=== PATIENT | female | born 1960 | race Caucasian/White ===

== ENCOUNTER → 2022-05-15 10:11 | Outpatient (BNVA) | payer MEDICAID, SELFPAY | PROVIDERS: PCP Student in an Organized Health Care Education/Training Program; Visit Provider Surgery | DX: K64.8 Other hemorrhoids (principal) | CPT/HCPCS: 46600; 99202 ==

== ENCOUNTER 2022-08-29 10:18 | Outpatient (REF) | payer MEDICAID, SELFPAY ==
--- NOTE | ~2022-08-29 | MM_ITS ---
EXAMINATION: MM DIAGNOSTIC DIGITAL BREAST TOMOSYNTHESIS, BILATERAL US DIAGNOSTIC ULTRASOUND BREAST, RIGHT CLINICAL INFORMATION: 61-year-old with pain lower inner right breast for 3-4 months with thickening noted by patient. Prior mammography 2018. TC score 8%. COMPARISON: Mammography: 06/06/2018, 03/01/2017 TECHNIQUE: Digital breast tomosynthesis is performed in both the craniocaudal and mediolateral oblique views along with computer-aided detection (CAD). Synthesized 2D images are generated from the tomosynthesis. Additional left MLO view is provided. Ultrasound right breast is targeted to the area of palpable concern lower inner quadrant. Grayscale imaging and color Doppler are performed without and with harmonics. FINDINGS: The breasts are almost entirely fatty (ACR BI-RADS breast composition Category a). Background stromal and fibroglandular densities are stable. Small circumscribed nodularity bilateral outer breasts likely insure mammary nodes are similar to prior studies. There is no interval mass or architectural abnormality or developing density. There is no skin thickening or coarsening of the Vic's ligaments. The axilla are unremarkable. There are bilateral scattered increased calcifications, many are vascular and some likely ductal secretory as well as a few isolated punctate and coarse calcifications. No focal suspicious calcifications or pleomorphic types. Ultrasound demonstrates no cystic or solid mass or architectural abnormality or focal duct ectasia. No hyperemia. No skin thickening or edema tracking in the soft tissue planes. Results are discussed with the patient at time of visit. MM/MM tomosynthesis diagnostic BI IMPRESSION: -No mammographic evidence of malignancy or inflammatory changes. -Unremarkable targeted right breast ultrasound. ASSESSMENT: BI-RADS 2: Benign RECOMMENDATION: 1. Patient's pain should be managed based on the clinical impression. If there is still clinically palpable concern, surgical consult may be considered for further evaluation. 2. Otherwise, routine annual screening mammography. This patient's information was entered into a reminder system with a target due date for their next mammogram.
== END 2022-08-29 10:19 | disposition home or self-care (01) ==
LOC: HO.MAMMO 10:18
PROVIDERS: PCP Student in an Organized Health Care Education/Training Program; Visit Provider Student in an Organized Health Care Education/Training Program
DX: N64.4 Mastodynia (principal)
CPT/HCPCS: 76642; 77062; 77066

== ENCOUNTER 2023-05-29 13:00 | Outpatient (REF) | payer MEDICAID, SELFPAY ==
--- NOTE | ~2023-05-29 | XR_ITS ---
EXAMINATION: XR CERVICAL SPINE, RIGHT SHOULDER CLINICAL INFORMATION: Neck pain with right spasms, limited rotation. Chronic right shoulder pain with limited motion. No injury. Patient states pain for 5 days. COMPARISON: None TECHNIQUE: 3 views of the cervical spine. 5 views of the right shoulder.. FINDINGS: CERVICAL SPINE: Minimal anterolisthesis of C5 on C6 with hypertrophic change. Straightening of the normal cervical lordosis. Cervical disc space heights are preserved. Spondylosis with hypertrophic change in the mid to lower cervical spine. RIGHT SHOULDER: Glenohumeral alignment preserved. Moderate degenerative changes with hypertrophic change in the acromioclavicular joint. Faint soft tissue calcifications adjacent to the superolateral aspect of the humeral head. XR/XR shoulder RT min 2V IMPRESSION: 1. Minimal anterolisthesis of C5 on C6 with hypertrophic change. 2. Moderate degenerative changes in the right acromioclavicular joint. Faint soft tissue calcifications adjacent to the superolateral aspect of the right humeral head.
--- NOTE | ~2023-05-29 | XR_ITS ---
EXAMINATION: XR CERVICAL SPINE, RIGHT SHOULDER CLINICAL INFORMATION: Neck pain with right spasms, limited rotation. Chronic right shoulder pain with limited motion. No injury. Patient states pain for 5 days. COMPARISON: None TECHNIQUE: 3 views of the cervical spine. 5 views of the right shoulder.. FINDINGS: CERVICAL SPINE: Minimal anterolisthesis of C5 on C6 with hypertrophic change. Straightening of the normal cervical lordosis. Cervical disc space heights are preserved. Spondylosis with hypertrophic change in the mid to lower cervical spine. RIGHT SHOULDER: Glenohumeral alignment preserved. Moderate degenerative changes with hypertrophic change in the acromioclavicular joint. Faint soft tissue calcifications adjacent to the superolateral aspect of the humeral head. XR/XR cervical spine 3V IMPRESSION: 1. Minimal anterolisthesis of C5 on C6 with hypertrophic change. 2. Moderate degenerative changes in the right acromioclavicular joint. Faint soft tissue calcifications adjacent to the superolateral aspect of the right humeral head.
== END 2023-05-29 13:01 | disposition home or self-care (01) ==
LOC: HO.HHCX 13:00
PROVIDERS: Visit Provider Family Medicine
DX: M54.2 Cervicalgia (principal); M25.511 Pain in right shoulder
CPT/HCPCS: 72040; 73030

== ENCOUNTER 2023-06-16 10:36 | Outpatient (REF) | payer MEDICAID, SELFPAY ==
[2023-06-16 14:55] LABS: Alanine Aminotransferase 34 U/L (0-31); Albumin Level 4.2 g/dL (3.5-5.0); Alkaline Phosphatase 77 U/L (39-117); Anion Gap 14 (12-20); Aspartate Amino Transferase 27 U/L (5-31); Bilirubin Direct 0.2 mg/dL (0.0-0.5); Bilirubin Total 0.5 mg/dL (0.0-1.0); Blood Urea Nitrogen 21 mg/dL (9-16); Calcium 9.5 mg/dL (8.4-10.2); Carbon Dioxide 28 mmol/L (22-29); Chloride 102 mmol/L (96-108); Cholesterol 120 mg/dL (<200); Estimated Glomerular Filt Rate > 60; Glucose Fasting 187 mg/dL (60-99); HDL Cholesterol 38 mg/dL (>40); LDL Cholesterol Calculated 58 mg/dL (<100); Potassium 4.1 mmol/L (3.3-5.1); Sodium 140 mmol/L (135-145); Total Protein 7.9 g/dL (6.5-8.0); Triglycerides 122 mg/dL (<150)
[2023-06-16 15:15] LABS: Microalbumin Urine < 5.0 mg/L
== END 2023-06-16 10:37 | disposition home or self-care (01) ==
LOC: HO.CHCLDS 10:36
PROVIDERS: Visit Provider Student in an Organized Health Care Education/Training Program
DX: E11.9 Type 2 diabetes mellitus without complications (principal); I10 Essential (primary) hypertension
CPT/HCPCS: 36415; 80048; 80061; 80076; 82043; 82570

== ENCOUNTER 2023-07-01 19:17 | Outpatient (REF) | payer MEDICAID, SELFPAY ==
[2023-07-03 23:43] LABS: HPV mRNA E6/E7 rflx Not Detected (Not Detected)
== END 2023-07-01 19:18 | disposition home or self-care (01) ==
LOC: HO.CHCLNP 19:17
PROVIDERS: Visit Provider Advanced Practice Midwife
DX: Z01.419 Encounter for gynecological examination (general) (routine) without abnormal findings (principal)
CPT/HCPCS: 87624; 88142

== ENCOUNTER 2023-09-03 09:36 | Outpatient (AMB) | payer MEDICAID, SELFPAY ==
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
[2023-09-03 09:42] VITALS: BMI 38.2
== END 2023-09-03 10:12 | disposition home or self-care (01) ==
PROVIDERS: PCP Student in an Organized Health Care Education/Training Program; Visit Provider Physician Assistant
DX: S46.001A Unspecified injury of muscle(s) and tendon(s) of the rotator cuff of right shoulder, initial encounter (principal)
CPT/HCPCS: 99203

== ENCOUNTER → 2023-09-03 09:36 | Outpatient (BNVA) | payer MEDICAID, SELFPAY | PROVIDERS: PCP Student in an Organized Health Care Education/Training Program; Visit Provider Physician Assistant | DX: S46.001A Unspecified injury of muscle(s) and tendon(s) of the rotator cuff of right shoulder, initial encounter (principal) | CPT/HCPCS: 99212 ==

== ENCOUNTER 2023-09-03 10:13 | Emergency (ER) | payer MEDICAID, SELFPAY ==
--- NOTE | ~2023-09-03 | XR_ITS ---
EXAMINATION: XR CHEST CLINICAL INFORMATION: Cough COMPARISON: None available. TECHNIQUE: 2 views of the chest were obtained. FINDINGS: The cardiac silhouette does not appear enlarged. There is question of central bronchial wall thickening. There may be subsegmental atelectasis in the right upper lung no evidence of pneumonia. No pleural effusion or pneumothorax. Degenerative changes of the spine XR/XR chest 2V IMPRESSION: Question central bronchial wall thickening and subsegmental atelectasis in the right upper lung. No evidence of pneumonia.
[2023-09-03 11:13] VITALS: BP 136/66; PULSE 72; RESP 17; TEMP 36.6; O2SAT 98; BMI 38.2
--- NOTE | 2023-09-03 12:16 | ED.GENADULT ---
HPI - General Adult General Chief complaint: Upper Respiratory Symptoms Stated complaint: Cough Time Seen by Provider: 09/03/23 12:16 Source: patient Mode of arrival: ambulatory Limitations: no limitations History of Present Illness HPI narrative: Patient is a 62 year old assigned female at with a history of HTN and DM presenting to the emergency department today with cough and congestion. Patient states that over the last 3 days she has had a cough and congestion. Patient denies any dizziness, lightheadedness, abdominal pain, nausea, vomiting, fever, chills, blurry vision, double vision, loss of vision, chest pain, difficulty breathing, shortness of breath, back pain, night sweats, pain with urination, increased urinary frequency, increased urinary urgency, blood in her urine or stool, syncope or a near syncopal episode, recent trauma or falls, bowel incontinence, bladder incontinence, bowel retention, bladder retention, or any other complaints at this time. Onset (ago): day(s) (3) Severity: mild Severity scale (1-10): 3 Relieving factors: none Exacerbating factors: none Associated symptoms: cough Treatments prior to arrival: none Related Data Home Medications Medication Instructions Recorded Confirmed albuterol sulfate 90 mcg/actuation 2 puff inhalation QID 05/15/22 09/03/23 aerosol inhaler (ProAir HFA) atorvastatin 40 mg tablet 40 mg PO DAILY 05/15/22 09/03/23 blood sugar diagnostic (FreeStyle #10 ea 05/15/22 09/03/23 Lite Strips) chlorhexidine gluconate 0.12 % ml PO DAILY 05/15/22 09/03/23 mouthwash cyclobenzaprine 10 mg tablet 10 mg PO DAILY 05/15/22 09/03/23 docusate sodium 100 mg capsule 100 mg PO BID 05/15/22 09/03/23 empagliflozin 25 mg tablet 25 mg PO QAM 05/15/22 09/03/23 (Jardiance) glimepiride 4 mg tablet 4 mg PO BID 05/15/22 09/03/23 glipizide 10 mg tablet 20 mg PO BID 05/15/22 09/03/23 hydrochlorothiazide 25 mg tablet 25 mg PO DAILY 05/15/22 09/03/23 ibuprofen 800 mg tablet 800 mg PO TID PRN pain 05/15/22 09/03/23 linaclotide 290 mcg capsule 290 mcg PO DAILY 05/15/22 09/03/23 (Linzess) metformin 1,000 mg tablet 1,000 mg PO 05/15/22 09/03/23 montelukast 10 mg tablet 10 mg PO DAILY 05/15/22 09/03/23 omeprazole 40 mg capsule,delayed 40 mg PO BID 05/15/22 09/03/23 release ondansetron HCl 4 mg tablet 4 mg PO Q8H PRN 05/15/22 09/03/23 peg 3350-electrolytes 236 ml PO 05/15/22 05/15/22 gram-22.74 gram-6.74 gram-5.86 gram solution (GaviLyte-G) polyethylene glycol 3350 17 gram 17 g PO TID 05/15/22 05/15/22 oral powder packet simethicone 180 mg capsule (Gas 180 - 360 mg PO DAILY PRN 05/15/22 09/03/23 Relief (simethicone)) sitagliptin phosphate 100 mg 100 mg PO DAILY 05/15/22 09/03/23 tablet (Januvia) sumatriptan succinate 50 mg tablet 0 mg PO 05/15/22 09/03/23 Previous Rx's Medication Instructions Recorded psyllium seed (sugar) oral powder 1 tbsp PO BID #1,254 grams 05/15/22 (Metamucil (sugar) oral powder) celecoxib 200 mg capsule (Celebrex) 200 mg PO BID 30 days #60 caps 09/03/23 Allergies Allergy/AdvReac Type Severity Reaction Status Date / Time penicillin Allergy Mild Anaphylaxis Uncoded 09/03/23 11:12 Review of Systems Constitutional: Constitutional: Reports no additional constitutional complaints, Denies chills, Denies fever(s) and Denies night sweats Eyes: Eyes: Reports no additional eye complaints, Denies blurry vision, Denies change in vision, Denies diplopia, Denies eye discharge, Denies loss of vision and Denies eye pain ENT: Denies dizziness and Reports nasal congestion Cardiovascular: Cardiovascular: Reports no additional cardiovascular complaints, Denies chest pain, Denies lightheadedness, Denies Loss of Consciousness and Denies dyspnea Respiratory: Respiratory: Reports no additional respiratory complaints, Reports cough and Denies dyspnea Gastrointestinal: Gastrointestinal: Reports no additional gastrointestinal complaints, Denies abdominal pain, Denies melena, Denies hematochezia, Denies change in bowel habits and Denies change in stool character Genitourinary: Genitourinary: Denies hematuria, Denies urinary frequency, Denies dysuria, Denies urinary incontinence, Denies urinary hesitancy and Denies urinary urgency Musculoskeletal: Musculoskeletal: Reports no additional musculoskeletal complaints, Denies numbness and Denies tingling Neurologic: Denies dizziness, Denies loss of vision, Denies numbness and Denies tingling Psychiatric: Psychiatric: Reports no additional psychiatric complaints Endocrine: Endocrine: Reports no additional endocrine complaints Hematologic/Lymphatic: Hematologic/Lymphatic: Reports no additional hematologic/lymphatic complaints Allergic/Immunologic: Allergic/Immunologic: Reports no additional allergic/immunologic complaints [facility] Past Medical History Attestation statement: The following information was validated with the patient. Source: old records reviewed and nursing notes reviewed Medical History Hemorrhoids with complication Hypertension Diabetes mellitus Surgical History History of appendectomy History of hysterectomy Family History Family History Mother No problems noted. Father No problems noted. Sister No problems noted. Social History Social History Alcohol intake: never Patient Tobacco Use Status: Former Tobacco user Quit Date: AGE 15 Advance Directives: No Advance Directives Information Provided: No Current occupation: right hand dominant Physical Exam ED Vital Signs: Vital Signs - 24 hr 09/03/23 11:13 Temperature 98 F Pulse Rate 72 Respiratory Rate 17 Blood Pressure 136/66 Pulse Oximetry 98 Oxygen Delivery Method Room Air BMI result Body Mass Index 38.2 Const General: cooperative, no acute distress, alert and awake Nutritional Appearance: well nourished Orientation/consciousness: patient oriented x3 Limitations: no limitations HENMT Head: Yes normal to inspection and Yes atraumatic Ears: hearing grossly normal bilaterally and external ears normal General nose exam: Normal external nose present, no nasal discharge noted and no epistaxis Face and sinus: Yes normal facial exam, No abrasion and No laceration Mouth: Normal oral and palatal mucosa present, no drooling and no muffled voice Eyes General: appearance normal, both eyes and all related structures Periorbital: periorbital findings normal Eyelids: Yes eyelids normal Conjunctivae: conjunctivae normal Pupils: Equal, round and reactive pupils present EOM: EOMs intact bilaterally Neck Neck: Yes normal visual inspection, Yes full ROM and Yes no lymphadenopathy Chest Chest palpation & inspection: normal inspection of the chest Resp Effort & Inspection: normal respiratory effort and able to speak in complete sentences GI Inspection: Yes normal to inspection Neuro General: patient oriented x3 and moves all extremities Cranial nerves: Yes Equal, round and reactive pupils present Cognition (Neuro): normal cognition Motor exam (neuro): 5/5 motor strength present throughout Sensory Exam: Normal double simultaneous stimulation for sensation Coordination: [id number] test normal Extrem General: Yes normal to inspection, Yes full ROM and Yes capillary refill normal Psych Appearance: grossly normal Mental Status: mental status grossly normal Affect: normal affect Attitude: cooperative Thought process: Normal thought process present Thought content: Normal thought content present Insight: Good insight present (Psych) Medical Decision Making Medical Decision Making [facility] Narrative: Patient is a 62 year old assigned female at with a history of DM and HTN presenting to the emergency department today with a cough and congestion. Patient's physical exam was unremarkable. Patient's chest x-ray showed no acute process. Patient's influenza test was positive. Patient's COVID-19 and RSV tests were negative. I explained my physical exam findings as well as all test results to the patient. I answered all questions asked by the patient. I stressed the importance of the patient taking her medication as prescribed. I stressed the importance of the patient following up with her primary care provider. I stressed the importance of the patient returning to the emergency department immediately if her symptoms were to worsen or if she were to develop any dizziness, shortness of breath, difficulty breathing, chest pain, blurry vision, loss of vision, nausea, vomiting, abdominal pain, fever, chills, back pain, or any other complaints. Patient verbalized agreement and understanding with this treatment plan and discharge. Differential Diagnosis Differential Diagnoses: The differential diagnosis associated with the presentation includes Influenza COVID-19 RSV Admission/Observation Consideration of admission/observation: Escalation of care including admission/observation considered Patient would have been admitted to the hospital had her work up had any findings where hospital admission was appropriate and her clinical presentation warranted hospital admission. Lab Data [facility] Lab Attestation statement: I reviewed the patient's lab results. My interpretation of these results are in the MDM Rationale portion of this note. Labs: Lab Results 09/03/23 Range/Units 12:41 Influenza Type A (PCR) POSITIVE A (Negative) Influenza Type B (PCR) NEGATIVE (Negative) RSV RNA Qual (PCR) NEGATIVE (Negative) SARS-CoV-2 RNA (RT-PCR) NEGATIVE (Negative) Independent Interpretation I performed an independent interpretation of an: Plain X-Ray Interpretation: My interpretation is in agreement with the radiologist's impression of this imaging study. EXAMINATION: XR CHEST CLINICAL INFORMATION: Cough COMPARISON: None available. TECHNIQUE: 2 views of the chest were obtained. FINDINGS: The cardiac silhouette does not appear enlarged. There is question of central bronchial wall thickening. There may be subsegmental atelectasis in the right upper lung no evidence of pneumonia. No pleural effusion or pneumothorax. Degenerative changes of the spine XR/XR chest 2V IMPRESSION: Question central bronchial wall thickening and subsegmental atelectasis in the right upper lung. No evidence of pneumonia. Dictated By: Chelsea Marin MD Signed By: Electronically signed by Chelsea Marin MD 09/03/23 8354 Radiology Impression Discussion of test interpretation with radiology: I have reviewed the radiologist's reading. Chronic Conditions Patient?s care impacted by: Diabetes and Hypertension Discharge Plan Discharge Clinical Impression: Influenza Patient Disposition: Home, Self-Care Instructions: Influenza (DC) Additional Instructions: Follow up with your primary care provider. Return to the emergency department immediately if your symptoms worsen or if you develop any dizziness, shortness of breath, difficulty breathing, chest pain, blurry vision, loss of vision, nausea, vomiting, abdominal pain, fever, chills, back pain, or any other complaints. Prescriptions: No Action albuterol sulfate [ProAir HFA] 90 mcg/actuation HFA aerosol inhaler 2 puff inhalation QID metformin 1,000 mg tablet 1,000 mg PO omeprazole 40 mg capsule,delayed release(DR/EC) 40 mg PO BID atorvastatin 40 mg tablet 40 mg PO DAILY glipizide 10 mg tablet 20 mg PO BID ibuprofen 800 mg tablet 800 mg PO TID PRN (Reason: pain) Januvia 100 mg tablet 100 mg PO DAILY hydrochlorothiazide 25 mg tablet 25 mg PO DAILY ondansetron HCl 4 mg tablet 4 mg PO Q8H PRN Jardiance 25 mg tablet 25 mg PO QAM montelukast 10 mg tablet 10 mg PO DAILY (DME) FreeStyle Lite Strips Strip See Rx Instructions .ROUTE TID Qty: 10 Rx Instructions: As directed sumatriptan succinate 50 mg tablet 0 mg PO Linzess 290 mcg capsule 290 mcg PO DAILY cyclobenzaprine 10 mg tablet 10 mg PO DAILY chlorhexidine gluconate 0.12 % mouthwash PO DAILY polyethylene glycol 3350 17 gram powder in packet 17 g PO TID docusate sodium 100 mg capsule 100 mg PO BID glimepiride 4 mg tablet 4 mg PO BID simethicone [Gas Relief (simethicone)] 180 mg capsule 180 - 360 mg PO DAILY PRN peg 3350-electrolytes [GaviLyte-G] 236-22.74-6.74 -5.86 gram recon soln PO Metamucil (sugar) Powder 1 tbsp PO BID Qty: 1254 0RF celecoxib [Celebrex] 200 mg capsule 200 mg PO BID 30 Days Qty: 60 3RF Referrals: Nakia Sparrow MD [Primary Care Provider] - Interventions: ED Discharge Assessment Last Done: 09/03/23 13:51 Discharge Date/Time: 09/03/23 13:51 Print Language: Burkinan
[2023-09-03 13:25] LABS: Influenza A PCR POSITIVE (Negative); Influenza B PCR NEGATIVE (Negative); Resp Syncy Virus RNA Qual PCR NEGATIVE (Negative); SARS COV2 PCR INHOUSE NEGATIVE (Negative)
== END 2023-09-03 13:51 | disposition home or self-care (01) ==
PROVIDERS: Emergency Provider Emergency Medicine Emergency Medical Services; PCP Student in an Organized Health Care Education/Training Program
DX: J10.1 Influenza due to other identified influenza virus with other respiratory manifestations (principal); R05.9 Cough, unspecified; Z20.822 Contact with and (suspected) exposure to COVID-19; Z20.828 Contact with and (suspected) exposure to other viral communicable diseases
CPT/HCPCS: 0241U; 71046; 99282; 99283

== ENCOUNTER 2023-09-24 12:36 | Outpatient (REF) | payer MEDICAID, SELFPAY ==
--- NOTE | ~2023-09-24 | MM_ITS ---
EXAMINATION: MM SCREENING DIGITAL BREAST TOMOSYNTHESIS, BILATERAL CLINICAL INFORMATION: Screening. Asymptomatic. COMPARISON: Mammography: This study is compared with prior exams dating back to 2017. TECHNIQUE: Digital breast tomosynthesis is performed in both the craniocaudal and mediolateral oblique views along with computer-aided detection (CAD). Synthesized 2D images are generated from the tomosynthesis. FINDINGS: There are scattered areas of fibroglandular density (ACR BI-RADS breast composition Category b). There are grouped, linearly oriented calcifications in the upper outer quadrant of the right breast. Additional mammographic imaging with magnification is advised. In the deep third of the left breast, just medial to the posterior nipple line, there are grouped calcifications which warrant additional mammographic imaging with magnification. There are no masses or areas of architectural distortion in either breast. MM/MM tomosynthesis screening BI IMPRESSION: Grouped calcifications in the each breast warrant additional mammographic imaging with magnification. ASSESSMENT: BI-RADS BI-RADS 0 - Incomplete: Needs additional Imaging. RECOMMENDATION: Additional views of both breasts. Radiology department staff will contact the patient for additional imaging. Additional Imaging required This examination should not preclude the clinical evaluation of a suspicious palpable abnormality. This patient's information was entered into a reminder system with a target due date for their next mammogram.
== END 2023-09-24 12:37 | disposition home or self-care (01) ==
LOC: HO.MAMMO 12:36
PROVIDERS: PCP Student in an Organized Health Care Education/Training Program; Visit Provider Student in an Organized Health Care Education/Training Program
DX: Z12.31 Encounter for screening mammogram for malignant neoplasm of breast (principal)
CPT/HCPCS: 77063; 77067

== ENCOUNTER → 2023-09-24 13:30 | Outpatient (BNV) | payer MEDICAID, SELFPAY | PROVIDERS: PCP Student in an Organized Health Care Education/Training Program; Visit Provider Radiology Diagnostic Radiology | DX: Z12.31 Encounter for screening mammogram for malignant neoplasm of breast (principal) | CPT/HCPCS: 77063; 77067 ==

== ENCOUNTER 2023-10-15 08:30 | Outpatient (REF) | payer MEDICAID, SELFPAY ==
--- NOTE | ~2023-10-15 | MM_ITS ---
EXAMINATION: MM DIAGNOSTIC DIGITAL BREAST TOMOSYNTHESIS, BILATERAL CLINICAL INFORMATION: Follow-up calcifications bilateral breasts seen on screening exam 09/24/2023; right breast upper outer quadrant, posterior one third, left breast lower inner quadrant, far posterior one third. COMPARISON: Mammography: 09/24/2023 screening, 08/29/2022, 06/06/2018, 03/01/2017. TECHNIQUE: Digital breast tomosynthesis is performed utilizing the following views: RIGHT spot magnification 2-D CC x2 and ML x1; LEFT spot magnification CC x2, and ML x3. FINDINGS: There are scattered areas of fibroglandular density (ACR BI-RADS breast composition Category b). RIGHT BREAST: -Within the upper outer quadrant of the right breast, far posterior one third, there is a linear group of loosely grouped calcifications, the majority of which have a coarse appearance with mild pleomorphism, but no branching or casting forms. When compared with 2021, these were present and appear to have evolved mildly since in a benign fashion without aggressive changes. These are most likely benign and six-month interval follow-up recommended. LEFT BREAST: -Within the lower inner quadrant of the left breast, far posterior one third, there is a loose group of somewhat coarse calcifications with mild pleomorphism, but no branching or casting forms, similar appearance to the contralateral side. When compared with 2021, these were present and appear to involve mildly since in a benign fashion without aggressive changes. These are most likely benign and six-month interval follow-up recommended. MM/MM added views BI IMPRESSION: Bilateral groups of probably benign calcifications as detailed, for which six-month follow-up bilateral diagnostic mammogram recommended to include standard magnification views. ASSESSMENT: BI-RADS BI-RADS 3 - Probably benign finding(s) - 6 month follow-up suggested RECOMMENDATION: 6 Month F/U Results were provided to the patient at time of visit by the technologist. This patient's information was entered into a reminder system with a target due date for their next mammogram.
== END 2023-10-15 08:31 | disposition home or self-care (01) ==
LOC: HO.MAMMO 08:30
PROVIDERS: PCP Student in an Organized Health Care Education/Training Program; Visit Provider Student in an Organized Health Care Education/Training Program
DX: R92.1 Mammographic calcification found on diagnostic imaging of breast (principal)
CPT/HCPCS: 77062; 77066

== ENCOUNTER → 2023-10-15 09:00 | Outpatient (BNV) | payer MEDICAID, SELFPAY | PROVIDERS: PCP Student in an Organized Health Care Education/Training Program; Visit Provider Radiology Diagnostic Radiology | DX: Z12.31 Encounter for screening mammogram for malignant neoplasm of breast (principal) | CPT/HCPCS: 77062; 77066 ==

== ENCOUNTER 2023-11-20 09:08 | Outpatient (AMB) | payer MEDICAID, SELFPAY ==
--- NOTE | 2023-11-20 09:11 | A.OFFVIS_ITS ---
Intake Vital Signs 11/20/23 09:14 Height 5 ft 2 in Weight 209 lb BMI 38.2 Intake Visit Reasons: ov- MRI review Intake Note: Jackeline a 62 year old right hand dominant female presents today for an MRI review of right shoulder. Patient reports no change in her symptoms however with cold weather her pain increases. Allergies penicillin Allergy (Mild, Uncoded 11/20/23 09:14) Anaphylaxis HPI ov- MRI review HPI Details 63-year-old right hand dominant female mandy quesada returns to the office today for an MRI review of right shoulder. She reports she has no changes in her symptoms however her pain is worsened with cold weather and reaching overhead and cross body. She has done PT on two separate ocassions x 1 month with worsening symptoms. [facility] Medical History Hemorrhoids with complication Hypertension Diabetes mellitus Surgical History History of appendectomy History of hysterectomy Family History Mother No problems noted. Father No problems noted. Sister No problems noted. Social History Alcohol intake: never Patient Tobacco Use Status: Former Tobacco user Quit Date: AGE 15 Current occupation: right hand dominant Review of Systems Const All systems reviewed & are unremarkable except as noted in HPI and below Physical Exam Vital Signs: BMI result Body Mass Index 38.2 Extrem Other: Right shoulder normal to inspection. Tenderness over the AC joint of the shoulder. Forward flexion to 175, external rotation to 90, internal rotation to S1. 5/5 RTC strength. Positive cross body reach. NVI. Results Reviewed Results Reviewed: MR SHOULDER WITHOUT CONTRAST RIGHT 09/11/23 INDICATION: Pain. No prior surgery. Limited range of motion. Evaluate for rotator cuff tear. COMPARISON: None. TECHNIQUE: Right shoulder MRI was performed without contrast and 6 diagnostic sequences were obtained. FINDINGS: The acromioclavicular joint exhibits mild irregularity the joint margins, in keeping with low-grade degeneration (coronal T2 images 8 and 9). Undersurface of the acromion is slightly curved. Coracoclavicular and coracoacromial ligaments are intact. No fluid is present in the subacromial/subdeltoid bursa. Rotator cuff muscle bulk is preserved. No rotator cuff tear. The supraspinatus tendon footprint exhibits intermediate interstitial T2 fat-sat signal, in keeping with minimal tendinosis (coronal T2 fat sat image 8). Infraspinatus, teres minor and subscapularis tendons are intact. Long head biceps tendon is intact. The glenohumeral joint is congruent. No joint effusion. Glenohumeral cartilage is preserved. No labral detachment. Bone signal is normal. No soft tissue collection. IMPRESSION: 1. Minimal supraspinatus footprint tendinosis. 2. Acromioclavicular joint low-grade degeneration. Electronically signed on 09/12/2023 9:46:00 AM by Jeronimo Keita M.D. Assessment & Plan Assessment & Plan (1) Osteoarthritis of right acromioclavicular joint: Code(s): M19.011 - Primary osteoarthritis, right shoulder (2) Right shoulder tendonitis: Code(s): M77.8 - Other enthesopathies, not elsewhere classified Plan We reviewed the results in her MRI along with the options available which include continued physical therapy which she would like to hold off because she has already had 2 visits of therapy without significant relief. I did encouraged working on home exercises for scapular stabilization. I also discussed modifications of activities and no reaching above the shoulder height. We will also move forward with AC joint injection under fluoroscopy at the hospital. She is content with this plan and will follow-up moving forward. Orders: Orders FL arthrogram shoulder RT Today M19.011 - Primary osteoarthritis, right shoulder Patient Instructions: Scribed for Alva Barbour PA-C, by Godwin Lees medical records receptionist, on 11/20/2023 at 9:30 AM TOMY. Siria, Alva Barbour PA-C, have personally reviewed and agree with the information entered by the scribe. Coding Level of Care Code Est Pt Level 3 (35043) Diagnoses Osteoarthritis of right acromioclavicular joint M19.011 Right shoulder tendonitis M77.8
[2023-11-20 09:14] VITALS: BMI 38.2
== END 2023-11-20 09:54 | disposition home or self-care (01) ==
PROVIDERS: PCP Student in an Organized Health Care Education/Training Program; Visit Provider Physician Assistant
DX: M19.011 Primary osteoarthritis, right shoulder (principal); M77.8 Other enthesopathies, not elsewhere classified
CPT/HCPCS: 99213

== ENCOUNTER → 2023-11-20 09:08 | Outpatient (BNVA) | payer MEDICAID, SELFPAY | PROVIDERS: PCP Student in an Organized Health Care Education/Training Program; Visit Provider Physician Assistant | DX: M19.011 Primary osteoarthritis, right shoulder (principal); M77.8 Other enthesopathies, not elsewhere classified | CPT/HCPCS: 99212 ==

== ENCOUNTER 2023-12-17 10:23 | Outpatient (AMB) | payer MEDICAID, SELFPAY ==
--- NOTE | 2023-12-17 10:31 | A.OFFVIS_ITS ---
Intake Vital Signs 12/17/23 10:43 Height 5 ft 2 in Weight 214 lb BMI 39.1 BP 134/76 Blood Pressure Location Lt brachial Position Sitting Pulse 78 Intake Visit Reasons: Colonoscopy Screening Intake Note: Patient new consult for 2nd pre colonoscopy screening. Patient cc: abdominal bloating with LLQ pain, acid reflex with burning sensation and nauseas, constipation with some blood and hemorrhoids on and off. Need medication for nauseas and constipation med is not working. She is doing BM one a week or sometimes every 2 weeks and it is really difficult to do BM even she is eating more than 30 prunes and still dont do regular BM. 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 Accompanied by: Self / Same As Patient Allergies penicillin Allergy (Mild, Uncoded 11/20/23 09:14) Anaphylaxis Medication List - Last Reconciled 12/17/23 by Angella Monroe PA-C albuterol sulfate 90 mcg/actuation (ProAir HFA) 2 puffs inhalation QID atorvastatin 40 mg PO DAILY blood sugar diagnostic (FreeStyle Lite Strips) As directed celecoxib (Celebrex) 200 mg PO BID 30 days chlorhexidine gluconate 0.12% mL PO DAILY cyclobenzaprine 10 mg PO DAILY docusate sodium 100 mg PO BID empagliflozin (Jardiance) 25 mg PO QAM glimepiride 4 mg PO BID glipizide 20 mg PO BID hydrochlorothiazide 25 mg PO DAILY metformin 1,000 mg PO montelukast 10 mg PO DAILY omeprazole 40 mg PO BID ondansetron HCl 4 mg PO Q8H PRN polyethylene glycol 3350 17 grams PO TID simethicone (Gas Relief (simethicone)) 180 - 360 mg PO DAILY PRN sitagliptin phosphate (Januvia) 100 mg PO DAILY sumatriptan succinate 0 mg PO HPI HPI Comments History of Present Illness Details A 63-year-old DM-female referred for screening colonoscopy presents with severe constipation. Last colonoscopy in [place] about 11 years She is tried several OTC without much-benefit- miralax-QD- linzess not approved by insurance- cost was $500- she has had this ongoing for at least 26 years BM 1 time a week - She does not check blood sugars- She complains of daily nausea-unable to associate with anything specific, early satiety No N/D/ abdominal pain- fever or chills PFSH Medical History Hemorrhoids with complication Hypertension Diabetes mellitus Surgical History History of appendectomy History of hysterectomy Family History Mother No problems noted. Father No problems noted. Sister No problems noted. Social History Alcohol intake: never Patient Tobacco Use Status: Former Tobacco user Quit Date: AGE 15 Current occupation: right hand dominant Review of Systems Const All systems reviewed & are unremarkable except as noted in HPI and below ENT Denies dysphagia Card Denies chest pain and Denies dyspnea Resp Denies dyspnea GI Denies abdominal pain, Reports constipation, Denies dysphagia, Reports early satiety, Reports heartburn and Reports nausea Physical Exam Vital Signs: Last Vital Signs Pulse 78 12/17/23 10:43 BP 134/76 12/17/23 10:43 BMI result Body Mass Index 39.1 Alert and oriented no acute distress obese 63-year-old female Anicteric Cardiovascular regular rate rhythm no murmurs Lungs clear to auscultation bilaterally no wheezes rales or rhonchi Abdomen obese, positive bowel sounds soft nontender Extremities without edema clubbing or Assessment & Plan Assessment & Plan (1) Chronic constipation: Comment: Lifelong constipation-question consistency of bowel Code(s): K59.09 - Other constipation Plan: consistent bowel regimen hydrate HFD (2) Poor historian: Comment: Unable to give detail, Code(s): Z78.9 - Other specified health status (3) Nausea: Comment: Daily nausea may likely be-gastroparesis Code(s): R11.0 - Nausea Plan: , EGD (4) Early satiety: Comment: Diabetes-she does not monitor, medications may play a role Code(s): R68.81 - Early satiety Plan: GES rule out gastroparesis Plan EGD/colonoscopy PEG miralax BID x 1 week prior to colonoscopy stop JARDIANCE x 3 days before- JANUVIA X 7 DAYS Other oral hypoglycemics omit on prep day and procedure day Orders: Orders Colonoscopy - GI Use Only Today E11.9 - Type 2 diabetes mellitus without complications, K59.09 - Other constipation NM gastric emptying study Today E11.9 - Type 2 diabetes mellitus without complications, R11.0 - Nausea, R68.81 - Early satiety Medications: New docusate sodium (Colace) 200 mg (2 x 100 mg) PO BEDTIME 30 days 60 caps 5RF sennosides (senna) 8.6 mg PO DAILY PRN 30 caps 1RF constipation bisacodyl (Dulcolax (bisacodyl)) [address] DAILY PRN 20 ea 0RF constipation peg-electrolyte soln 420 gram Start at 6:00pm the evening before procedure, drink one 8oz glass every 15 minutes until complete 240 mL PO ONCE 1 day PRN 4,000 mL 0RF laxative effect Patient Instructions: Consistent bowel regimen Reviewed, reinforced importance of follow through Will see her back for progress Will get her scheduled for EGD colonoscopy Reviewed procedure, rare risks need for escort Prep-extended with MiraLax once twice daily for 1 week prior to procedure We discussed at length medications that will be discontinued as above She will likely need reinforcement Will see her back prior to procedures and after GES Encouraged to call with questions or concerns Coding Level of Care Code New Pt Level 4 (41003) Diagnoses Chronic constipation K59.09 Poor historian Z78.9 Nausea R11.0 Early satiety R68.81 Time Spent (min) 35
[2023-12-17 10:43] VITALS: BP 134/76; PULSE 78; BMI 39.1
== END 2023-12-17 12:25 | disposition home or self-care (01) ==
PROVIDERS: PCP Student in an Organized Health Care Education/Training Program; Visit Provider Physician Assistant
DX: K59.09 Other constipation (principal); Z78.9 Other specified health status; R11.0 Nausea; R68.81 Early satiety
CPT/HCPCS: 99204

== ENCOUNTER → 2023-12-17 10:23 | Outpatient (BNVA) | payer MEDICAID, SELFPAY | PROVIDERS: PCP Student in an Organized Health Care Education/Training Program; Visit Provider Physician Assistant | DX: K59.09 Other constipation (principal); R11.0 Nausea; R68.81 Early satiety; Z78.9 Other specified health status | CPT/HCPCS: 99212 ==

== ENCOUNTER 2023-12-29 14:24 | Emergency (ER) | payer MEDICAID, SELFPAY ==
--- NOTE | ~2023-12-29 | CT_ITS ---
EXAMINATION: CT ABDOMEN AND PELVIS WITHOUT CONTRAST CLINICAL INFORMATION: Left flank pain. COMPARISON: MRI abdomen dated 01/19/2018. TECHNIQUE: Multidetector volumetric imaging was performed from the superior aspect of the liver through the pubic symphysis. Sagittal and coronal reformatted images were obtained on the technologist's workstation. This CT examination was performed using dose optimization techniques as appropriate, variously including the following: *Automated exposure control *Adjustment of mA and/or kV according to patient size (this includes techniques or standardized protocols for targeted exams where dose is matched to indication/reason for exam; i.e. extremities or head) *Use of iterative reconstruction technique DLP: 738 mGy-cm FINDINGS: LUNG BASES: The visualized lung bases are unremarkable. LIVER, GALLBLADDER, AND BILIARY TREE: The liver is normal in size, shape, and attenuation. No focal hepatic lesion or biliary ductal dilatation is present. The gallbladder is unremarkable with no evidence of radiopaque gallstones, gallbladder wall thickening, or obvious pericholecystic inflammatory changes. PANCREAS: Unremarkable. SPLEEN: Unremarkable. ADRENAL GLANDS: Unremarkable. KIDNEYS AND URETERS: Right kidney: The right kidney is normal in size, shape, and attenuation. There are 2 small calculi within the lower pole of the right kidney measuring 5.8 mm and 1.4 mm, respectively. No hydronephrosis or hydroureter. No perinephric stranding. Left kidney: The left kidney is normal in size, shape, and attenuation. No hydronephrosis or hydroureter. No renal calculi. No perinephric stranding. BLADDER: Unremarkable. GASTROINTESTINAL TRACT: The small bowel and colon are normal in caliber. There is no pericolonic inflammatory stranding. The appendix is not definitively identified. However, there are no inflammatory changes within the right lower quadrant to indicate an acute inflammatory process. ABDOMINAL WALL: There is a small fat-containing umbilical hernia. LYMPH NODES: No lymphadenopathy. VASCULAR: No abdominal aortic aneurysm. PELVIC VISCERA: Unremarkable. No adnexal mass. OSSEOUS STRUCTURES: Unremarkable. CT/CT abdomen pelvis wo IV con IMPRESSION: No acute intra-abdominal/intrapelvic abnormality. There are 2 small, nonobstructive calculi within the lower pole of the right kidney measuring 5.8 mm and 1.4 mm, respectively. No left renal calculi. No urinary bladder calculi. Fleischner guidelines were followed.
[2023-12-29 15:27] VITALS: BP 155/54; PULSE 93; RESP 16; TEMP 36.6; O2SAT 97; BMI 39.6
--- NOTE | 2023-12-29 15:27 | ED.GENADULT ---
HPI - General Adult General Chief complaint: Abdominal Pain Stated complaint: L flank pain Time Seen by Provider: 12/29/23 19:05 History of Present Illness HPI narrative: The patient is a 63-year-old female who says that yesterday evening 17:00 she developed pain on her left side that has been persistent throughout the night and all day today. She rates her pain as a 9/10. She has never had pain like this before. She has had nausea but no vomiting. No fevers. Related Data Home Medications ?Medication ?Instructions ?Recorded ?Confirmed albuterol sulfate 90 mcg/actuation 2 puff inhalation QID 05/15/22 09/03/23 aerosol inhaler (ProAir HFA) atorvastatin 40 mg tablet 40 mg PO DAILY 05/15/22 09/03/23 blood sugar diagnostic (FreeStyle #10 ea 05/15/22 09/03/23 Lite Strips) chlorhexidine gluconate 0.12 % ml PO DAILY 05/15/22 09/03/23 mouthwash cyclobenzaprine 10 mg tablet 10 mg PO DAILY 05/15/22 09/03/23 docusate sodium 100 mg capsule 100 mg PO BID 05/15/22 09/03/23 empagliflozin 25 mg tablet 25 mg PO QAM 05/15/22 09/03/23 (Jardiance) glimepiride 4 mg tablet 4 mg PO BID 05/15/22 09/03/23 glipizide 10 mg tablet 20 mg PO BID 05/15/22 09/03/23 hydrochlorothiazide 25 mg tablet 25 mg PO DAILY 05/15/22 09/03/23 metformin 1,000 mg tablet 1,000 mg PO 05/15/22 09/03/23 montelukast 10 mg tablet 10 mg PO DAILY 05/15/22 09/03/23 omeprazole 40 mg capsule,delayed 40 mg PO BID 05/15/22 09/03/23 release ondansetron HCl 4 mg tablet 4 mg PO Q8H PRN 05/15/22 09/03/23 polyethylene glycol 3350 17 gram 17 g PO TID 05/15/22 05/15/22 oral powder packet simethicone 180 mg capsule (Gas 180 - 360 mg PO DAILY PRN 05/15/22 09/03/23 Relief (simethicone)) sitagliptin phosphate 100 mg 100 mg PO DAILY 05/15/22 09/03/23 tablet (Januvia) sumatriptan succinate 50 mg tablet 0 mg PO 05/15/22 09/03/23 Previous Rx's ?Medication ?Instructions ?Recorded celecoxib 200 mg capsule (Celebrex) 200 mg PO BID 30 days #60 caps 09/03/23 bisacodyl 10 mg rectal suppository [address] DAILY PRN constipation 12/17/23 (Dulcolax (bisacodyl)) #20 ea docusate sodium 100 mg capsule 200 mg (2 x 100 mg) PO BEDTIME 30 12/17/23 (Colace) days #60 caps peg-electrolyte solution 420 gram 240 ml PO ONCE PRN laxative effect 12/17/23 oral solution 1 day #4,000 mL sennosides 8.6 mg capsule (senna) 8.6 mg PO DAILY PRN constipation 12/17/23 #30 caps Allergies Allergy/AdvReac Type Severity Reaction Status Date / Time Penicillins Allergy Severe Anaphylaxis Verified 12/29/23 15:30 Review of Systems Review of Systems: Yes all other systems are reviewed and are negative [facility] Past Medical History Medical History Hemorrhoids with complication Hypertension Diabetes mellitus Surgical History History of appendectomy History of hysterectomy Family History Family History Mother No problems noted. Father No problems noted. Sister No problems noted. Social History Social History Alcohol intake: never Patient Tobacco Use Status: Former Tobacco user Quit Date: AGE 15 Smoked in Last 30 Days: No Use of substances other than those prescribed or required for medical reasons: No Advance Directives: No Advance Directives Information Provided: No Patient : No Current occupation: right hand dominant Physical Exam ED Vital Signs: Vital Signs - 24 hr 12/29/23 15:27 12/29/23 19:06 12/29/23 21:44 Temperature 97.9 F 99.2 F 97.7 F Pulse Rate 93 80 68 Respiratory Rate 16 17 17 Blood Pressure 155/54 H 124/61 143/64 H Pulse Oximetry 97 96 97 Oxygen Delivery Method Room Air Room Air Room Air 12/29/23 22:41 Temperature 97.7 F Pulse Rate 68 Respiratory Rate 17 Blood Pressure 143/64 H Pulse Oximetry 97 Oxygen Delivery Method Room Air BMI result Body Mass Index 39.6 Const Other: The patient is awake and alert. She does not appear obviously in distress. HENMT Other: Face is symmetrical, mucous membranes moist Eyes Other: Pupils are round equal, conjunctivae clear Neck Other: Moving her neck easily Resp Effort & Inspection: normal respiratory effort Auscultation: clear to auscultation bilaterally Cardio Rate: regular rate Rhythm: regular rhythm Heart sounds: S1 normal heart sound present and S2 normal heart sound present GI Other: There was some tenderness laterally on the left mid abdomen. Back/Spine/Pelvis Other: Left-sided CVA percussion tenderness seemed apparent Skin Other: Skin is dry and unremarkable Neuro Other: The patient is awake, alert, oriented, appropriate. Mental status is normal. Speech is clear, face symmetrical, gait normal, grossly neurologically intact. Extrem Other: No peripheral edema. Course Course Course Narrative: RME- 63 year old female presents for evaluation of left flank pain that started last night. Patient reports diarrhea x4 earlier today, denies any black or bloody stool. Denies any complaints. Plan for labs, UA. Will defer any potential imaging to primary provider Medications Administered Discontinued Medications Generic Name Dose Route Start Last Admin Trade Name Freq PRN Reason Stop Dose Admin Droperidol 0.625 mg 12/29/23 19:10 12/29/23 19:27 Droperidol 5 Mg/2 Ml Vial IVPUSH 12/29/23 19:11 0.625 mg ONCE ONE Administration Sodium Chloride 1,000 mls @ 999 mls/hr 12/29/23 19:15 12/29/23 20:54 Ns IV 12/29/23 20:15 Infused .Q1H1M BRIELLE Infusion Ketorolac Tromethamine 10 mg 12/29/23 19:10 12/29/23 19:27 Ketorolac Tromethamine 15 Mg/Ml Vial IVPUSH 12/29/23 19:11 10 mg ONCE ONE Administration Medical Decision Making Medical Decision Making [facility] Narrative: The patient presents for evaluation of left-sided abdominal or flank pain. She seemed to have some left-sided CVA tenderness raising the possibility of left ureteral colic. Her urinalysis does not show any blood however. A CT scan without contrast of the abdomen and pelvis was done. This does not show any explanation for the patient's pain. There is no left-sided ureteral stone. No other left-sided pathology. There are 2 intrarenal stones in the right kidney but no other significant findings. The patient was treated with ketorolac with improvement in her pain. She was feeling much better. She was comfortable being discharged. Lab Data 12/29/23 17:20 12/29/23 17:20 Labs: Lab Results 12/29/23 12/29/23 Range/Units 17:20 19:14 WBC 11.6 H (4.8-10.8) X10*3/uL RBC 5.39 (4.20-5.50) X10*6/uL Hgb 13.5 (12.0-16.0) g/dl Hct 42.1 (37.0-47.0) % MCV 78.1 L (80.0-98.0) fL MCH 25.0 L (27.0-33.0) pg MCHC 32.1 (31.0-35.0) g/dl RDW 14.2 (11.0-16.0) % Plt Count 375 (160-400) X10*3/uL MPV 10.1 (9.4-12.3) fL Immature Gran % (Auto) 0.9 H (0.0-0.4) % Neut % (Auto) 54.1 (45-73) % Lymph % (Auto) 37.7 (20-40) % [place] % (Auto) 5.1 (2-11) % Eos % (Auto) 1.7 (0-4) % Baso % (Auto) 0.5 (0-2) % Lymph # (Auto) 4.4 (1.2-4.9) X10*3/uL [place] # (Auto) 0.6 (0.1-1.2) X10*3/uL Eos # (Auto) 0.2 (0.0-0.4) X10*3/uL Baso # (Auto) 0.1 (0.0-0.2) X10*3/uL Abs Immat Gran (auto) 0.10 H (0.00-0.03) X10*3/uL Absolute Neuts (auto) 6.3 (2.0-8.3) x10*3/uL Absolute Nucleated RBC 0.000 (0.0-0.012) X10*3/uL Nucleated RBC % (auto) 0.0 (0.0-0.2) /100WBC Sodium 139 (135-145) mmol/L Potassium 4.0 (3.3-5.1) mmol/L Chloride 101 (96-108) mmol/L Carbon Dioxide 27 (22-29) mmol/L Anion Gap 15 (12-20) BUN 18 H (9-16) mg/dL Creatinine 0.95 (0.5-1.4) mg/dL Estim Creat Clear Calc 66.3 Estimated GFR 59 Random Glucose 326 H (60-115) mg/dL Calcium 9.4 (8.4-10.2) mg/dL Total Bilirubin 0.3 (0.0-1.0) mg/dL AST 28 (5-31) U/L ALT 34 H (0-31) U/L Alkaline Phosphatase 72 (39-117) U/L Total Protein 7.4 (6.5-8.0) g/dL Albumin 4.0 (3.5-5.0) g/dL Lipase 36 (8-78) U/L Urine Color Yellow Urine Appearance Clear Urine pH 7.5 (5.0-9.0) Ur Specific [place] >= 1.030 H (1.005-1.025) Urine Protein Negative (Neg-Trace) mg/dL Urine Glucose (UA) >=1000 H (Negative) mg/dL Urine Ketones Negative (Negative) mg/dL Urine Blood Negative (Negative) Urine Nitrite Negative (Negative) Ur Leukocyte Esterase Negative (Negative) Urine RBC 0-2 (0-2) /HPF Urine WBC 0-5 (0-5) /HPF Ur Squamous Epith Cells 0-2 (0-2) /HPF Urine Bacteria 4+ (None Seen) Hyaline Casts 0-2 (0-2) /LPF Discharge Plan Discharge Clinical Impression: Left flank pain Patient Disposition: Home, Self-Care Additional Instructions: Your testing today does not reveal any dangerous process at work. I suspect that the pain you are feeling on your left side might be a muscular pain. Your CT scan today shows 2 stones in your right kidney but these stones are not currently in a position that would be causing any pain or other problems. Please rest and take it easy. You may use ibuprofen and acetaminophen as needed for pain. Please follow-up soon with your regular doctor to discuss this episode further. Return to the emergency room if worse. Prescriptions: No Action albuterol sulfate [ProAir HFA] 90 mcg/actuation HFA aerosol inhaler 2 puff inhalation QID metformin 1,000 mg tablet 1,000 mg PO omeprazole 40 mg capsule,delayed release(DR/EC) 40 mg PO BID atorvastatin 40 mg tablet 40 mg PO DAILY glipizide 10 mg tablet 20 mg PO BID Januvia 100 mg tablet 100 mg PO DAILY hydrochlorothiazide 25 mg tablet 25 mg PO DAILY ondansetron HCl 4 mg tablet 4 mg PO Q8H PRN Jardiance 25 mg tablet 25 mg PO QAM montelukast 10 mg tablet 10 mg PO DAILY (DME) FreeStyle Lite Strips Strip See Rx Instructions .ROUTE TID Qty: 10 Rx Instructions: As directed sumatriptan succinate 50 mg tablet 0 mg PO cyclobenzaprine 10 mg tablet 10 mg PO DAILY chlorhexidine gluconate 0.12 % mouthwash PO DAILY polyethylene glycol 3350 17 gram powder in packet 17 g PO TID docusate sodium 100 mg capsule 100 mg PO BID glimepiride 4 mg tablet 4 mg PO BID simethicone [Gas Relief (simethicone)] 180 mg capsule 180 - 360 mg PO DAILY PRN celecoxib [Celebrex] 200 mg capsule 200 mg PO BID 30 Days Qty: 60 3RF peg-electrolyte soln 420 gram recon soln 240 ml PO ONCE PRN (Reason: laxative effect) 1 Days Qty: 4000 0RF Rx Instructions: Start at 6:00pm the evening before procedure, drink one 8oz glass every 15 minutes until complete docusate sodium [Colace] 100 mg capsule 200 mg PO BEDTIME 30 Days Qty: 60 5RF bisacodyl [Dulcolax (bisacodyl)] 10 mg suppository [address] DAILY PRN (Reason: constipation) Qty: 20 0RF senna 8.6 mg capsule 8.6 mg PO DAILY PRN (Reason: constipation) Qty: 30 1RF Interventions: ED Discharge Assessment Last Done: 12/29/23 22:41 Discharge Date/Time: 12/29/23 22:42 Print Language: Tamazight
[2023-12-29 17:24] LABS: MANUAL DIFF FLAG NO
[2023-12-29 17:31] LABS: Basophils Absolute Auto 0.1 X10*3/uL (0.0-0.2); Basophils Percent Auto 0.5 % (0-2); Eosinophils Absolute Auto 0.2 X10*3/uL (0.0-0.4); Eosinophils Percent Auto 1.7 % (0-4); Hematocrit 42.1 % (37.0-47.0); Hemoglobin 13.5 g/dl (12.0-16.0); Imm Gran Pct Auto 0.9 % (0.0-0.4); Lymphocytes Absolute Auto 4.4 X10*3/uL (1.2-4.9); Lymphocytes Percent Auto 37.7 % (20-40); Mean Corpuscular HGB Conc 32.1 g/dl (31.0-35.0); Mean Corpuscular Volume 78.1 fL (80.0-98.0); Mean Platelet Volume 10.1 fL (9.4-12.3); Monocytes Absolute Auto 0.6 X10*3/uL (0.1-1.2); Monocytes Percent Auto 5.1 % (2-11); Neutrophils Absolute Auto 6.3 x10*3/uL (2.0-8.3); Neutrophils Percent Auto 54.1 % (45-73); Platelet Count 375 X10*3/uL (160-400); Red Blood Count 5.39 X10*6/uL (4.20-5.50); Red Cell Distribution Width 14.2 % (11.0-16.0); White Blood Count 11.6 X10*3/uL (4.8-10.8)
[2023-12-29 17:42] LABS: Alanine Aminotransferase 34 U/L (0-31); Alkaline Phosphatase 72 U/L (39-117); Anion Gap 15 (12-20); Aspartate Amino Transferase 28 U/L (5-31); Bilirubin Total 0.3 mg/dL (0.0-1.0); Blood Urea Nitrogen 18 mg/dL (9-16); Calcium 9.4 mg/dL (8.4-10.2); Carbon Dioxide 27 mmol/L (22-29); Chloride 101 mmol/L (96-108); Creatinine Clr Calc Pharmacy 66.3; Estimated Glomerular Filt Rate 59; Glucose Random 326 mg/dL (60-115); Lipase 36 U/L (8-78); Sodium 139 mmol/L (135-145); Total Protein 7.4 g/dL (6.5-8.0)
[2023-12-29 19:06] VITALS: BP 124/61; PULSE 80; RESP 17; TEMP 37.3; O2SAT 96
[2023-12-29] MEDS: Ketorolac Tromethamine 15 MG/ML VIAL 10 MG IVPUSH (19:27)
[2023-12-29] MEDS: droPERidol 5 MG/2 ML VIAL 0.625 MG IVPUSH (19:27)
[2023-12-29] MEDS: 0.9 % Sodium Chloride 1,000 ML 999 ML IV (19:27)
[2023-12-29 19:28] LABS: Appearance Urine Clear; Color Urine Yellow; Glucose Urine UA >=1000 mg/dL (Negative); Leukocyte Esterase Urine Negative (Negative); Nitrite Urine Negative (Negative); PH 7.5 (5.0-9.0); Specific Gravity - Urine >= 1.030 (1.005-1.025); Urine Blood Negative (Negative); Urine Ketones Negative (Negative); Urine Protein Negative (Neg-Trace)
[2023-12-29 19:29] LABS: UMIC TRIGGER UACC YES
[2023-12-29 19:34] LABS: Bacteria Urine 4+ (None Seen); Hyaline Casts Urine 0-2 /LPF (0-2); RBC Urine 0-2 /HPF (0-2); Squamous Epithelial Cell Urine 0-2 /HPF (0-2); WBC Urine 0-5 /HPF (0-5)
--- NOTE | 2023-12-29 20:21 | PC.NURSE ---
pt from home, a&ox4, respirations even and unlabored, pt reporting left sided abdominal pain x3 days and nausea. pt denies chest pain, vomiting and diarrhea. 20G placed in left ac, pt medicated per nov. pt awaiting ct results.
[2023-12-29 21:44] VITALS: BP 143/64; PULSE 68; RESP 17; TEMP 36.5; O2SAT 97
[2023-12-29 22:41] VITALS: BP 143/64; PULSE 68; RESP 17; TEMP 36.5; O2SAT 97
== END 2023-12-29 22:42 | disposition home or self-care (01) ==
PROVIDERS: Physician Assistant; Emergency Provider Emergency Medicine; PCP Student in an Organized Health Care Education/Training Program
DX: R10.9 Unspecified abdominal pain (principal); I10 Essential (primary) hypertension; E11.9 Type 2 diabetes mellitus without complications; Z88.0 Allergy status to penicillin
CPT/HCPCS: 36415; 74176; 80053; 81001; 83690; 85025; 96361; 96374; 96375; 99284; 99285; J1790; J1885

== ENCOUNTER 2024-01-08 12:11 | Outpatient (REF) | payer MEDICAID, SELFPAY ==
--- NOTE | ~2024-01-08 | FL_ITS ---
RIGHT ACROMIOCLAVICULAR STEROID INJECTION, FLUOROSCOPICALLY GUIDED INDICATIONS: Right clavicular pain, mild arthritis on MRI. Orthopedic surgery requests steroid injection PROCEDURE: Risks and benefits and possible complications were discussed with the patient and the consent form was signed. The patient was placed supine on the fluoroscopy table. The right shoulder was prepped and draped in normal sterile fashion. 1% buffered lidocaine was used for anesthesia. A 25-gauge hypodermic needle was used to access the right acromioclavicular joint. Intra-articular position of the needle within the shoulder joint was verified using 0.5 cc of Omnipaque 300. A total of 2.5 mL of 40 mg Medrol, and 1 %lidocaine mixture was then injected into the right AC joint. The needle was then removed and a Band-Aid was applied to the injection site. The patient tolerated the procedure well. There were no immediate complications. Single fluoroscopic image demonstrates moderate hypertrophic arthritic changes of the right AC joint, with needle in place. FL/FL arthrogram shoulder RT IMPRESSION: Successful fluoroscopic guided intra-articular steroid injection into the right acromioclavicular joint. The procedure was performed by cara Higuera PA-C, and directly supervised by Dr. Vázquez.
== END 2024-01-08 12:12 | disposition home or self-care (01) ==
LOC: HO.XRAY 12:11
PROVIDERS: PCP Student in an Organized Health Care Education/Training Program; Visit Provider Physician Assistant
DX: M19.011 Primary osteoarthritis, right shoulder (principal)
CPT/HCPCS: 23350; 73040

== ENCOUNTER → 2024-01-08 12:15 | Outpatient (BNV) | payer MEDICAID, SELFPAY | PROVIDERS: PCP Student in an Organized Health Care Education/Training Program; Visit Provider Physician Assistant Surgical | DX: M25.511 Pain in right shoulder (principal) | CPT/HCPCS: 20605; 20650; 77002 ==

== ENCOUNTER 2024-01-09 08:26 | Emergency (ER) | payer MEDICAID, SELFPAY ==
--- NOTE | ~2024-01-09 | US_ITS ---
EXAMINATION: US RENAL CLINICAL INFORMATION: Left flank pain. COMPARISON: CT abdomen/pelvis 12/29/2023 TECHNIQUE: Linear transducer oakes-scale and color Doppler examination with attention to the region of the left kidney. FINDINGS: The left kidney measures 11.0 x 6.6 x 5.0 cm. Normal cortical thickness and cortical echogenicity. No hydronephrosis or renal stones. US/US renal LT IMPRESSION: Unremarkable sonographic evaluation of the left kidney.
--- NOTE | ~2024-01-09 | CT_ITS ---
EXAMINATION: CT ABDOMEN AND PELVIS WITH CONTRAST CLINICAL INFORMATION: Gross hematuria. COMPARISON: 12/29/2023 TECHNIQUE: Multidetector volumetric images were obtained from the superior aspect of the liver through the pubic symphysis following administration 85 mL of Omnipaque 350 intravenous contrast. Sagittal and coronal reformatted images were obtained on the technologist's workstation. Oral contrast: No This CT examination was performed using dose optimization techniques as appropriate, variously including the following: *Automated exposure control *Adjustment of mA and/or kV according to patient size (this includes techniques or standardized protocols for targeted exams where dose is matched to indication/reason for exam; i.e. extremities or head) *Use of iterative reconstruction technique DLP: 790 mGy-cm FINDINGS: LUNG BASES: No pleural or pericardial effusion. LIVER, GALLBLADDER, AND BILIARY TREE: The liver is enlarged and decreased in attenuation. No focal hepatic lesion or biliary ductal dilatation is present. The gallbladder is unremarkable with no evidence of radiopaque gallstones, gallbladder wall thickening, or obvious pericholecystic inflammatory changes. PANCREAS: Unremarkable. SPLEEN: Unremarkable. ADRENAL GLANDS: Unremarkable. KIDNEYS AND URETERS: The kidneys are normal in size, shape, and attenuation. 7 mm right lower pole nonobstructing calculus. 7 mm right mid pole hypodensity too small to characterize. No hydronephrosis. No perinephric stranding. There is focal segmental dilatation of the mid left ureter up to 7 mm. No obstructing calculus. BLADDER: Distended. GASTROINTESTINAL TRACT: Copious stool throughout the colon. No small bowel obstruction. ABDOMINAL WALL: No significant hernia is appreciated. LYMPH NODES: No bulky lymphadenopathy. VASCULAR: Normal caliber abdominal aorta. PELVIC VISCERA: Possible supracervical hysterectomy. OSSEOUS STRUCTURES: No destructive bone lesions. CT/CT abdomen pelvis w IV con IMPRESSION: There is focal segmental dilatation of the mid left ureter up to 7 mm. No obstructing calculus. Advise urologic consultation. Consider correlation with ureteroscopy. Hepatomegaly and hepatic steatosis. Constipation. 7 mm nonobstructing right renal calculus. No hydronephrosis.
[2024-01-09 08:36] VITALS: BP 153/63; PULSE 85; RESP 16; TEMP 36.3; O2SAT 97; BMI 39.2
[2024-01-09 08:53] LABS: MANUAL DIFF FLAG NO
[2024-01-09 08:55] LABS: Basophils Absolute Auto 0.1 X10*3/uL (0.0-0.2); Basophils Percent Auto 0.5 % (0-2); Eosinophils Absolute Auto 0.2 X10*3/uL (0.0-0.4); Eosinophils Percent Auto 1.2 % (0-4); Hematocrit 43.3 % (37.0-47.0); Hemoglobin 13.7 g/dl (12.0-16.0); Imm Gran Abs Auto 0.04 X10*3/uL (0.00-0.03); Imm Gran Pct Auto 0.3 % (0.0-0.4); Lymphocytes Absolute Auto 3.1 X10*3/uL (1.2-4.9); Lymphocytes Percent Auto 22.2 % (20-40); Mean Corpuscular HGB Conc 31.6 g/dl (31.0-35.0); Mean Corpuscular Hemoglobin 24.7 pg (27.0-33.0); Mean Platelet Volume 9.9 fL (9.4-12.3); Monocytes Absolute Auto 0.8 X10*3/uL (0.1-1.2); Monocytes Percent Auto 5.7 % (2-11); Neutrophils Absolute Auto 9.8 x10*3/uL (2.0-8.3); Neutrophils Percent Auto 70.1 % (45-73); Platelet Count 379 X10*3/uL (160-400); Red Blood Count 5.55 X10*6/uL (4.20-5.50); Red Cell Distribution Width 14.3 % (11.0-16.0)
[2024-01-09 08:58] LABS: Appearance Urine Turbid; Glucose Urine UA >=1000 mg/dL (Negative); Leukocyte Esterase Urine Moderate (2+) (Negative); Nitrite Urine Negative (Negative); PH 6.5 (5.0-9.0); Specific Gravity - Urine >= 1.030 (1.005-1.025); UMIC TRIGGER UACC YES; Urine Blood Large (3+) (Negative); Urine Ketones Negative (Negative); Urine Protein 100 (2+) mg/dL (Neg-Trace)
[2024-01-09 08:59] LABS: Color Urine Dark Yellow
--- NOTE | 2024-01-09 09:06 | ED.FEMALEGU ---
HPI - Female Genitourinary General Chief complaint: Urogenital-Female Stated complaint: blood in urine Time Seen by Provider: 01/09/24 08:59 Source: patient Mode of arrival: ambulatory History of Present Illness HPI Narrative: 63-year-old female with history of diabetes and hypertension presents with persistent left flank pain and significant dysuria since last night and passage of 2 small clots in the toilet this morning. She denies any fever, chills, nausea, vomiting. She denies any use of chronic anticoagulation. Related Data Home Medications ?Medication ?Instructions ?Recorded ?Confirmed albuterol sulfate 90 mcg/actuation 2 puff inhalation QID 05/15/22 09/03/23 aerosol inhaler (ProAir HFA) atorvastatin 40 mg tablet 40 mg PO DAILY 05/15/22 09/03/23 blood sugar diagnostic (FreeStyle #10 ea 05/15/22 09/03/23 Lite Strips) chlorhexidine gluconate 0.12 % ml PO DAILY 05/15/22 09/03/23 mouthwash cyclobenzaprine 10 mg tablet 10 mg PO DAILY 05/15/22 09/03/23 docusate sodium 100 mg capsule 100 mg PO BID 05/15/22 09/03/23 empagliflozin 25 mg tablet 25 mg PO QAM 05/15/22 09/03/23 (Jardiance) glimepiride 4 mg tablet 4 mg PO BID 05/15/22 09/03/23 glipizide 10 mg tablet 20 mg PO BID 05/15/22 09/03/23 hydrochlorothiazide 25 mg tablet 25 mg PO DAILY 05/15/22 09/03/23 metformin 1,000 mg tablet 1,000 mg PO 05/15/22 09/03/23 montelukast 10 mg tablet 10 mg PO DAILY 05/15/22 09/03/23 omeprazole 40 mg capsule,delayed 40 mg PO BID 05/15/22 09/03/23 release ondansetron HCl 4 mg tablet 4 mg PO Q8H PRN 05/15/22 09/03/23 polyethylene glycol 3350 17 gram 17 g PO TID 05/15/22 05/15/22 oral powder packet simethicone 180 mg capsule (Gas 180 - 360 mg PO DAILY PRN 05/15/22 09/03/23 Relief (simethicone)) sitagliptin phosphate 100 mg 100 mg PO DAILY 05/15/22 09/03/23 tablet (Januvia) sumatriptan succinate 50 mg tablet 0 mg PO 05/15/22 09/03/23 Previous Rx's ?Medication ?Instructions ?Recorded celecoxib 200 mg capsule (Celebrex) 200 mg PO BID 30 days #60 caps 09/03/23 bisacodyl 10 mg rectal suppository 10 mg NC DAILY PRN constipation 12/17/23 (Dulcolax (bisacodyl)) #20 ea docusate sodium 100 mg capsule 200 mg (2 x 100 mg) PO BEDTIME 30 12/17/23 (Colace) days #60 caps peg-electrolyte solution 420 gram 240 ml PO ONCE PRN laxative effect 12/17/23 oral solution 1 day #4,000 mL sennosides 8.6 mg capsule (senna) 8.6 mg PO DAILY PRN constipation 12/17/23 #30 caps Allergies Allergy/AdvReac Type Severity Reaction Status Date / Time Penicillins Allergy Severe Anaphylaxis Verified 01/09/24 08:38 Review of Systems Review of Systems: Pertinent positives and negatives as stated in [facility] Past Medical History Source: nursing notes reviewed Medical History Hemorrhoids with complication Hypertension Diabetes mellitus Surgical History History of appendectomy History of hysterectomy Family History Family History Mother No problems noted. Father No problems noted. Sister No problems noted. Social History Social History Alcohol intake: never Patient Tobacco Use Status: Former Tobacco user Quit Date: AGE 15 Smoked in Last 30 Days: No Use of substances other than those prescribed or required for medical reasons: No Advance Directives: No Advance Directives Information Provided: No Current occupation: right hand dominant Physical Exam Vital Signs: Vital Signs: Last Vital Signs Temp 98.0 F 01/09/24 10:12 Pulse 81 01/09/24 10:12 Resp 19 01/09/24 10:12 BP 124/57 L 01/09/24 10:12 Pulse Ox 97 01/09/24 08:36 O2 Del Method Room Air 01/09/24 10:12 O2 Flow Rate 95 01/09/24 10:12 BMI result Body Mass Index 39.2 VITAL SIGNS: Reviewed. GENERAL: Well developed, well nourished, in no acute distress. HEAD: Normocephalic/atraumatic EYES: PERRLA, EOMI LUNGS: Normal breath sounds. No adventitious sounds or accessory muscle use. SpO2<97> CARDIOVASCULAR: Regular rate and rhythm without noted murmurs ABDOMEN: Soft, non-tender, non-distended with bowel sounds, no CVA tenderness MUSCULOSKELETAL: No tenderness, deformities, or effusions noted on gross inspection. EXTREMITIES: No cyanosis, clubbing or edema. SKIN: Inspection of the skin reveals no rashes NEUROLOGIC: Alert and oriented x 4. Strength and sensation to light touch were grossly intact x 4. Medications Administered Discontinued Medications Generic Name Dose Route Start Last Admin Trade Name Freq PRN Reason Stop Dose Admin Iohexol 100 ml 01/09/24 10:51 01/09/24 10:51 Iohexol 350 Mg/Ml 100 Ml Infus..Btl IV 01/09/24 10:52 85 ml ONCE ONE Administration Medical Decision Making Medical Decision Making MDM Narrative: 63-year-old female with history and clinical presentation, DDX: Hematuria, infection versus renal colic, lower clinical suspicion for any diverticulitis or obstruction. Reviewed all investigations and hematologic indices demonstrate a noninfectious leukocytosis, no anemia or thrombocytopenia. Chemistry disease do not demonstrate an SIGIFREDO or electrolyte derangement. Urinalysis is significant for hematuria and greater than 20 RBCs, there is also noted wbc's with essentially no squamous epithelium or bacteria noted. I will not empirically provide patient with antibiotics, ultrasound was negative for acute findings of hydronephrosis or ureteral stone so given patient's reports of dysuria and hematuria proceeded with abdomen pelvis with IV contrast which demonstrates focal segmental dilatation of the mid left ureter up to 7 mm without obstructing calculus and recommendation for urologic consultation. All results and findings discussed with the patient at bedside and she is provided with a urologic consultation and is instructed to call the office today to arrange for a follow-up appointment and to increase the amount of water intake. Differential Diagnosis Differential Diagnoses: The differential diagnosis associated with the presentation includes Please see the discussion above Admission/Observation Consideration of admission/observation: Escalation of care including admission/observation considered Please see the discussion above Lab Data MDM Lab Attestation statement: I reviewed the patient's lab results. Please see the discussion above 01/09/24 08:50 01/09/24 08:50 Labs: Lab Results 01/09/24 Range/Units 08:50 WBC 14.0 H (4.8-10.8) X10*3/uL RBC 5.55 H (4.20-5.50) X10*6/uL Hgb 13.7 (12.0-16.0) g/dl Hct 43.3 (37.0-47.0) % MCV 78.0 L (80.0-98.0) fL MCH 24.7 L (27.0-33.0) pg MCHC 31.6 (31.0-35.0) g/dl RDW 14.3 (11.0-16.0) % Plt Count 379 (160-400) X10*3/uL MPV 9.9 (9.4-12.3) fL Immature Gran % (Auto) 0.3 (0.0-0.4) % Neut % (Auto) 70.1 (45-73) % Lymph % (Auto) 22.2 (20-40) % [place] % (Auto) 5.7 (2-11) % Eos % (Auto) 1.2 (0-4) % Baso % (Auto) 0.5 (0-2) % Lymph # (Auto) 3.1 (1.2-4.9) X10*3/uL [place] # (Auto) 0.8 (0.1-1.2) X10*3/uL Eos # (Auto) 0.2 (0.0-0.4) X10*3/uL Baso # (Auto) 0.1 (0.0-0.2) X10*3/uL Abs Immat Gran (auto) 0.04 H (0.00-0.03) X10*3/uL Absolute Neuts (auto) 9.8 H (2.0-8.3) x10*3/uL Absolute Nucleated RBC 0.000 (0.0-0.012) X10*3/uL Nucleated RBC % (auto) 0.0 (0.0-0.2) /100WBC Sodium 141 (135-145) mmol/L Potassium 3.9 (3.3-5.1) mmol/L Chloride 103 (96-108) mmol/L Carbon Dioxide 30 H (22-29) mmol/L Anion Gap 12 (12-20) BUN 23 H (9-16) mg/dL Creatinine 0.81 (0.5-1.4) mg/dL Estim Creat Clear Calc 77.4 Estimated GFR > 60 Random Glucose 266 H (60-115) mg/dL Calcium 9.7 (8.4-10.2) mg/dL Urine Color Dark Yellow Urine Appearance Turbid Urine pH 6.5 (5.0-9.0) Ur Specific [place] >= 1.030 H (1.005-1.025) Urine Protein 100 (2+) H (Neg-Trace) mg/dL Urine Glucose (UA) >=1000 H (Negative) mg/dL Urine Ketones Negative (Negative) mg/dL Urine Blood Large (3+) H (Negative) Urine Nitrite Negative (Negative) Ur Leukocyte Esterase Moderate (2+) H (Negative) Urine RBC >20 H (0-2) /HPF Urine WBC >50 H (0-5) /HPF Ur Squamous Epith Cells 0-2 (0-2) /HPF Urine Bacteria Trace (None Seen) Hyaline Casts 0-2 (0-2) /LPF Radiology Impression Discussion of test interpretation with radiology: I have reviewed the radiologist's reading. Radiologist Impression: Please see the discussion above External Record Review External record reviewed: Outpatient record, Prior outpatient labs and Prior outpatient radiology Chronic Conditions Patient?s care impacted by: Diabetes and Hypertension Critical Care Time Critical Care Time Critical Care Time: Yes Total Critical Care Time: 45 Attestation: I personally attest to this time spent taking care of the patient. Discharge Plan Discharge Clinical Impression: Hematuria, Left flank pain Patient Disposition: Home, Self-Care Instructions: Flank Pain (ED), Hematuria (ED) Additional Instructions: 1. Resume all home medications as prescribed. 2. Increase the amount of fluid intake, especially with water. 3. Recommend [id number] Tylenol/ibuprofen as needed for pain control. 4. You have been given a referral for Urology and should call the office today to set up an appointment for further evaluation regarding the blood in your urine and CT scan findings. 5. Please follow-up with your primary care doctor as well. Return to the ER for any worsening symptoms. Prescriptions: No Action albuterol sulfate [ProAir HFA] 90 mcg/actuation HFA aerosol inhaler 2 puff inhalation QID metformin 1,000 mg tablet 1,000 mg PO omeprazole 40 mg capsule,delayed release(DR/EC) 40 mg PO BID atorvastatin 40 mg tablet 40 mg PO DAILY glipizide 10 mg tablet 20 mg PO BID Januvia 100 mg tablet 100 mg PO DAILY hydrochlorothiazide 25 mg tablet 25 mg PO DAILY ondansetron HCl 4 mg tablet 4 mg PO Q8H PRN Jardiance 25 mg tablet 25 mg PO QAM montelukast 10 mg tablet 10 mg PO DAILY (DME) FreeStyle Lite Strips Strip See Rx Instructions .ROUTE TID Qty: 10 Rx Instructions: As directed sumatriptan succinate 50 mg tablet 0 mg PO cyclobenzaprine 10 mg tablet 10 mg PO DAILY chlorhexidine gluconate 0.12 % mouthwash PO DAILY polyethylene glycol 3350 17 gram powder in packet 17 g PO TID docusate sodium 100 mg capsule 100 mg PO BID glimepiride 4 mg tablet 4 mg PO BID simethicone [Gas Relief (simethicone)] 180 mg capsule 180 - 360 mg PO DAILY PRN celecoxib [Celebrex] 200 mg capsule 200 mg PO BID 30 Days Qty: 60 3RF peg-electrolyte soln 420 gram recon soln 240 ml PO ONCE PRN (Reason: laxative effect) 1 Days Qty: 4000 0RF Rx Instructions: Start at 6:00pm the evening before procedure, drink one 8oz glass every 15 minutes until complete docusate sodium [Colace] 100 mg capsule 200 mg PO BEDTIME 30 Days Qty: 60 5RF bisacodyl [Dulcolax (bisacodyl)] 10 mg suppository 10 mg NC DAILY PRN (Reason: constipation) Qty: 20 0RF senna 8.6 mg capsule 8.6 mg PO DAILY PRN (Reason: constipation) Qty: 30 1RF Referrals: Nakia Sparrow MD [Primary Care Provider] - Walter Brunson MD [Physician] - Print Language: Gambian
[2024-01-09 09:07] LABS: Anion Gap 12 (12-20); Blood Urea Nitrogen 23 mg/dL (9-16); Calcium 9.7 mg/dL (8.4-10.2); Carbon Dioxide 30 mmol/L (22-29); Chloride 103 mmol/L (96-108); Creatinine Clr Calc Pharmacy 77.4; Estimated Glomerular Filt Rate > 60; Glucose Random 266 mg/dL (60-115); Potassium 3.9 mmol/L (3.3-5.1); Sodium 141 mmol/L (135-145)
[2024-01-09 09:13] LABS: Bacteria Urine Trace (None Seen); Hyaline Casts Urine 0-2 /LPF (0-2); RBC Urine >20 /HPF (0-2); Squamous Epithelial Cell Urine 0-2 /HPF (0-2); UACC Culture Trigger YES; WBC Urine >50 /HPF (0-5)
[2024-01-09 10:12] VITALS: BP 124/57; PULSE 81; RESP 19; TEMP 36.7
--- NOTE | 2024-01-09 10:42 | PC.NURSE ---
20g IV placed in left AC, patient brought to CT
[2024-01-09] MEDS: iohexoL 350 MG/ML 100 ML INFUS..BTL IV (10:51)
[2024-01-09] MEDS: Ibuprofen 400 MG TABLET PO (12:00)
[2024-01-09] MEDS: Acetaminophen 325 MG TABLET 975 MG PO (12:00)
[2024-01-09 12:04] VITALS: BP 124/57; PULSE 95; RESP 18; TEMP 36.6; O2SAT 96
== END 2024-01-09 12:05 | disposition home or self-care (01) ==
PROVIDERS: Emergency Provider Student in an Organized Health Care Education/Training Program; PCP Student in an Organized Health Care Education/Training Program
DX: R31.9 Hematuria, unspecified (principal); R10.9 Unspecified abdominal pain; E11.9 Type 2 diabetes mellitus without complications; I10 Essential (primary) hypertension; Z79.02 Long term (current) use of antithrombotics/antiplatelets; Z79.85 Long-term (current) use of injectable non-insulin antidiabetic drugs; Z79.84 Long term (current) use of oral hypoglycemic drugs; Z79.899 Other long term (current) drug therapy
CPT/HCPCS: 36415; 74177; 76775; 80048; 81001; 85025; 87086; 87147; 99284; Q9967

== ENCOUNTER 2024-01-29 14:10 | Outpatient (AMB) | payer MEDICAID, SELFPAY ==
--- NOTE | 2024-01-29 14:31 | A.OFFVIS_ITS ---
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: No Accompanied by: Self / Same As Patient Allergies Penicillins Allergy (Severe, Verified 01/29/24 14:31) Anaphylaxis Medication List - Last Reconciled 01/29/24 by Walter Brunson MD albuterol sulfate 90 mcg/actuation (ProAir HFA) 2 puffs inhalation QID atorvastatin 40 mg PO DAILY bisacodyl (Dulcolax (bisacodyl)) 10 mg MS DAILY PRN blood sugar diagnostic (FreeStyle Lite Strips) As directed celecoxib (Celebrex) 200 mg PO BID 30 days cyclobenzaprine 10 mg PO DAILY docusate sodium (Colace) 200 mg (2 x 100 mg) PO BEDTIME 30 days empagliflozin (Jardiance) 25 mg PO QAM glimepiride 4 mg PO BID glipizide 20 mg PO BID hydrochlorothiazide 25 mg PO DAILY metformin 1,000 mg PO omeprazole 40 mg PO BID sennosides (senna) 8.6 mg PO DAILY PRN simethicone (Gas Relief (simethicone)) 180 - 360 mg PO DAILY PRN sumatriptan succinate 0 mg PO HPI Comments Details: Jackeline is a 63-year-old female who is here for new patient evaluation. She states she saw blood in the urine and went to the emergency room 01/09/24, she has been having left-sided flank pain. She was treated with antibiotics for urinary tract infection. Urine culture 01/09/24 grew strep group B. She states that the blood resolved but she still feels left flank discomfort. I have reviewed imaging including renal ultrasound of the left kidney and CT scan abdomen and pelvis with IV contrast there is a right kidney stone and segmental dilatation of the left ureter. I have discussed further evaluation with CT urogram. PFSH Medical History Hemorrhoids with complication Hypertension Diabetes mellitus Surgical History History of appendectomy History of hysterectomy Family History Mother No problems noted. Father No problems noted. Sister No problems noted. Social History Alcohol intake: never Patient Tobacco Use Status: Former Tobacco user Quit Date: AGE 15 Current occupation: right hand dominant Review of Systems Const All systems reviewed & are unremarkable except as noted in HPI and below Reports no additional complaints Eyes Reports no additional complaints ENT Reports no additional complaints Card Reports no additional complaints Resp Reports no additional complaints GI Reports no additional complaints Reports as per HPI Musc Reports no additional complaints Skin/Breast Reports system reviewed and no additional complaints, except as documented Neuro Reports no additional complaints Psych Reports no additional complaints Endo Reports no additional complaints Wade/Lymph Reports no additional complaints Aller/Immun Reports no additional complaints Physical Exam Const General: cooperative, healthy appearing and no acute distress Nutritional Appearance: overweight Orientation/consciousness: patient oriented x3 HEENT Head: Yes normal to inspection, Yes normocephalic and Yes atraumatic Eyes Conjunctivae: conjunctivae normal Neck Neck: Yes normal visual inspection and Yes trachea midline Chest Chest palpation & inspection: normal inspection of the chest Resp Effort & Inspection: normal respiratory effort Cardio Jugular venous distension: no JVD GI Inspection: Yes normal to inspection Palpation (GI): Soft to palpation General: Yes CVA tenderness (Mild left flank tenderness) Back/Spine/Pelvis Back: CVA tenderness (Mild left flank tenderness) Skin General skin exam: no rashes or lesions noted Neuro General: patient oriented x3 Extrem General: No edema Psych Appearance: grossly normal Results AMB Urinalysis, Automated UA Leukoctes 0 Yoandy/uL Last Edit by AUGUSTINA Harding on 01/29/24 14:40 UA Nitrite Negative Last Edit by AUGUSTINA Harding on 01/29/24 14:40 UA Urobilinogen 0.2 mg/dL Last Edit by AUGUSTINA Harding on 01/29/24 14:4 0 UA Protein 0 mg/dL Last Edit by Jace Dee, A on 01/29/24 14:40 UA pH 6.0 Last Edit by Jace Dee, A on 01/29/24 14:40 UA Blood 0 Alfonzo/uL Last Edit by Cookiejaime Luiz, A on 01/29/24 14:40 UA Specific [place] 0 Last Edit by Jace Dee, A on 01/29/24 14:40 UA Ketone Negative Last Edit by Jace Dee, A on 01/29/24 14:40 UA Bilirubin 0 mg/dL Last Edit by Jace Dee, A on 01/29/24 14:40 UA Glucose 0 mg/dL Last Edit by Jace Dee, A on 01/29/24 14:40 Results Reviewed Results Reviewed: Laboratory Last Values Urine pH (Auto) 6.0 01/29/24 14:35 Specific [place] (Auto) 0 01/29/24 14:35 Urine Protein (Auto) 0 mg/dL 01/29/24 14:35 Glucose (UA)(Auto) 0 mg/dL 01/29/24 14:35 Urine Ketones (Auto) Negative 01/29/24 14:35 Urine Blood (Auto) 0 Alfonzo/uL 01/29/24 14:35 Urine Nitrite (Auto) Negative 01/29/24 14:35 Urine Bilirubin (Auto) 0 mg/dL 01/29/24 14:35 Urine Urobilinogen (Auto) 0.2 mg/dL 01/29/24 14:35 Leukocyte Esterase (Auto) 0 Yoandy/uL 01/29/24 14:35 Collected: 01/09/24-UNK Status: COMP Req#: [id number] Received: 01/09/24-1038 Source: CC Sp Desc: Urine oakes Subm Dr: Generic ED Physician Ordered: Urine Culture Procedure Result Verified Urine Culture Final 01/10/24-1420 Report Result 10,000 to 50,000 cfu/ml Mixed bacterial kandy characteristic of urogenital contamination. Organism 1 Strep agalactiae (Grp B) Quant 10,000 to 50,000 cfu/mL Susc N/A Susceptibility not routinely performed on is isolate. Date of Service: 01/09/24 EXAMINATION: CT ABDOMEN AND PELVIS WITH CONTRAST CLINICAL INFORMATION: Gross hematuria. COMPARISON: 12/29/2023 TECHNIQUE: Multidetector volumetric images were obtained from the superior aspect of the liver through the pubic symphysis following administration 85 mL of Omnipaque 350 intravenous contrast. Sagittal and coronal reformatted images were obtained on the technologist's workstation. Oral contrast: No This CT examination was performed using dose optimization techniques as appropriate, variously including the following: *Automated exposure control *Adjustment of mA and/or kV according to patient size (this includes techniques or standardized protocols for targeted exams where dose is matched to indication/reason for exam; i.e. extremities or head) *Use of iterative reconstruction technique DLP: 790 mGy-cm FINDINGS: LUNG BASES: No pleural or pericardial effusion. LIVER, GALLBLADDER, AND BILIARY TREE: The liver is enlarged and decreased in attenuation. No focal hepatic lesion or biliary ductal dilatation is present. The gallbladder is unremarkable with no evidence of radiopaque gallstones, gallbladder wall thickening, or obvious pericholecystic inflammatory changes. PANCREAS: Unremarkable. SPLEEN: Unremarkable. ADRENAL GLANDS: Unremarkable. KIDNEYS AND URETERS: The kidneys are normal in size, shape, and attenuation. 7 mm right lower pole nonobstructing calculus. 7 mm right mid pole hypodensity too small to characterize. No hydronephrosis. No perinephric stranding. There is focal segmental dilatation of the mid left ureter up to 7 mm. No obstructing calculus. BLADDER: Distended. GASTROINTESTINAL TRACT: Copious stool throughout the colon. No small bowel obstruction. ABDOMINAL WALL: No significant hernia is appreciated. LYMPH NODES: No bulky lymphadenopathy. VASCULAR: Normal caliber abdominal aorta. PELVIC VISCERA: Possible supracervical hysterectomy. OSSEOUS STRUCTURES: No destructive bone lesions. IMPRESSION: There is focal segmental dilatation of the mid left ureter up to 7 mm. No obstructing calculus. Advise urologic consultation. Consider correlation with ureteroscopy. Hepatomegaly and hepatic steatosis. Constipation. 7 mm nonobstructing right renal calculus. No hydronephrosis. Date of Service: 01/09/24 EXAMINATION: US RENAL CLINICAL INFORMATION: Left flank pain. COMPARISON: CT abdomen/pelvis 12/29/2023 TECHNIQUE: Linear transducer oakes-scale and color Doppler examination with attention to the region of the left kidney. FINDINGS: The left kidney measures 11.0 x 6.6 x 5.0 cm. Normal cortical thickness and cortical echogenicity. No hydronephrosis or renal stones. IMPRESSION: Unremarkable sonographic evaluation of the left kidney. Assessment & Plan Assessment & Plan (1) Gross hematuria: Code(s): R31.0 - Gross hematuria Category: Medical (2) Ureteral dilatation: Code(s): N28.82 - Megaloureter Category: Medical (3) Left flank pain: Code(s): R10.9 - Unspecified abdominal pain Category: Medical (4) Kidney stone: Code(s): N20.0 - Calculus of kidney Category: Medical Plan CT urogram follow-up post consider cystoscopy at that time. Orders: Orders 2 AMB Urinalysis Automated Today Z13.9 - Encounter for screening, unspecified Patient Instructions: The patient had an opportunity to ask questions regarding treatment plan. The patient expressed understanding and agreement with the above treatment plan. The patient is aware they should contact our office by phone for worsening of their current condition or the appearance of new symptoms. Compliance is encouraged with any medications and followup testing that is ordered. It is a privilege to be allowed the opportunity to participate in the urologic care of your patient. If you have any questions or concerns regarding treatment for the above conditions please do not hesitate to contact me. The office tele phone contact is [phone]. This note is constructed in part using voice recognition software. While every effort has been made to ensure accuracy exhibit artist errors may have been included. Yours sincerely, Walter Brunson MD Coding Level of Care Code New Pt Level 4 (58855) Diagnoses Gross hematuria R31.0 Ureteral dilatation N28.82 Left flank pain R10.9 Kidney stone N20.0
== END 2024-01-29 15:12 | disposition home or self-care (01) ==
PROVIDERS: PCP Student in an Organized Health Care Education/Training Program; Visit Provider Urology
DX: R31.0 Gross hematuria (principal); N28.82 Megaloureter; R10.9 Unspecified abdominal pain; N20.0 Calculus of kidney; Z13.9 Encounter for screening, unspecified
CPT/HCPCS: 99203

== ENCOUNTER → 2024-01-29 14:10 | Outpatient (BNVA) | payer MEDICAID, SELFPAY | PROVIDERS: PCP Student in an Organized Health Care Education/Training Program; Visit Provider Urology | DX: R31.0 Gross hematuria (principal); N28.82 Megaloureter; N20.0 Calculus of kidney | CPT/HCPCS: 81003; 99202 ==

== ENCOUNTER 2024-02-19 15:16 | Emergency (ER) | payer MEDICAID, SELFPAY ==
--- NOTE | ~2024-02-19 | CT_ITS ---
EXAMINATION: CT ABDOMEN AND PELVIS WITH CONTRAST CLINICAL INFORMATION: Abdominal pain COMPARISON: 01/09/2024 TECHNIQUE: Multidetector volumetric images were obtained from the superior aspect of the liver through the pubic symphysis following administration 85 mL of Omnipaque 350 intravenous contrast. Sagittal and coronal reformatted images were obtained on the technologist's workstation. Oral contrast: No This CT examination was performed using dose optimization techniques as appropriate, variously including the following: *Automated exposure control *Adjustment of mA and/or kV according to patient size (this includes techniques or standardized protocols for targeted exams where dose is matched to indication/reason for exam; i.e. extremities or head) *Use of iterative reconstruction technique DLP: 769 mGy-cm FINDINGS: LUNG BASES: The visualized lung bases are unremarkable. LIVER, GALLBLADDER, AND BILIARY TREE: The liver appears mildly prominent in size. No focal hepatic lesion or biliary ductal dilatation is present. The gallbladder is unremarkable with no evidence of radiopaque gallstones, gallbladder wall thickening, or obvious pericholecystic inflammatory changes. PANCREAS: Unremarkable. SPLEEN: Unremarkable. ADRENAL GLANDS: Unremarkable. KIDNEYS AND URETERS: Bilateral nephrograms are symmetric. Redemonstrated small hypodensity in the lateral right kidney favoring a cyst; no follow-up recommended. A right lower pole renal calculus measures up to 6 mm. No hydronephrosis or obstructing calculus bilaterally. Redemonstrated segment of mild dilation in the mid left ureter, unchanged from prior. BLADDER: Unremarkable. GASTROINTESTINAL TRACT: No evidence of bowel obstruction. Although collapsed, there is a thick-walled appearance of the ascending colon and hepatic flexure, suspicious for colitis. No free fluid or free air is seen. ABDOMINAL WALL: No significant hernia is appreciated. LYMPH NODES: Normal. VASCULAR: Unremarkable. PELVIC VISCERA: Suspected postoperative changes from prior hysterectomy. OSSEOUS STRUCTURES: Multilevel degenerative changes in the spine. CT/CT abdomen pelvis w IV con IMPRESSION: 1. Thick-walled appearance of the ascending colon and hepatic flexure, suspicious for colitis. 2. Right lower pole renal calculus without hydronephrosis. 3. Redemonstrated focal segmental dilation of the mid left ureter, similar to prior. As previously noted, further urologic workup could be performed including with ureteroscopy.
[2024-02-19 16:16] VITALS: BP 139/65; PULSE 102; RESP 18; TEMP 38; O2SAT 95; BMI 39.0
--- NOTE | 2024-02-19 16:18 | ED.GENADULT ---
HPI - General Adult General Chief complaint: Nausea/Vomiting/Diarrhea Stated complaint: fever/vomiting/diarrhea Time Seen by Provider: 02/19/24 21:12 Related Data Home Medications ?Medication ?Instructions ?Recorded ?Confirmed albuterol sulfate 90 mcg/actuation 2 puff inhalation QID 05/15/22 01/29/24 aerosol inhaler (ProAir HFA) atorvastatin 40 mg tablet 40 mg PO DAILY 05/15/22 01/29/24 blood sugar diagnostic (FreeStyle #10 ea 05/15/22 01/29/24 Lite Strips) cyclobenzaprine 10 mg tablet 10 mg PO DAILY 05/15/22 01/29/24 empagliflozin 25 mg tablet 25 mg PO QAM 05/15/22 01/29/24 (Jardiance) glimepiride 4 mg tablet 4 mg PO BID 05/15/22 01/29/24 glipizide 10 mg tablet 20 mg PO BID 05/15/22 01/29/24 hydrochlorothiazide 25 mg tablet 25 mg PO DAILY 05/15/22 01/29/24 metformin 1,000 mg tablet 1,000 mg PO 05/15/22 01/29/24 omeprazole 40 mg capsule,delayed 40 mg PO BID 05/15/22 01/29/24 release simethicone 180 mg capsule (Gas 180 - 360 mg PO DAILY PRN 05/15/22 01/29/24 Relief (simethicone)) sumatriptan succinate 50 mg tablet 0 mg PO 05/15/22 01/29/24 Previous Rx's ?Medication ?Instructions ?Recorded celecoxib 200 mg capsule (Celebrex) 200 mg PO BID 30 days #60 caps 09/03/23 bisacodyl 10 mg rectal suppository 10 mg SC DAILY PRN constipation 12/17/23 (Dulcolax (bisacodyl)) #20 ea docusate sodium 100 mg capsule 200 mg (2 x 100 mg) PO BEDTIME 30 12/17/23 (Colace) days #60 caps sennosides 8.6 mg capsule (senna) 8.6 mg PO DAILY PRN constipation 12/17/23 #30 caps Allergies Allergy/AdvReac Type Severity Reaction Status Date / Time Penicillins Allergy Severe Anaphylaxis Verified 02/19/24 16:21 [facility] Past Medical History Medical History Hemorrhoids with complication Hypertension Diabetes mellitus Surgical History History of appendectomy History of hysterectomy Family History Family History Mother No problems noted. Father No problems noted. Sister No problems noted. Social History Social History Alcohol intake: never Patient Tobacco Use Status: Former Tobacco user Advance Directives: No Advance Directives Information Provided: No Do you have a plan to hurt others: No Plan Current occupation: right hand dominant Physical Exam ED Vital Signs: Vital Signs - 24 hr 02/19/24 16:16 02/19/24 21:43 Temperature 100.4 F 100.1 F Pulse Rate 102 H 103 H Respiratory Rate 18 16 Blood Pressure 139/65 130/59 L Pulse Oximetry 95 96 Oxygen Delivery Method Room Air Room Air BMI result Body Mass Index 39.0 Course Course Course Narrative: This is a Rapid Medical Examination (RME) performed by Rob Angel PA-C in triage. Full HPI, ROS, assessment and treatment plan per primary provider in the Main ED. 63 yo female hx of HTN, DM on metformin here for eval of chills, nausea, vomiting, and diarrhea since this morning. admits stool is watery. no recent abx. endorses fevers, TMAX 102 last night. denies abdominal pain, flank pain, dysura, hematuria. admits to mosquito bite to her left thigh yesterday while doing yard work. temp 100.4 in triage. obese abd, soft, ND/NT. no rebound or guarding. no cvat. no rashes. Plan: labs, UA, viral serology, GI panel, cdiff ordered Reevaluation(s) Reevaluation #1: This is a duplicate note. Please refer to Dr. Galan's complete note regarding patient's visit on 02/19/24. Medications Administered Discontinued Medications Generic Name Dose Route Start Last Admin Trade Name Freq PRN Reason Stop Dose Admin Acetaminophen 650 mg 02/19/24 21:23 02/19/24 22:22 Acetaminophen 325 Mg Tablet PO 02/19/24 21:24 650 mg ONCE ONE Administration Sodium Chloride 1,000 mls @ 999 mls/hr 02/19/24 21:30 02/19/24 22:22 Ns IV 02/19/24 22:30 999 mls/hr .Q1H1M BRIELLE Administration Sodium Chloride 1,000 mls @ 999 mls/hr 02/19/24 21:30 02/19/24 22:22 Ns IV 02/19/24 22:30 999 mls/hr .Q1H1M BRIELLE Administration Iohexol 85 ml 02/19/24 22:02 02/19/24 22:03 Iohexol 350 Mg/Ml 100 Ml Infus..Btl IV 02/19/24 22:03 85 ml ONCE ONE Administration Ondansetron HCl 4 mg 02/19/24 22:04 02/19/24 22:22 Ondansetron Hcl 4 Mg/2 Ml Vial IVPUSH 02/19/24 22:05 4 mg ONCE ONE Administration Medical Decision Making Lab Data 02/19/24 16:31 02/19/24 16:31 Labs: Lab Results 02/19/24 02/19/24 Range/Units 16:31 21:48 WBC 18.7 H (4.8-10.8) X10*3/uL RBC 5.58 H (4.20-5.50) X10*6/uL Hgb 13.3 (12.0-16.0) g/dl Hct 42.2 (37.0-47.0) % MCV 75.6 L (80.0-98.0) fL MCH 23.8 L (27.0-33.0) pg MCHC 31.5 (31.0-35.0) g/dl RDW 15.2 (11.0-16.0) % Plt Count 377 (160-400) X10*3/uL MPV 9.6 (9.4-12.3) fL Immature Gran % (Auto) 0.4 (0.0-0.4) % Neut % (Auto) 87.6 H (45-73) % Lymph % (Auto) 6.3 L (20-40) % [place] % (Auto) 5.4 (2-11) % Eos % (Auto) 0.1 (0-4) % Baso % (Auto) 0.2 (0-2) % Lymph # (Auto) 1.2 (1.2-4.9) X10*3/uL [place] # (Auto) 1.0 (0.1-1.2) X10*3/uL Eos # (Auto) 0.0 (0.0-0.4) X10*3/uL Baso # (Auto) 0.0 (0.0-0.2) X10*3/uL Abs Immat Gran (auto) 0.07 H (0.00-0.03) X10*3/uL Absolute Neuts (auto) 16.4 H (2.0-8.3) x10*3/uL Absolute Nucleated RBC 0.000 (0.0-0.012) X10*3/uL Nucleated RBC % (auto) 0.0 (0.0-0.2) /100WBC Sodium 140 (135-145) mmol/L Potassium 3.7 (3.3-5.1) mmol/L Chloride 103 (96-108) mmol/L Carbon Dioxide 28 (22-29) mmol/L Anion Gap 13 (12-20) BUN 17 H (9-16) mg/dL Creatinine 0.82 (0.5-1.4) mg/dL Estim Creat Clear Calc 76.2 Estimated GFR > 60 Random Glucose 170 H (60-115) mg/dL Lactic Acid 1.7 (0.5-2.0) mmol/L Calcium 9.6 (8.4-10.2) mg/dL Magnesium 1.8 (1.6-2.6) mg/dL Total Bilirubin 0.5 (0.0-1.0) mg/dL AST 25 (5-31) U/L ALT 27 (0-31) U/L Alkaline Phosphatase 77 (39-117) U/L Total Protein 7.7 (6.5-8.0) g/dL Albumin 4.1 (3.5-5.0) g/dL Lipase 31 (8-78) U/L Influenza Type A (PCR) NEGATIVE (Negative) Influenza Type B (PCR) NEGATIVE (Negative) RSV RNA Qual (PCR) NEGATIVE (Negative) SARS-CoV-2 RNA (RT-PCR) NEGATIVE (Negative) Discharge Plan Discharge Clinical Impression: Nausea & vomiting Patient Disposition: Home, Self-Care Prescriptions: No Action albuterol sulfate [ProAir HFA] 90 mcg/actuation HFA aerosol inhaler 2 puff inhalation QID metformin 1,000 mg tablet 1,000 mg PO omeprazole 40 mg capsule,delayed release(DR/EC) 40 mg PO BID atorvastatin 40 mg tablet 40 mg PO DAILY glipizide 10 mg tablet 20 mg PO BID hydrochlorothiazide 25 mg tablet 25 mg PO DAILY Jardiance 25 mg tablet 25 mg PO QAM (DME) FreeStyle Lite Strips Strip See Rx Instructions .ROUTE TID Qty: 10 Rx Instructions: As directed sumatriptan succinate 50 mg tablet 0 mg PO cyclobenzaprine 10 mg tablet 10 mg PO DAILY glimepiride 4 mg tablet 4 mg PO BID simethicone [Gas Relief (simethicone)] 180 mg capsule 180 - 360 mg PO DAILY PRN celecoxib [Celebrex] 200 mg capsule 200 mg PO BID 30 Days Qty: 60 3RF docusate sodium [Colace] 100 mg capsule 200 mg PO BEDTIME 30 Days Qty: 60 5RF bisacodyl [Dulcolax (bisacodyl)] 10 mg suppository 10 mg SC DAILY PRN (Reason: constipation) Qty: 20 0RF senna 8.6 mg capsule 8.6 mg PO DAILY PRN (Reason: constipation) Qty: 30 1RF Print Language: Kinyarwanda
[2024-02-19 16:35] LABS: MANUAL DIFF FLAG NO
[2024-02-19 16:38] LABS: Basophils Percent Auto 0.2 % (0-2); Eosinophils Percent Auto 0.1 % (0-4); Hematocrit 42.2 % (37.0-47.0); Hemoglobin 13.3 g/dl (12.0-16.0); Imm Gran Abs Auto 0.07 X10*3/uL (0.00-0.03); Imm Gran Pct Auto 0.4 % (0.0-0.4); Lymphocytes Absolute Auto 1.2 X10*3/uL (1.2-4.9); Lymphocytes Percent Auto 6.3 % (20-40); Mean Corpuscular HGB Conc 31.5 g/dl (31.0-35.0); Mean Corpuscular Hemoglobin 23.8 pg (27.0-33.0); Mean Corpuscular Volume 75.6 fL (80.0-98.0); Mean Platelet Volume 9.6 fL (9.4-12.3); Monocytes Percent Auto 5.4 % (2-11); Neutrophils Absolute Auto 16.4 x10*3/uL (2.0-8.3); Neutrophils Percent Auto 87.6 % (45-73); Platelet Count 377 X10*3/uL (160-400); Red Blood Count 5.58 X10*6/uL (4.20-5.50); Red Cell Distribution Width 15.2 % (11.0-16.0); White Blood Count 18.7 X10*3/uL (4.8-10.8)
[2024-02-19 16:53] LABS: Alanine Aminotransferase 27 U/L (0-31); Albumin Level 4.1 g/dL (3.5-5.0); Alkaline Phosphatase 77 U/L (39-117); Anion Gap 13 (12-20); Aspartate Amino Transferase 25 U/L (5-31); Bilirubin Total 0.5 mg/dL (0.0-1.0); Blood Urea Nitrogen 17 mg/dL (9-16); Calcium 9.6 mg/dL (8.4-10.2); Carbon Dioxide 28 mmol/L (22-29); Chloride 103 mmol/L (96-108); Creatinine Clr Calc Pharmacy 76.2; Estimated Glomerular Filt Rate > 60; Glucose Random 170 mg/dL (60-115); Lipase 31 U/L (8-78); Magnesium 1.8 mg/dL (1.6-2.6); Potassium 3.7 mmol/L (3.3-5.1); Sodium 140 mmol/L (135-145); Total Protein 7.7 g/dL (6.5-8.0)
[2024-02-19 17:33] LABS: Influenza A PCR NEGATIVE (Negative); Influenza B PCR NEGATIVE (Negative); Resp Syncy Virus RNA Qual PCR NEGATIVE (Negative); SARS COV2 PCR INHOUSE NEGATIVE (Negative)
--- NOTE | 2024-02-19 21:24 | ED.NAVMDI ---
HPI - Nausea/Vomiting/Diarrhea General Chief complaint: Nausea/Vomiting/Diarrhea Stated complaint: fever/vomiting/diarrhea Time Seen by Provider: 02/19/24 21:12 History of Present Illness HPI Narrative: 64-year-old female presents today with having chills generalized malaise nausea vomiting diarrhea. Vomiting mostly food. Diarrhea is mostly brown in color. There has no blood in the stool. Patient is from home. Last had antibiotics about 6 weeks ago. Patient denies any history abdominal surgery. No coughing or congestion or upper respiratory symptoms. Positive generalized malaise Related Data Home Medications ?Medication ?Instructions ?Recorded ?Confirmed albuterol sulfate 90 mcg/actuation 2 puff inhalation QID 05/15/22 01/29/24 aerosol inhaler (ProAir HFA) atorvastatin 40 mg tablet 40 mg PO DAILY 05/15/22 01/29/24 blood sugar diagnostic (FreeStyle #10 ea 05/15/22 01/29/24 Lite Strips) cyclobenzaprine 10 mg tablet 10 mg PO DAILY 05/15/22 01/29/24 empagliflozin 25 mg tablet 25 mg PO QAM 05/15/22 01/29/24 (Jardiance) glimepiride 4 mg tablet 4 mg PO BID 05/15/22 01/29/24 glipizide 10 mg tablet 20 mg PO BID 05/15/22 01/29/24 hydrochlorothiazide 25 mg tablet 25 mg PO DAILY 05/15/22 01/29/24 metformin 1,000 mg tablet 1,000 mg PO 05/15/22 01/29/24 omeprazole 40 mg capsule,delayed 40 mg PO BID 05/15/22 01/29/24 release simethicone 180 mg capsule (Gas 180 - 360 mg PO DAILY PRN 05/15/22 01/29/24 Relief (simethicone)) sumatriptan succinate 50 mg tablet 0 mg PO 05/15/22 01/29/24 Previous Rx's ?Medication ?Instructions ?Recorded celecoxib 200 mg capsule (Celebrex) 200 mg PO BID 30 days #60 caps 09/03/23 bisacodyl 10 mg rectal suppository 10 mg HI DAILY PRN constipation 12/17/23 (Dulcolax (bisacodyl)) #20 ea docusate sodium 100 mg capsule 200 mg (2 x 100 mg) PO BEDTIME 30 12/17/23 (Colace) days #60 caps sennosides 8.6 mg capsule (senna) 8.6 mg PO DAILY PRN constipation 12/17/23 #30 caps ciprofloxacin HCl 500 mg tablet 500 mg PO BID #20 tabs 02/20/24 (Cipro) metronidazole 500 mg tablet 500 mg PO TID 10 days #30 tabs 02/20/24 ondansetron 4 mg disintegrating 4 mg PO TID PRN nausea and 02/20/24 tablet vomiting 5 days #10 tabs Allergies Allergy/AdvReac Type Severity Reaction Status Date / Time Penicillins Allergy Severe Anaphylaxis Verified 02/19/24 16:21 Review of Systems Review of Systems: Positive abdominal pain Yes all other systems are reviewed and are negative PMFSH Past Medical History Attestation statement: The following information was validated with the patient. Medical History Hemorrhoids with complication Hypertension Diabetes mellitus Surgical History History of appendectomy History of hysterectomy Family History Family History Mother No problems noted. Father No problems noted. Sister No problems noted. Social History Social History Alcohol intake: never Patient Tobacco Use Status: Former Tobacco user Smoked in Last 30 Days: No Use of substances other than those prescribed or required for medical reasons: No Advance Directives: No Advance Directives Information Provided: No Do you have a plan to hurt others: No Plan Patient : No Current occupation: right hand dominant Physical Exam Vital Signs: Vital Signs: Last Vital Signs Temp 100.3 F 02/20/24 02:19 Pulse 95 02/20/24 02:19 Resp 16 02/20/24 02:19 BP 106/68 02/20/24 02:19 Pulse Ox 96 02/20/24 02:19 O2 Del Method Room Air 02/20/24 02:19 BMI result Body Mass Index 39.0 Appearance: Alert. Oriented X3. No acute distress. Eyes: Pupils equal, round and reactive to light. ENT: Pharynx normal. Neck: Normal inspection. Neck supple. No lymph nodes noted. No crepitus CVS: Normal heart rate and rhythm. Pulses normal. Normal S1 and S2 Respiratory: No respiratory distress. Breath sounds normal. No Wheezing. No rales Abdomen: Soft and nontender. No rigidity. No distention. good BS x4 Skin: Skin warm and dry. Normal skin color. Normal skin turgor. Extremities: No lower extremity edema. Neurovascular intact to all extremities. No Lacerations. No Rash Neuro: Oriented X 3. No motor deficit. No sensory deficit. Moving all extermities. No slurred speech Medications Administered Discontinued Medications Generic Name Dose Route Start Last Admin Trade Name Freq PRN Reason Stop Dose Admin Acetaminophen 650 mg 02/19/24 21:23 02/19/24 22:22 Acetaminophen 325 Mg Tablet PO 02/19/24 21:24 650 mg ONCE ONE Administration Sodium Chloride 1,000 mls @ 999 mls/hr 02/19/24 21:30 02/19/24 23:59 Ns IV 02/19/24 22:30 Infused .Q1H1M BRIELLE Infusion Sodium Chloride 1,000 mls @ 999 mls/hr 02/19/24 21:30 02/19/24 23:59 Ns IV 02/19/24 22:30 Infused .Q1H1M BRIELLE Infusion Iohexol 85 ml 02/19/24 22:02 02/19/24 22:03 Iohexol 350 Mg/Ml 100 Ml Infus..Btl IV 02/19/24 22:03 85 ml ONCE ONE Administration Ondansetron HCl 4 mg 02/19/24 22:04 02/19/24 22:22 Ondansetron Hcl 4 Mg/2 Ml Vial IVPUSH 02/19/24 22:05 4 mg ONCE ONE Administration Medical Decision Making Medical Decision Making [facility] Narrative: Patient is 63 years old presents today with having nausea vomiting diarrhea. Was having fever chills. Had not been on antibiotics for [address] scan of the abdomen pelvis was positive for colitis. There is no obstruction no abscess no perforation. Patient's white count was 18 with a slight left shift. Explained to patient the need to be admitted get IV antibiotics. Patient refused. Wants to go home wants take a shower. Explained if worsening condition return. Risk of worsening condition exists. Given IV fluids here in the emergency department. Patient left against medical advice Differential Diagnosis Differential Diagnoses: The differential diagnosis associated with the presentation includes Colitis, C diff Admission/Observation Consideration of admission/observation: Escalation of care including admission/observation considered Lab Data MDM Lab Attestation statement: I reviewed the patient's lab results. 02/19/24 16:31 02/19/24 16:31 Labs: Lab Results 02/19/24 02/19/24 02/19/24 Range/Units 16:31 21:48 23:54 WBC 18.7 H (4.8-10.8) X10*3/uL RBC 5.58 H (4.20-5.50) X10*6/uL Hgb 13.3 (12.0-16.0) g/dl Hct 42.2 (37.0-47.0) % MCV 75.6 L (80.0-98.0) fL MCH 23.8 L (27.0-33.0) pg MCHC 31.5 (31.0-35.0) g/dl RDW 15.2 (11.0-16.0) % Plt Count 377 (160-400) X10*3/uL MPV 9.6 (9.4-12.3) fL Immature Gran % (Auto) 0.4 (0.0-0.4) % Neut % (Auto) 87.6 H (45-73) % Lymph % (Auto) 6.3 L (20-40) % [place] % (Auto) 5.4 (2-11) % Eos % (Auto) 0.1 (0-4) % Baso % (Auto) 0.2 (0-2) % Lymph # (Auto) 1.2 (1.2-4.9) X10*3/uL [place] # (Auto) 1.0 (0.1-1.2) X10*3/uL Eos # (Auto) 0.0 (0.0-0.4) X10*3/uL Baso # (Auto) 0.0 (0.0-0.2) X10*3/uL Abs Immat Gran (auto) 0.07 H (0.00-0.03) X10*3/uL Absolute Neuts (auto) 16.4 H (2.0-8.3) x10*3/uL Absolute Nucleated RBC 0.000 (0.0-0.012) X10*3/uL Nucleated RBC % (auto) 0.0 (0.0-0.2) /100WBC Sodium 140 (135-145) mmol/L Potassium 3.7 (3.3-5.1) mmol/L Chloride 103 (96-108) mmol/L Carbon Dioxide 28 (22-29) mmol/L Anion Gap 13 (12-20) BUN 17 H (9-16) mg/dL Creatinine 0.82 (0.5-1.4) mg/dL Estim Creat Clear Calc 76.2 Estimated GFR > 60 Random Glucose 170 H (60-115) mg/dL Lactic Acid 1.7 (0.5-2.0) mmol/L Calcium 9.6 (8.4-10.2) mg/dL Magnesium 1.8 (1.6-2.6) mg/dL Total Bilirubin 0.5 (0.0-1.0) mg/dL AST 25 (5-31) U/L ALT 27 (0-31) U/L Alkaline Phosphatase 77 (39-117) U/L Total Protein 7.7 (6.5-8.0) g/dL Albumin 4.1 (3.5-5.0) g/dL Lipase 31 (8-78) U/L Urine Color Yellow Urine Appearance Clear Urine pH 6.5 (5.0-9.0) Ur Specific [place] >= 1.030 H (1.005-1.025) Urine Protein Negative (Neg-Trace) mg/dL Urine Glucose (UA) >=1000 H (Negative) mg/dL Urine Ketones 15 (Negative) mg/dL Urine Blood Negative (Negative) Urine Nitrite Negative (Negative) Ur Leukocyte Esterase Negative (Negative) Urine RBC 0-2 (0-2) /HPF Urine WBC 0-5 (0-5) /HPF Ur Squamous Epith Cells 0-2 (0-2) /HPF Urine Bacteria None Seen (None Seen) Hyaline Casts 0-2 (0-2) /LPF Influenza Type A (PCR) NEGATIVE (Negative) Influenza Type B (PCR) NEGATIVE (Negative) RSV RNA Qual (PCR) NEGATIVE (Negative) SARS-CoV-2 RNA (RT-PCR) NEGATIVE (Negative) Discharge Plan Discharge Clinical Impression: Nausea & vomiting, Colitis Patient Disposition: Left Against Medical Advice Instructions: Colitis (ED) Prescriptions: New ciprofloxacin HCl [Cipro] 500 mg tablet 500 mg PO BID Qty: 20 0RF metronidazole 500 mg tablet 500 mg PO TID 10 Days Qty: 30 0RF ondansetron 4 mg tablet,disintegrating 4 mg PO TID PRN (Reason: nausea and vomiting) 5 Days Qty: 10 0RF No Action albuterol sulfate [ProAir HFA] 90 mcg/actuation HFA aerosol inhaler 2 puff inhalation QID metformin 1,000 mg tablet 1,000 mg PO omeprazole 40 mg capsule,delayed release(DR/EC) 40 mg PO BID atorvastatin 40 mg tablet 40 mg PO DAILY glipizide 10 mg tablet 20 mg PO BID hydrochlorothiazide 25 mg tablet 25 mg PO DAILY Jardiance 25 mg tablet 25 mg PO QAM (DME) FreeStyle Lite Strips Strip See Rx Instructions .ROUTE TID Qty: 10 Rx Instructions: As directed sumatriptan succinate 50 mg tablet 0 mg PO cyclobenzaprine 10 mg tablet 10 mg PO DAILY glimepiride 4 mg tablet 4 mg PO BID simethicone [Gas Relief (simethicone)] 180 mg capsule 180 - 360 mg PO DAILY PRN celecoxib [Celebrex] 200 mg capsule 200 mg PO BID 30 Days Qty: 60 3RF docusate sodium [Colace] 100 mg capsule 200 mg PO BEDTIME 30 Days Qty: 60 5RF bisacodyl [Dulcolax (bisacodyl)] 10 mg suppository 10 mg HI DAILY PRN (Reason: constipation) Qty: 20 0RF senna 8.6 mg capsule 8.6 mg PO DAILY PRN (Reason: constipation) Qty: 30 1RF Referrals: Nakia Sparrow MD [Primary Care Provider] - 02/24/24 Stand Alone Forms: Against Medical Advice Print Language: Mongolian
[2024-02-19 21:43] VITALS: BP 130/59; PULSE 103; RESP 16; TEMP 37.8; O2SAT 96
--- NOTE | 2024-02-19 21:59 | PC.NURSE ---
a&ox4. slightly sinus tachy on the cardiac rehabilitation program director. baseline febrile. otherwise vss and up to date. pt presents to the ED w/ n/v/d/lower abdominal pain/fever/chills x this am. sudden onset. pt denies any vomit in vomit/stool. abd tender w/ palpation. 20gIV placed in the left AC - patent/intact. labs obtained/sent to lab. pt to CT at this time. will resume care of pt when pt returns. plan of care ongoing.
[2024-02-19] MEDS: iohexoL 350 MG/ML 100 ML INFUS..BTL 85 ML IV (22:03)
[2024-02-19 22:05] LABS: Lactic Acid 1.7 mmol/L (0.5-2.0)
[2024-02-19] MEDS: 0.9 % Sodium Chloride 1,000 ML 999 ML IV ×2 (22:22)
[2024-02-19] MEDS: Acetaminophen 325 MG TABLET 650 MG PO (22:22)
[2024-02-19] MEDS: ondansetron HCL 4 MG/2 ML VIAL IVPUSH (22:22)
--- NOTE | 2024-02-19 23:01 | PC.NURSE ---
pt returned from CT. 2nd set of cultures obtained by tech. IVF/medication administered per provider order. effectiveness pending.
[2024-02-19 23:55] VITALS: BP 116/54; PULSE 91; RESP 16; TEMP 37.3; O2SAT 95
--- NOTE | 2024-02-20 00:01 | PC.NURSE ---
UA obtained/sent to lab. repeat oral temp obtained post Tylenol administration - effective. pt waiting for CT results at this time.
[2024-02-20 00:05] LABS: Appearance Urine Clear; Color Urine Yellow; Glucose Urine UA >=1000 mg/dL (Negative); Leukocyte Esterase Urine Negative (Negative); Nitrite Urine Negative (Negative); PH 6.5 (5.0-9.0); Specific Gravity - Urine >= 1.030 (1.005-1.025); UMIC TRIGGER UACC YES; Urine Blood Negative (Negative); Urine Ketones 15 mg/dL (Negative); Urine Protein Negative (Neg-Trace)
[2024-02-20 00:10] LABS: Bacteria Urine None Seen (None Seen); Hyaline Casts Urine 0-2 /LPF (0-2); RBC Urine 0-2 /HPF (0-2); Squamous Epithelial Cell Urine 0-2 /HPF (0-2); WBC Urine 0-5 /HPF (0-5)
[2024-02-20 02:19] VITALS: BP 106/68; PULSE 95; RESP 16; TEMP 37.9; O2SAT 96
[2024-02-20] MEDS: levoFLOXacin 500 MG TABLET PO (02:50)
[2024-02-20] MEDS: Acetaminophen 325 MG TABLET 650 MG PO (02:50)
[2024-02-20] MEDS: metroNIDAZOLE 500 MG TABLET PO (02:50)
[2024-02-20 03:00] VITALS: BP 106/68; PULSE 95; RESP 16; TEMP 37.9; O2SAT 96
--- NOTE | 2024-02-20 03:02 | PC.NURSE ---
pt's oral temperature increasing. medication administered per provider order. pt verbalizing that she does not want to stay despite CT results. dr. bird bedside speaking w/ pt in regards to leaving AMA. pt signed AMA paperwork/leaving facility at this time.
== END 2024-02-20 03:03 | disposition left against medical advice (07) ==
PROVIDERS: Physician Assistant Medical; Emergency Provider Emergency Medicine Emergency Medical Services; PCP Student in an Organized Health Care Education/Training Program
DX: K52.9 Noninfective gastroenteritis and colitis, unspecified (principal); R11.2 Nausea with vomiting, unspecified; Z20.822 Contact with and (suspected) exposure to COVID-19; Z79.899 Other long term (current) drug therapy
CPT/HCPCS: 0241U; 36415; 74177; 80053; 81001; 83605; 83690; 83735; 85025; 87040; 96361; 96374; 99284; 99285; J2405; Q9967

== ENCOUNTER 2024-02-23 15:27 | Emergency (ER) | payer MEDICAID, SELFPAY ==
[2024-02-23 15:36] VITALS: BP 152/60; PULSE 68; RESP 18; TEMP 36.7; O2SAT 98; BMI 38.8
--- NOTE | 2024-02-23 15:37 | ED_ITS ---
HPI - General Adult General Chief complaint: Nausea/Vomiting/Diarrhea Stated complaint: diarrhea Time Seen by Provider: 02/23/24 22:11 Source: patient Mode of arrival: ambulatory History of Present Illness ED Provider: Dr Javed HPI narrative: 63-year-old female who presents with persistent feelings of nausea, occasional vomiting but states that she has continued to have diarrhea despite being placed on antibiotics since . She denies any fevers or chills. Related Data Home Medications ?Medication ?Instructions ?Recorded ?Confirmed albuterol sulfate 90 mcg/actuation 2 puff inhalation QID 05/15/22 01/29/24 aerosol inhaler (ProAir HFA) atorvastatin 40 mg tablet 40 mg PO DAILY 05/15/22 01/29/24 blood sugar diagnostic (JaceStyle #10 ea 05/15/22 01/29/24 Lite Strips) cyclobenzaprine 10 mg tablet 10 mg PO DAILY 05/15/22 01/29/24 empagliflozin 25 mg tablet 25 mg PO QAM 05/15/22 01/29/24 (Jardiance) glimepiride 4 mg tablet 4 mg PO BID 05/15/22 01/29/24 glipizide 10 mg tablet 20 mg PO BID 05/15/22 01/29/24 hydrochlorothiazide 25 mg tablet 25 mg PO DAILY 05/15/22 01/29/24 metformin 1,000 mg tablet 1,000 mg PO 05/15/22 01/29/24 omeprazole 40 mg capsule,delayed 40 mg PO BID 05/15/22 01/29/24 release simethicone 180 mg capsule (Gas 180 - 360 mg PO DAILY PRN 05/15/22 01/29/24 Relief (simethicone)) sumatriptan succinate 50 mg tablet 0 mg PO 05/15/22 01/29/24 Previous Rx's ?Medication ?Instructions ?Recorded celecoxib 200 mg capsule (Celebrex) 200 mg PO BID 30 days #60 caps 09/03/23 bisacodyl 10 mg rectal suppository [address] DAILY PRN constipation 12/17/23 (Dulcolax (bisacodyl)) #20 ea docusate sodium 100 mg capsule 200 mg (2 x 100 mg) PO BEDTIME 30 12/17/23 (Colace) days #60 caps sennosides 8.6 mg capsule (senna) 8.6 mg PO DAILY PRN constipation 12/17/23 #30 caps ciprofloxacin HCl 500 mg tablet 500 mg PO BID #20 tabs 02/20/24 (Cipro) metronidazole 500 mg tablet 500 mg PO TID 10 days #30 tabs 02/20/24 ondansetron 4 mg disintegrating 4 mg PO TID PRN nausea and 02/20/24 tablet vomiting 5 days #10 tabs ondansetron 4 mg disintegrating 4 mg PO Q8H PRN nausea and 02/24/24 tablet vomiting #7 tabs Allergies Allergy/AdvReac Type Severity Reaction Status Date / Time Penicillins Allergy Severe Anaphylaxis Verified 02/23/24 15:41 Review of Systems 2 Review of Systems: Pertinent positives and negatives as stated in [facility] Past Medical History Source: nursing notes reviewed Medical History Hemorrhoids with complication Hypertension Diabetes mellitus Surgical History History of appendectomy History of hysterectomy Family History Family History Mother No problems noted. Father No problems noted. Sister No problems noted. Social History Social History Alcohol intake: never Patient Tobacco Use Status: Former Tobacco user Smoked in Last 30 Days: No Use of substances other than those prescribed or required for medical reasons: No Advance Directives: No Advance Directives Information Provided: Yes Do you have a plan to hurt others: No Plan Patient : No Current occupation: right hand dominant Physical Exam ED Vital Signs: Vital Signs - 24 hr 02/23/24 15:36 02/23/24 21:50 02/24/24 00:04 Temperature 98.0 F 98.6 F 97.7 F Pulse Rate 68 68 65 Respiratory Rate 18 16 18 Blood Pressure 152/60 H 144/66 H 141/59 H Pulse Oximetry 98 98 97 Oxygen Delivery Method Room Air Room Air Room Air BMI result Body Mass Index 38.8 VITAL SIGNS: Reviewed. GENERAL: Elevated BMI, Well developed, well nourished, in no acute distress. HEAD: Normocephalic/atraumatic EYES: PERRLA, EOMI EARS: Ext canals without abnormality NOSE: Nares patent bilateral OROPHARYNX: no oral lesions noted, posterior pharynx clear NECK: Supple, no adenopathy LUNGS: Normal breath sounds. No adventitious sounds or accessory muscle use. SpO2<98> CARDIOVASCULAR: Regular rate and rhythm without noted murmurs, no JVD or lower extremity edema. ABDOMEN: Soft, non-tender, non-distended with bowel sounds. MUSCULOSKELETAL: No tenderness, deformities, or effusions noted on gross inspection. EXTREMITIES: No cyanosis, clubbing or edema. SKIN: Inspection of the skin reveals no rashes NEUROLOGIC: Alert and oriented x 4. Strength and sensation to light touch were grossly intact x 4. Course Course Course Narrative: RME performed by Yessica Frederick PA-C. Patient is a 63 year old assigned female at presenting to the emergency department with abdominal pain. Patient states that she was seen on 02/19/2024 for similar symptoms and nothing was found. Detailed physical exam and review of systems are deferred to the coding compliance specialist. Labs and swabs ordered. Patient placed back in the waiting room pending room availability and results. Medical Decision Making Medical Decision Making [facility] Narrative: 63-year-old female with history and clinical presentation, DDX: Antibiotic side effect, persistent colitis, C diff/gastroenteritis. I reviewed all investigations and hematologic indices have significantly improved in comparison to prior, there is no leukocytosis/anemia or thrombocytopenia. Chemistry indices do not indicate an SIGIFREDO there is no electrolyte derangement but appears to be a subtle increase in transaminases but not consistent with any hepatobiliary etiology. C diff evaluation is negative. Urinalysis is negative for UTI or hematuria. GI panel is pending and viral testing is negative for influenza/RSV/COVID-19. My interpretation is that patient is experiencing persistent but improving diarrhea secondary to antibiotic use, will provide medication to control the nausea and also provide patient with dietary considerations to help improve the diarrhea further to include probiotics. Differential Diagnosis Differential Diagnoses: The differential diagnosis associated with the presentation includes Please see the discussion above Admission/Observation Consideration of admission/observation: Escalation of care including admission/observation considered Please see the discussion above Lab Data [facility] Lab Attestation statement: I reviewed the patient's lab results. Please see the discussion above 02/23/24 16:46 02/23/24 16:46 Labs: Lab Results 02/23/24 02/23/24 02/23/24 Range/Units 16:46 16:50 22:43 WBC 6.9 (4.8-10.8) X10*3/uL RBC 5.14 (4.20-5.50) X10*6/uL Hgb 12.3 (12.0-16.0) g/dl Hct 39.2 (37.0-47.0) % MCV 76.3 L (80.0-98.0) fL MCH 23.9 L (27.0-33.0) pg MCHC 31.4 (31.0-35.0) g/dl RDW 14.9 (11.0-16.0) % Plt Count 395 (160-400) X10*3/uL MPV 9.0 L (9.4-12.3) fL Immature Gran % (Auto) 0.6 H (0.0-0.4) % Neut % (Auto) 50.4 (45-73) % Lymph % (Auto) 36.6 (20-40) % [place] % (Auto) 9.8 (2-11) % Eos % (Auto) 2.2 (0-4) % Baso % (Auto) 0.4 (0-2) % Lymph # (Auto) 2.5 (1.2-4.9) X10*3/uL [place] # (Auto) 0.7 (0.1-1.2) X10*3/uL Eos # (Auto) 0.2 (0.0-0.4) X10*3/uL Baso # (Auto) 0.0 (0.0-0.2) X10*3/uL Abs Immat Gran (auto) 0.04 H (0.00-0.03) X10*3/uL Absolute Neuts (auto) 3.5 (2.0-8.3) x10*3/uL Absolute Nucleated RBC 0.000 (0.0-0.012) X10*3/uL Nucleated RBC % (auto) 0.0 (0.0-0.2) /100WBC Sodium 139 (135-145) mmol/L Potassium 3.8 (3.3-5.1) mmol/L Chloride 107 (96-108) mmol/L Carbon Dioxide 25 (22-29) mmol/L Anion Gap 11 L (12-20) BUN 11 (9-16) mg/dL Creatinine 0.76 (0.5-1.4) mg/dL Estim Creat Clear Calc 81.9 Estimated GFR > 60 Random Glucose 218 H (60-115) mg/dL Calcium 9.0 D (8.4-10.2) mg/dL Magnesium 1.8 (1.6-2.6) mg/dL Total Bilirubin 0.3 (0.0-1.0) mg/dL AST 36 H (5-31) U/L ALT 36 H (0-31) U/L Alkaline Phosphatase 73 (39-117) U/L Total Protein 7.1 (6.5-8.0) g/dL Albumin 3.6 (3.5-5.0) g/dL Urine Color Yellow Urine Appearance Clear Urine pH 6.5 (5.0-9.0) Ur Specific [place] 1.015 (1.005-1.025) Urine Protein Negative (Neg-Trace) mg/dL Urine Glucose (UA) >=1000 H (Negative) mg/dL Urine Ketones Negative (Negative) mg/dL Urine Blood Negative (Negative) Urine Nitrite Negative (Negative) Ur Leukocyte Esterase Negative (Negative) Urine RBC 0-2 (0-2) /HPF Urine WBC 0-5 (0-5) /HPF Ur Squamous Epith Cells 0-2 (0-2) /HPF Urine Bacteria None Seen (None Seen) Hyaline Casts 0-2 (0-2) /LPF C. difficile Tox B Gene NEGATIVE (Negative) Influenza Type A (PCR) NEGATIVE (Negative) Influenza Type B (PCR) NEGATIVE (Negative) RSV RNA Qual (PCR) NEGATIVE (Negative) SARS-CoV-2 RNA (RT-PCR) NEGATIVE (Negative) External Record Review External record reviewed: Outpatient record, Prior outpatient labs and Prior outpatient radiology Chronic Conditions Patient?s care impacted by: Diabetes and Hypertension Critical Care Time Critical Care Time Critical Care Time: Yes Total Critical Care Time: 45 Attestation: I personally attest to this time spent taking care of the patient. Discharge Plan Discharge Clinical Impression: Diarrhea Patient Disposition: Home, Self-Care Instructions: Acute Diarrhea (ED), Nutrition Tips for Relief of Diarrhea (ED) Additional Instructions: 1. Recommend continued use of antibiotics but you will need to also take probiotics, these are available [id number] and will help with the diarrhea. 2. Please review the information provided regarding dietary adjustment to also help with improvement in your diarrhea. 3. A prescription for nausea control has been sent to your pharmacy. 4. Please follow-up with your primary care doctor by calling the office in the morning and setting up an appointment for re-evaluation. Return to the ER for any acute worsening of symptoms. Prescriptions: New ondansetron 4 mg tablet,disintegrating 4 mg PO Q8H PRN (Reason: nausea and vomiting) Qty: 7 0RF No Action ciprofloxacin HCl [Cipro] 500 mg tablet 500 mg PO BID Qty: 20 0RF metronidazole 500 mg tablet 500 mg PO TID 10 Days Qty: 30 0RF ondansetron 4 mg tablet,disintegrating 4 mg PO TID PRN (Reason: nausea and vomiting) 5 Days Qty: 10 0RF albuterol sulfate [ProAir HFA] 90 mcg/actuation HFA aerosol inhaler 2 puff inhalation QID metformin 1,000 mg tablet 1,000 mg PO omeprazole 40 mg capsule,delayed release(DR/EC) 40 mg PO BID atorvastatin 40 mg tablet 40 mg PO DAILY glipizide 10 mg tablet 20 mg PO BID hydrochlorothiazide 25 mg tablet 25 mg PO DAILY Jardiance 25 mg tablet 25 mg PO QAM (DME) FreeStyle Lite Strips Strip See Rx Instructions .ROUTE TID Qty: 10 Rx Instructions: As directed sumatriptan succinate 50 mg tablet 0 mg PO cyclobenzaprine 10 mg tablet 10 mg PO DAILY glimepiride 4 mg tablet 4 mg PO BID simethicone [Gas Relief (simethicone)] 180 mg capsule 180 - 360 mg PO DAILY PRN celecoxib [Celebrex] 200 mg capsule 200 mg PO BID 30 Days Qty: 60 3RF docusate sodium [Colace] 100 mg capsule 200 mg PO BEDTIME 30 Days Qty: 60 5RF bisacodyl [Dulcolax (bisacodyl)] 10 mg suppository [address] DAILY PRN (Reason: constipation) Qty: 20 0RF senna 8.6 mg capsule 8.6 mg PO DAILY PRN (Reason: constipation) Qty: 30 1RF Print Language: Yi
[2024-02-23 16:52] LABS: MANUAL DIFF FLAG NO
[2024-02-23 16:54] LABS: Basophils Percent Auto 0.4 % (0-2); Eosinophils Absolute Auto 0.2 X10*3/uL (0.0-0.4); Eosinophils Percent Auto 2.2 % (0-4); Hematocrit 39.2 % (37.0-47.0); Hemoglobin 12.3 g/dl (12.0-16.0); Imm Gran Abs Auto 0.04 X10*3/uL (0.00-0.03); Imm Gran Pct Auto 0.6 % (0.0-0.4); Lymphocytes Absolute Auto 2.5 X10*3/uL (1.2-4.9); Lymphocytes Percent Auto 36.6 % (20-40); Mean Corpuscular HGB Conc 31.4 g/dl (31.0-35.0); Mean Corpuscular Hemoglobin 23.9 pg (27.0-33.0); Mean Corpuscular Volume 76.3 fL (80.0-98.0); Monocytes Absolute Auto 0.7 X10*3/uL (0.1-1.2); Monocytes Percent Auto 9.8 % (2-11); Neutrophils Absolute Auto 3.5 x10*3/uL (2.0-8.3); Neutrophils Percent Auto 50.4 % (45-73); Platelet Count 395 X10*3/uL (160-400); Red Blood Count 5.14 X10*6/uL (4.20-5.50); Red Cell Distribution Width 14.9 % (11.0-16.0); White Blood Count 6.9 X10*3/uL (4.8-10.8)
[2024-02-23 16:58] LABS: Appearance Urine Clear; Color Urine Yellow; Glucose Urine UA >=1000 mg/dL (Negative); Leukocyte Esterase Urine Negative (Negative); Nitrite Urine Negative (Negative); PH 6.5 (5.0-9.0); Specific Gravity - Urine 1.015 (1.005-1.025); UMIC TRIGGER UACC YES; Urine Blood Negative (Negative); Urine Ketones Negative (Negative); Urine Protein Negative (Neg-Trace)
[2024-02-23 17:00] LABS: Bacteria Urine None Seen (None Seen); Hyaline Casts Urine 0-2 /LPF (0-2); RBC Urine 0-2 /HPF (0-2); Squamous Epithelial Cell Urine 0-2 /HPF (0-2); WBC Urine 0-5 /HPF (0-5)
[2024-02-23 17:15] LABS: Alanine Aminotransferase 36 U/L (0-31); Albumin Level 3.6 g/dL (3.5-5.0); Alkaline Phosphatase 73 U/L (39-117); Anion Gap 11 (12-20); Aspartate Amino Transferase 36 U/L (5-31); Bilirubin Total 0.3 mg/dL (0.0-1.0); Blood Urea Nitrogen 11 mg/dL (9-16); Carbon Dioxide 25 mmol/L (22-29); Chloride 107 mmol/L (96-108); Creatinine Clr Calc Pharmacy 81.9; Estimated Glomerular Filt Rate > 60; Glucose Random 218 mg/dL (60-115); Magnesium 1.8 mg/dL (1.6-2.6); Potassium 3.8 mmol/L (3.3-5.1); Sodium 139 mmol/L (135-145); Total Protein 7.1 g/dL (6.5-8.0)
[2024-02-23 18:02] LABS: Influenza A PCR NEGATIVE (Negative); Influenza B PCR NEGATIVE (Negative); Resp Syncy Virus RNA Qual PCR NEGATIVE (Negative); SARS COV2 PCR INHOUSE NEGATIVE (Negative)
[2024-02-23 21:50] VITALS: BP 144/66; PULSE 68; RESP 16; TEMP 37; O2SAT 98
[2024-02-23 23:44] LABS: CDiff Gene PCR NEGATIVE (Negative)
[2024-02-24 00:04] VITALS: BP 141/59; PULSE 65; RESP 18; TEMP 36.5; O2SAT 97
[2024-02-24 01:29] VITALS: BP 133/76; PULSE 68; RESP 16; TEMP 36.8; O2SAT 97
== END 2024-02-24 01:36 | disposition home or self-care (01) ==
PROVIDERS: Physician Assistant Medical; Emergency Provider Student in an Organized Health Care Education/Training Program
DX: R19.7 Diarrhea, unspecified (principal); E11.9 Type 2 diabetes mellitus without complications; I10 Essential (primary) hypertension
CPT/HCPCS: 0241U; 80053; 81001; 83735; 85025; 87493; 99283; 99284

== ENCOUNTER 2024-02-26 15:04 | Outpatient (REF) | payer MEDICAID, SELFPAY ==
[2024-02-26 17:35] LABS: MANUAL DIFF FLAG NO
[2024-02-26 17:46] LABS: Basophils Absolute Auto 0.1 X10*3/uL (0.0-0.2); Basophils Percent Auto 0.5 % (0-2); Eosinophils Absolute Auto 0.2 X10*3/uL (0.0-0.4); Eosinophils Percent Auto 2.3 % (0-4); Hematocrit 40.8 % (37.0-47.0); Hemoglobin 12.5 g/dl (12.0-16.0); Imm Gran Abs Auto 0.19 X10*3/uL (0.00-0.03); Imm Gran Pct Auto 1.9 % (0.0-0.4); Lymphocytes Absolute Auto 3.5 X10*3/uL (1.2-4.9); Lymphocytes Percent Auto 35.2 % (20-40); Mean Corpuscular HGB Conc 30.6 g/dl (31.0-35.0); Mean Corpuscular Hemoglobin 23.5 pg (27.0-33.0); Mean Corpuscular Volume 76.5 fL (80.0-98.0); Mean Platelet Volume 9.6 fL (9.4-12.3); Monocytes Absolute Auto 0.6 X10*3/uL (0.1-1.2); Monocytes Percent Auto 5.8 % (2-11); Neutrophils Absolute Auto 5.3 x10*3/uL (2.0-8.3); Neutrophils Percent Auto 54.3 % (45-73); Platelet Count 494 X10*3/uL (160-400); Red Blood Count 5.33 X10*6/uL (4.20-5.50); Red Cell Distribution Width 15.5 % (11.0-16.0); White Blood Count 9.8 X10*3/uL (4.8-10.8)
== END 2024-02-26 15:05 | disposition home or self-care (01) ==
LOC: HO.CHCLDS 15:04
PROVIDERS: Visit Provider Internal Medicine
DX: R19.7 Diarrhea, unspecified (principal)
CPT/HCPCS: 36415; 85025

== ENCOUNTER 2024-03-25 09:46 | Outpatient (AMB) | payer MEDICAID, SELFPAY ==
--- NOTE | 2024-03-25 09:48 | MHC.OFFVIS ---
Intake Visit Reasons: 8w/CT Intake Note: Patient presents today for 8w/CT Meds- None Allergies to Antibiotic- Penicillins Blood Thinner- None Care Management Assistant Required: No Accompanied by: Self / Same As Patient Allergies Penicillins Allergy (Severe, Verified 05/11/24 09:51) Anaphylaxis HPI Comments Details: 03/25/24-- Jackeline is a 63-year-old female who is here for FU. She states she saw blood in the urine and went to the emergency room 01/09/24, she has been having left-sided flank pain. She was treated with antibiotics for urinary tract infection. Here for follow up post CTAP-02/19/24-- discussed results- right kidney cyst, lower pole renal calculus 6 mm. No hydronephrosis or obstructing calculus bilaterally. Plan fu cystoscopy. Review of chart: 01/29/24--Jackeline is a 63-year-old female who is here for new patient evaluation. She states she saw blood in the urine and went to the emergency room 01/09/24, she has been having left-sided flank pain. She was treated with antibiotics for urinary tract infection. Urine culture 01/09/24 grew strep group B. She states that the blood resolved but she still feels left flank discomfort. I have reviewed imaging including renal ultrasound of the left kidney and CT scan abdomen and pelvis with IV contrast there is a right kidney stone and segmental dilatation of the left ureter. I have discussed further evaluation with CT urogram. [facility] Medical History Hemorrhoids with complication Hypertension Diabetes mellitus Surgical History History of appendectomy History of hysterectomy Family History Mother No problems noted. Father No problems noted. Sister No problems noted. Social History Alcohol intake: never Patient Tobacco Use Status: Former Tobacco user Current occupation: right hand dominant Review of Systems Const All systems reviewed & are unremarkable except as noted in HPI and below Reports no additional complaints Eyes Reports no additional complaints ENT Reports no additional complaints Card Reports no additional complaints Resp Reports no additional complaints GI Reports no additional complaints Reports as per HPI Musc Reports no additional complaints Skin/Breast Reports system reviewed and no additional complaints, except as documented Neuro Reports no additional complaints Psych Reports no additional complaints Endo Reports no additional complaints Wade/Lymph Reports no additional complaints Aller/Immun Reports no additional complaints Results AMB Urinalysis, Automated UA Leukoctes 70 Yoandy/uL Last Edit by XAVIER Archuleta on 03/25/24 10:03 UA Nitrite Negative Last Edit by Wilfredo Lowery [facility] on 03/25/24 10:03 UA Urobilinogen 0.2 mg/dL Last Edit by Wilfredo Lowery [facility] on 03/25/24 10:03 UA Protein 15 mg/dL Last Edit by Wilfredo Lowery [facility] on 03/25/24 10:03 UA pH 6.0 Last Edit by Wilfredo Lowery [facility] on 03/25/24 10:03 UA Blood 0 Alfonzo/uL Last Edit by Wilfredo Lowery [facility] on 03/25/24 10:03 UA Specific [place] 1.015 Last Edit by Wilfredo Lowery [facility] on 03/25/24 10:03 UA Ketone Negative Last Edit by Wilfredo Lowery [facility] on 03/25/24 10:03 UA Bilirubin 0 mg/dL Last Edit by Wilfredo Lowery [facility] on 03/25/24 10:03 UA Glucose 1000 mg/dL Last Edit by Wilfredo Lowery [facility] on 03/25/24 10:03 Results Reviewed Results Reviewed: Laboratory Last Values Urine pH (Auto) 6.0 03/25/24 10:02 Specific [place] (Auto) 1.015 03/25/24 10:02 Urine Protein (Auto) 15 mg/dL 03/25/24 10:02 Glucose (UA)(Auto) 1000 mg/dL 03/25/24 10:02 Urine Ketones (Auto) Negative 03/25/24 10:02 Urine Blood (Auto) 0 Alfonzo/uL 03/25/24 10:02 Urine Nitrite (Auto) Negative 03/25/24 10:02 Urine Bilirubin (Auto) 0 mg/dL 03/25/24 10:02 Urine Urobilinogen (Auto) 0.2 mg/dL 03/25/24 10:02 Leukocyte Esterase (Auto) 70 Yoandy/uL 03/25/24 10:02 Date of Service: 02/19/24 EXAMINATION: CT ABDOMEN AND PELVIS WITH CONTRAST CLINICAL INFORMATION: Abdominal pain COMPARISON: 01/09/2024 TECHNIQUE: Multidetector volumetric images were obtained from the superior aspect of the liver through the pubic symphysis following administration 85 mL of Omnipaque 350 intravenous contrast. Sagittal and coronal reformatted images were obtained on the technologist's workstation. Oral contrast: No This CT examination was performed using dose optimization techniques as appropriate, variously including the following: *Automated exposure control *Adjustment of mA and/or kV according to patient size (this includes techniques or standardized protocols for targeted exams where dose is matched to indication/reason for exam; i.e. extremities or head) *Use of iterative reconstruction technique DLP: 769 mGy-cm FINDINGS: LUNG BASES: The visualized lung bases are unremarkable. LIVER, GALLBLADDER, AND BILIARY TREE: The liver appears mildly prominent in size. No focal hepatic lesion or biliary ductal dilatation is present. The gallbladder is unremarkable with no evidence of radiopaque gallstones, gallbladder wall thickening, or obvious pericholecystic inflammatory changes. PANCREAS: Unremarkable. SPLEEN: Unremarkable. ADRENAL GLANDS: Unremarkable. KIDNEYS AND URETERS: Bilateral nephrograms are symmetric. Redemonstrated small hypodensity in the lateral right kidney favoring a cyst; no follow-up recommended. A right lower pole renal calculus measures up to 6 mm. No hydronephrosis or obstructing calculus bilaterally. Redemonstrated segment of mild dilation in the mid left ureter, unchanged from prior. BLADDER: Unremarkable. GASTROINTESTINAL TRACT: No evidence of bowel obstruction. Although collapsed, there is a thick-walled appearance of the ascending colon and hepatic flexure, suspicious for colitis. No free fluid or free air is seen. ABDOMINAL WALL: No significant hernia is appreciated. LYMPH NODES: Normal. VASCULAR: Unremarkable. PELVIC VISCERA: Suspected postoperative changes from prior hysterectomy. OSSEOUS STRUCTURES: Multilevel degenerative changes in the spine. IMPRESSION: 1. Thick-walled appearance of the ascending colon and hepatic flexure, suspicious for colitis. 2. Right lower pole renal calculus without hydronephrosis. 3. Redemonstrated focal segmental dilation of the mid left ureter, similar to prior. As previously noted, further urologic workup could be performed including with ureteroscopy. Collected: 01/09/24-UNK Status: COMP Req#: [id number] Received: 01/09/24-1038 Source: [facility] Sp Desc: Urine oakes Subm Dr: Generic ED Physician Ordered: Urine Culture Procedure Result Verified Urine Culture Final 01/10/24-1419 Report Result 10,000 to 50,000 cfu/ml Mixed bacterial kandy characteristic of urogenital contamination. Organism 1 Strep agalactiae (Grp B) Quant 10,000 to 50,000 cfu/mL Susc N/A Susceptibility not routinely performed on this isolate. Date of Service: 01/09/24 EXAMINATION: CT ABDOMEN AND PELVIS WITH CONTRAST CLINICAL INFORMATION: Gross hematuria. COMPARISON: 12/29/2023 TECHNIQUE: Multidetector volumetric images were obtained from the superior aspect of the liver through the pubic symphysis following administration 85 mL of Omnipaque 350 intravenous contrast. Sagittal and coronal reformatted images were obtained on the technologist's workstation. Oral contrast: No This CT examination was performed using dose optimization techniques as appropriate, variously including the following: *Automated exposure control *Adjustment of mA and/or kV according to patient size (this includes techniques or standardized protocols for targeted exams where dose is matched to indication/reason for exam; i.e. extremities or head) *Use of iterative reconstruction technique DLP: 790 mGy-cm FINDINGS: LUNG BASES: No pleural or pericardial effusion. LIVER, GALLBLADDER, AND BILIARY TREE: The liver is enlarged and decreased in attenuation. No focal hepatic lesion or biliary ductal dilatation is present. The gallbladder is unremarkable with no evidence of radiopaque gallstones, gallbladder wall thickening, or obvious pericholecystic inflammatory changes. PANCREAS: Unremarkable. SPLEEN: Unremarkable. ADRENAL GLANDS: Unremarkable. KIDNEYS AND URETERS: The kidneys are normal in size, shape, and attenuation. 7 mm right lower pole nonobstructing calculus. 7 mm right mid pole hypodensity too small to characterize. No hydronephrosis. No perinephric stranding. There is focal segmental dilatation of the mid left ureter up to 7 mm. No obstructing calculus. BLADDER: Distended. GASTROINTESTINAL TRACT: Copious stool throughout the colon. No small bowel obstruction. ABDOMINAL WALL: No significant hernia is appreciated. LYMPH NODES: No bulky lymphadenopathy. VASCULAR: Normal caliber abdominal aorta. PELVIC VISCERA: Possible supracervical hysterectomy. OSSEOUS STRUCTURES: No destructive bone lesions. IMPRESSION: There is focal segmental dilatation of the mid left ureter up to 7 mm. No obstructing calculus. Advise urologic consultation. Consider correlation with ureteroscopy. Hepatomegaly and hepatic steatosis. Constipation. 7 mm nonobstructing right renal calculus. No hydronephrosis. Date of Service: 01/09/24 EXAMINATION: US RENAL CLINICAL INFORMATION: Left flank pain. COMPARISON: CT abdomen/pelvis 12/29/2023 TECHNIQUE: Linear transducer oakes-scale and color Doppler examination with attention to the region of the left kidney. FINDINGS: The left kidney measures 11.0 x 6.6 x 5.0 cm. Normal cortical thickness and cortical echogenicity. No hydronephrosis or renal stones. IMPRESSION: Unremarkable sonographic evaluation of the left kidney. Assessment & Plan Assessment & Plan (1) Gross hematuria: Code(s): R31.0 - Gross hematuria Category: Medical (2) Ureteral dilatation: Code(s): N28.82 - Megaloureter Category: Medical (3) Left flank pain: Code(s): R10.9 - Unspecified abdominal pain Category: Medical (4) Kidney stone: Code(s): N20.0 - Calculus of kidney Category: Medical Plan office cystoscopy Orders: Orders AMB Urinalysis Automated 03/25/24 Z13.9 - Encounter for screening, unspecified Patient Instructions: The patient had an opportunity to ask questions regarding treatment plan. The patient expressed understanding and agreement with the above treatment plan. The patient is aware they should contact our office by phone for worsening of their current condition or the appearance of new symptoms. Compliance is encouraged with any medications and followup testing that is ordered. It is a privilege to be allowed the opportunity to participate in the urologic care of your patient. If you have any questions or concerns regarding treatment for the above conditions please do not hesitate to contact me. The office telephone contact is [phone]. This note is constructed in part using voice recognition software. While every effort has been made to ensure accuracy senior restaurant manager errors may have been included. Yours sincerely, Walter Brunson MD Coding Level of Care Code Est Pt Level 3 (14336) Diagnoses Gross hematuria R31.0 Ureteral dilatation N28.82 Left flank pain R10.9 Kidney stone N20.0
== END 2024-03-25 10:23 | disposition home or self-care (01) ==
PROVIDERS: PCP Student in an Organized Health Care Education/Training Program; Referring Provider Student in an Organized Health Care Education/Training Program; Visit Provider Urology
DX: Z13.9 Encounter for screening, unspecified (principal)
CPT/HCPCS: 99213

== ENCOUNTER → 2024-03-25 09:46 | Outpatient (BNVA) | payer MEDICAID, SELFPAY | PROVIDERS: PCP Student in an Organized Health Care Education/Training Program; Visit Provider Urology | DX: R31.0 Gross hematuria (principal); R10.9 Unspecified abdominal pain; N28.82 Megaloureter; N20.0 Calculus of kidney | CPT/HCPCS: 81003; 99212 ==

== ENCOUNTER → 2024-03-30 07:48 | Outpatient (REF) | payer MEDICAID, SELFPAY | LOC: HO.NUCMED 07:48 | PROVIDERS: Visit Provider Physician Assistant | DX: Z13.89 Encounter for screening for other disorder (principal) ==

== ENCOUNTER 2024-04-14 08:51 | Day surgery (SDC) | payer MEDICAID, SELFPAY ==
--- NOTE | 2024-04-12 14:54 | HO.ANESPROP2 ---
Documented by User: Suzanne Singh NP 04/12/24 14:54 HPI - Anesthesia Eval Consult details Narrative: 63yo F for Colonoscopy Anesthesia Pre-Procedure Meds Is the patient on any of the following meds?: SGLT2 Inhib PMFSH Active Problems Active Problems: All Active Problems Kidney stone (Acute) Ureteral dilatation (Acute) Gross hematuria (Acute) Nausea (Acute) Early satiety (Acute) Poor historian (Acute) Chronic constipation (Acute) Right shoulder tendonitis (Acute) Osteoarthritis of right acromioclavicular joint (Acute) Injury of right rotator cuff (Acute) Hemorrhoids with complication (Acute) Hypertension (Acute) Diabetes mellitus (Acute) Past Medical History Medical History Hemorrhoids with complication Hypertension Diabetes mellitus Family History Family History Mother No problems noted. Father No problems noted. Sister No problems noted. Surgical History Surgical History History of appendectomy History of hysterectomy Social History Social History Alcohol intake: never Patient Tobacco Use Status: Former Tobacco user Use of substances other than those prescribed or required for medical reasons: No Are you DNR?: No Advance Directives: No Advance Directives Information Provided: Yes Current occupation: right hand dominant Meds Allergies Allergy/AdvReac Type Severity Reaction Status Date / Time Penicillins Allergy Severe Anaphylaxis Verified 04/14/24 10:02 Home Medications ?Medication ?Instructions ?Recorded ?Confirmed ?Last Taken ?Type blood sugar diagnostic (FreeStyle #10 ea 05/15/22 01/29/24 Unknown History Lite Strips) cyclobenzaprine 10 mg tablet 10 mg PO DAILY 05/15/22 04/14/24 Unknown History empagliflozin 25 mg tablet 25 mg PO QAM 05/15/22 04/14/24 04/09/24 History (Jardiance) glipizide 10 mg tablet 20 mg PO BID 05/15/22 04/14/24 Unknown History hydrochlorothiazide 25 mg tablet 25 mg PO DAILY 05/15/22 04/14/24 Unknown History metformin 1,000 mg tablet 1,000 mg PO BID 05/15/22 04/14/24 Unknown History omeprazole 40 mg capsule,delayed 40 mg PO BID 05/15/22 04/14/24 Unknown History release simethicone 180 mg capsule (Gas 180 - 360 mg PO DAILY PRN Gastric 05/15/22 04/14/24 Unknown History Relief (simethicone)) Reflux sumatriptan succinate 50 mg tablet 0 mg PO 05/15/22 01/29/24 Unknown History Assessment and Plan Assessment Anesthesia Assessment: Chart Reviewed Documented by User: Natacha Carrion MD 04/14/24 10:50 PMFSH Past Medical History Medical History Hemorrhoids with complication Hypertension Diabetes mellitus Family History Family History Mother No problems noted. Father No problems noted. Sister No problems noted. Family history of problems with anesthesia: No Surgical History Surgical History History of appendectomy History of hysterectomy History of Problems with Anesthesia: No Social History Social History Alcohol intake: never Patient Tobacco Use Status: Former Tobacco user Use of substances other than those prescribed or required for medical reasons: No Are you DNR?: No Advance Directives: No Advance Directives Information Provided: Yes Current occupation: right hand dominant Meds Allergies Allergy/AdvReac Type Severity Reaction Status Date / Time Penicillins Allergy Severe Anaphylaxis Verified 04/14/24 10:02 Home Medications ?Medication ?Instructions ?Recorded ?Confirmed ?Last Taken ?Type blood sugar diagnostic (FreeStyle #10 ea 05/15/22 01/29/24 Unknown History Lite Strips) cyclobenzaprine 10 mg tablet 10 mg PO DAILY 05/15/22 04/14/24 Unknown History empagliflozin 25 mg tablet 25 mg PO QAM 05/15/22 04/14/24 04/09/24 History (Jardiance) glipizide 10 mg tablet 20 mg PO BID 05/15/22 04/14/24 Unknown History hydrochlorothiazide 25 mg tablet 25 mg PO DAILY 05/15/22 04/14/24 Unknown History metformin 1,000 mg tablet 1,000 mg PO BID 05/15/22 04/14/24 Unknown History omeprazole 40 mg capsule,delayed 40 mg PO BID 05/15/22 04/14/24 Unknown History release simethicone 180 mg capsule (Gas 180 - 360 mg PO DAILY PRN Gastric 05/15/22 04/14/24 Unknown History Relief (simethicone)) Reflux sumatriptan succinate 50 mg tablet 0 mg PO 05/15/22 01/29/24 Unknown History Exam Airway Mallampati Class: II TM Dist: >3cm Neck ROM: Full Heart: rrr Lungs: cta Assessment and Plan Assessment Anesthesia Assessment: Anesthesia Plan Discussed Final Anesthetic Review Family History of Problems with Anesthesia: No History of Problems with Anesthesia: No NPO: Yes ASA Class: III Final Preanesthetic Review: No Changes in Pt Med Stat, Meds/Allgs Chart Reviewed, Consent Obtained/Reviewed and Anes Risks/Benef Reviewed Patient Risk: Intermediate Procedure Risk: Low Anesthetic Plan Anesthetic Plan: MAC: Disposition: Standard PACU (recheck Bs in pacu, 258 in preop), Extended PACU, Inp. Admit - Standard Bed, Inp. Admit - IMC and Inp. Admit - ICU
[2024-04-14 10:12] VITALS: BMI 38.2
[2024-04-14 10:23] VITALS: BP 161/58; PULSE 76; RESP 16; TEMP 36.1; O2SAT 97
--- NOTE | 2024-04-14 10:28 | MHC.SHP ---
Pre-Procedural Eval Section A - 24 Hr Update-Section A only Date of Service: 04/14/24 Section B - Complete if H&P > 30 days Chief Complaint: screening Relevant Family History (Specify if Yes): No Relevant Social History: None Present Medications: see Short Stay Collaborative assessment Medical History: Significant History (Hemorrhoids with complication Hypertension Diabetes mellitus) History of Previous Operations: Relevant previous surgery/procedure and date(s) (History of appendectomy History of hysterectomy) Allergies: Allergies Allergy/AdvReac Type Severity Reaction Status Date / Time Penicillins Allergy Severe Anaphylaxis Verified 04/14/24 10:02 Review of Systems Sugical H&P ROS: Negative: Constitution, Cardiovascular, Respiratory, Neurological, Psychiatric, Hem-Onc, Allergic/Immunologic, Gastrointestinal, Genitourinary, Musculoskeletal, Integumentary, Endocrine and Eyes/Ears/Nose/Throat Exam Surgical H&P Exam: Normal: HEENT, Normal: Heart, Normal: Lungs, Normal: Extremities, Normal: Abdomen, Normal: Skin and Normal: Neurological Plan Diagnosis/Plan: Unchanged I have reviewed the history and physical and performed a pertinent physical examination on my patient. No changes have occurred unless specified. Time Spent With Patient Time: Total time managing care of this patient today ____ minutes.
[2024-04-14] MEDS: Lactated Ringers 1,000 ML 100 ML IVCONT (10:29)
[2024-04-14 10:30] LABS: Glucose, Whole Blood 288 mg/dL (60-115)
--- NOTE | 2024-04-14 10:58 | P.OPN-COLO_ITS ---
Colonoscopy Operative Note Operative Note Date of Service: 04/14/24 Narrative: Operative Information Procedure Description: Colonoscopy Indication: screening Anesthesia: MAC COLONOSCOPY Instrument: Olympus variable stiffness pediatric scope 190L Colonoscopy Monitoring: Vital signs and clinical assessment, continuous EKG monitoring, Pulse oximetry, Carbon Dioxide monitoring and blood pressure monitoring were done throughout the procedure. Colon withdrawal time was 7 minutes. Procedure: The patient was placed in the left lateral decubitis position and pre-procedure medications were administered. After a digital rectal examination of the ano-rectum, the video colonoscope was inserted into the rectum and advanced through the colon to the cecum/TI. The colonoscope was slowly withdrawn in a retrograde panoramic fashion and the colon mucosa was carefully examined including a retroflexed view of the rectum. Findings and interventions are described below. Procedure Difficulty: moderate Findings: Terminal Ileum- superficial intubation, normal Cecum: few diverticula seen Ascending Colon: few diverticula seen Transverse Colon -normal Descending Colon:normal Sigmoid Colon: normal Rectum: Retroflexion with small internal hemorrhoids seen, grade I Anorectum - normal Intervention: none Colon preparation: [place] Bowel Preparation Scale Right colon; 2 Transverse colon: 2 Left colon; 2 (0 = Unprepared colon segment with mucosa not seen due to solid stool that cannot be cleared. 1 = Portion of mucosa of the colon segment seen, but other areas of the colon segment not well seen due to staining, residual stool and/or opaque liquid. 2 = Minor amount of residual staining, small fragments of stool and/or opaque liquid, but mucosa of colon segment seen well. 3 = Entire mucosa of colon segment seen well with no residual staining, small fragments of stool or opaque liquid) Impression and Post Procedure Diagnosis: diverticulosis internal hemorrhoids Plan: High fiber diet leaflet Avoid straining at stool, epsom salts and sitz bath, anusol supps or cream Repeat Colonoscopy in 10 years or earlier if clinically indicated Above findings were reviewed with the patient and relevant handouts were provided if indicated.
[2024-04-14 11:05] VITALS: BP 142/57; PULSE 68; RESP 16; TEMP 36.1; O2SAT 99
[2024-04-14 11:20] VITALS: BP 149/63; PULSE 64; RESP 16; TEMP 36.4; O2SAT 99
[2024-04-14 11:42] LABS: Glucose, Whole Blood 275 mg/dL (60-115)
== END 2024-04-14 12:08 | disposition home or self-care (01) ==
PROVIDERS: Visit Provider Internal Medicine Gastroenterology
PROC: 0DJD8ZZ Inspection of Lower Intestinal Tract, Via Natural or Artificial Opening Endoscopic (ICD-10-PCS; CPT 45378; principal; 2024-04-14 11:10)
DX: Z12.11 Encounter for screening for malignant neoplasm of colon (principal); K57.30 Diverticulosis of large intestine without perforation or abscess without bleeding; K64.0 First degree hemorrhoids; K59.09 Other constipation; R68.81 Early satiety; I10 Essential (primary) hypertension; E11.9 Type 2 diabetes mellitus without complications; Z79.84 Long term (current) use of oral hypoglycemic drugs; Z79.899 Other long term (current) drug therapy; Z88.0 Allergy status to penicillin; Z98.890 Other specified postprocedural states; Z87.891 Personal history of nicotine dependence
CPT/HCPCS: 45378; 82947; J2704

== ENCOUNTER → 2024-04-14 08:51 | Outpatient (BNV) | payer MEDICAID, SELFPAY | PROVIDERS: Visit Provider Internal Medicine Gastroenterology | DX: Z12.11 Encounter for screening for malignant neoplasm of colon (principal); K57.90 Diverticulosis of intestine, part unspecified, without perforation or abscess without bleeding; K64.0 First degree hemorrhoids | CPT/HCPCS: 45378 ==

== ENCOUNTER → 2024-04-19 07:48 | Outpatient (REF) | payer MEDICAID, SELFPAY ==
--- NOTE | ~2024-04-19 | NM_ITS ---
EXAMINATION: NM RADIONUCLIDE SOLID FOOD GASTRIC EMPTYING 4-HOUR STUDY CLINICAL INFORMATION: Early satiety. COMPARISON: None TECHNIQUE: A standard meal consisting of 4 oz of Egg Beaters brand tagged with 1000 microcuries Tc-99m Sulfur Colloid, 6 oz water and 2 slices of toast with jelly was administered orally to the patient. Images were obtained using a dual head gamma camera in the anterior and posterior projections over of the stomach immediately post ingestion and at hourly intervals up to 4 hours post ingestion. The anterior and posterior counts at each time interval were averaged using the geometric mean and expressed as percentage of the immediate post ingestion counts. FINDINGS: There is good visualization of activity in the stomach immediately post ingestion. As the study progresses, there is good clearance of activity from the stomach and visualization of progressively increasing small bowel activity. By the end of the study, there is almost no retention noted in the stomach. Retention in the stomach at each time interval was: 1 hour 57% (normal 37%-90%) 2 hours 2% (normal 30%-60%) 3 hours 4% 4 hours estimation was not performed since only 4% retention was noted at 3 hours interval. NM/NM gastric emptying study IMPRESSION: Normal 4-hour solid food gastric emptying study. For solid meal, rapid gastric emptying is less than 30% at 60 minutes. Delayed gastric emptying criteria is more than 60% remaining at 120 minutes or more than 10% at 240 minutes. The 4-hour value is the best discriminator of a normal or abnormal result). Gastric emptying study grading per JNMT Consensus Recommendations in 2008 (https://tech.snmjournals.org/content/36/1/44) Grade 1 (mild retention): 11-20% at 4h Grade 2 (moderate retention): 21-35% at 4h Grade 3 (severe retention): 36-50% at 4h Grade 4 (very severe retention): >50% retention at 4h
== END ==
LOC: HO.NUCMED 07:48
PROVIDERS: PCP Student in an Organized Health Care Education/Training Program; Visit Provider Physician Assistant
DX: R68.81 Early satiety (principal); R11.0 Nausea; E11.9 Type 2 diabetes mellitus without complications
CPT/HCPCS: 78264; A9541

== ENCOUNTER 2024-04-27 12:59 | Outpatient (AMB) | payer MEDICAID, SELFPAY ==
--- NOTE | 2024-04-27 12:59 | MHC.OFFVIS ---
Vital Signs 04/27/24 13:19 Height 5 ft 2 in Weight 214 lb BMI 39.1 BP 140/76 H Blood Pressure Location Lt brachial Position Sitting Pulse 96 Intake Visit Reasons: Lipoma of scalp Intake Note: Patient is seen in office for evaluation of a lipoma of the scalp. 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 Accompanied by: Self / Same As Patient Allergies Penicillins Allergy (Severe, Verified 04/27/24 13:19) Anaphylaxis Medication List - Last Reconciled 04/27/24 by Dwayne Deleon MD blood sugar diagnostic (FreeStyle Lite Strips) As directed cyclobenzaprine 10 mg PO DAILY docusate sodium (Colace) 200 mg (2 x 100 mg) PO BEDTIME 30 days empagliflozin (Jardiance) 25 mg PO QAM glipizide 20 mg PO BID hydrochlorothiazide 25 mg PO DAILY metformin 1,000 mg PO BID omeprazole 40 mg PO BID ondansetron 4 mg PO Q8H PRN sennosides (senna) 8.6 mg PO DAILY PRN simethicone (Gas Relief (simethicone)) 180 - 360 mg PO DAILY PRN sumatriptan succinate 0 mg PO HPI Comments Details: 63-year-old female patient presenting for evaluation of a scalp lump located in the midline frontal scalp. This has been present for least a year and has gradually increased in size. She reports occasional itching but denies any bleeding or discharge from the site. She denies any previous history of scalp cysts or previous surgery in this location. She has requested excision. [facility] Medical History Hemorrhoids with complication Hypertension Diabetes mellitus Surgical History History of appendectomy History of hysterectomy Family History Mother No problems noted. Father No problems noted. Sister No problems noted. Social History Alcohol intake: never Patient Tobacco Use Status: Former Tobacco user Current occupation: right hand dominant Review of Systems Const All systems reviewed & are unremarkable except as noted in HPI and below Denies chills, Denies fever(s), Denies headache(s), Denies poor appetite and Denies weakness ENT Denies headache(s) Card Denies chest pain, Denies irregular heart rhythm, Denies palpitations and Denies dyspnea Resp Denies cough, Denies excessive phlegm production and Denies dyspnea GI Denies abdominal pain, Denies bloating, Denies change in bowel habits, Denies constipation, Denies heartburn, Denies diarrhea, Denies nausea and Denies vomiting Denies urinary frequency Musc Denies back pain, Denies muscle weakness and Denies numbness Skin/Breast Denies changing lesions and Denies unusual bruising Neuro Denies headache(s), Denies numbness, Denies paresthesias and Denies weakness Psych Denies anxiety and Denies depression Endo Denies palpitations Wade/Lymph Denies lymphadenopathy Physical Exam Vital Signs: Last Vital Signs Pulse 96 04/27/24 13:19 BP 140/76 H 04/27/24 13:19 BMI result Body Mass Index 39.1 Const General: cooperative and no acute distress Nutritional Appearance: well nourished Orientation/consciousness: patient oriented x3 Limitations: no limitations HEENT Other: Frontal scalp with a 2 cm mobile subcutaneous Pilar cyst noted just beyond the hairline in the frontal scalp. The evidence of abscess or cellulitis. Head: Yes normocephalic and Yes atraumatic Head images: 1. 2 cm Pilar cyst, mobile within the subcutaneous tissue. Ears: hearing grossly normal bilaterally Resp Effort & Inspection: normal respiratory effort, no audible wheezes, no cough and no respiratory distress Cardio Jugular venous distension: no JVD GI Inspection: Yes normal to inspection Skin Other: Warm, dry, no rash Neuro General: patient oriented x3 Extrem General: Yes no clubbing, cyanosis or edema Assessment & Plan Assessment & Plan (1) Pilar cyst of scalp: Code(s): L72.11 - Pilar cyst Category: Medical Plan 63-year-old female patient presenting with a Pilar cyst in the frontal scalp which is gradually increased in size over the past year. She has requested excision and after discussion of the procedure, risks, and alternatives, consents to the surgery. This will be performed in the office under local anesthesia. Coding Level of Care Code New Pt Level 4 (64569) Diagnoses Pilar cyst of scalp L72.11
[2024-04-27 13:19] VITALS: BP 140/76; PULSE 96; BMI 39.1
== END 2024-04-27 13:31 | disposition home or self-care (01) ==
PROVIDERS: PCP Student in an Organized Health Care Education/Training Program; Referring Provider Student in an Organized Health Care Education/Training Program; Visit Provider Surgery
DX: L72.11 Pilar cyst (principal)
CPT/HCPCS: 99204

== ENCOUNTER → 2024-04-27 12:59 | Outpatient (BNVA) | payer MEDICAID, SELFPAY | PROVIDERS: PCP Student in an Organized Health Care Education/Training Program; Visit Provider Surgery | DX: L72.11 Pilar cyst (principal) | CPT/HCPCS: 99202 ==

== ENCOUNTER 2024-05-11 09:31 | Outpatient (AMB) | payer MEDICAID, SELFPAY ==
--- NOTE | 2024-05-11 09:50 | A.OFFVIS_ITS ---
Vital Signs 3 05/11/24 09:51 Height 5 ft 2 in Weight 212 lb 1.355 oz BMI 38.8 Pulse 62 Intake Visit Reasons: excision Pilar cyst of scalp Intake Note: Patient is seen in office for office procedure, excision of pilar cyst of the front scalp. 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 Accompanied by: Self / Same As Patient Allergies Penicillins Allergy (Severe, Verified 05/11/24 09:51) Anaphylaxis Medication List - Last Reconciled 05/11/24 by Dwayne Deleon MD blood sugar diagnostic (FreeStyle Lite Strips) As directed cyclobenzaprine 10 mg PO DAILY docusate sodium (Colace) 200 mg (2 x 100 mg) PO BEDTIME 30 days empagliflozin (Jardiance) 25 mg PO QAM glipizide 20 mg PO BID hydrochlorothiazide 25 mg PO DAILY metformin 1,000 mg PO BID omeprazole 40 mg PO BID ondansetron 4 mg PO Q8H PRN sennosides (senna) 8.6 mg PO DAILY PRN simethicone (Gas Relief (simethicone)) 180 - 360 mg PO DAILY PRN sumatriptan succinate 0 mg PO HPI Comments Details: Patient returns today for excision of the Pilar cyst of her frontal scalp. She denies any changes since her last visit. [facility] Medical History Hemorrhoids with complication Hypertension Diabetes mellitus Surgical History History of appendectomy History of hysterectomy Family History Mother No problems noted. Father No problems noted. Sister No problems noted. Social History Alcohol intake: never Patient Tobacco Use Status: Former Tobacco user Current occupation: right hand dominant Physical Exam Vital Signs: Last Vital Signs Pulse 62 05/11/24 09:51 BMI result Body Mass Index 38.8 HEENT Other: 2 cm frontal scalp Pilar cyst no redness or discharge noted. Head images: 2 1. 2 cm Pilar cyst Office Procedures Excision Details: Preoperative diagnosis: Pilar cyst frontal scalp Postoperative diagnosis: Pilar cyst frontal scalp Procedure: Excision of Pilar cyst frontal scalp Surgeon: Dwayne Deleon MD Family Law Specialist: None Anesthesia: Lidocaine 1% with epinephrine Indications for procedure: 63-year-old female presenting with a gradually enlarging cyst of the bifrontal scalp measuring approximately 2 cm in diameter. Operative findings: Fluid-filled sac with sebaceous material and ruptured wall measuring approximately 2 cm Specimen: 2 cm Pilar cyst Estimated blood loss: Less than 1 mL Complications: None Procedure details: Patient was brought to the procedure room and placed in a supine position, sitting. After assuring informed consent and confirming the site of the procedure in the frontal scalp, the skin was prepped with Betadine and draped in a sterile fashion. Local anesthesia consisting of 1% lidocaine with epinephrine was then infiltrated circumferentially around the lesion. An incision was then made with a 15 blade scalpel carried out through subcutaneous tissue. Blunt dissection was then used to dissect the cyst wall from the surrounding subcutaneous tissue. Hemostasis was assured using light pressure. Skin was then reapproximated using an interrupted 3-0 Prolene suture. Bacitracin was then applied. The patient tolerated the procedure well and was discharged to home in stable condition. [id number]-[id number] scalp/neck/hands/feet/genitalia 1.1cm-2cm Procedure code (CPT) selection complete Assessment & Plan Assessment & Plan (1) Pilar cyst of scalp: Code(s): L72.11 - Pilar cyst Category: Medical Plan 63-year-old female patient presenting with a Pilar cyst of the frontal scalp. She underwent excision today and will return in 1 week for suture removal. Orders: Orders 2 Surgical Today L72.11 - Pilar cyst Coding Level of Care Code Procedure Only Diagnoses Pilar cyst of scalp L72.11 CPT Codes Scalp/Neck/Hands/Feet/Genetalia - CPT: 18815-Gagjheig scalp/neck/hands/feet/genitalia 1.1cm-2cm ([id number])
[2024-05-11 09:51] VITALS: PULSE 62; BMI 38.8
== END 2024-05-11 10:10 | disposition home or self-care (01) ==
PROVIDERS: PCP Student in an Organized Health Care Education/Training Program; Visit Provider Surgery
DX: L72.11 Pilar cyst (principal)
CPT/HCPCS: 11422

== ENCOUNTER 2024-05-11 09:31 | Outpatient (REF) | payer MEDICAID, SELFPAY | END 2024-05-11 09:32 | disposition home or self-care (01) | LOC: HO.LNP 09:31 | PROVIDERS: PCP Student in an Organized Health Care Education/Training Program; Visit Provider Surgery | DX: L72.11 Pilar cyst (principal) | CPT/HCPCS: 11422; 88304 ==

== ENCOUNTER 2024-05-18 12:12 | Outpatient (AMB) | payer MEDICAID, SELFPAY ==
--- NOTE | 2024-05-18 12:28 | A.OFFVIS_ITS ---
Vital Signs 3 05/18/24 12:29 Height 5 ft 2 in Weight 211 lb 10.3 oz BMI 38.7 Pulse 64 Intake Visit Reasons: post pilar cyst of the scalp (off Proc) Intake Note: Patient is seen in office for follow up visit, post excision of pilar cyst of the front scalp. 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 She tolerated the procedure well but does feel some pressure over her eyes today. Denies any bleeding or discharge from the incision. [facility] Medical History Hemorrhoids with complication Hypertension Diabetes mellitus Surgical History History of appendectomy History of hysterectomy Family History Mother No problems noted. Father No problems noted. Sister No problems noted. Social History Alcohol intake: never Patient Tobacco Use Status: Former Tobacco user Current occupation: right hand dominant Physical Exam Vital Signs: Last Vital Signs Pulse 64 05/18/24 12:29 BMI result Body Mass Index 38.7 Const General: no acute distress HEENT Head images: 2 1. Incision in the frontal scalp is clean, dry, and intact without redness or discharge. No hematoma or seroma is appreciated. No ecchymosis in the surrounding skin. Assessment & Plan Assessment & Plan (1) Pilar cyst of scalp: Code(s): L72.11 - Pilar cyst Category: Medical Plan Patient returns 1 week following excision of a Pilar cyst of the frontal scalp. She tolerated the procedure well and her wounds are healing nicely. She should follow up as needed. Coding Level of Care Code Global (40755) Diagnoses Pilar cyst of scalp L72.11
[2024-05-18 12:29] VITALS: PULSE 64; BMI 38.7
== END 2024-05-18 12:30 | disposition home or self-care (01) ==
PROVIDERS: PCP Student in an Organized Health Care Education/Training Program; Visit Provider Surgery
DX: L72.11 Pilar cyst (principal)
CPT/HCPCS: 99024

== ENCOUNTER 2024-05-18 12:36 | Outpatient (REF) | payer MEDICAID, SELFPAY ==
--- NOTE | ~2024-05-18 | MM_ITS ---
EXAMINATION: MM DIAGNOSTIC DIGITAL MAMMOGRAPHY, BILATERAL CLINICAL INFORMATION: 6 month diagnostic bilateral mammography follow-up for bilateral breast calcifications, originally evaluated 10/15/2023. COMPARISON: Mammography: 10/15/2023, 09/24/2023, 08/29/2022, 06/06/2018. TECHNIQUE: Digital mammography is performed in the following views: Bilateral spot magnification 2-D cc and ML views. As per the technologist, the patient could not remain perfectly still and there is some motion on bilateral magnification images. FINDINGS: There are scattered areas of fibroglandular density (ACR BI-RADS breast composition Category b). There are stable small oval circumscribed masses in both breasts. There are stable vascular calcifications in both breasts. RIGHT BREAST: -Within the upper outer quadrant of the right breast, far posterior one third, there is a linear group of loosely grouped calcifications, the majority of which have a coarse appearance with mild pleomorphism, but no branching or casting forms. When compared 10/15/2023, these were present and appear to have remained entirely unchanged in appearance and number. These remain probably benign and six-month interval follow-up recommended. LEFT BREAST: -Within the lower inner quadrant of the left breast, far posterior one third, there is a loose group of somewhat coarse calcifications with mild pleomorphism, but no branching or casting forms, similar appearance to the contralateral side. When compared with 10/15/2023, there has been a minimal increase in the number of calcifications, however morphology of these remains probably benign, with round and punctate forms. These remain probably benign and six-month interval follow-up recommended. MM/MM diagnostic mammo BI IMPRESSION: There are no findings suspicious for malignancy in either breast. Bilateral grouped calcifications remain probably benign. Six-month follow-up recommended when the patient is due for bilateral screening. ASSESSMENT: BI-RADS BI-RADS 3 - Probably benign finding(s) - 6 month follow-up suggested RECOMMENDATION: 6 Month F/U This patient's information was entered into a reminder system with a target due date for their next mammogram. Electronically signed by: Thomas Vázquez MD 05/18/2024 02:59 PM EDT
== END 2024-05-18 12:37 | disposition home or self-care (01) ==
LOC: HO.MAMMO 12:36
PROVIDERS: PCP Student in an Organized Health Care Education/Training Program; Visit Provider Student in an Organized Health Care Education/Training Program
DX: R92.1 Mammographic calcification found on diagnostic imaging of breast (principal); L72.11 Pilar cyst
CPT/HCPCS: 77062; 77066; 99212

== ENCOUNTER → 2024-05-18 13:30 | Outpatient (BNV) | payer MEDICAID, SELFPAY | PROVIDERS: PCP Student in an Organized Health Care Education/Training Program; Visit Provider Radiology Diagnostic Radiology | DX: R92.1 Mammographic calcification found on diagnostic imaging of breast (principal) | CPT/HCPCS: 77066 ==

== ENCOUNTER 2024-07-06 10:31 | Outpatient (REF) | payer MEDICAID, SELFPAY ==
[2024-07-06 12:21] LABS: Alanine Aminotransferase 32 U/L (0-31); Aspartate Amino Transferase 31 U/L (5-31); Bilirubin Direct 0.1 mg/dL (0.0-0.5); Bilirubin Total 0.3 mg/dL (0.0-1.0)
[2024-07-09 15:13] LABS: HPV mRNA E6/E7 Not Detected (Not Detected)
== END 2024-07-06 10:32 | disposition home or self-care (01) ==
LOC: HO.HHCL 10:31
PROVIDERS: Visit Provider Advanced Practice Midwife
DX: R87.610 Atypical squamous cells of undetermined significance on cytologic smear of cervix (ASC-US) (principal)
CPT/HCPCS: 36415; 82247; 82248; 84450; 84460; 87624; 88175

== ENCOUNTER 2024-07-26 09:32 | Outpatient (AMB) | payer MEDICAID, SELFPAY ==
--- NOTE | 2024-07-25 20:40 | MHC.OFFVIS ---
Intake Visit Reasons: FU Hematuria Intake Note: Patient is present for FU Urology Medication:NONE Antibiotic Allergy:PENICILLIN Blood Thinner:NONE Ortho Assistant Required: No Allergies Penicillins Allergy (Severe, Verified 07/26/24 10:51) Anaphylaxis HPI Comments Details: 07/26/24--Visit scheduled for office cysto. Jackeline was last seen on 03/25/24-- Jackeline is a 63-year-old female who is here for FU. She states she saw blood in the urine and went to the emergency room 01/09/24, she has been having left-sided flank pain. She was treated with antibiotics for urinary tract infection. Here for follow up post CTAP-02/19/24-- discussed results- right kidney cyst, lower pole renal calculus 6 mm. No hydronephrosis or obstructing calculus bilaterally. fu cystoscopy.pt wants reschedule. Will order 24 hr urine. Review of chart: -03/25/24-- Jackeline is a 63-year-old female who is here for FU. 01/29/24--Jackeline is a 63-year-old female who is here for new patient evaluation. She states she saw blood in the urine and went to the emergency room 01/09/24, she has been having left-sided flank pain. She was treated with antibiotics for urinary tract infection. Urine culture 01/09/24 grew strep group B. She states that the blood resolved but she still feels left flank discomfort. I have reviewed imaging including renal ultrasound of the left kidney and CT scan abdomen and pelvis with IV contrast there is a right kidney stone and segmental dilatation of the left ureter. I have discussed further evaluation with CT urogram. [facility] Medical History Hemorrhoids with complication Hypertension Diabetes mellitus Surgical History History of appendectomy History of hysterectomy Family History Mother No problems noted. Father No problems noted. Sister No problems noted. Social History Alcohol intake: never Patient Tobacco Use Status: Former Tobacco user Current occupation: right hand dominant Review of Systems Const All systems reviewed & are unremarkable except as noted in HPI and below Reports no additional complaints Eyes Reports no additional complaints ENT Reports no additional complaints Card Reports no additional complaints Resp Reports no additional complaints GI Reports no additional complaints Reports as per HPI Musc Reports no additional complaints Skin/Breast Reports system reviewed and no additional complaints, except as documented Neuro Reports no additional complaints Psych Reports no additional complaints Endo Reports no additional complaints Wade/Lymph Reports no additional complaints Aller/Immun Reports no additional complaints Results AMB Urinalysis, Automated UA Leukoctes 0 Yoandy/uL Last Edit by XAVIER Archuleta on 07/26/24 11:33 UA Nitrite Last Edit by Wilfredo Lowery CCM on 07/26/24 11:33 UA Urobilinogen 0.2 mg/dL Last Edit by XAVIER Archuleta on 07/26/24 11:33 UA Protein 0 mg/dL Last Edit by Wilfredo Lowery CCM on 07/26/24 11:33 UA pH 5.5 Last Edit by Wilfredo Lowery [facility] on 07/26/24 11:33 UA Blood 0 Alfonzo/uL Last Edit by Wilfredo Lowery CCM on 07/26/24 11:33 UA Specific [place] 1.015 Last Edit by XAVIER Archuleta on 07/26/24 11:33 UA Ketone Negative Last Edit by Wilfredo Lowery CCM on 07/26/24 11:33 UA Bilirubin 0 mg/dL Last Edit by Wilfredo Lowery CCM on 07/26/24 11:33 UA Glucose 1000 mg/dL Last Edit by Wilfredo Lowery [facility] on 07/26/24 11:33 Results Reviewed Results Reviewed: Laboratory Last Values Urine pH (Auto) 5.5 07/26/24 11:32 Specific [place] (Auto) 1.015 07/26/24 11:32 Urine Protein (Auto) 0 mg/dL 07/26/24 11:32 Glucose (UA)(Auto) 1000 mg/dL 07/26/24 11:32 Urine Ketones (Auto) Negative 07/26/24 11:32 Urine Blood (Auto) 0 Alfonzo/uL 07/26/24 11:32 Urine Bilirubin (Auto) 0 mg/dL 07/26/24 11:32 Urine Urobilinogen (Auto) 0.2 mg/dL 07/26/24 11:32 Leukocyte Esterase (Auto) 0 Yoandy/uL 07/26/24 11:32 Date of Service: 02/19/24 EXAMINATION: CT ABDOMEN AND PELVIS WITH CONTRAST CLINICAL INFORMATION: Abdominal pain COMPARISON: 01/09/2024 TECHNIQUE: Multidetector volumetric images were obtained from the superior aspect of the liver through the pubic symphysis following administration 85 mL of Omnipaque 350 intravenous contrast. Sagittal and coronal reformatted images were obtained on the technologist's workstation. Oral contrast: No This CT examination was performed using dose optimization techniques as appropriate, variously including the following: *Automated exposure control *Adjustment of mA and/or kV according to patient size (this includes techniques or standardized protocols for targeted exams where dose is matched to indication/reason for exam; i.e. extremities or head) *Use of iterative reconstruction technique DLP: 769 mGy-cm FINDINGS: LUNG BASES: The visualized lung bases are unremarkable. LIVER, GALLBLADDER, AND BILIARY TREE: The liver appears mildly prominent in size. No focal hepatic lesion or biliary ductal dilatation is present. The gallbladder is unremarkable with no evidence of radiopaque gallstones, gallbladder wall thickening, or obvious pericholecystic inflammatory changes. PANCREAS: Unremarkable. SPLEEN: Unremarkable. ADRENAL GLANDS: Unremarkable. KIDNEYS AND URETERS: Bilateral nephrograms are symmetric. Redemonstrated small hypodensity in the lateral right kidney favoring a cyst; no follow-up recommended. A right lower pole renal calculus measures up to 6 mm. No hydronephrosis or obstructing calculus bilaterally. Redemonstrated segment of mild dilation in the mid left ureter, unchanged from prior. BLADDER: Unremarkable. GASTROINTESTINAL TRACT: No evidence of bowel obstruction. Although collapsed, there is a thick-walled appearance of the ascending colon and hepatic flexure, suspicious for colitis. No free fluid or free air is seen. ABDOMINAL WALL: No significant hernia is appreciated. LYMPH NODES: Normal. VASCULAR: Unremarkable. PELVIC VISCERA: Suspected postoperative changes from prior hysterectomy. OSSEOUS STRUCTURES: Multilevel degenerative changes in the spine. IMPRESSION: 1. Thick-walled appearance of the ascending colon and hepatic flexure, suspicious for colitis. 2. Right lower pole renal calculus without hydronephrosis. 3. Redemonstrated focal segmental dilation of the mid left ureter, similar to prior. As previously noted, further urologic workup could be performed including with ureteroscopy. Collected: 01/09/24-UNK Status: COMP Req#: [id number] Received: 01/09/24-1038 Source: [facility] Sp Desc: Urine oakes Subm Dr: Generic ED Physician Ordered: Urine Culture Procedure Result Verified Urine Culture Final 01/10/24-1420 Report Result 10,000 to 50,000 cfu/ml Mixed bacterial kandy characteristic of urogenital contamination. Organism 1 Strep agalactiae (Grp B) Quant 10,000 to 50,000 cfu/mL Susc N/A Susceptibility not routinely performed on this isolate. Date of Service: 01/09/24 EXAMINATION: CT ABDOMEN AND PELVIS WITH CONTRAST CLINICAL INFORMATION: Gross hematuria. COMPARISON: 12/29/2023 TECHNIQUE: Multidetector volumetric images were obtained from the superior aspect of the liver through the pubic symphysis following administration 85 mL of Omnipaque 350 intravenous contrast. Sagittal and coronal reformatted images were obtained on the technologist's workstation. Oral contrast: No This CT examination was performed using dose optimization techniques as appropriate, variously including the following: *Automated exposure control *Adjustment of mA and/or kV according to patient size (this includes techniques or standardized protocols for targeted exams where dose is matched to indication/reason for exam; i.e. extremities or head) *Use of iterative reconstruction technique DLP: 790 mGy-cm FINDINGS: LUNG BASES: No pleural or pericardial effusion. LIVER, GALLBLADDER, AND BILIARY TREE: The liver is enlarged and decreased in attenuation. No focal hepatic lesion or biliary ductal dilatation is present. The gallbladder is unremarkable with no evidence of radiopaque gallstones, gallbladder wall thickening, or obvious pericholecystic inflammatory changes. PANCREAS: Unremarkable. SPLEEN: Unremarkable. ADRENAL GLANDS: Unremarkable. KIDNEYS AND URETERS: The kidneys are normal in size, shape, and attenuation. 7 mm right lower pole nonobstructing calculus. 7 mm right mid pole hypodensity too small to characterize. No hydronephrosis. No perinephric stranding. There is focal segmental dilatation of the mid left ureter up to 7 mm. No obstructing calculus. BLADDER: Distended. GASTROINTESTINAL TRACT: Copious stool throughout the colon. No small bowel obstruction. ABDOMINAL WALL: No significant hernia is appreciated. LYMPH NODES: No bulky lymphadenopathy. VASCULAR: Normal caliber abdominal aorta. PELVIC VISCERA: Possible supracervical hysterectomy. OSSEOUS STRUCTURES: No destructive bone lesions. IMPRESSION: There is focal segmental dilatation of the mid left ureter up to 7 mm. No obstructing calculus. Advise urologic consultation. Consider correlation with ureteroscopy. Hepatomegaly and hepatic steatosis. Constipation. 7 mm nonobstructing right renal calculus. No hydronephrosis. Date of Service: 01/09/24 EXAMINATION: US RENAL CLINICAL INFORMATION: Left flank pain. COMPARISON: CT abdomen/pelvis 12/29/2023 TECHNIQUE: Linear transducer oakes-scale and color Doppler examination with attention to the region of the left kidney. FINDINGS: The left kidney measures 11.0 x 6.6 x 5.0 cm. Normal cortical thickness and cortical echogenicity. No hydronephrosis or renal stones. IMPRESSION: Unremarkable sonographic evaluation of the left kidney. Assessment & Plan Assessment & Plan (1) Gross hematuria: Code(s): R31.0 - Gross hematuria Category: Medical (2) Kidney stone: Code(s): N20.0 - Calculus of kidney Category: Medical Plan 24 hr urine, office cystoscopy Orders: Orders AMB Urinalysis Automated 07/26/24 Z13.9 - Encounter for screening, unspecified Patient Instructions: The patient had an opportunity to ask questions regarding treatment plan. The patient expressed understanding and agreement with the above treatment plan. The patient is aware they should contact our office by phone for worsening of their current condition or the appearance of new symptoms. Compliance is encouraged with any medications and followup testing that is ordered. It is a privilege to be allowed the opportunity to participate in the urologic care of your patient. If you have any questions or concerns regarding treatment for the above conditions please do not hesitate to contact me. The office telephone contact is [phone]. This note is constructed in part using voice recognition software. While every effort has been made to ensure accuracy elementary special education teacher errors may have been included. Yours sincerely, Walter Brunson MD Coding Level of Care Code Est Pt Level 3 (36878) Diagnoses Gross hematuria R31.0 Kidney stone N20.0
== END 2024-07-26 11:59 | disposition home or self-care (01) ==
PROVIDERS: PCP Student in an Organized Health Care Education/Training Program; Visit Provider Urology
DX: R31.0 Gross hematuria (principal); N20.0 Calculus of kidney
CPT/HCPCS: 99213

== ENCOUNTER → 2024-07-26 09:32 | Outpatient (BNVA) | payer MEDICAID, SELFPAY | PROVIDERS: PCP Student in an Organized Health Care Education/Training Program; Visit Provider Urology | DX: R31.0 Gross hematuria (principal); N20.0 Calculus of kidney | CPT/HCPCS: 81003; 99212 ==

== ENCOUNTER 2024-08-05 14:48 | Outpatient (REF) | payer MEDICAID, SELFPAY ==
[2024-08-05 17:53] LABS: MANUAL DIFF FLAG NO
[2024-08-05 17:57] LABS: Basophils Absolute Auto 0.1 X10*3/uL (0.0-0.2); Basophils Percent Auto 0.6 % (0-2); Eosinophils Absolute Auto 0.3 X10*3/uL (0.0-0.4); Eosinophils Percent Auto 2.7 % (0-4); Hematocrit 38.5 % (37.0-47.0); Imm Gran Abs Auto 0.04 X10*3/uL (0.00-0.03); Imm Gran Pct Auto 0.4 % (0.0-0.4); Lymphocytes Absolute Auto 4.1 X10*3/uL (1.2-4.9); Lymphocytes Percent Auto 37.4 % (20-40); Mean Corpuscular HGB Conc 31.2 g/dl (31.0-35.0); Mean Corpuscular Hemoglobin 22.5 pg (27.0-33.0); Mean Corpuscular Volume 72.1 fL (80.0-98.0); Mean Platelet Volume 9.9 fL (9.4-12.3); Monocytes Absolute Auto 0.7 X10*3/uL (0.1-1.2); Monocytes Percent Auto 6.2 % (2-11); Neutrophils Absolute Auto 5.8 x10*3/uL (2.0-8.3); Neutrophils Percent Auto 52.7 % (45-73); Platelet Count 425 X10*3/uL (160-400); Red Blood Count 5.34 X10*6/uL (4.20-5.50); Red Cell Distribution Width 16.2 % (11.0-16.0)
[2024-08-05 18:16] LABS: Alanine Aminotransferase 35 U/L (0-31); Aspartate Amino Transferase 36 U/L (5-31); Bilirubin Direct 0.1 mg/dL (0.0-0.5); Bilirubin Total 0.3 mg/dL (0.0-1.0); C Reactive Protein 0.23 mg/dL (< or = 0.50)
[2024-08-07 09:34] LABS: CA-125 6 U/mL (<35)
[2024-08-09 21:32] LABS: Immunoglobulin A 255 mg/dL (70-320); Transglutaminase IgA <1.0 U/mL
== END 2024-08-05 14:49 | disposition home or self-care (01) ==
LOC: HO.CHCLDS 14:48
PROVIDERS: Advanced Practice Midwife; PCP Family Medicine; Visit Provider Family Medicine
DX: R14.0 Abdominal distension (gaseous) (principal); Z79.899 Other long term (current) drug therapy
CPT/HCPCS: 36415; 82247; 82248; 82784; 84450; 84460; 85025; 86140; 86304; 86364

== ENCOUNTER 2024-08-09 14:20 | Outpatient (REF) | payer MEDICAID, SELFPAY ==
[2024-08-19 03:23] LABS: Calprotectin, Fecal 85 mcg/g
== END 2024-08-09 14:21 | disposition home or self-care (01) ==
LOC: HO.CHCLNP 14:20
PROVIDERS: Visit Provider Family Medicine
DX: R14.0 Abdominal distension (gaseous) (principal)
CPT/HCPCS: 83993; 87338

== ENCOUNTER 2024-08-11 10:14 | Outpatient (REF) | payer MEDICAID, SELFPAY ==
[2024-08-11 14:26] LABS: OBS1 NEGATIVE (NEGATIVE)
[2024-08-11 14:27] LABS: OBS Int Ctl Valid YES; OBS Lot 50422 1L; OBS2 NEGATIVE (NEGATIVE); OBS3 NEGATIVE (NEGATIVE)
== END 2024-08-11 10:15 | disposition home or self-care (01) ==
LOC: HO.CHCLNP 10:14
PROVIDERS: Visit Provider Family Medicine
DX: R14.0 Abdominal distension (gaseous) (principal)
CPT/HCPCS: 82270

== ENCOUNTER 2024-11-16 11:54 | Outpatient (REF) | payer MEDICAID, SELFPAY ==
--- NOTE | ~2024-11-16 | MM_ITS ---
EXAMINATION: MM DIAGNOSTIC DIGITAL BREAST TOMOSYNTHESIS, BILATERAL CLINICAL INFORMATION: 1 year follow-up for bilateral calcifications. COMPARISON: Mammography: Comparison is made with relevant prior exams. TECHNIQUE: Digital breast mammography with tomosynthesis is performed in both the craniocaudal and mediolateral oblique views along with computer-aided detection (CAD). FINDINGS: There are scattered areas of fibroglandular density (ACR BI-RADS breast composition Category b). Left: Grouped coarse heterogeneous calcifications in the lower inner breast posterior depth are not significant change from prior magnification views dating back for one year. No suspicious masses or other abnormal findings. Right: Grouped coarse heterogeneous calcifications in the upper outer breast are not significantly changed from magnification views dating back for one year. No suspicious masses or other abnormal findings. Results are provided to the patient at time of visit by the technologist. MM/MM tomosynthesis diagnostic BI IMPRESSION: Bilateral grouped coarse heterogeneous calcifications not significantly changed on magnification views for one year. Probably benign. Recommend one-year follow-up with magnification views to demonstrate 2 years of stability when the patient will be due for bilateral mammography. ASSESSMENT: BI-RADS BI-RADS 3 - Probably benign finding(s) - 12 month follow-up suggested RECOMMENDATION: 12 month diagnostic follow up This patient's information was entered into a reminder system with a target due date for their next mammogram. Electronically signed by: Santa Brothers DO 11/16/2024 01:21 PM TOMY
--- OUTSIDE RECORDS SUMMARY | 2024-11-16 15:04 | XMS_ITS | Encounter Summary ---
Author Organization [employer] Address [address] [facility] 7t [place] [address] Care Team Providers Care Chest Painting Leader Name Role Phone Nakia Sparrow MD Primary Care Provider [phone] Irasema Bowers RN Unavailable Reason for Visit * Reason Comments Med Refill Encounter Details Date Type Department Care Team ([facility] Contact Info) Description 11/05/2024 Refill [facility] CHC MED & PEDS [address] [place], [place] [phone] Vanessa Forbes MD [address] [place] [address] Social History Tobacco Use Types Packs/Day Years Used Date Smoking Tobacco: Never Passive Smoke Exposure: Never Smokeless Tobacco: Never Alcohol Use Standard Drinks/Week Comments Never 0 (1 standard drink = 0.6 oz pur e alcohol) Alcohol Answer Date Recorded Frequency of Alcohol Consumption Not on file 06/16/2023 Average Number of Drinks Not on file 023 Frequency of Binge Drinking Not on file 10/2022 Score 0 06/16/2023 Depression Answer Date Recorded Patient Health Questionnaire-9 Score 1 06/03/2024 Patient Health Questionnaire-9 Score 1 06/03/2024 Last PHQ-9: Questionnaire Data Not on file 0 06/03/2024 Housing Stability Answer Date Recorded What is your housing situation today? I have barby steinberg 06/30/[address] you li ve. Do you have problems with any of the following? None of the above 06/30/2023 Food Insecurity Answer Date Recorded Within the past 12 months, y ou worried that your food would run out before you got money to buy more: Never True 06/30/2023 Within the past 12 months,th e food you bought just didn't last and you didn't have enough money to get more: Never True Transportation Answer Date Recorded In the past 12 months, has l ack of transportation kept you from medical appts, meetings, work or from getting things needed for daily living? No 06/30/2023 Utilities Answer Date Recorded In the past 12 months, has t he electric, gas, oil or water company threatened to shut off services in your home? No 06/30/2023 Depression Answer Date Recorded Patient Health Questionnaire-2 Score 1 06/03/2024 Internet Access Answer Date Recorded Internet Access Q1 No 05/14/2024 Internet Access Q2 I cannot afford it 05/14/2024 Comments No Sex and Gender Information Value Date Recorded Sex Assigned at Female 07/15/2022 10:31 AM EDT Legal Sex Female 10:31 AM EDT Gender Identity Female 07/15/2022 10:31 AM EDT Sexual Orientation Straight 07/15/2022 10 :31 AM EDT documented as of this encounter Plan of Treatment Not on file documented as of this encounter Visit Diagnoses Not on filedocumented in this encounter Additional Health Concerns Assessment Noted Time PHQ-9 Depression Total Score: 1 06/03/20 24 9:18 AM EDT documented as of this encounter Care Teams Chest Painting Leader Relationship Specialty Start Date End Date Nakia Sparrow MD [address] [place] [address] PCP - General Family Medicine 12/19/16 Irasema Bowers RN [address] [place] [address] Registered Nurse Family Medicine 02/05/24 documented as of this encounter
--- OUTSIDE RECORDS SUMMARY | 2024-11-16 15:04 | XMS_ITS | Encounter Summary ---
Author Organization [employer] Address [address] [facility] [address] 7t [place] [address] Care Team Providers Care Certified Alcohol Counselor Name Role Phone Nakia Sparrow MD Primary Care Provider [phone] Irasema Bowers RN Unavailable Reason for Visit * Reason Comments Med Refill Encounter Details Date Type Department Care Team ([facility] Contact Info) Description 11/05/2024 Refill [facility] CHC MED & PEDS [address] [place] [address] Nakia Sparrow MD 505 [place] [address] Social History Tobacco Use Types Packs/Day Years [...] documented as of this encounter Care Teams Certified Alcohol Counselor Relationship Specialty Start Date End Date Nakia Sparrow MD [address] [place] [address] PCP - General Family Medicine 12/19/16 Irasema Bowers RN [address] [place] [address] Registered Nurse Family Medicine 02/05/24 documented as of this encounter
--- OUTSIDE RECORDS SUMMARY | 2024-11-16 15:04 | XMS_ITS | Encounter Summary ---
Author Organization [employer] Address [address] [facility] [address] 7t [place] [address] Care Team Providers Care Oil Well Pumper Name Role Phone Nakia Sparrow MD Primary Care Provider [phone] Irasema Bowers RN Unavailable Reason for Visit * Reason Onset Date Comments medication request 11/05/2024 Encounter Details Date Type Department Care Team ([facility] Contact Info) Description 11/05/2024 Telephone [facility] [address] [place], [place] [phone] Nakia Sparrow MD 505 [place] [address] medication request Social History Tobacco Use Types Packs/Day Years [...] AM EDT documented as of this encounter Miscellaneous Notes * Telephone Encounter - Velma Childs RN - 11/10/2024 2:01 PM EST TC to pt. Pt asked if an appointment needs to be made to set up new CGM reader she received. Pt states she is able to place a new sensor in her arm and was able to turn reader on and set up language preferences. Per pt, states that CGM reader will be able to read blood glucose in 1 hour since sensor was placed. Pt denies needing education for placing sensor on arm or education on how to use reader. No nurse visit indicated at this time. Author told pt to call office to schedule appointment if questions regarding CGM and how to use arise. Pt verbalized understanding and agreement with plan. * Telephone Encounter - Steffi Stiles - 11/10/2024 1:37 PM EST Tc from pt calling to inform received her sensor reader and would like to schedule an appt to set up machine. * Telephone Encounter - Velma Childs RN - 11/05/2024 2:44 PM EST TC with pt. Pt confirmed that reader would no longer work after going through the wash. RN recommended that pt reach out to private branch exchange service advisor for replacement or for pt to download marina onto phone to monitor from there. * Telephone Encounter - Lorenzo Grimes - 11/05/2024 1:03 PM EST Tc from pt informing daughter put to wash in the box car washer the Sensor [place] 2 as pt requests a new device the soonest as device is not working anymore. Please return call to pt [phone] documented in this encounter Plan of Treatment Not on file documented as of this encounter Visit Diagnoses Not on filedocumented in this encounter Additional Health Concerns Assessment Noted Time PHQ-9 Depression Total Score: 1 06/03/20 24 9:18 AM EDT documented as of this encounter Care Teams Oil Well Pumper Relationship Specialty Start Date End Date Nakia Sparrow MD [address] [place] [address] PCP - General Family Medicine 12/19/16 Irasema Bowers RN [address] [place] [address] Registered Nurse Family Medicine 02/05/24 documented as of this encounter
--- OUTSIDE RECORDS SUMMARY | 2024-11-16 15:04 | XMS_ITS | Clinical Summary ---
Author Organization [employer] [facility] Address [address] [place] [address] Care Team Providers Care General Merchandise Salesperson Name Role Phone Unavailable Primary Care Provider Unavailabl e Social History Tobacco Use Types Packs/Day Years Used Date Smoking Tobacco: Never Assessed Comments Unknown Sex and Gender Information Value Date Recorded Sex Assigned at Not on file Legal Sex Female 5:42 PM EST Gender Identity Not on file Sexual Orientation Not on file Plan of Treatment Health Maintenance Due Date Last Done Comments Breast Cancer Screening 1960 DTaP,Tdap,and Td Vaccines (1 - Tdap) 1979 Cervical Cancer Screening: P ap Smear 1981 Pneumococcal Vaccine: 50+ Ye ars (1 of 1 - PCV) 2010 Zoster Vaccines (1 of 2) 2010 COVID-19 Vaccine ( - 2023-2 5 season) 2024 Influenza Vaccine (#1) 2024 RSV Immunization Patients 60 + Years Old (1 - 1-dose 75+ series) 2035 HIB Vaccines Aged Out No longer eligi ble based on patient's age to complete this topic HPV Vaccines Aged Out No longer eligi ble based on patient's age to complete this topic Hepatitis A Vaccines Aged Out No long er eligible based on patient's age to complete this topic Hepatitis B Vaccines Aged Out No long er eligible based on patient's age to complete this topic IPV Vaccines Aged Out No longer eligi ble based on patient's age to complete this topic MMR Vaccines Aged Out No longer eligi ble based on patient's age to complete this topic Meningococcal ACWY Vaccine Aged Out N o longer eligible based on patient's age to complete this topic Meningococcal B Vacine Aged Out No lo nger eligible based on patient's age to complete this topic Pneumococcal Vaccine: Pediat rics (0 to 5 Years) and At-Risk Patients (6 to 64 Years) Aged Out No longer eligible b ased on patient's age to complete this topic RSV Immunization Patients Un michelle 20 months Aged Out No longer eligible b ased on patient's age to complete this topic Varicella Vaccines Aged Out No longer eligible based on patient's age to complete this topic
--- OUTSIDE RECORDS SUMMARY | 2024-11-16 15:04 | XMS_ITS | Encounter Summary ---
Author Organization [employer] Address [address] [facility] [address] 7[address] [place] [address] Care Team Providers Care Education Associate Name Role Phone Nakia Sparrow MD Primary Care Provider [phone] Irasema Bowers RN Unavailable Reason for Visit * Reason Onset Date Comments Med Refill 11/10/2024 Encounter Details Date Type Department Care Team ([facility] Contact Info) Description 11/10/2024 Refill [facility] CHC MED & PEDS [address] [place] [address] Nakia Sparrow MD [address] [place] [address] Social History Tobacco Use Types Packs/Day Years [...] encounter Miscellaneous Notes * Telephone Encounter - Steffi Stiles - 11/10/2024 1:34 PM EST TC from pt requesting medication refill. Medications needing refill : pantoprazole (Protonix) 40 MG EC tablet To be sent to: [facility] [address] [place] [address] documented in this encounter Plan of Treatment Not on file documented as of this encounter Visit Diagnoses Not on filedocumented in this encounter Additional Health Concerns Assessment Noted Time PHQ-9 Depression Total Score: 1 06/03/20 24 9:18 AM EDT documented as of this encounter Care Teams Education Associate Relationship Specialty Start Date End Date Nakia Sparrow MD [address] [place] [address] PCP - General Family Medicine 12/19/16 Irasema Bowers RN [address] [place] [address] Registered Nurse Family Medicine 02/05/24 documented as of this encounter
--- OUTSIDE RECORDS SUMMARY | 2024-11-16 15:04 | XMS_ITS | Encounter Summary ---
Author Organization [employer] Address 75 [facility] 7t [place] [address] Care Team Providers Care Correctional Case Records Supervisor Name Role Phone Nakia Sparrow MD Primary Care Provider [phone] Irasema Bowers RN Unavailable Reason for Visit * Reason Comments Med Refill Encounter Details Date Type Department Care Team ([facility] Contact Info) Description 09/09/2022 Refill [facility] CHC MED & PEDS [address] [place], [place] [phone] Nakia Sparrow MD [address] [place] [address] Primary hypertension (Primary Dx) Social History Tobacco Use Types Packs/Day Years Used Date Smoking Tobacco: Never Assessed Comments Unknown Sex and Gender Information Value Date Recorded Sex Assigned at Female 07/15/2022 10:31 AM EDT Legal Sex Female 10:31 AM EDT Gender Identity Female 07/15/2022 10:31 AM EDT Sexual Orientation Straight 07/15/2022 10 :31 AM EDT documented as of this encounter Miscellaneous Notes * Telephone Encounter - Rob Avendaño PharmD - 09/11/2022 6:22 PM EST Incoming surescripts refill request. Last PCP visit on 08/14. Most recent labs 04/11/22 documented in this encounter Plan of Treatment Not on file documented as of this encounter Visit Diagnoses Diagnosis Primary hypertension- Primary Unspecified essential hypertension documented in this encounter Care Teams Correctional Case Records Supervisor Relationship Specialty Start Date End Date Nakia Sparrow MD [address] [place] [address] PCP - General Family Medicine 12/19/16 Irasema Bowers RN [address] [place] [address] Registered Nurse Family Medicine 02/05/24 documented as of this encounter
--- OUTSIDE RECORDS SUMMARY | 2024-11-16 15:04 | XMS_ITS | Encounter Summary ---
Author Organization [employer] Address 75 [facility] 7t [place] [address] Care Team Providers Care Vp Director Of Finance Name Role Phone Nakia Sparrow MD Primary Care Provider [phone] Irasema Bowers RN Unavailable Reason for Visit * Reason Comments Med Refill Encounter Details Date Type Department Care Team ([facility] Contact Info) Description 08/21/2022 Refill [facility] [address] [place] [address] Nakia Sparrow MD [address] [place] [phone] Social History Tobacco Use Types Packs/Day Years [...] Diagnoses Not on filedocumented in this encounter Care Teams Vp Director Of Finance Relationship Specialty Start Date End Date Nakia Sparrow MD [address] [place] [address] PCP - General Family Medicine 12/19/16 Irasema Bowers, RN [address] [place] [address] Registered Nurse Family Medicine 02/05/24 documented as of this encounter
--- OUTSIDE RECORDS SUMMARY | 2024-11-16 15:04 | XMS_ITS | Encounter Summary ---
Author Organization [employer] Address [address] [facility] 7t [place] [address] Care Team Providers Care Funeral Home Makeup Artist Name Role Phone Nakia Sparrow MD Primary Care Provider [phone] Irasema Bowers RN Unavailable Reason for Visit * Reason Comments Med Change Request Encounter Details Date Type Department Care Team ([facility] Contact Info) Description 12/03/2022 Refill [facility] CHC MED & PEDS [address] [place], [place] [phone] Nakia Sparrow MD [address] [place], [place] [phone] Irritable bowel syndrome with constipation Social History Tobacco Use Types Packs/Day Years Used Date Smoking Tobacco: Never Smokeless Tobacco: Never Comments Unknown Sex and Gender Information Value Date Recorded Sex Assigned at Female 07/15/2022 10:31 AM EDT Legal Sex Female 10:31 AM EDT Gender Identity Female 07/15/2022 10:31 AM EDT Sexual Orientation Straight 07/15/2022 10 :31 AM EDT COVID-19 Exposure Response Date Recorded In the last 10 days, have yo u been in contact with someone who was confirmed or suspected to have Coronavirus/COVID-19? No / Unsure 11/19/2022 9:35 AM EST documented as of this encounter Plan of Treatment Not on file documented as of this encounter Visit Diagnoses Diagnosis Irritable bowel syndrome with constipation Irritable bowel syndrome documented in this encounter Care Teams Funeral Home Makeup Artist Relationship Specialty Start Date End Date Nakia Sparrow MD [address] [place] [address] PCP - General Family Medicine 12/19/16 Irasema Bowers RN [address] [place] [address] Registered Nurse Family Medicine 02/05/24 documented as of this encounter
--- OUTSIDE RECORDS SUMMARY | 2024-11-16 15:04 | XMS_ITS | Encounter Summary ---
Author Organization [employer] Address 75 [facility] 7t [place] [address] Care Team Providers Care Armature [employer]otive Name Role Phone Nakia Sparrow MD Primary Care Provider [phone] Irasema Bowers RN Unavailable Encounter Details Date Type Department Care Team ([facility] Contact Info) Description 10/14/2022 Telephone [facility] CHC MED & PEDS [address] [place], [place] [phone] Nakia Sparrow MD [address] [place], [place] [phone] Social History Tobacco Use Types Packs/Day Years Used Date Smoking Tobacco: Never Assessed Comments Unknown Sex and Gender Information Value Date Recorded Sex Assigned at Female 07/15/2022 10:31 AM EDT Legal Sex Female 10:31 AM EDT Gender Identity Female 07/15/2022 10:31 AM EDT Sexual Orientation Straight 07/15/2022 10 :31 AM EDT documented as of this encounter Miscellaneous Notes * Telephone Encounter - Nakia Sparrow MD - 10/28/2022 9:33 AM EST Called it in documented in this encounter Plan of Treatment Not on file documented as of this encounter Visit Diagnoses Not on filedocumented in this encounter Care Teams Armature [employer] Relationship Specialty Start Date End Date Nakia Sparrow MD [address] [place] [address] PCP - General Family Medicine 12/19/16 Irasema Bowers RN [address] [place] [address] Registered Nurse Family Medicine 02/05/24 documented as of this encounter
--- OUTSIDE RECORDS SUMMARY | 2024-11-16 15:04 | XMS_ITS | Encounter Summary ---
Author Organization [employer] Address 75 [facility] 7t [place] [address] Care Team Providers Care Earth Sciences Professor Name Role Phone Nakia Sparrow MD Primary Care Provider [phone] Irasema Bowers RN Unavailable Reason for Visit * Reason Comments Med Refill Encounter Details Date Type Department Care Team ([facility] Contact Info) Description 05/06/2023 Refill [facility] CHC MED & PEDS [address] [place], [place] [phone] Kristen Nieves FNP [address] [place], [place] [phone] Social History Tobacco Use Types Packs/Day Years [...] on filedocumented in this encounter Care Teams Earth Sciences Professor Relationship Specialty Start Date End Date Nakia Sparrow MD [address] [place], [place] [phone] PCP - General Family Medicine 12/19/16 Irasema Bowers, RN [address] [place], [place] [phone] Registered Nurse Family Medicine 02/05/24 documented as of this encounter
--- OUTSIDE RECORDS SUMMARY | 2024-11-16 15:04 | XMS_ITS | Encounter Summary ---
Author Organization [employer] Address [address] [facility] [address] 7[address] [place] [address] Care Team Providers Care Plaster Pattern Caster Name Role Phone Nakia Sparrow MD Primary Care Provider [phone] Irasema Bowers RN Unavailable Reason for Visit * Reason Comments Med Refill Encounter Details Date Type Department Care Team ([facility] Contact Info) Description 10/17/2024 Refill [facility] CHC MED & PEDS [address] [place] [address] Nakia Sparrow MD [address] [place] [address] Allergy, sequela Social History Tobacco Use Types Packs/Day Years [...] as of this encounter Visit Diagnoses Diagnosis Allergy, sequela documented in this encounter Additional Health Concerns Assessment Noted Time PHQ-9 Depression Total Score: 1 06/03/20 24 9:18 AM EDT documented as of this encounter Care Teams Plaster Pattern Caster Relationship Specialty Start Date End Date Nakia Sparrow MD [address] [place] [address] PCP - General Family Medicine 12/19/16 Irasema Bowers RN [address] [place] [address] Registered Nurse Family Medicine 02/05/24 documented as of this encounter
--- OUTSIDE RECORDS SUMMARY | 2024-11-16 15:04 | XMS_ITS | Encounter Summary ---
Author Organization [employer] Address [address] [place] [address] Care Team Providers Care Scholarship Counselor Name Role Phone Nakia Sparrow MD Primary Care Provider [phone] Irasema Bowers RN Unavailable Encounter Details Date Type Department Care Team ([facility] Contact Info) Description 11/16/2024 Orders Only [facility] PEDS [address] [place], [place] [phone] Nakia Sparrow MD [address] [place] [address] Social History Tobacco Use Types Packs/Day Years [...] on file documented as of this encounter Procedures Procedure Name Priority Date/Time Associated Diagnosis Comments BI MAMMOGRAM DIAGNOSTIC TOMOSYNTHESIS BILATERAL Routine 11/16/2024 12:30 PM EST documented in this encounter Results * BI Mammogram Diagnostic Tomosynthesis Bilateral (11/16/2024 12:30 PM EST) Anatomical Region Laterality Modality Breast Bilateral Mammography 11/16/2024 12:3 0 PM EST Narrative 11/16/2024 1:24 PM EST ? [facility] ? [address] ?[place] [id number] ? Mammography Report ? Signed ? Patient: Viktor,Jackeline N ?MR#: [id number] ?? 14 ? : 1960 ?Acct:[id number] ? Age/Sex: 64 / F ?ADM Date: 03/04/25 ? Loc: HO.MAMMO ? Attending Dr: Nakia Sparrow MD ? Ordering Physician: Nakia Sparrow MD ?Results: 3.12MPr ?? obably Benign Finding - 12 month F/U Suggested ? Date of Service: 11/16/24 ?Follow Up: 12 month diagnos ?? tic follow up ? Procedure(s): MM tomosynthesis diagnostic BI ?? Accession Number(s): [id number] ? cc: Nakia Sparrow MD ? EXAMINATION: ?? MM DIAGNOSTIC DIGITAL BREAST TOMOSYNTHESIS, BILATERAL ? CLINICAL INFORMATION: ? 1 year follow-up for bilateral calcifications. ? COMPARISON: ?? Mammography: Comparison is made with relevant prior exams. ? TECHNIQUE: ?? Digital breast mammography with tomosynthesis is performed in both the ?? craniocaudal and mediolateral oblique views along with computer-aided ?? detection (CAD). ? FINDINGS: ?? There are scattered areas of fibroglandular density (ACR BI-RADS breast ?? composition Category b). ? Left: ?? Grouped coarse heterogeneous calcifications in the lower inner breast ?? posterior depth are not significant change from prior magnification ?? views dating back for one year. ?? No suspicious masses or other abnormal findings. ? Right: ?? Grouped coarse heterogeneous calcifications in the upper outer breast ?? are not significantly changed from magnification views dating back for ?? one year. ?? No suspicious masses or other abnormal findings. ? Results are provided to the patient at time of visit by the ?? technologist. ? MM/MM tomosynthesis diagnostic BI ?? IMPRESSION: ?? Bilateral grouped coarse heterogeneous calcifications not significantly ?? changed on magnification views for one year. Probably benign. Recommend ?? one-year follow-up with magnification views to demonstrate 2 years of ?? stability when the patient will be due for bilateral mammography. ? ASSESSMENT: ? BI-RADS BI-RADS 3 - Probably benign finding(s) - 12 month follow-up ?? suggested ? RECOMMENDATION: ?? 12 month diagnostic follow up ? This patient's information was entered into a reminder system with a ?? target due date for their next mammogram. ? Electronically signed by: ??Santa Brothers DO ??11/16/2024 01:21 PM EST ? Dictated By: ?Santa Brothers DO ? Signed By: ?<Electronically signed by Santa Brothers, DO in OV> ? 11/16/24 1321 ? DD/ 1230 ? TD/TT: 11/16/24 1310 ? Wind Instrument Repairer: ? Procedure Note Donotuseinterpreter, Image - 11/16/2024 [facility] [address] [place] [address] Mammography Report Signed Patient: Jackeline Hoang [facility]#: [id number] 14 : 1960cct:[id number] Age/Sex: 64 / FADM Date: 11/16/24 Loc: HO.MAMMO Attending Dr: Nakia Sparrow MD Ordering Physician: Nakia Sparrow MDResults: 3.12MPr obably Benign Finding - 12 month F/U Suggested Date of Service: 11/16/24Follow Up: 12 month diagnos tic follow up Procedure(s): MM tomosynthesis diagnostic BI Accession Number(s): [id number] cc: Nakia Sparrow MD EXAMINATION: MM DIAGNOSTIC DIGITAL BREAST TOMOSYNTHESIS, BILATERAL CLINICAL INFORMATION: 1 year follow-up for bilateral calcifications. COMPARISON: Mammography: Comparison is made with relevant prior exams. TECHNIQUE: Digital breast mammography with tomosynthesis is performed in both the craniocaudal and mediolateral oblique views along with computer-aided detection (CAD). FINDINGS: There are scattered areas of fibroglandular density (ACR BI-RADS breast composition Category b). Left: Grouped coarse heterogeneous calcifications in the lower inner breast posterior depth are not significant change from prior magnification views dating back for one year. No suspicious masses or other abnormal findings. Right: Grouped coarse heterogeneous calcifications in the upper outer breast are not significantly changed from magnification views dating back for one year. No suspicious masses or other abnormal findings. Results are provided to the patient at time of visit by the technologist. MM/MM tomosynthesis diagnostic BI IMPRESSION: Bilateral grouped coarse heterogeneous calcifications not significantly changed on magnification views for one year. Probably benign. Recommend one-year follow-up with magnification views to demonstrate 2 years of stability when the patient will be due for bilateral mammography. ASSESSMENT: BI-RADS BI-RADS 3 - Probably benign finding(s) - 12 month follow-up suggested RECOMMENDATION: 12 month diagnostic follow up This patient's information was entered into a reminder system with a target due date for their next mammogram. Electronically signed by: Santa Brothers DO 11/16/2024 01:21 PM EST Dictated By: Santa Brothers DO Signed By: <Electronically signed by Santa Brothers DO in OV> 11/16/24 1321 DD/ 1230 TD/TT: 11/16/24 1310 Wind Instrument Repairer: Nakia Sparrow MD IMG BI PROCEDURES Final Result documented in this encounter Visit Diagnoses Not on filedocumented in this encounter Additional Health Concerns Assessment Noted Time PHQ-9 Depression Total Score: 1 06/03/20 24 9:18 AM EDT documented as of this encounter Care Teams Scholarship Counselor Relationship Specialty Start Date End Date Nakia Sparrow MD [address] [place] [address] PCP - General Family Medicine 12/19/16 Irasema Bowers RN [address], [place] [phone] Registered Nurse Family Medicine 02/05/24 documented as of this encounter
--- OUTSIDE RECORDS SUMMARY | 2024-11-16 15:04 | XMS_ITS | Encounter Summary ---
Author Organization [employer] Address [address] [place] [address] Care Team Providers Care Magneto Specialist Name Role Phone Nakia Sparrow MD Primary Care Provider [phone] Irasema Bowers RN Unavailable Encounter Details Date Type Department Care Team ([facility] Contact Info) Description 02/20/2023 Orders Only [facility] MED & PEDS [address] [place], [place] [phone] Nakia Sparrow MD [address] [place], [place] [phone] Social History Tobacco Use Types Packs/Day Years [...] on filedocumented in this encounter Care Teams Magneto Specialist Relationship Specialty Start Date End Date Nakia Sparrow MD [address] [place], [place] [phone] PCP - General Family Medicine 12/19/16 Irasema Bowers, [place] [address] [place], [place] [phone] Registered Nurse Family Medicine 02/05/24 documented as of this encounter
--- OUTSIDE RECORDS SUMMARY | 2024-11-16 15:04 | XMS_ITS | Clinical Summary ---
Author Organization [employer] Address [address] [place] [address] Care Team Providers Care Stage Set Designer Name Role Phone Nakia Sparrow MD Primary Care Provider [phone] Irasema Bowers RN Unavailable Allergies Active Allergy Reactions Criticality Noted Date Comments Penicillin G Anaphylaxis High 12/19/2016 Penicillins Anaphylaxis High 02/19/2024 Medications cetirizine (ZyrTEC) 10 MG tablet take 1 tablet by oral route every day 021 Active diphenhydrAMINE (Benadryl Allergy) 25 MG tablet take 1 tablet by oral route 2 times every day 018 Active docusate sodium (Colace) 100 MG capsule take 1 Capsule by Oral route 2 times every day 021 Active fluticasone (Flonase Allergy Relief) 50 MCG/ACT nasal spray spray 1 - 2 spray by intranasal route every day in each nostril as needed 021 Active glucose blood (FREESTYLE LITE) test strip Check blood sugar 3 times a day 022 Active linaCLOtide (Linzess) 290 MCG capsule take 1 capsule by oral route every day on an empty stomach at least 30 minutes before 1st meal of the day 021 Active amitriptyline (Elavil) 25 MG tablet Take 25 mg by mouth. 018 Active SUMAtriptan (Imitrex) 50 MG tablet take 1 Tablet by oral route once with fluids as early as possible after the onset of a migraine attack;may repeat after 2 hours if headache returns, not to exceed 200mg in 24hrs 9 tablet 023 Active ketorolac (Acular) 0.5 % ophthalmic solution INSTILL 1 DROP INTO AFFECTED EYE THREE TIMES DAILY DIRECTED START 2 DAYS BEFORE SURGERY. TAPER DIRECTED 023 Active valsartan (Diovan) 80 MG tablet Take 1 tablet (80 mg) by mouth in the morning. 90 tablet 3 023 Active magnesium 200 MG tablet Take 1 tab daily 90 tablet 3 023 Active tiZANidine (Zanaflex) 4 MG capsuleIndication s:Neck pain on right side,Chronic right shoulder pain Take 1 capsule (4 mg) by mouth 3 times daily. 30 capsule 023 Active diclofenac (Cataflam) 50 MG tabletIndications :Neck pain on right side,Chronic right shoulder pain Take 1 tablet (50 mg) by mouth 3 times daily. 90 tablet 023 Active bacitracin-polymy shayna b (Polysporin) ointment Apply topically 2 times daily. 15 g 023 Active fluticasone (Flovent) 110 MCG/ACT inhaler Inhale 2 puffs 4 times daily for 7 days, THEN 2 puffs in the morning and at bedtime for 7 days, THEN 2 puffs in the morning for 7 days. Rinse mouth with water after use to reduce aftertaste and incidence of candidiasis. Do not swallow.. 12 g 1 024 Active ondansetron (Zofran) 4 MG tabletIndications :Type 2 diabetes mellitus without complication, without long-term current use of insulin ([facility]) TAKE 1 TABLET BY MOUTH EVERY 8 HOURS NEEDED 60 tablet 024 Active Mometasone Furoate (Asmanex HFA) 100 MCG/ACT aerosol Inhale 2 puffs 4 times daily. Inhale 2 puffs 4 times daily for 7 days, THEN 2 puffs in the morning and at bedtime for 7 days, THEN 2 puffs in the morning for 7 days. Rinse mouth with water after use. 13 g 024 Active Diclofenac Sodium 1 % gelIndications:Ne ck pain on right side,Chronic right shoulder pain To apply to the affected area 4 times a day. 100 g 024 Active Continuous Glucose Funnel Setter (FreeStyle Adriana 2 [place]) device Scan sensor every 8 hours 1 each 024 Active glucose blood (FreeStyle Precision Eugene Test) test strip Use to test blood sugar 3 times daily 100 each 12 024 2024 Active dulaglutide (Trulicity) 0.75 MG/0.5ML solution pen-injector Inject 0.75 mg under the skin 1 (one) time per week. 4 each Active meloxicam (Mobic) 7.5 MG tablet Take 1 tablet (7.5 mg) by mouth Once per day. 30 tablet 024 2024 Active dicyclomine (Bentyl) 20 MG tablet Take 1 tablet (20 mg) by mouth 3 times daily. 90 tablet 024 2024 Active Jardiance 25 MGIndications:Typ e 2 diabetes mellitus without complication, without long-term current use of insulin (CMS/HCC) TAKE 1 TABLET BY MOUTH ONCE DAILY IN THE MORNING 90 tablet 1 Active hydroCHLOROthiazi de (HYDRODiuril) 25 MG tabletIndications :Primary hypertension Take 1 tablet by mouth once daily 90 tablet 1 Active Januvia 100 MG tablet Take 1 tablet by mouth once daily 90 tablet 1 Active metoclopramide (Reglan) 10 MG tabletIndications :Abdominal bloating Take 1 tablet (10 mg) by mouth 4 times daily. 120 tablet Active simethicone (Mylicon,Gas-X) 125 MG capsule Take 1 capsule (125 mg) by mouth every 6 (six) hours if needed for flatulence. 28 capsule Active glipiZIDE (Glucotrol) 10 MG tablet Take 2 tablets by mouth twice daily 360 tablet Active atorvastatin (Lipitor) 40 MG tabletIndications :Hyperlipidemia, unspecified hyperlipidemia type TAKE 1 TABLET BY MOUTH IN THE MORNING 90 tablet Active metFORMIN (Glucophage) 1000 MG tabletIndications :Type 2 diabetes mellitus without complication, without long-term current use of insulin (CMS/HCC) TAKE 1 TABLET BY MOUTH IN THE MORNING WITH BREAKFAST AND 1 TABLET WITH AN EVENING MEAL 180 tablet Active naproxen (Naprosyn) 500 MG tablet Take 1 tab bid with meals prn pain only 30 tablet 01/03/2 025 Active polyethylene glycol, PEG, 3350 (Miralax) 17 g packet DISSOLVE 1 PACKET WITH 8 OUNCES OF WATER, JUICE, SODA, COFFEE, OR TEA, THEN DRINK BY MOUTH TWICE DAILY. 60 each 025 Active montelukast (Singulair) 10 MG tabletIndications :Allergy, sequela Take 1 tablet by mouth once daily 90 tablet 025 Active Continuous Glucose Sensor (FreeStyle Adriana 2 Sensor) misc APPLY 1 SENSOR TOPICALLY, AND LEAVE IN PLACE FOR 14 DAYS, TO MONITOR BLOOD SUGAR. 2 each 025 Active Ventolin HFA 108 (90 Base) MCG/ACT inhaler INHALE 2 PUFFS BY MOUTH 4 TIMES DAILY 18 g 025 Active pantoprazole (Protonix) 40 MG EC tablet Take 1 tablet (40 mg) by mouth before breakfast. Do not crush, chew, or split. 90 tablet 1 025 Active montelukast (Singulair) 10 MG tabletIndications :Allergy, sequela Take 1 tablet by mouth once daily 90 tablet 024 2024 Discontinued pantoprazole (Protonix) 40 MG EC tablet Take 1 tablet (40 mg) by mouth before breakfast. Do not crush, chew, or split. 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 Menopausal vasomotor syndrome 07/06/2024 Assessment & Plan (07/06/2024 9:39 AM EDT): HRT considered but is contraindicated Consideration to start SSRIs however pt is taking amitriptyline at this time and medication interaction risk is high Will order hepatic panel today, if labs are normal will proceed with starting Veozah for VMS Educated pt on tight monitoring that is required with this medication, will repeat hepatic labs in 1 month after starting medication ASCUS of cervix with negative high risk HPV 06/16 Assessment & Plan (07/06/2024 9:40 AM EDT): Performed pap and Hpv cotest today d/t unknown pap hx If results normal, will resume regular screening schedule Colitis 04/09/2024 Diabetes mellitus 04/09/2024 Early satiety 04/09/2024 Gross hematuria 04/09/2024 Hematuria 04/09/2024 Hemorrhoids with complication 04/09/2024 Influenza 04/09/2024 Injury of right rotator cuff 04/09/2024 Kidney stone 04/09/2024 Nausea & vomiting 04/09/2024 Nausea 04/09/2024 Osteoarthritis of right acromioclavicular joint 04/09/2024 Poor historian 04/09/2024 Right shoulder tendonitis 04/09/2024 Ureteral dilatation 04/09/2024 Hypertension 04/09/2024 Chronic constipation 04/09/2024 Mass of perineum, female 07/15/2023 Assessment & Plan (07/15/2023 1:52 PM EDT): 1.5 cm x 1.7 cm induration in top of mon pubis with surrounding erythema, recommended warm compresses, sitz baths and will rx antibiotics. RTC if no improvement with a provider that can do an I &D. Severe obesity 05/28/2023 Goiter 02/19/2018 Benign hypertension 12/19/2016 Depressive disorder 12/19/2016 Hypercholesterolemia 12/19/2016 Irritable bowel syndrome with constipation 12/19 Refractory migraine with aura 12/19/2016 Type 2 diabetes mellitus without complication Vertigo 12/19/2016 Encounters Date Type Department Care Team Description 11/16/2024 Orders Only [facility] [address] [place] [address] Nakia Sparrow MD 11/10/2024 Refill [facility] [address] [place] [address] Nakia Sparrow MD 11/05/2024 Refill [facility] [address] [place] [address] Nakia Sparrow MD 11/05/2024 Refill [facility] [address] [place] [address] Vanessa Forbes MD 11/05/2024 Telephone [facility] MEDICINE [address] [place] [phone] Nakia Sparrow MD medication request 10/17/2024 Refill [facility] [address] [place] [address] Nakia Sparrow MD Allergy, sequela 09/28/2024 Refill [facility] [address] [place] [address] Nakia Sparrow MD 09/17/2024 11:15 AM EST Office Visit [facility] [address] [place] [address] Vanessa Forbes MD Otitis of right ear (Primary Dx) 09/17/2024 Travel 09/17/2024 Telephone [facility] [address] [place] [address] Nakia Sparrow MD Walk-In 09/13/2024 Refill [facility] [address] [place] [address] Nakia Sparrow MD Type 2 diabetes mellitus without complication, without long-term current use of insulin ([facility]) 09/10/2024 Refill [facility] PEDS [address] [place] [address] Nakia Sparrow MD 08/30/2024 Telephone [facility] [address] [place] [phone] Andie Grigsby RN 08/26/2024 Refill [facility] [address] [place] [address] Nakia Sparrow MD Hyperlipidemia, unspecified hyperlipidemia type 08/24/2024 Telephone [facility] [address] [place] [phone] Lena Grey MD 08/23/2024 10:45 AM EST Office Visit [facility] MED & PEDS [address] [place] [address] Nakia Sparrow MD Chronic constipation (Primary Dx); Type 2 diabetes mellitus without complication, without long-term current use of insulin ([facility]/HCC); Benign hypertension 08/23/2024 Travel 08/20/2024 Refill [facility] MED & PEDS [address] [place] [place] [address] Nakia Sparrow MD 08/18/2024 Refill [facility] & PEDS [address] [place] [place] [address] Nakia Sparrow MD from Last 3 Months Immunizations Name Administration Dates Next Due Influenza injectable quadriv alent IIV4 with preservative 06/16/2018 Influenza injectable quadriv alent preservative free 06/16/2023,07/12/2022,10/05/2021,2016 Influenza, seasonal, injecta ble, preservative free 06/03/2024 MMR 03/19/2024 Pneumococcal Conjugate PCV 20 01/01/2024 Tdap 06/16/2018 Zoster, Recombinant 01/31/2024 Family History Medical History Relation Name Comments Breast cancer Father's Sister Breast cancer Paternal Grandmother Relation Name Status Comments Father's Sister Paternal Grandmother Social History Tobacco Use Types Packs/Day Years Used Date Smoking Tobacco: Never Passive Smoke Exposure: Never Smokeless Tobacco: Never Tobacco Cessation:Counseling Given: Not Answered Alcohol Use Standard Drinks/Week Comments Never 0 [...] Orientation Straight 07/15/2022 10 :31 AM EDT Last Filed Vital Signs Vital Sign Reading Time Taken Comments Blood Pressure 136/64 09/17/2024 11:00 AM EST Pulse 83 09/17/2024 11:00 AM EST Temperature 36.8 ??C (98.2 ??F) 09/17/2024 11:[address] Respiratory Rate 20 09/17/2024 11:00 AM EST Oxygen Saturation 97% 09/17/2024 11:00 AM EST Inhaled Oxygen Concentration - - Weight 94.3 kg (208 lb) 09/17/2024 11:00 AM EST Height 154.9 cm (5' 1 ) 09/17/2024 11:00 AM EST Body Mass Index 39.3 09/17/2024 11:00 AM EST Plan of Treatment Health Maintenance Due Date Last Done Comments CT Colonography 1960 FIT DNA/Cologuard 1960 FIT 1960 FOBT 1960 HIV Screening 1960 Sigmoidoscopy 1960 Eye Exam 1970 Alcohol/Substance Use Screening 1972 Hepatitis C Screening 1978 Diabetes: Urine Protein Screening 06/16/2024 06/16/2023, 04/11/2022, 07/05/2021 Lipid Panel 06/16/2024 06/16/2023, 03/16, 07/05/2021, Additional history exists Diabetes: Hemoglobin A1C 11/21/2024 024, 06/03/2024, 01/26/2024, Additional history exists SDOH Screening 03/11/2025 03/11/2024 Diagnostic Breast Imaging 05/19/20252024, 05/18/2024, 08/29/2022, Additional history exists Mammogram 05/19/2025 11/16/2024, 0911/2023, 09/24/2023, Additional history exists Depression Screening 06/03/2025 06/03/2024, 06/03/20 24 Diabetes: Foot Exam 06/03/2025 06/03/2024, 06/03/2024, 06/03/2024, Additional history exists Tobacco Screening 09/17/2025 09/17/2024 Colonoscopy 04/11/2028 04/11/2018 Colorectal Cancer Screening 04/11/2028 DTaP/Tdap/Td Vaccines (2 - Td or Tdap) 06/16/2028 06/16/2018 Cervical Cancer Screening 07/06/2029 HPV/Cotest 07/06/2029 07/06/2024, 07/01/2023 Pap Smear 07/06/2029 07/06/2024, 07/01/2023 RSV Patients and Patients Aged 60 years or older (1 - 1-dose 75+ series) 2035 Pneumococcal Vaccine: 50+ Years Completed 01/01/2024 COVID-19 Vaccine Completed 06/03/2024, , 12/26/2020, Additional history exists Influenza Vaccine Completed 06/03/2024, , 07/12/2022, Additional history exists Zoster Vaccines Completed 06/03/2024, 01/31/2024 HIB Vaccines Aged Out No longer eligi [...] patient's age to complete this topic Meningococcal Vaccine Aged Out No denisa lucy eligible based on patient's age to complete this topic RSV under 20 months Aged Out No longe r eligible based on patient's age to complete this topic Rotavirus Vaccines Aged Out No longer eligible based on patient's age to complete this topic Procedures Procedure Name Priority Date/Time Associated Diagnosis Comments BI MAMMOGRAM DIAGNOSTIC TOMOSYNTHESIS BILATERAL Routine 11/16/2024 12:30 PM EST POCT GLYCATED HEMOGLOBIN, TOTAL Routine 08/23/2024 9:53 AM EST Type 2 diabetes mellitus without complication, without long-term current use of insulin (CMS/HCC) POCT GLUCOSE Routine 08/23/2024 9:52 AM EST Type 2 diabetes mellitus without complication, without long-term current use of insulin (CMS/HCC) THINPREP IMAGING PAP AND HPV MRNA E6/E7 Routine 07/06/2024 9:06 AM EDT 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 [facility] ? [address] ?[place] [address] ? Mammography Report ? Signed ? Patient: Viktor,Jackeline N ?MR#: [id number] ?? 14 ? : 1960 ?Acct:[id number] ? Age/Sex: 64 / F ?ADM Date: 11/16/24 ? Loc: HO.MAMMO ? Attending Dr: Nakia Sparrow MD ? Ordering Physician: Nakia Sparrow MD ?Results: 3.12MPr ?? obably Benign Finding - 12 month F/U Suggested ? Date of Service: 11/16/24 ?Follow Up: 12 month diagnos ?? tic follow up ? Procedure(s): MM tomosynthesis diagnostic BI ?? Accession Number(s): [id number] ? cc: Nakia Sparrow MD ? EXAMINATION: [...] DD/ 1230 ? TD/TT: 11/16/24 1310 ? Home Demonstration Agent: ? Procedure Note Jaren, Image - 11/16/2024 [facility] [address] [place] [address] Mammography Report Signed Patient: Jackeline Hoang [facility]#: [id number] 14 : 1960cct:[id number] Age/Sex: 64 / FADM Date: 11/16/24 Loc: MAMMO Attending Dr: Nakia Sparrow MD Ordering Physician: Nakia Sparrowesults: 3.12MPr obably Benign Finding - 12 month F/U Suggested Date of Service: 11/16/24Follow Up: 12 month diagnos tic follow up Procedure(s): MM tomosynthesis diagnostic BI Accession Number(s): [id number] cc: Nakia Sparrow MD EXAMINATION: MM DIAGNOSTIC [...] 11/16/24 1321 DD/ 1230 TD/TT: 11/16/24 1310 Home Demonstration Agent: Nakia Sparrow MD IMG BI PROCEDURES Final Result * (ABNORMAL) POCT A1C (08/23/2024 9:53 AM EST) Hemoglobin A1C 9.1(A) 4.0 - 6.0 % QC Media Lot # Comment:[id number] Lot# Expiration Date Comment:04/15/2026 Blood 08/23/2024 9:53 AM EST Nkaia Sparrow MD POINT OF CARE TEST ENTER/EDIT OR DERABLES Final Result * (ABNORMAL) POCT glucose manually resulted (08/23/2024 9:52 AM EST) Glucose Blood, POC 230(A) 60 - 200 mg/dL QC Media Lot # Comment:[id number] Lot# Expiration Date Comment:12/21/2024 Blood Capillary blood specimen / Unknown 08/23/2024 9:52 AM EST Nakia Sparrow MD POINT OF CARE TEST ENTER/EDIT OR DERABLES Final Result * ThinPrep Imaging Pap and HPV mRNA E6/E7 (07/06/2024 9:06 AM EDT) Pathologist [facility] HPV nRNA E6/E7 Not Detected Not Detected [facility] Comment:Methodology: Transcr iption-Mediated AmplificationThis assay detects E6/E7 viral messenger RNA (mRNA) from 14high-risk HPV types (16,18,31,33,35,39,45,51,52,56,58,59,66,68).Cervical sources are required for HPV testing.If a vaginal source from a patient who has had atotal hysterectomy with removal of cervix wassubmitted, please contact the testing laboratoryfor alternative testing options.For additional information, please refer [email or web address].OpenSpace/faq/XMH437d6(This link if provided for information/educational purposes only.)THIS TEST WAS PERFORMED AT:[employer] [place] [phone] MONIQUE MD SOURCE: SEE NOTE [facility] Comment:Vagina Report Status: TNP [facility] Clinical Information: SEE NOTE [facility] Comment:None given LMP: SEE NOTE [facility] Comment:NONE GIVEN Prev. PAP: SEE NOTE [facility] Comment:NONE GIVEN Prev. BX: SEE NOTE [facility] Comment:NONE GIVEN Statement Of Adequacy: SEE NOTE [facility] Comment:SATISFACTORY FOR LORI LUATION General Categorization: TNP [facility] Interpretation/Result: SEE NOTE [facility] Comment:Cytology Results: Ne gative for intraepitheliallesion or malignancy. Cytology Comment SEE NOTE [facility] Comment:This Pap test has be en evaluated with computerassisted technology. [employer]: SEE NOTE [facility] Comment:GSG, CT(ASCP)CT scre ening location: [address] [address] Review [employer]: SEE NOTE [facility] Comment:CMG, CT(ASCP)CT scre ening location: [address] [address] Pathologist [facility] PAP Infection [facility] See Note SEE NOTE [facility] Comment:EXPLANATORY NOTE:The Pap is a screening test for cervical cancer. It isnot a diagnostic test and is subject to false negativeand false positive results. It is most reliable when asatisfactory sample, regularly obtained, is submittedwith relevant clinical findings and history, and whenthe Pap result is evaluated along with historic andcurrent clinical information. 07/06/2024 9:06 AM EDT 07/06/2024 6:11 PM EDT Narrative [facility] - 07/12/2024 10:48 AM EDT SEE SCANNED RESULTS IN EMRVAGINA us [facility] PATHOLOGY ORDERABLES Final Result [facility] [address] [place] [address] [phone] * Albumin, Random Urine W/Creatinine (06/16/2023 10:41 AM EDT) Creatinine, Urine 46.30 mg/dL [facility] Microalbumin Urine <5.0 mg/L H [facility] Microalbum Creatinine Ratio Ur TNP <30 ug/mg cr [facility] Comment:Unable to calculate albumin/creatinine ratio due to lowmicroalbumin or creatinine result. 06/16/2023 10:4 1 AM EDT 06/16/2023 2:32 PM EDT Nakia Sparrow MD LAB URINE ORDERABLES Final Resul t Performing Organization Address [facility] de Phone Number [facility] [address] [place] [phone] * (ABNORMAL) Lipid Panel, Standard (06/16/2023 10:41 AM EDT) Triglycerides 122 <150 mg/dL [facility] Comment:Desirable Triglyceri de: less than 150 mg/dLBorderline High Triglyceride 150-199 mg/dLHigh Triglyceride: 200-499 mg/dLVery High Triglyceride: greater than or equal to 5OO mg/dL Cholesterol 120 <200 mg/dL [facility] Comment:Desirable Cholestero l: less than 200 mg/dLBorderline High Cholesterol: 200-239 mg/dLHigh Cholesterol: greater than 239 mg/dL LDL Cholesterol Calculated 58 <100 mg/dL [facility] Comment:Desirable LDL: less than 100 mg/dLNear Optimal/Above Optimal LDL: 110- 129 mg/dLBorderline High LDL: 130-159 mg/dLHigh LDL: 160-189 mg/dLVery High LDL: greater than or equal to 190 mg/dL HDL Cholesterol 38(L) >40 mg/dL [facility] Comment:Desirable HDL: great er than 40 mg/dL Note: This HDL assay may give artificially low results in patients with liver disease. Blood Venous blood specimen / Unknown 06/16/2023 10:41 AM EDT 06/16/2023 2:27 PM EDT Nakia Sparrow MD LAB BLOOD ORDERABLES Final Resul t Performing Organization Address [facility] Co de Phone Number [facility] [address] [place] [phone] * Hm Colonoscopy (04/11/2018) Colonoscopy Normal Normal us Historical Provider HEALTH MAINTENANCE Final Result from Last 3 Months or Most Recently Relevant to Health Maintenance Insurance [facility] C3 Care Teams Stage Set Designer Relationship Specialty Start Date End Date Nakia Sparrow MD [address] [place] [address] PCP - General Family Medicine 12/19/16 Irasema Bowers RN [address] [place] [address] Registered Nurse Family Medicine 02/05/24
== END 2024-11-16 11:55 | disposition home or self-care (01) ==
LOC: HO.MAMMO 11:54
PROVIDERS: PCP Student in an Organized Health Care Education/Training Program; Visit Provider Student in an Organized Health Care Education/Training Program
DX: R92.1 Mammographic calcification found on diagnostic imaging of breast (principal)
CPT/HCPCS: 77062; 77066

== ENCOUNTER → 2024-11-16 12:30 | Outpatient (BNV) | payer MEDICAID, SELFPAY | PROVIDERS: PCP Student in an Organized Health Care Education/Training Program; Visit Provider Internal Medicine | DX: R92.1 Mammographic calcification found on diagnostic imaging of breast (principal) | CPT/HCPCS: 77062; 77066 ==

== ENCOUNTER 2024-11-22 08:52 | Outpatient (AMB) | payer MEDICAID, SELFPAY ==
--- NOTE | 2024-11-22 09:08 | MHC.OFFVIS ---
Intake Visit Reasons: cysto/Litholink Intake Note: Patient is present for cysto/litholink Urology Medication:NONE Antibiotic Allergy:PENICILLIN Blood Thinner:NONE Automobile Body Repair Supervisor Required: No Allergies Penicillins Allergy (Severe, Verified 11/22/24 09:13) Anaphylaxis HPI Comments Details: 11/22/24--Here for cysto- Cystoscopy finding: no suspicious bladder lesions, mild bladder wall thickening. 64-year-old female presenting with hematuria. The 24 hr urine sample sent to the laboratory could not be evaluated due to improper preservation. The patient has a history of a kidney stone located in the right kidney. An ultrasound examination was discussed to assess the presence or passage of the kidney stone. The patient reports no new instances of hematuria and negates any symptoms indicative of urinary incontinence. A mild thickening of the bladder wall is observed but is regarded as normal due to aging and not cause for concern at this time. Urinary Symptoms Review - Hematuria previously noted, however, not present recently - No urinary incontinence - Denies urine leakage 07/26/24--Visit scheduled for office cysto. Jackeline was last seen on 03/25/24-- Jackeline is a 63-year-old female who is here for FU. She states she saw blood in the urine and went to the emergency room 01/09/24, she has been having left-sided flank pain. She was treated with antibiotics for urinary tract infection. Here for follow up post CTAP-02/19/24-- discussed results- right kidney cyst, lower pole renal calculus 6 mm. No hydronephrosis or obstructing calculus bilaterally. fu cystoscopy.pt wants reschedule. Will order 24 hr urine. 03/25/24-- Jackeline is a 63-year-old female who is here for FU. 01/29/24--Jackeline is a 63-year-old female who is here for new patient evaluation. She states she saw blood in the urine and went to the emergency room 01/09/24, she has been having left-sided flank pain. She was treated with antibiotics for urinary tract infection. Urine culture 01/09/24 grew strep group B. She states that the blood resolved but she still feels left flank discomfort. I have reviewed imaging including renal ultrasound of the left kidney and CT scan abdomen and pelvis with IV contrast there is a right kidney stone and segmental dilatation of the left ureter. I have discussed further evaluation with CT urogram. FORMERLY [facility], [facility] Medical History Hemorrhoids with complication Hypertension Diabetes mellitus Surgical History History of appendectomy History of hysterectomy Family History Mother No problems noted. Father No problems noted. Sister No problems noted. Social History Alcohol intake: never Patient Tobacco Use Status: Former Tobacco user Current occupation: right hand dominant Office Procedures Cystoscopy Consent Discussed risk and benefit or proposed procedure with the patient. Information consent for procedure given to the patient. Discussed technical aspects, risks, benefits and alternatives in full. Addressed all of the patient's questions and concerns regarding the procedure. The patient demonstrated knowledge and understanding. They wish to proceed with this procedure. Preparation The patient was prepped in the usual manner. A senior php web developer was present and in the room. Genitalia was prepped with betadine solution in a sterile manner. Lidocaine Jelly 2% was placed into the urethra and 16Fr flexible Olympus cystoscope was inserted into the meatus after adequate lubrication. Procedure Time out per protocol performed. Speculum used as indicated for adequate visualization of urethra, the flexible cystoscope is passed transurethrally: The bladder was inspected in its entirety with utilization retroflexion displaying: Tumor(s): no suspicious bladder lesions visualized Trabeculation: Mild Mucosal Erthema: NA Orifices: normal shape and position Urethra: normal Cystoscopy findings: WNL, no suspicious bladder lesions visualized [id number] DISPOSABLE SCOPE URO-G FLEXIBLE SCOPE Procedure code (CPT) selection complete Office Meds lidocaine HCl 2 % mucosal jelly in applicator Performing Provider: Walter Brunson MD Performing Location: [facility] Administered by: Teofilo Palacios LPN on 11/22/24 09:31 Dose Route Admin Location Dispensed Lot Number Expiration Date [facility] Java Programming Professor 10 mL intra-urethral 10 mL ciprofloxacin HCl 500 mg tablet Performing Provider: Walter Brunson MD Performing Location: [facility] Administered by: Teofilo Palacios LPN on 11/22/24 09:31 Dose Route Admin Location Dispensed Lot Number Expiration Date [facility] Java Programming Professor 500 mg PO 1 tab Results AMB Urinalysis, Automated UA Leukoctes 0 Yoandy/uL Last Edit by Lenora Arnold on 11/22/24 09:40 UA Nitrite Negative Last Edit by Lenora Arnold on 11/22/24 09:40 UA Urobilinogen 3.5 mg/dL Last Edit by Lenora Arnold on 11/22/24 09:40 UA Protein 0 mg/dL Last Edit by Lenora Arnold on 11/22/24 09:40 UA pH 6.0 Last Edit by Lenora Arnold on 11/22/24 09:40 UA Blood 0 Alfonzo/uL Last Edit by Lenora Arnold on 11/22/24 09:40 UA Specific [place] 1.015 Last Edit by Lenora Arnold on 11/22/24 09:40 UA Ketone Negative Last Edit by Lenora Arnold on 11/22/24 09:40 UA Bilirubin 0 mg/dL Last Edit by Lenora Arnold on 11/22/24 09:40 UA Glucose 60 mg/dL Last Edit by Lenora Arnold on 11/22/24 09:40 Results Reviewed Results Reviewed: Laboratory Last Values Urine pH (Auto) 6.0 11/22/24 09:39 Specific [place] (Auto) 1.015 11/22/24 09:39 Urine Protein (Auto) 0 mg/dL 11/22/24 09:39 Glucose (UA)(Auto) 60 mg/dL 11/22/24 09:39 Urine Ketones (Auto) Negative 11/22/24 09:39 Urine Blood (Auto) 0 Alfonzo/uL 11/22/24 09:39 Urine Nitrite (Auto) Negative 11/22/24 09:39 Urine Bilirubin (Auto) 0 mg/dL 11/22/24 09:39 Urine Urobilinogen (Auto) 3.5 mg/dL 11/22/24 09:39 Leukocyte Esterase (Auto) 0 Yoandy/uL 11/22/24 09:39 Date of Service: 02/19/24 EXAMINATION: CT ABDOMEN AND PELVIS WITH CONTRAST CLINICAL INFORMATION: Abdominal pain COMPARISON: 01/09/2024 TECHNIQUE: Multidetector volumetric images were obtained from the superior aspect of the liver through the pubic symphysis following administration 85 mL of Omnipaque 350 intravenous contrast. Sagittal and coronal reformatted images were obtained on the technologist's workstation. Oral contrast: No This CT examination was performed using dose optimization techniques as appropriate, variously including the following: *Automated exposure control *Adjustment of mA and/or kV according to patient size (this includes techniques or standardized protocols for targeted exams where dose is matched to indication/reason for exam; i.e. extremities or head) *Use of iterative reconstruction technique DLP: 769 mGy-cm FINDINGS: LUNG BASES: The visualized lung bases are unremarkable. LIVER, GALLBLADDER, AND BILIARY TREE: The liver appears mildly prominent in size. No focal hepatic lesion or biliary ductal dilatation is present. The gallbladder is unremarkable with no evidence of radiopaque gallstones, gallbladder wall thickening, or obvious pericholecystic inflammatory changes. PANCREAS: Unremarkable. SPLEEN: Unremarkable. ADRENAL GLANDS: Unremarkable. KIDNEYS AND URETERS: Bilateral nephrograms are symmetric. Redemonstrated small hypodensity in the lateral right kidney favoring a cyst; no follow-up recommended. A right lower pole renal calculus measures up to 6 mm. No hydronephrosis or obstructing calculus bilaterally. Redemonstrated segment of mild dilation in the mid left ureter, unchanged from prior. BLADDER: Unremarkable. GASTROINTESTINAL TRACT: No evidence of bowel obstruction. Although collapsed, there is a thick-walled appearance of the ascending colon and hepatic flexure, suspicious for colitis. No free fluid or free air is seen. ABDOMINAL WALL: No significant hernia is appreciated. LYMPH NODES: Normal. VASCULAR: Unremarkable. PELVIC VISCERA: Suspected postoperative changes from prior hysterectomy. OSSEOUS STRUCTURES: Multilevel degenerative changes in the spine. IMPRESSION: 1. Thick-walled appearance of the ascending colon and hepatic flexure, suspicious for colitis. 2. Right lower pole renal calculus without hydronephrosis. 3. Redemonstrated focal segmental dilation of the mid left ureter, similar to prior. As previously noted, further urologic workup could be performed including with ureteroscopy. Collected: 01/09/24-UNK Status: COMP Req#: [id number] Received: 01/09/24-1037 Source: [facility] Sp Desc: Urine oakes Subm Dr: Generic ED Physician Ordered: Urine Culture Procedure Result Verified Urine Culture Final 01/10/24-1420 Report Result 10,000 to 50,000 cfu/ml Mixed bacterial kandy characteristic of urogenital contamination. Organism 1 Strep agalactiae (Grp B) Quant 10,000 to 50,000 cfu/mL Susc N/A Susceptibility not routinely performed on this isolate. Date of Service: 01/09/24 EXAMINATION: CT ABDOMEN AND PELVIS WITH CONTRAST CLINICAL INFORMATION: Gross hematuria. COMPARISON: 12/29/2023 TECHNIQUE: Multidetector volumetric images were obtained from the superior aspect of the liver through the pubic symphysis following administration 85 mL of Omnipaque 350 intravenous contrast. Sagittal and coronal reformatted images were obtained on the technologist's workstation. Oral contrast: No This CT examination was performed using dose optimization techniques as appropriate, variously including the following: *Automated exposure control *Adjustment of mA and/or kV according to patient size (this includes techniques or standardized protocols for targeted exams where dose is matched to indication/reason for exam; i.e. extremities or head) *Use of iterative reconstruction technique DLP: 790 mGy-cm FINDINGS: LUNG BASES: No pleural or pericardial effusion. LIVER, GALLBLADDER, AND BILIARY TREE: The liver is enlarged and decreased in attenuation. No focal hepatic lesion or biliary ductal dilatation is present. The gallbladder is unremarkable with no evidence of radiopaque gallstones, gallbladder wall thickening, or obvious pericholecystic inflammatory changes. PANCREAS: Unremarkable. SPLEEN: Unremarkable. ADRENAL GLANDS: Unremarkable. KIDNEYS AND URETERS: The kidneys are normal in size, shape, and attenuation. 7 mm right lower pole nonobstructing calculus. 7 mm right mid pole hypodensity too small to characterize. No hydronephrosis. No perinephric stranding. There is focal segmental dilatation of the mid left ureter up to 7 mm. No obstructing calculus. BLADDER: Distended. GASTROINTESTINAL TRACT: Copious stool throughout the colon. No small bowel obstruction. ABDOMINAL WALL: No significant hernia is appreciated. LYMPH NODES: No bulky lymphadenopathy. VASCULAR: Normal caliber abdominal aorta. PELVIC VISCERA: Possible supracervical hysterectomy. OSSEOUS STRUCTURES: No destructive bone lesions. IMPRESSION: There is focal segmental dilatation of the mid left ureter up to 7 mm. No obstructing calculus. Advise urologic consultation. Consider correlation with ureteroscopy. Hepatomegaly and hepatic steatosis. Constipation. 7 mm nonobstructing right renal calculus. No hydronephrosis. Date of Service: 01/09/24 EXAMINATION: US RENAL CLINICAL INFORMATION: Left flank pain. COMPARISON: CT abdomen/pelvis 12/29/2023 TECHNIQUE: Linear transducer oakes-scale and color Doppler examination with attention to the region of the left kidney. FINDINGS: The left kidney measures 11.0 x 6.6 x 5.0 cm. Normal cortical thickness and cortical echogenicity. No hydronephrosis or renal stones. IMPRESSION: Unremarkable sonographic evaluation of the left kidney. Assessment & Plan Assessment & Plan (1) Gross hematuria: Code(s): R31.0 - Gross hematuria Category: Medical (2) Kidney stone: Code(s): N20.0 - Calculus of kidney Category: Medical Plan Repeat 24 hr urine collection Orders: Orders AMB Urinalysis Automated 11/22/24 Z13.9 - Encounter for screening, unspecified AMB Cystoscopy 11/22/24 R31.0 - Gross hematuria Patient Instructions: The patient had an opportunity to ask questions regarding treatment plan. The patient expressed understanding and agreement with the above treatment plan. The patient is aware they should contact our office by phone for worsening of their current condition or the appearance of new symptoms. Compliance is encouraged with any medications and followup testing that is ordered. It is a privilege to be allowed the opportunity to participate in the urologic care of your patient. If you have any questions or concerns regarding treatment for the above conditions please do not hesitate to contact me. The office telephone contact is [phone]. This note is constructed in part using voice recognition software. While every effort has been made to ensure accuracy travel physical therapist errors may have been included. Yours sincerely, Walter Brunson MD Scribe Plan - Not visible on output: Patient was informed and verbally consented to the use of an ambient scribe for clinic note documentation during this visit. Coding Level of Care Code Procedure Only Diagnoses Gross hematuria R31.0 Kidney stone N20.0 CPT Codes Cystoscopy - CPT: 92414-[id number] ([id number])
--- OUTSIDE RECORDS SUMMARY | 2024-11-22 09:14 | XMS_ITS | Encounter Summary ---
Author Organization [employer] Address [address] [place] [address] Care Team Providers Care Division Chair Name Role Phone Nakia Sparrow MD Primary Care Provider [phone] Irasema Bowers RN Unavailable Encounter Details Date Type Department Care Team ([facility] Contact Info) Description 11/16/2024 Orders Only [facility] MED & PEDS [address] [place], [place] [phone] Nakia Sparrow MD [address] [place] [address] Social History Tobacco Use Types Packs/Day Years [...] as of this encounter Miscellaneous Notes * Result Encounter Note - Nakia Sparrow MD - 11/16/2024 1:24 PM EST Needs Tracking documented in this encounter Plan of Treatment [...] EST Narrative 11/16/2024 1:24 PM EST ? [facility] ? [address] ?[place] [address] ? Mammography Report ? Signed ? Patient: Viktor,Jackeline N ?MR#: [id number] ?? 14 ? : 1960 ?Acct:[id number] ? Age/Sex: 64 / F ?ADM Date: 03/04/25 ? Loc: HO.MAMMO ? Attending Dr: Nakia Sparrow MD ? Ordering Physician: Nakia Sparrow MD ?Results: 3.12MPr ?? obably Benign Finding - 12 month F/U Suggested ? Date of Service: 11/16/24 ?Follow Up: 12 month diagnos ?? tic follow up ? Procedure(s): MM tomosynthesis diagnostic BI ?? Accession Number(s): [id number] ? cc: Nakia Saprrow MD ? EXAMINATION: ?? MM DIAGNOSTIC DIGITAL [...] Signed By: ?<Electronically signed by Santa Brothers, in OV> ? 11/16/24 1321 ? DD/ 1230 ? TD/TT: 11/16/24 1310 ? Np: ? Procedure Note Jaren, Image - 11/16/2024 [facility] [address] [place] [address] Mammography Report Signed Patient: Jackeline Hoang#: [id number] 14 : 1960cct:[id number] Age/Sex: 64 / FADM Date: 11/16/24 Loc: HO.MAMMO Attending Dr: Nakia Sparrow MD Ordering Physician: Nakia Sparrow MDResults: 3.12MPr obably Benign Finding - 12 month F/U Suggested Date of Service: 11/16/24Follow Up: 12 month diagnos tic follow up Procedure(s): MM tomosynthesis diagnostic BI Accession Number(s): [id number] cc: Nakia Sparrow MD EXAMINATION: MM DIAGNOSTIC [...] by: Santa Brothers DO 11/16/2024 01:21 PM [facility] Dictated By: Santa Brothers DO Signed By: <Electronically signed by Santa Brothers DO in OV> 11/16/24 1321 DD/ 1230 TD/TT: 11/16/24 1310 Np: Nakia Sparrow MD IMG BI PROCEDURES Final Result documented in this encounter Visit Diagnoses Not on filedocumented in this encounter Additional Health Concerns Assessment Noted Time PHQ-9 Depression Total Score: 1 06/03/20 24 9:18 AM EDT documented as of this encounter Care Teams Division Chair Relationship Specialty Start Date End Date Nakia Sparrow MD [address] [place] [address] PCP - General Family Medicine 12/19/16 Irasema Bowers RN [address] [place] [address] Registered Nurse Family Medicine 02/05/24 documented as of this encounter
--- OUTSIDE RECORDS SUMMARY | 2024-11-22 09:14 | XMS_ITS | Encounter Summary ---
Author Organization [employer] Address [address] [place] [address] Care Team Providers Care Plastic Sheets Finishing Supervisor Name Role Phone Nakia Sparrow MD Primary Care Provider [phone] Irasema Bowers RN Unavailable Reason for Visit * Reason Comments Med Refill Encounter Details Date Type Department Care Team ([facility] Contact Info) Description 09/09/2022 Refill [facility] MED & PEDS [address] [place], [place] [phone] Nakia Sparrow MD [address] [place] [address] Primary hypertension (Primary Dx) Social History Tobacco [...] hypertension documented in this encounter Care Teams Plastic Sheets Finishing Supervisor Relationship Specialty Start Date End Date Nakia Sparrow MD [address] [place] [address] PCP - General Family Medicine 12/19/16 Irasema Bowers RN [address] [place] [id number] Registered Nurse Family Medicine 02/05/24 documented as of this encounter
--- OUTSIDE RECORDS SUMMARY | 2024-11-22 09:14 | XMS_ITS | Clinical Summary ---
Author Organization [employer] Address [address] 7t [place] [address] Care Team Providers Care Panel Machine Setter Name Role Phone Nakia Sparrow MD Primary Care Provider [phone] Irasema Bowers RN Unavailable Allergies Active Allergy [...] complication, without long-term current use of insulin ([facility]) TAKE 1 TABLET BY MOUTH EVERY 8 [...] day. 100 g 024 Active Continuous Glucose Living Specialist (FreeStyle Adriana 2 [place]) device Scan sensor every 8 hours 1 [...] or split. 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 Menopausal vasomotor syndrome [...] Encounters Date Type Department Care Team Description 11/20/2024 Refill [facility] [address] [place] [address] Nakia Sparrow MD 11/16/2024 Orders Only [facility] [address] [place] [address] Nakia Sparrow MD 11/10/2024 Refill [facility] [address] [place] [address] Nakia Sparrow MD 11/05/2024 Refill [facility] [address] [place] [address] Nakia Sparrow MD 11/05/2024 Refill [facility] [address] [place] [address] Vanessa Forbes MD 11/05/2024 Telephone [facility] [address] [place] [address] Nakia Sparrow MD medication request 10/17/2024 Refill [facility] [address] [place] [address] Nakia Sparrow MD Allergy, sequela 09/28/2024 Refill [facility] [address] [place] [address] Nakia Sparrow MD 09/17/2024 11:15 AM EST Office Visit [facility] [address] [place] [address] Vanessa Forbes MD Otitis of right ear (Primary Dx) 09/17/2024 Travel 09/17/2024 Telephone [facility] [address] [place] [address] Nakia Sparrow MD Walk-In 09/13/2024 Refill [facility] [address] [place] [address] Nakia Sparrow MD Type 2 diabetes mellitus without complication, without long-term current use of insulin ([facility]) 09/10/2024 Refill [facility] [address] [place] [address] Nakia Sparrow MD 08/30/2024 Telephone [facility] [address] [place] [address] Andie Grigsby, [place] 08/26/2024 Refill [facility] [address] [place] [address] Nakia Sparrow MD Hyperlipidemia, unspecified hyperlipidemia type 08/24/2024 Telephone [facility] [address] [place] [address] Lena Grey MD from Last 3 Months Immunizations Name [...] is your housing situation today? I have barbykeisha steinberg 06/30/[address] you [...] Additional history exists SDOH Screening 03/11/2025 03/11/2024 Depression Screening 06/03/2025 06/03/2024, 06/03/20 24 Diabetes: Foot Exam 06/03/2025 06/03/2024, 06/03/2024, 06/03/2024, Additional history exists Tobacco Screening 09/17/2025 09/17/2024 Diagnostic Breast Imaging 11/16/20252024, 05/18/2024, 08/29/2022, Additional history exists Mammogram 11/16/2025 11/16/2024, 09/0 11/2023, 09/24/2023, Additional history exists Colonoscopy 04/11/2028 04/11/2018 Colorectal Cancer Screening 04/11/2028 [...] complication, without long-term current use of insulin ([facility]) THINPREP IMAGING PAP AND HPV MRNA E6/E7 Routine 07/06/2024 9:06 AM EDT [facility] use of drug ALBUMIN, RANDOM URINE W/CREATININE [...] EST Narrative 11/16/2024 1:24 PM EST ? [facility] [place] ? [address] ?[place] [address] ? Mammography Report ? Signed ? Patient: Viktor,Jackeline N ?MR#: [id number] ?? 14 ? : 1960 ?Acct:[id number] ? Age/Sex: 64 / F ?ADM Date: 03/04/25 ? Loc: HO.MAMMO ? Attending Dr: Nakia Alvarado Kyaar MD ? Ordering Physician: Kyara,Nakia Alvarado MD ?Results: 3.12MPr ?? obably Benign Finding - 12 month F/U Suggested ? Date of Service: 11/16/24 ?Follow Up: 12 month diagnos ?? tic follow up ? Procedure(s): MM tomosynthesis diagnostic BI ?? Accession Number(s): [id number] ? cc: Nakia Sparrow MD ? EXAMINATION: [...] DD/ 1230 ? TD/TT: 11/16/24 1310 ? Dust Mill Operator: ? Procedure Note Dontoribioter, Image - 11/16/2024 [facility] [address] [place] [address] Mammography Report Signed Patient: Jackeline Hoang NMR#: [id number] 14 : 1960cct:[id number] Age/Sex: 64 / FADM Date: 11/16/24 Loc: HO.MAMMO Attending Dr: Nakia Sparrow MD Ordering Physician: Nakia Sparrow MDResults: 3.12MPr obably Benign Finding - 12 month F/U Suggested Date of Service: 11/16/24Follow Up: 12 month diagnos tic follow up Procedure(s): MM tomosynthesis diagnostic BI Accession Number(s): [id number] cc: Nakia Sparrow MD EXAMINATION: MM DIAGNOSTIC [...] Santa Brothers DO 11/16/2024 01:21 PM EST RP Dictated By: Santa Brothers DO Signed By: <Electronically signed by Santa Brothers DO in OV> 11/16/24 1321 DD/ 1230 TD/TT: 11/16/24 1310 Dust Mill Operator: us Nakia Sparrow MD IMG BI PROCEDURES Final Result * (ABNORMAL) POCT A1C (08/23/2024 9:53 AM EST) Pathologist [facility] Hemoglobin A1C 9.1(A) 4.0 - 6.0 % QC Media Lot # Comment:[id number] Lot# Expiration Date Comment:04/15/2026 Blood 08/23/2024 9:53 AM EST Nakia Sparrow MD POINT OF CARE TEST ENTER/EDIT OR DERABLES Final Result * ThinPrep Imaging Pap and HPV mRNA E6/E7 (07/06/2024 9:06 AM EDT) Pathologist [facility] HPV nRNA E6/E7 Not Detected Not Detected [facility] Comment:Methodology: Transcr iption-Mediated AmplificationThis assay detects E6/E7 viral messenger RNA (mRNA) from 14high-risk HPV types (16,18,31,33,35,39,45,51,52,56,58,59,66,68).Cervical sources are required for HPV testing.If a vaginal source from a patient who has had atotal hysterectomy with removal of cervix wassubmitted, please contact the testing laboratoryfor alternative testing options.For additional information, please refer tohttp://[email or web address] [employer]/faq/[email or web address](This link if provided for information/educational purposes only.)THIS TEST WAS PERFORMED AT:[employer] [address] [phone] MONIQUE MD SOURCE: SEE NOTE [facility] Comment:Vagina Report Status: [facility] Clinical Information: SEE NOTE [facility] Comment:None given LMP: SEE NOTE [facility] Comment:NONE GIVEN Prev. PAP: SEE NOTE [facility] Comment:NONE GIVEN Prev. BX: SEE NOTE [facility] Comment:NONE GIVEN Statement Of Adequacy: SEE NOTE [facility] Comment:SATISFACTORY FOR LORI LUATION General Categorization: [facility] Interpretation/Result: SEE NOTE [facility] Comment:Cytology Results: Ne gative for intraepitheliallesion or malignancy. Cytology Comment SEE NOTE [facility] Comment:This Pap test has be en evaluated with computerassisted technology. Security Installation Technician: SEE NOTE [facility] Comment:GSG, CT(ASCP)CT scre ening location: [address] [address] Review Security Installation Technician: SEE NOTE [facility] Comment:CMG, CT(ASCP)CT scre ening location: [place] [address] Pathologist [facility] PAP Infection [facility] See Note SEE [facility] Comment:EXPLANATORY NOTE:The Pap is a screening test for cervical cancer. It isnot a diagnostic test and is subject to false negativeand false positive results. It is most reliable when asatisfactory sample, regularly obtained, is submittedwith relevant clinical findings and history, and whenthe Pap result is evaluated along with historic andcurrent clinical information. 07/06/2024 9:06 AM EDT 07/06/2024 6:11 PM EDT Narrative [facility] - 07/12/2024 10:48 AM EDT SEE SCANNED RESULTS IN EMRVAGINA us [facility] PATHOLOGY ORDERABLES Final Result Performing Organization Address City/[facility]/ZIP Co de Phone Number [facility] [address] [place] [phone] * Albumin, Random Urine W/Creatinine (06/16/2023 10:41 AM EDT) Creatinine, Urine 46.30 mg/dL [facility] Microalbumin Urine <5.0 mg/L [facility] Microalbum Creatinine Ratio Ur TNP <30 ug/mg cr [facility] Comment:Unable to calculate albumin/creatinine ratio due to lowmicroalbumin or creatinine result. 06/16/2023 10:4 1 AM EDT 06/16/2023 2:32 PM EDT us Nakia Sparrow MD LAB URINE ORDERABLES Final Resul t Performing Organization Address [facility] Co de Phone Number [facility] [address] [place] [phone] * (ABNORMAL) Lipid Panel, Standard (06/16/2023 10:41 AM EDT) Triglycerides 122 <150 mg/dL [facility] Comment:Desirable Triglyceri de: less than 150 mg/dLBorderline High Triglyceride 150-199 mg/dLHigh Triglyceride: 200-499 mg/dLVery High Triglyceride: greater than or equal to 5OO mg/dL Cholesterol 120 <200 mg/dL [facility] Comment:Desirable Cholestero l: less than 200 mg/dLBorderline High Cholesterol: 200-239 mg/dLHigh Cholesterol: greater than 239 mg/dL LDL Cholesterol Calculated 58 <100 mg/dL [facility] Comment:Desirable LDL: less than 100 mg/dLNear Optimal/Above Optimal LDL: 110- 129 mg/dLBorderline High LDL: 130-159 mg/dLHigh LDL: 160-189 mg/dLVery High LDL: greater than or equal to 190 mg/dL HDL Cholesterol 38(L) >40 mg/dL [facility] Comment:Desirable HDL: great er than 40 mg/dL Note: This HDL assay may give artificially low results in patients with liver disease. Blood Venous blood specimen / Unknown 06/16/2023 10:41 AM EDT 06/16/2023 2:27 PM EDT Nakia Sparrow MD LAB BLOOD ORDERABLES Final Resul t [facility] [address] [place] [address] [phone] * Colonoscopy (04/11/2018) Colonoscopy Normal Normal Historical Provider HEALTH MAINTENANCE Final Result from Last 3 Months or Most Recently Relevant to Health Maintenance Insurance [facility] C3 Care Teams Panel Machine Setter Relationship Specialty Start Date End Date Nakia Sparrow MD [address] [place] [address] PCP - General Family Medicine 12/19/16 Irasema Bowers RN [address] [place] [address] Registered Nurse Family Medicine 02/05/24
--- OUTSIDE RECORDS SUMMARY | 2024-11-22 09:14 | XMS_ITS | Encounter Summary ---
Author Organization [employer] Address [address] [place] [address] Care Team Providers Care Tank Crewmember Name Role Phone Nakia Sparrow MD Primary Care Provider [phone] Irasema Bowers RN Unavailable Reason for Visit * Reason Onset Date Comments Med Refill 11/10/2024 Encounter Details Date Type Department Care Team ([facility] Contact Info) Description 11/10/[address] [facility] [address] [place] [address] Nakia Sparrow MD [address] [place] [address] Social History Tobacco Use Types Packs/Day Years [...] MG EC tablet To be sent to: [facility] [address] [place] [address] documented in this encounter Plan of Treatment Not on file documented as of this encounter Visit Diagnoses Not on filedocumented in this encounter Additional Health Concerns Assessment Noted Time PHQ-9 Depression Total Score: 1 06/03/20 24 9:18 AM EDT documented as of this encounter Care Teams Tank Crewmember Relationship Specialty Start Date End Date Nakia Sparrow MD [address] [place] [address] PCP - General Family Medicine 12/19/16 Irasema Bowers RN [address] [place] [address] Registered Nurse Family Medicine 02/05/24 documented as of this encounter
--- OUTSIDE RECORDS SUMMARY | 2024-11-22 09:14 | XMS_ITS | Encounter Summary ---
Author Organization [employer] Address [address] [facility] 7t [place] [address] Care Team Providers Care Ironer Machine Name Role Phone Nakia Sparrow MD Primary Care Provider [phone] Irasema Bowers RN Unavailable Reason for Visit * Reason Comments Med Refill Encounter Details Date Type Department Care Team ([facility] Contact Info) Description 08/21/2022 Refill [facility] [address] [place] [address] Nakia Sparrow MD [address] [place] [address] [phone] Social History Tobacco Use Types Packs/Day Years [...] on filedocumented in this encounter Care Teams Ironer Machine Relationship Specialty Start Date End Date Nakia Sparrow MD [address] [place] [address] PCP - General Family Medicine 12/19/16 Irasema Bowers, RN [address] [place] [address] Registered Nurse Family Medicine 02/05/24 documented as of this encounter
--- OUTSIDE RECORDS SUMMARY | 2024-11-22 09:14 | XMS_ITS | Encounter Summary ---
Author Organization [employer] Address [address] [place] [address] Care Team Providers Care Wicker Molded Candles Name Role Phone Nakia Sparrow MD Primary Care Provider [phone] Irasema Bowers RN Unavailable Reason for Visit * Reason Comments Med Refill Encounter Details Date Type Department Care Team ([facility] Contact Info) Description 11/20/2024 Refill [facility] [address] [place] [address] Nakia Sparrow MD [address] [place] [address] Social History Tobacco Use Types Packs/Day Years [...] documented as of this encounter Care Teams Wicker Molded Candles Relationship Specialty Start Date End Date Nakia Sparrow MD [address] [place] [address] PCP - General Family Medicine 12/19/16 Irasema Bowers RN [address] [place] [address] Registered Nurse Family Medicine 02/05/24 documented as of this encounter
--- OUTSIDE RECORDS SUMMARY | 2024-11-22 09:14 | XMS_ITS | Encounter Summary ---
Author Organization [employer] Address [address] [place] [address] Care Team Providers Care Employment Adjudicator Name Role Phone Nakia Sparrow MD Primary Care Provider [phone] Irasema Bowers RN Unavailable Reason for Visit * Reason Comments Med Refill Encounter Details Date Type Department Care Team ([facility] Contact Info) Description 11/05/2024 Refill [facility] [address] [place] [address] Nakia Sparrow MD [address] [place] [address] Social History Tobacco Use Types Packs/Day Years [...] documented as of this encounter Care Teams Employment Adjudicator Relationship Specialty Start Date End Date Nakia Sparrow MD [address] [place] [address] PCP - General Family Medicine 12/19/16 Irasema Bowers RN [address] [place] [address] Registered Nurse Family Medicine 02/05/24 documented as of this encounter
--- OUTSIDE RECORDS SUMMARY | 2024-11-22 09:14 | XMS_ITS | Clinical Summary ---
Author Organization [employer] [facility] Address [address] [place] [address] Care Team Providers Care Art Class Model Name Role Phone Unavailable Primary Care Provider [...]
--- OUTSIDE RECORDS SUMMARY | 2024-11-22 09:15 | XMS_ITS | Encounter Summary ---
Author Organization [employer] Address [address] [facility] 7t [place] [address] Care Team Providers Care Ladies' Hat Trimmer Name Role Phone Nakia Sparrow MD Primary Care Provider [phone] Irasema Bowers RN Unavailable Encounter Details Date Type Department Care Team ([facility] Contact Info) Description 10/14/2022 Telephone [facility] [address] [place], [place] [phone] Nakia Sparrow MD 505 [place], [place] [phone] Social History Tobacco Use Types Packs/Day Years [...] on filedocumented in this encounter Care Teams Ladies' Hat Trimmer Relationship Specialty Start Date End Date Nakia Sparrow MD [address] [place] [address] PCP - General Family Medicine 12/19/16 Irasema Bowers RN [address] [place] [address] Registered Nurse Family Medicine 02/05/24 documented as of this encounter
--- OUTSIDE RECORDS SUMMARY | 2024-11-22 09:15 | XMS_ITS | Encounter Summary ---
Author Organization [employer] Address [address] [place] [address] Care Team Providers Care Medical Doctor Nuclear Medicine Name Role Phone Nakia Sparrow MD Primary Care Provider [phone] Irasema Bowers RN Unavailable Reason for Visit * Reason Onset Date Comments medication request 11/05/2024 Encounter Details Date Type Department Care Team ([facility] Contact Info) Description 11/05/2024 Telephone [facility] [address] [place], [place] [phone] Nakia Sparrow MD [address] [place] [address] medication request Social History Tobacco Use Types [...] RN recommended that pt reach out to vice president business development for replacement or for pt to download marina onto phone to monitor from there. * Telephone Encounter - Lorenzo Grimes - 11/05/2024 1:03 PM EST Tc from pt informing daughter put to wash in the dishwasher the Sensor [place] 2 as pt requests a new device the soonest as device is not working anymore. Please return call to pt [phone] documented in this encounter Plan of Treatment Not on file documented as of this encounter Visit Diagnoses Not on filedocumented in this encounter Additional Health Concerns Assessment Noted Time PHQ-9 Depression Total Score: 1 06/03/20 24 9:18 AM EDT documented as of this encounter Care Teams Medical Doctor Nuclear Medicine Relationship Specialty Start Date End Date Nakia Sparrow MD [address] [place] [address] PCP - General Family Medicine 12/19/16 Irasema Bowers RN [address] [place] [address] Registered Nurse Family Medicine 02/05/24 documented as of this encounter
--- OUTSIDE RECORDS SUMMARY | 2024-11-22 09:15 | XMS_ITS | Encounter Summary ---
Author Organization [employer] Address [address] [facility] 7t [place] [address] Care Team Providers Care Public Health Outreach Worker Name Role Phone Nakia Sparrow MD Primary Care Provider [phone] Irasema Bowers RN Unavailable Reason for Visit * Reason Comments Med Refill Encounter Details Date Type Department Care Team ([facility] Contact Info) Description 11/05/2024 Refill [facility] [address] [place], [place] [phone] Vanessa Forbes MD [address] [place] [address] Social History Tobacco Use Types Packs/Day Years [...] documented as of this encounter Care Teams Public Health Outreach Worker Relationship Specialty Start Date End Date Nakia Sparrow MD [address] [place] [address] PCP - General Family Medicine 12/19/16 Irasema Boewrs RN [address] [place] [address] Registered Nurse Family Medicine 02/05/24 documented as of this encounter
--- OUTSIDE RECORDS SUMMARY | 2024-11-22 09:15 | XMS_ITS | Encounter Summary ---
Author Organization [employer] Address [address] [facility] [address]t [place] [address] Care Team Providers Care Farm Agent Name Role Phone Nakia Sparrow MD Primary Care Provider [phone] Irasema Bowers RN Unavailable Encounter Details Date Type Department Care Team ([facility] Contact Info) Description 02/20/2023 Orders Only [facility] [address] [place], [place] [phone] Nakia Sparrow MD [address] [place], [place] [phone] Social History Tobacco Use Types Packs/Day Years [...] on filedocumented in this encounter Care Teams Farm Agent Relationship Specialty Start Date End Date Nakia Sparrow MD [address] [place], [place] [phone] PCP - General Family Medicine 12/19/16 Irasema Bowers, [place] [address] [place], [place] [phone] Registered Nurse Family Medicine 02/05/24 documented as of this encounter
--- OUTSIDE RECORDS SUMMARY | 2024-11-22 09:15 | XMS_ITS | Encounter Summary ---
Author Organization [employer] Address [address] [facility] 7t [place] [address] Care Team Providers Care Dentistry Teacher Name Role Phone Nakia Sparrow MD Primary Care Provider [phone] Irasema Bowers RN Unavailable Reason for Visit * Reason Comments Med Change Request Encounter Details Date Type Department Care Team ([facility] Contact Info) Description 12/03/2022 Refill [facility] [address] [place], [place] [phone] Nakia Sparrow MD [address] [place], [place] [phone] Irritable bowel syndrome with constipation Social History [...] syndrome documented in this encounter Care Teams Dentistry Teacher Relationship Specialty Start Date End Date Nakia Sparrow MD [address] [place] [address] PCP - General Family Medicine 12/19/16 Irasema Bowers RN [address] [place] [address] Registered Nurse Family Medicine 02/05/24 documented as of this encounter
--- OUTSIDE RECORDS SUMMARY | 2024-11-22 09:15 | XMS_ITS | Encounter Summary ---
Author Organization [employer] Address [address] [facility] 7t [place] [address] Care Team Providers Care Emergency Room Registered Nurse Name Role Phone Nakia Sparrow MD Primary Care Provider [phone] Irasema Bowers RN Unavailable Reason for Visit * Reason Comments Med Refill Encounter Details Date Type Department Care Team ([facility] Contact Info) Description 05/06/2023 Refill [facility] [address] [place], [place] [phone] Kristen Nieves FNP [address] [place], [place] [phone] Social History Tobacco Use Types Packs/Day Years [...] on filedocumented in this encounter Care Teams Emergency Room Registered Nurse Relationship Specialty Start Date End Date Nakia Sparrow MD [address] [place], [place] [phone] PCP - General Family Medicine 12/19/16 Irasema Bowers, RN [address] [place], [place] [phone] Registered Nurse Family Medicine 02/05/24 documented as of this encounter
== END 2024-11-22 10:34 | disposition home or self-care (01) ==
PROVIDERS: PCP Family Medicine; Visit Provider Urology
DX: R31.0 Gross hematuria (principal); Z13.9 Encounter for screening, unspecified
CPT/HCPCS: 52000

== ENCOUNTER → 2024-11-22 08:52 | Outpatient (BNVA) | payer MEDICAID, SELFPAY | PROVIDERS: PCP Family Medicine; Visit Provider Urology | DX: R31.0 Gross hematuria (principal); N20.0 Calculus of kidney | CPT/HCPCS: 52000; 81003 ==

== ENCOUNTER 2025-01-27 09:12 | Outpatient (REF) | payer MEDICAID, SELFPAY ==
--- OUTSIDE RECORDS SUMMARY | 2025-01-27 09:46 | XMS_ITS | Encounter Summary ---
Author Organization [employer] Address [address] [place] [address] Care Team Providers Care Patternator Name Role Phone Nakia Sparrow MD Primary Care Provider [phone] Irasema Bowers RN Unavailable Reason for Visit * Reason Onset Date Comments Med Refill 01/24/2025 Encounter Details Date Type Department Care Team ([facility] Contact Info) Description 01/24/2025 Refill [facility] MED & PEDS [address] [place] [address] Nakia Sparrow MD [address] [place] [address] Type 2 diabetes mellitus without complication, without long-term current use of insulin ([facility]) Social History Tobacco Use Types Packs/Day Years [...] Answer Date Recorded Internet Access Q1 No 01/18/2025 Internet Access Q2 I do not want or need it 02/2025 Comments No Sex and Gender Information Value Date Recorded Sex Assigned at Female 07/15/2022 10:31 AM EDT Legal Sex Female 10:31 AM EDT Gender Identity Female 07/15/2022 10:31 AM EDT Sexual Orientation Straight 07/15/2022 10 :31 AM EDT documented as of this encounter Miscellaneous Notes * Telephone Encounter - Sylwia Kauffman LPN - 01/24/2025 11:07 AM EDT Last seen 09/17/24. * Telephone Encounter - Piedad Bowers - 01/24/2025 10:55 AM EDT Patient in requesting med refill for FreeStyle Test Strips. Patient indicates the pharmacy do not have the Rx# [id number] in the system to do the refill and patient has been out of the strips for a while. documented in this encounter Plan of Treatment Upcoming Encounters Date Type Department Care Team (Late st Contact Info) Description 02/16/2025 10:30 AM EDT Medication Management [facility] MED & PEDS [address] [place] [address] Jolanta Machado PharmD [address] [place] [address] documented as of this encounter Visit Diagnoses Diagnosis Type 2 diabetes mellitus without complication, without long-term current use of insulin ([facility]) documented in this encounter Additional Health Concerns Assessment Noted Time PHQ-9 Depression Total Score: 1 06/03/20 24 9:18 AM EDT documented as of this encounter Care Teams Patternator Relationship Specialty Start Date End Date Nakia Sparrow MD [address] [place] [id number] PCP - General Family Medicine 12/19/16 Irasema Bowers, [place] [address] [place] [address] Registered Nurse Family Medicine 02/05/24 documented as of this encounter
--- OUTSIDE RECORDS SUMMARY | 2025-01-27 09:46 | XMS_ITS | Encounter Summary ---
Author Organization [email or web address] Address [address] [facility] 7[address] [place] [address] Care Team Providers Care Hand Alterations Seamstress Name Role Phone Nakia Sparrow MD Primary Care Provider [phone] Irasema Bowers RN Unavailable Reason for Visit * Reason Comments Med Refill Encounter Details Date Type Department Care Team (Late Contact Info) Description 08/21/2022 Refill [facility] MEDICINE [address] [place] [address] Nakia Sparrow MD [address] [place] [address] Social History Tobacco Use Types Packs/Day Years Used Date Smoking Tobacco: Never Assessed Comments Unknown Sex and Gender Information Value Date Recorded Sex Assigned at Female 07/15/2022 10:31 AM EDT Legal Sex Female 10:31 AM EDT Gender Identity Female 07/15/2022 10:31 AM EDT Sexual Orientation Straight 07/15/2022 10 :31 AM EDT documented as of this encounter Plan of Treatment Upcoming Encounters Date Type Department Care Team (Late Contact Info) Description 02/16/2025 10:30 AM EDT Medication Management [facility] CHC MED & PEDS [address] [place] [address] Jolanta Machado PharmD [address] [place] [address] documented as of this encounter Visit Diagnoses Not on filedocumented in this encounter Care Teams Hand Alterations Seamstress Relationship Specialty Start Date End Date Nakia Sparrow MD [address] [place] [address] PCP - General Family Medicine 12/19/16 Irasema Bowers RN [address] [place] [address] Registered Nurse Family Medicine 02/05/24 documented as of this encounter
--- OUTSIDE RECORDS SUMMARY | 2025-01-27 09:46 | XMS_ITS | Encounter Summary ---
Author Organization [email or web address] Address [address] [facility] [address] [place] [address] Care Team Providers Care Vehicle Cost Engineer Name Role Phone Nakia Sparrow MD Primary Care Provider [phone] Irasema Bowers RN Unavailable Reason for Visit * Reason Comments Med Refill Encounter Details Date Type Department Care Team ([facility] Contact Info) Description 09/09/2022 Refill [facility] MED & PEDS [address] [place] [address] Nakia Sparrow MD [address] [place] [address] Primary hypertension (Primary Dx) Social History Tobacco [...] Upcoming Encounters Date Type Department Care Team ([facility] Contact Info) Description 02/16/2025 10:30 AM EDT Medication Management [facility] MED & PEDS [address] [place] [address] Jolanta Machado PharmD [address] [place] [address] documented as of this encounter Visit Diagnoses Diagnosis Primary hypertension- Primary Unspecified essential hypertension documented in this encounter Care Teams Vehicle Cost Engineer Relationship Specialty Start Date End Date Nakia Sparrow MD [address] [place], [place] [phone] PCP - General Family Medicine 12/19/16 Irasema Bowers RN [address] [place], [place] [phone] Registered Nurse Family Medicine 02/05/24 documented as of this encounter
--- OUTSIDE RECORDS SUMMARY | 2025-01-27 09:46 | XMS_ITS | Encounter Summary ---
Author Organization [employer] Address [address] [place] [address] Care Team Providers Care Scooper Name Role Phone Nakia Sparrow MD Primary Care Provider [phone] Irasema Bowers RN Unavailable Reason for Visit * Reason Onset Date Comments Med Refill 01/24/2025 Encounter Details Date Type Department Care Team ([facility] Contact Info) Description 01/24/2025 Refill [facility] CH[facility] MED & PEDS [address] [place] [address] Nakia Sparrow MD [address] [place] [address] Social History Tobacco Use Types Packs/Day Years [...] Description 02/16/2025 10:30 AM EDT Medication Management [facility] MED & PEDS [address] [place] [address] Jolanta Machado, PharmD [address] [place] [address] documented as of this encounter Visit Diagnoses Not on filedocumented in this encounter Additional Health Concerns Assessment Noted Time PHQ-9 Depression Total Score: 1 06/03/20 24 9:18 AM EDT documented as of this encounter Care Teams Scooper Relationship Specialty Start Date End Date Nakia Sparrow MD [address] [place] [address] PCP - General Family Medicine 12/19/16 Irasema Bowers, [place] [address] [place], [place] [phone] Registered Nurse Family Medicine 02/05/24 documented as of this encounter
--- OUTSIDE RECORDS SUMMARY | 2025-01-27 09:46 | XMS_ITS | Encounter Summary ---
Author Organization [employer] Address [address] [facility] 7[address] [place] [address] Care Team Providers Care Environmental Economist Name Role Phone Nakia Sparrow MD Primary Care Provider Irasema Bowers RN Unavailable Reason for Referral * Consultation (Routine) - Authorized Specialty Diagnoses / Procedures Referred By Cory monson Referred To Contact Pharmacy Diagnoses Type 2 diabetes mellitus without complication, with long-term current use of insulin (CMS/HCC) Fear of needles Nakia Sparrow MD [address] [place] [address] Phone: tel: fax: Referral ID Status Reason Start Date Expiration Date Visits Requested Visits Authorized [id number] Authorized Consult and Treat 01/26/2025 01/26/2026 6 6 Encounter Details Date Type Department Care Team ([facility] Contact Info) Description 01/26/2025 10:00 AM EDT Office Visit [facility] CHC MED & PEDS [address] [place] [address] Nakia Sparrow MD [address] [place] [address] Type 2 diabetes mellitus without complication, with long-term current use of insulin (CMS/HCC) (Primary Dx); Dietary counseling; Exercise counseling; Benign hypertension; Fear of needles Social History Tobacco Use Types Packs/Day Years [...] AM EDT documented as of this encounter Last Filed Vital Signs Vital Sign Reading Time Taken Comments Blood Pressure 144/60 01/26/2025 10:00 AM EDT Pulse 88 01/26/2025 10:00 AM EDT Temperature 36.7 ??C (98 ??F) 01/26/2025 10:00 AM EDT Respiratory Rate 20 01/26/2025 10:00 AM EDT Oxygen Saturation - - Inhaled Oxygen Concentration - - Weight 94.8 kg (209 lb) 01/26/2025 10:00 AM EDT Height 154.9 cm (5' 1 ) 01/26/2025 10:00 AM EDT Body Mass Index 39.49 01/26/2025 10:00 AM EDT documented in this encounter Progress Notes * Nakia Sparrow MD - 01/26/2025 10:00 AM EDT Subjective Patient ID: Jackeline Hoang is a 64 y.o. female who presents for No chief complaint on file.. Diabetes She presents for her follow-up diabetic visit. She has type 2 diabetes mellitus. Her disease coursehas been stable. There are no hypoglycemic associated symptoms. Pertinent negatives for hypoglycemia include no headaches. There are no diabetic associated symptoms. Pertinent negatives for diabetes include no chest pain. Symptoms are stable. Current diabetic treatment includes insulin injections and oral agent (dual therapy). Hypertension This is a chronic problem. The current episode started more than 1 year ago. The problem is controlled. Pertinent negatives include no chest pain, headaches, neck pain, palpitations or shortness of breath. Risk factors for coronary artery disease include diabetes mellitus, obesity and sedentary lifestyle. Review of Systems Constitutional: Negative. Respiratory: Negative. Negative for shortness of breath. Cardiovascular: Negative for chest pain and palpitations. Gastrointestinal: Negative. Genitourinary: Negative. Musculoskeletal: Negative for neck pain. Neurological: Negative for headaches. Objective Physical Exam Constitutional: Appearance: Normal appearance. Cardiovascular: Rate and Rhythm: Normal rate and regular rhythm. Pulses: Normal pulses. Heart sounds: Normal heart sounds. Pulmonary: Effort: Pulmonary effort is normal. Abdominal: General: Abdomen is flat. Neurological: Mental Status: She is alert. Assessment/Plan Diagnoses and all orders for this visit: Type 2 diabetes mellitus without complication, with long-term current use of insulin ([facility]) Comments: Stable No changes in meds Referred to CD[facility] Advised Low sugar and Low carb diet. Counseled regarding self-monitoring of blood glucose. Counseled re: potential co-morbidities including cardiovascular disease. Counseled re: potential co-morbidities include neuropathy and retinopathy. Counseled re: potential co-morbidities include nephropathy. Orders: - POCT Glucose - POCT HGB A1C - Basic Metabolic Panel; Future - Lipid Panel, Standard; Future - Hepatic Function Panel; Future - Referral to Pharmacy [facility] Dietary counseling Exercise counseling Benign hypertension Comments: Well controlled Maintain a low-sodium diet (less than 2 grams per day). Maintain a regular cardiovascular exercise program. Advised to maintain a low-fat, low-cholesterol diet. Counseled regarding importance of weight loss. Counseled re: potential co-morbidities including cardiovascular disease. Orders: - Basic Metabolic Panel; Future - Lipid Panel, Standard; Future Fear of needles Comments: pt referred to CDTM for CGM Orders: - Referral to Pharmacy [facility] documented in this encounter Plan of Treatment Upcoming Encounters Date Type Department Care Team (Late st Contact Info) Description 02/16/2025 10:30 AM EDT Medication Management [facility] MED & PEDS [address] [place] [address] Jolanta Machado PharmD [address] [place] [address] Scheduled Orders Name Type Priority Associated Diagnoses Orde r Schedule Basic Metabolic Panel Lab Routine Type 2 diabetes mellitus without complication, with long-term current use of insulin ([facility]) Benign hypertension Expected: 01/26/2025 (Approximate), Expires: 01/26/2026 Lipid Panel, Standard Lab Routine Type 2 diabetes mellitus without complication, with long-term current use of insulin ([facility]) Benign hypertension Expected: 01/26/2025 (Approximate), Expires: 01/26/2026 Hepatic Function Panel Lab Routine Type 2 diabetes mellitus without complication, with long-term current use of insulin (CMS/HCC) Expected: 01/26/2025 (Approximate), Expires: 01/26/2026 Scheduled Referrals Name Type Priority Associated Diagnoses Orde r Schedule Referral to Pharmacy CDTM Outpatient Referral Routine Type 2 diabetes mellitus without complication, with long-term current use of insulin ([facility]) Fear of needles Ordered: 01/26/2025 documented as of this encounter Procedures Procedure Name Priority Date/Time Associated Diagnosis Comments POCT GLYCATED HEMOGLOBIN, TOTAL Routine 01/26/2025 10:04 AM EDT Type 2 diabetes mellitus without complication, with long-term current use of insulin (CMS/HCC) POCT GLUCOSE Routine 01/26/2025 10:04 AM EDT Type 2 diabetes mellitus without complication, with long-term current use of insulin ([facility]) documented in this encounter Results * (ABNORMAL) POCT HGB A1C (01/26/2025 10:04 AM EDT) Hemoglobin A1C 9.4(A) 4.0 - 6.0 % QC Media Lot # [id number] Lot# Expiration Date Blood 01/26/2025 10:0 4 AM EDT us Nakia Sparrow MD POINT OF CARE TEST ENTER/EDIT OR DERABLES Final Result * (ABNORMAL) POCT Glucose (01/26/2025 10:04 AM EDT) Glucose Blood, POC 267(A) 60 - 200 mg/dL QC Media Lot # [id number] Lot# Expiration Date Blood Capillary blood specimen / Unknown 01/26/2025 10:04 AM EDT Result [facility] us Nakia Sparrow MD POINT OF CARE TEST ENTER/EDIT OR DERABLES Final Result documented in this encounter Visit Diagnoses Diagnosis Type 2 diabetes mellitus without complication, with long-term current use of insulin ([facility])- Primary Dietary counseling Dietary surveillance and counseling Exercise counseling Benign hypertension Essential hypertension, benign 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
--- OUTSIDE RECORDS SUMMARY | 2025-01-27 09:46 | XMS_ITS | Encounter Summary ---
Author Organization [employer] Address [address] [place] [address] Care Team Providers Care Copier Operator Name Role Phone Nakia Sparrow MD Primary Care Provider Irasema Bowers RN Unavailable Encounter Details Date Type Department Care Team ([facility] Contact Info) Description 01/27/2025 Telephone C CHC MED & PEDS [address] [place], [place] [phone] Nakia Sparrow MD [address] [place] [address] Social History Tobacco Use Types Packs/Day Years [...] Description 02/16/2025 10:30 AM EDT Medication Management [facility] MED & PEDS [address] [place] [address] Jolanta Machado, NyaD [address] [place] [address] documented as of this encounter Visit Diagnoses Not on filedocumented in this encounter Additional Health Concerns Assessment Noted Time PHQ-9 Depression Total Score: 1 06/03/20 24 9:18 AM EDT documented as of this encounter Care Teams Copier Operator Relationship Specialty Start Date End Date Nakia Sparrow MD [address] [place] [address] PCP - General Family Medicine 12/19/16 Irasema Bowers RN [address] [place] [address] Registered Nurse Family Medicine 02/05/24 documented as of this encounter
--- OUTSIDE RECORDS SUMMARY | 2025-01-27 09:46 | XMS_ITS | Clinical Summary ---
Author Organization [employer] Address [address] [facility] 7t [place] [address] Care Team Providers Care Die Cutter Name Role Phone Nakia Sparrow MD Primary Care Provider [phone] Irasema Bowers RN Unavailable Allergies Active Allergy [...] in each nostril as needed 021 Active linaCLOtide (Linzess) 290 MCG capsule take [...] complication, without long-term current use of insulin ([facility]) TAKE 1 TABLET BY MOUTH EVERY 8 [...] day. 100 g 024 Active Continuous Glucose Remedial Reading Teacher (FreeStyle Adriana 2 Alexander) device Scan sensor every 8 hours 1 each 024 Active dulaglutide (Trulicity) 0.75 MG/0.5ML solution pen-injector Inject 0.75 mg under the skin 1 (one) time per week. 4 each 11 Active dicyclomine (Bentyl) 20 MG tablet Take 1 tablet (20 mg) by mouth 3 times daily. 90 tablet 11 024 2024 Active Januvia 100 MG tablet Take 1 tablet by mouth once daily 90 tablet 1 Active simethicone (Mylicon,Gas-X) 125 MG capsule Take 1 capsule (125 mg) by mouth every 6 (six) hours if needed for flatulence. 28 capsule 024 Active naproxen (Naprosyn) 500 MG tablet Take 1 tab bid with meals prn pain only 30 tablet 025 Active pantoprazole (Protonix) 40 MG EC tablet Take 1 tablet (40 mg) by mouth before breakfast. Do not crush, chew, or split. 90 tablet 1 025 Active polyethylene glycol, PEG, 3350 (Miralax) 17 g packet DISSOLVE 1 PACKET WITH 8 OUNCES OF WATER, JUICE, SODA, COFFEE, OR TEA, THEN DRINK BY MOUTH TWICE DAILY. 60 each 025 Active glipiZIDE (Glucotrol) 10 MG tablet Take 2 tablets by mouth twice daily 360 tablet 025 Active metoclopramide (Reglan) 10 MG tabletIndications :Abdominal bloating Take 1 tablet by mouth 4 times daily 120 tablet 025 Active atorvastatin (Lipitor) 40 MG tabletIndications :Hyperlipidemia, unspecified hyperlipidemia type TAKE 1 TABLET BY MOUTH IN THE MORNING 90 tablet 025 Active metFORMIN (Glucophage) 1000 MG tabletIndications :Type 2 diabetes mellitus without complication, without long-term current use of insulin ([facility]) TAKE 1 TABLET BY MOUTH IN THE MORNING WITH BREAKFAST AND 1 TABLET WITH EVENING MEAL 180 tablet 025 Active Continuous Glucose Sensor (FreeStyle Adriana 2 Sensor) [facility] [place] 1 SENSOR TOPICALLY, AND LEAVE IN PLACE FOR 14 DAYS, TO MONITOR BLOOD GLUCOSE 2 each 2 025 Active Ventolin HFA 108 (90 Base) MCG/ACT inhaler INHALE 2 PUFFS BY MOUTH 4 TIMES DAILY 18 g 025 Active polyethylene glycol, PEG, 3350 (Miralax) 17 g packet DISSOLVE 1 PACKET IN 8 OUNCES OF WATER, JUICE, SODA, COFFEE, OR TEA, THEN DRINK BY MOUTH TWICE DAILY 60 each 025 Active ibuprofen 600 MG tablet TAKE 1 TABLET BY MOUTH THREE TIMES DAILY 90 tablet 025 Active montelukast (Singulair) 10 MG tabletIndications :Allergy, sequela Take 1 tablet by mouth once daily 90 tablet 025 Active hydroCHLOROthiazi de (HYDRODiuril) 25 MG tabletIndications :Primary hypertension Take 1 tablet by mouth once daily 90 tablet 025 Active empagliflozin (Jardiance) 25 MGIndications:Typ e 2 diabetes mellitus without complication, without long-term current use of insulin (CMS/[facility]) TAKE 1 TABLET BY MOUTH IN THE MORNING 90 tablet 1 025 Active glucose blood (FREESTYLE LITE) test stripIndications: Type 2 diabetes mellitus without complication, without long-term current use of insulin (CMS/[facility]) USE TO CHECK BLOOD SUGAR THREE TIMES A DAY 100 each 1 025 Active glucose blood (FREESTYLE LITE) test strip Check blood sugar 3 times a day 022 2024 Discontinued(R eorder (will not trigger notification to Pharmacy)) glucose blood (FreeStyle Precision Eugene Test) test strip Use to test blood sugar 3 times daily 100 each 12 024 2024 meloxicam (Mobic) 7.5 MG tablet Take 1 tablet (7.5 mg) by mouth Once per day. 30 tablet 024 2024 Jardiance 25 MGIndications:Typ e 2 diabetes mellitus without complication, without long-term current use of insulin (CMS/[facility]) TAKE 1 TABLET BY MOUTH ONCE DAILY IN THE MORNING 90 tablet 1 024 2024 Discontinued hydroCHLOROthiazi de (HYDRODiuril) 25 MG tabletIndications :Primary hypertension Take 1 tablet by mouth once daily 90 tablet 1 024 2024 Discontinued montelukast (Singulair) 10 MG tabletIndications :Allergy, sequela Take 1 tablet by mouth once daily 90 tablet 025 2024 Discontinued Ventolin HFA 108 (90 Base) MCG/ACT inhaler INHALE 2 PUFFS BY MOUTH 4 TIMES DAILY 18 g 025 2024 Discontinued polyethylene glycol, PEG, 3350 (Miralax) 17 g packet DISSOLVE 1 PACKET WITH 8 OUNCES OF WATER, JUICE, SODA, COFFEE, OR TEA, THEN DRINK BY MOUTH TWICE DAILY. 60 each 025 2024 Discontinued ibuprofen 600 MG tablet TAKE 1 TABLET BY MOUTH THREE TIMES DAILY 90 tablet 025 2024 Discontinued Continuous Glucose Sensor (FreeStyle Adriana 2 Sensor) [facility] [place] 1 SENSOR TOPICALLY, AND LEAVE IN PLACE FOR 14 DAYS, TO MONITOR BLOOD GLUCOSE 2 each 025 2024 Discontinued Active Problems Problem Noted Date Diagnosed Date penitentiary use of drug 07/06/2024 Menopausal vasomotor syndrome [...] Encounters Date Type Department Care Team Description 01/27/2025 Telephone [facility] [address] [place] [address] Nakia Sparrow MD 01/26/2025 10:00 AM EDT Office Visit [facility] [address] [place] [address] Nakia Sparrow MD Type 2 diabetes mellitus without complication, with long-term current use of insulin (CMS/[facility]) (Primary Dx); Dietary counseling; Exercise counseling; Benign hypertension; Fear of needles 01/26/2025 Travel 01/24/2025 Refill [facility] [address] [place] [address] Nakia Sparrow MD 01/24/2025 Refill [facility] [address] [place] [address] Nakia Sparrow MD Type 2 diabetes mellitus without complication, without long-term current use of insulin (CMS/HCC) 01/20/2025 Refill [facility] [address] [place] [address] Nakia Sparrow MD Type 2 diabetes mellitus without complication, without long-term current use of insulin (CMS/HCC) 01/18/2025 Refill [facility] [address] [place] [address] Nakia Sparrow MD Allergy, sequela; Primary hypertension 01/18/2025 Patient Outreach [facility] [address] [place] [address] Nakia Sparrow MD Pre-visit Planning (SDOH screening negative and Tobacco screening negative) 01/12/2025 Refill [facility] [address] [place] [address] Nakia Sparrow MD 01/11/2025 Refill [facility] [address] [place] [address] Nakia Sparrow MD 01/07/2025 Telephone [facility] [address] [place] [address] Nakia Sparrwo MD Durable Medical Equipment 01/05/2025 Refill [facility] [address] [place] [address] Nakia Sparrow MD 12/21/2024 Orders Only [facility] [address] [place] [address] Nakia Sparrow MD Type 2 diabetes mellitus without complication, without long-term current use of insulin (CMS/HCC) (Primary Dx) 12/21/2024 Telephone [facility] [address] [place] [address] Jolanta Machado, PharmD 12/09/2024 Refill [facility] [address] [place] [address] Nakia Sparrow MD 12/08/2024 Refill [facility] [address] [place] [address] Nakia Sparrow MD Type 2 diabetes mellitus without complication, without long-term current use of insulin (CMS/HCC) 11/26/2024 Refill [facility] [address] [place] [id number] Nakia Sparrow MD Hyperlipidemia, unspecified hyperlipidemia type 11/26/2024 Population Health Risk Score [facility] () Department [address] [place] [phone] Provider, Population Health Generic 11/24/2024 Refill [facility] [address] [place] [address] Lena Grey MD Abdominal bloating 11/24/2024 Refill [facility] [address] [place] [address] Nakia Sparrow MD 11/20/2024 Refill [facility] [address] [place] [address] Nakia Sparrow MD 11/16/2024 Orders Only [facility] [address] [place] [address] Nakia Sparrow MD 11/10/2024 Refill [facility] [address] [place] [address] Nakia Sparrow MD 11/05/2024 Refill [facility] [address] [place] [address] Nakia Sparrow MD 11/05/2024 Refill [facility] [address] [place] [address] Vanessa Forbes MD 11/05/2024 Telephone [facility] [address] [place] [address] Nakia Sparrow MD medication request from Last 3 Months Immunizations Immunization Administration Dates Next Due Influenza injectable quadriv [...] Average Number of Drinks Not on file Frequency of Binge Drinking Not on file [...] 20 01/26/2025 10:00 AM EDT Oxygen Saturation 97% 09/17/2024 11:00 AM EST Inhaled Oxygen Concentration - - Weight 94.8 kg (209 lb) 01/26/2025 10:00 AM EDT Height 154.9 cm (5' 1 ) 01/26/2025 10:00 AM EDT Body Mass Index 39.49 01/26/2025 10:00 AM EDT Plan of Treatment Upcoming Encounters Date Type Department Care Team (Late st Contact Info) Description 02/16/2025 10:30 AM EDT Medication Management [facility] [address] [place] [address] Jolanta Machado, PharmD [address] [place] [address] Health Maintenance Due Date Last Done Comments CT Colonography 1960 FIT DNA/Cologuard 1960 FIT 1960 FOBT 1960 HIV Screening 1960 Sigmoidoscopy 1960 Eye Exam 1970 Alcohol/Substance Use Screening 1972 Hepatitis C Screening 1978 Diabetes: Urine Protein Screening 06/16/2024 06/16/2023, 04/11/2022, 07/05/2021 Lipid Panel 06/16/2024 06/16/2023, 03/16, 07/05/2021, Additional history exists Diabetes: Hemoglobin A1C 04/28/2025 025, 08/23/2024, 06/03/2024, Additional history exists Depression Screening 06/03/2025 06/03/2024, 06/03/20 24 Diabetes: Foot Exam 06/03/2025 06/03/2024, 06/03/2024, 06/03/2024, Additional history exists Tobacco Screening 09/17/2025 09/17/2024 Diagnostic Breast Imaging 11/16/20252024, 05/18/2024, 08/29/2022, Additional history exists Mammogram 11/16/2025 11/16/2024, 11/2023, 09/24/2023, Additional history exists SDOH Screening 01/18/2026 01/18/2025 Colonoscopy 04/11/2028 04/11/2018 Colorectal Cancer Screening 04/11/2028 [...] age to complete this topic Meningococcal B Vaccine Aged Out No l onger eligible based on patient's age to complete [...] complication, with long-term current use of insulin ([facility]) POCT GLUCOSE Routine 01/26/2025 10:04 AM EDT Type 2 diabetes mellitus without complication, with long-term current use of insulin ([facility]) BI MAMMOGRAM DIAGNOSTIC TOMOSYNTHESIS BILATERAL Routine 11/16/2024 12:30 PM EST THINPREP IMAGING PAP AND HPV MRNA E6/E7 Routine 07/06/2024 9:06 AM EDT penitentiary use of drug ALBUMIN, RANDOM URINE W/CREATININE Routine 06/16/2023 10:41 AM EDT LIPID PANEL, STANDARD Routine 06/16/2023 10:41 AM EDT Primary hypertension HM COLONOSCOPY Routine 04/11/2018 from Last 3 Months or Most Recently Relevant to Health Maintenance Results * (ABNORMAL) POCT HGB A1C (01/26/2025 10:04 AM EDT) Hemoglobin A1C 9.4(A) 4.0 - 6.0 % QC Media Lot # [id number] Lot# Expiration Date Blood 01/26/2025 10:0 4 AM EDT Nakia Sparrow MD POINT OF CARE TEST ENTER/EDIT OR DERABLES Final Result * (ABNORMAL) POCT Glucose (01/26/2025 10:04 AM EDT) Glucose Blood, POC 267(A) 60 - 200 mg/dL QC Media Lot # [id number] Lot# Expiration Date Blood Capillary blood specimen / Unknown 01/26/2025 10:04 AM EDT us Nakia Sparrow MD POINT OF CARE TEST ENTER/EDIT OR DERABLES Final Result * BI Mammogram Diagnostic Tomosynthesis Bilateral (11/16/2024 12:30 PM EST) Anatomical Region Laterality Modality Breast Bilateral Mammography 11/16/2024 12:3 0 PM EST Narrative 11/16/2024 1:24 PM EST ? [facility] ? [address] ?[place] [address] ? Mammography Report ? Signed ? Patient: Viktor,Jackeline N ?MR#: [id number] ?? 14 ? : 1960 ?Acct:[id number] ? Age/Sex: 64 / F ?ADM Date: 11/16/24 ? Loc: HO.MAMMO ? Attending Dr: Nakia Sparrow MD ? Ordering Physician: Nakia Sparrow MD ?Results: 3.12MPr ?? obably Benign Finding - 12 month F/U Suggested ? Date of Service: 11/16/24 ?Follow Up: 12 month diagnos ?? tic follow up ? Procedure(s): MM tomosynthesis diagnostic BI ?? Accession Number(s): [id number] ? cc: Nakia Sparrow MD ? EXAMINATION: [...] DD/ 1230 ? TD/TT: 11/16/24 1310 ? Floors Buffer: ? Procedure Note Johnny Eastman - 11/16/2024 [facility] [address] [place] [address] Dr. Draper, [place]BERTO [address] Mammography Report Signed Patient: Jackeline Hoang NMR#: [id number] 14 : 1960cct:[id number] Age/Sex: 64 / FADM Date: 11/16/24 Loc: HO.MAMMO Attending Dr: Nakia Sparrow MD Ordering Physician: Nakia Sparrwo MDResults: 3.12MPr obably Benign Finding - 12 month F/U Suggested Date of Service: 03/04/25Follow Up: 12 month diagnos tic follow up Procedure(s): MM tomosynthesis diagnostic BI Accession Number(s): [id number] cc: Nakia Sparrow MD EXAMINATION: MM DIAGNOSTIC [...] by: Santa Brothers DO 11/16/2024 01:21 PM [facility] Dictated By: Santa Brothers DO Signed By: <Electronically signed by Santa Brothers DO in OV> 11/16/24 1321 DD/ 1230 TD/TT: 11/16/24 1310 Floors Buffer: Nakia Sparrow MD IM BI PROCEDURES Final Result * ThinPrep Imaging Pap and HPV mRNA E6/E7 (07/06/2024 9:06 AM EDT) HPV nRNA E6/E7 Not Detected Not Detected [facility] Comment:Methodology: Transcr iption-Mediated AmplificationThis assay detects E6/E7 viral messenger RNA (mRNA) from 14high-risk HPV types (16,18,31,33,35,39,45,51,52,56,58,59,66,68).Cervical sources are required for HPV testing.If a vaginal source from a patient who has had atotal hysterectomy with removal of cervix wassubmitted, please contact the testing laboratoryfor alternative testing options.For additional information, please refer tohttp://education.[employer]/faq/VSM557a3(This link if provided for information/educational purposes only.)THIS TEST WAS PERFORMED AT:[employer] [address] [phone] MONIQUE MD SOURCE: SEE NOTE [facility] Comment:Vagina Report Status: [facility] Clinical Information: SEE NOTE [facility] Comment:None given LMP: SEE NOTE [facility] Comment:NONE GIVEN Prev. PAP: SEE NOTE [facility] Comment:NONE GIVEN Prev. BX: SEE NOTE [facility] Comment:NONE GIVEN Statement Of Adequacy: SEE NOTE [facility] Comment:SATISFACTORY FOR LORI LUATION General Categorization: [facility] Interpretation/Result: SEE NOTE [facility] Comment:Cytology Results: Ne gative for intraepitheliallesion or malignancy. Cytology Comment SEE NOTE [facility] Comment:This Pap test has be en evaluated with computerassisted technology. Refrigerator Car Icer: SEE NOTE [facility] Comment:GSG, CT(ASCP)CT scre ening location: [place] [address] Review Refrigerator Car Icer: SEE NOTE [facility] Comment:CMG, CT(ASCP)CT scre ening location: [place] [address] Pathologist [facility] PAP Infection [facility] See Note SEE [facility] Comment:EXPLANATORY NOTE:The Pap is a screening test for cervical cancer. It isnot a diagnostic test and is subject to false negativeand false positive results. It is most reliable when asatisfactory sample, regularly obtained, is submittedwith relevant clinical findings and history, and whenthe Pap result is evaluated along with historic andcurrent clinical information. 07/06/2024 9:06 AM EDT 07/06/2024 6:11 PM EDT Narrative [facility] - 07/12/2024 10:48 AM EDT SEE SCANNED RESULTS IN EMRVAGINA us Angie Mckeon CNM LAB PATHOLOGY ORDERABLES Final Result Performing Organization Address City/[facility]/ZIP Co de Phone Number [facility] [address] [place] [phone] * Albumin, Random Urine W/Creatinine (06/16/2023 10:41 AM EDT) Creatinine, Urine 46.30 mg/dL [facility] Microalbumin Urine <5.0 mg/L [facility] Microalbum Creatinine Ratio Ur TNP <30 ug/mg cr [facility] Comment:Unable to calculate albumin/creatinine ratio due to lowmicroalbumin or creatinine result. 06/16/2023 10:4 1 AM EDT 06/16/2023 2:32 PM EDT us Nakia Sparrow MD LAB URINE ORDERABLES Final Resul t Performing Organization Address [facility] Co de Phone Number [facility] [address] [place] [phone] * (ABNORMAL) Lipid Panel, Standard (06/16/2023 10:41 AM EDT) Triglycerides 122 <150 mg/dL [facility] Comment:Desirable Triglyceri de: less than 150 mg/dLBorderline High Triglyceride 150-199 mg/dLHigh Triglyceride: 200-499 mg/dLVery High Triglyceride: greater than or equal to 5OO mg/dL Cholesterol 120 <200 mg/dL [facility] Comment:Desirable Cholestero l: less than 200 mg/dLBorderline High Cholesterol: 200-239 mg/dLHigh Cholesterol: greater than 239 mg/dL LDL Cholesterol Calculated 58 <100 mg/dL [facility] Comment:Desirable LDL: less than 100 mg/dLNear Optimal/Above Optimal LDL: 110- 129 mg/dLBorderline High LDL: 130-159 mg/dLHigh LDL: 160-189 mg/dLVery High LDL: greater than or equal to 190 mg/dL HDL Cholesterol 38(L) >40 mg/dL [facility] Comment:Desirable HDL: great er than 40 mg/dL Note: This HDL assay may give artificially low results in patients with liver disease. Blood Venous blood specimen / Unknown 06/16/2023 10:41 AM EDT 06/16/2023 2:27 PM EDT Nakia Sparrow MD LAB BLOOD ORDERABLES Final Resul t Performing Organization Address City/State/[facility] Co de Phone Number [facility] [address] [place] [phone] * Colonoscopy (04/11/2018) Colonoscopy Normal Normal Historical Provider HEALTH MAINTENANCE Final Result from Last 3 Months or Most Recently Relevant to Health Maintenance Insurance [facility] [place] [id number] Jovan ID Care Teams Die Cutter Relationship Specialty Start Date End Date Nakia Sparrow MD [address] [place] [phone] PCP - General Family Medicine 12/19/16 Irasema Bowers RN [address] [place] [phone] Registered Nurse Family Medicine 02/05/24
--- OUTSIDE RECORDS SUMMARY | 2025-01-27 09:46 | XMS_ITS | Clinical Summary ---
Author Organization [employer] [facility] ity Address [address] [place] [address] Care Team Providers Care Professor Of Musicology Name Role Phone Unavailable Primary Care Provider [...] - 2023-2 5 season) 2024 Influenza Vaccine (Season Ended) 2025 RSV Immunization Adult Patie nts (1 - 1-dose 75+ series) 2035 HIB [...]
--- OUTSIDE RECORDS SUMMARY | 2025-01-27 09:47 | XMS_ITS | Encounter Summary ---
Author Organization [employer] Address [address] [facility] 7t [place] [address] Care Team Providers Care Specialty Development Consultant Name Role Phone Nakia Sparrow MD Primary Care Provider [phone] Irasema Bowers RN Unavailable Encounter Details Date Type Department Care Team ([facility] Contact Info) Description 02/20/2023 Orders Only [facility] [address] [place] [address] Nakia Sparrow MD [address] [place] [address] Social History Tobacco Use Types Packs/Day Years [...] Upcoming Encounters Date Type Department Care Team ([facility] Contact Info) Description 02/16/2025 10:30 AM EDT Medication Management [facility] [address] [place] [address] Jolanta Machado PharmD [address] [place] [address] documented as of this encounter Visit Diagnoses Not on filedocumented in this encounter Care Teams Specialty Development Consultant Relationship Specialty Start Date End Date Nakia Sparrow MD [address] [place] [address] PCP - General Family Medicine 12/19/16 Irasema Bowers RN [address] [place] [address] Registered Nurse Family Medicine 02/05/24 documented as of this encounter
--- OUTSIDE RECORDS SUMMARY | 2025-01-27 09:47 | XMS_ITS | Encounter Summary ---
Author Organization [employer] Address [address] [facility] 7t [place] [address] Care Team Providers Care Roof Assembler Name Role Phone Nakia Sparrow MD Primary Care Provider [phone] Irasema Bowers RN Unavailable Reason for Visit * Reason Comments Med Change Request Encounter Details Date Type Department Care Team ([facility] Contact Info) Description 12/03/[address] [facility] [address] [place] [address] Nakia Sparrow MD [address] [place] [address] Irritable bowel syndrome with constipation Social History [...] Upcoming Encounters Date Type Department Care Team ([facility] Contact Info) Description 02/16/2025 10:30 AM EDT Medication Management [facility] [address] [place] [address] Jolanta Machado, PharmD [address] [place], [place] [phone] documented as of this encounter Visit Diagnoses Diagnosis Irritable bowel syndrome with constipation Irritable bowel syndrome documented in this encounter Care Teams Roof Assembler Relationship Specialty Start Date End Date Nakia Sparrow MD [address] [place] [phone] PCP - General Family Medicine 12/19/16 Irasema Bowers RN [address] [place] [phone] Registered Nurse Family Medicine 02/05/24 documented as of this encounter
--- OUTSIDE RECORDS SUMMARY | 2025-01-27 09:47 | XMS_ITS | Encounter Summary ---
Author Organization [employer] Address [address] [facility] [address] [place] [address] Care Team Providers Care Learning Design Specialist Name Role Phone Nakia Sparrow MD Primary Care Provider [phone] Irasema Bowers RN Unavailable Encounter Details Date Type Department Care Team (Latest Contact Info) Description 01/26/2025 Travel Social History Tobacco Use Types Packs/Day Years [...] Description 02/16/2025 10:30 AM EDT Medication Management [facility] [address] [place] [address] Jolanta Machado, PharmD [address] [place] [address] documented as of this encounter Visit Diagnoses Not on filedocumented in this encounter Additional Health Concerns Assessment Noted Time PHQ-9 Depression Total Score: 1 06/03/20 24 9:18 AM EDT documented as of this encounter Care Teams Learning Design Specialist Relationship Specialty Start Date End Date Nakia Sparrow MD [address] [place] [address] PCP - General Family Medicine 12/19/16 Irasema Bowers RN [address] [place] [address] Registered Nurse Family Medicine 02/05/24 documented as of this encounter
--- OUTSIDE RECORDS SUMMARY | 2025-01-27 09:47 | XMS_ITS | Encounter Summary ---
Author Organization [employer] Address [address] [facility] 7t [place] [address] Care Team Providers Care Front Office Assistant Name Role Phone Nakia Sparrow MD Primary Care Provider [phone] Irasema Bowers RN Unavailable Encounter Details Date Type Department Care Team ([facility] Contact Info) Description 10/14/2022 Telephone [facility] MED & PEDS [address] [place], [place] [phone] Nakia Sparrow MD [address] [place] [address] Social History Tobacco Use Types Packs/Day Years Used Date Smoking Tobacco: Never Assessed Comments Unknown Sex and Gender Information Value Date Recorded Sex Assigned at Female 07/15/2022 10:31 AM EDT Legal Sex Female 10:31 AM EDT Gender Identity Female 07/15/2022 10:31 AM EDT Sexual Orientation Straight 07/15/2022 10 :31 AM EDT documented as of this encounter Miscellaneous Notes * Telephone Encounter - aNkia Sparrow MD - 10/28/2022 9:33 AM EST Called it in documented in this encounter Plan of Treatment Upcoming Encounters Date Type Department Care Team ([facility] Contact Info) Description 02/16/2025 10:30 AM EDT Medication Management [facility] & PEDS [address] [place] [address] Jolanta Machado, PharmD [address] [place], [place] [phone] documented as of this encounter Visit Diagnoses Not on filedocumented in this encounter Care Teams Front Office Assistant Relationship Specialty Start Date End Date Nakia Sparrow MD [address] [place] [address] PCP - General Family Medicine 12/19/16 Irasema Bowers RN [address] [place] [address] Registered Nurse Family Medicine 02/05/24 documented as of this encounter
--- OUTSIDE RECORDS SUMMARY | 2025-01-27 09:47 | XMS_ITS | Encounter Summary ---
Author Organization [employer] Address [address] [place] [address] 7t [place] [address] Care Team Providers Care Junk Removal Specialist Name Role Phone Nakia Sparrow MD Primary Care Provider Irasema Bowers RN Unavailable Reason for Visit * Reason Comments Med Refill Encounter Details Date Type Department Care Team ([facility] Contact Info) Description 05/06/2023 Refill [facility] MED & PEDS [address] [place] [address] Kristen Nieves FNP [address] [place] [address] Social History Tobacco Use Types Packs/Day Years [...] Upcoming Encounters Date Type Department Care Team ([facility] Contact Info) Description 02/16/2025 10:30 AM EDT Medication Management [facility] CHC MED & PEDS [address] [place] [address] Jolanta Machado PharmD [address] [place] [address] documented as of this encounter Visit Diagnoses Not on filedocumented in this encounter Care Teams Junk Removal Specialist Relationship Specialty Start Date End Date Nakia Sparrow MD [address] [place] [address] PCP - General Family Medicine 12/19/16 Irasema Bowers RN [address] [place] [address] Registered Nurse Family Medicine 02/05/24 documented as of this encounter
[2025-01-27 12:27] LABS: Alanine Aminotransferase 27 U/L (0-31); Albumin Level 4.1 g/dL (3.5-5.0); Alkaline Phosphatase 64 U/L (39-117); Anion Gap 14 (12-20); Aspartate Amino Transferase 37 U/L (5-31); Bilirubin Direct 0.2 mg/dL (0.0-0.5); Bilirubin Total 0.4 mg/dL (0.0-1.0); Blood Urea Nitrogen 18 mg/dL (9-16); Calcium 9.3 mg/dL (8.4-10.2); Carbon Dioxide 26 mmol/L (22-29); Chloride 107 mmol/L (96-108); Cholesterol 108 mg/dL (<200); Estimated Glomerular Filt Rate > 60; Glucose Random 191 mg/dL (60-115); HDL Cholesterol 42 mg/dL (>40); LDL Cholesterol Calculated 48 mg/dL (<100); Sodium 143 mmol/L (135-145); Total Protein 7.2 g/dL (6.5-8.0); Triglycerides 92 mg/dL (<150)
== END 2025-01-27 09:13 | disposition home or self-care (01) ==
LOC: HO.CHCLDS 09:12
PROVIDERS: Visit Provider Student in an Organized Health Care Education/Training Program
DX: I10 Essential (primary) hypertension (principal); Z79.4 Long term (current) use of insulin; E11.9 Type 2 diabetes mellitus without complications
CPT/HCPCS: 36415; 80048; 80061; 80076

== ENCOUNTER 2025-04-13 10:26 | Outpatient (REF) | payer MEDICAID, SELFPAY ==
--- OUTSIDE RECORDS SUMMARY | 2025-04-13 11:21 | XMS_ITS | Clinical Summary ---
Author Organization [employer] [facility] ity Address [address] [place] [address] Care Team Providers Care Application Packager Name Role Phone Unavailable Primary Care Provider [...] Vaccine ( - 2023-2 5 season) 2024 Depression Screening 09/15/2024 Influenza Vaccine (#1) 2025 RSV Immunization Adult Patie nts (1 [...]
--- OUTSIDE RECORDS SUMMARY | 2025-04-13 11:21 | XMS_ITS | Encounter Summary ---
Author Organization [employer] Address [address] [facility] 7t [place] [address] Care Team Providers Care Production Scheduler Name Role Phone Nakia Sparrow MD Primary Care Provider [phone] Irasema Bowres RN Unavailable Jolanta Machado PharmD Unavailable [phone] Reason for Visit * Reason Comments Med Refill Encounter Details Date Type Department Care Team ([facility] Contact Info) Description 09/09/2022 Refill [facility] CH[facility] MED & PEDS [address] [place] [address] Nakia Sparrow MD [address] [place] [address] Primary hypertension (Primary Dx) Social History Tobacco [...] hypertension documented in this encounter Care Teams Production Scheduler Relationship Specialty Start Date End Date Nakia Sparrow MD [address] [place] [address] PCP - General Family Medicine 12/19/16 Irasema Bowres, CARLTON [address] [place], [place] [phone] Registered Nurse Family Medicine 02/05/24 Jolanta Machado PharmD [address] [place] [address] Pharmacist Internal Medicine 02/16/25 documented as of this encounter
[2025-04-13 13:51] LABS: Hemoglobin A1C 271.8533 umol/L; Total Hemoglobin (HGBA1C) 2962.0711 umol/L
[2025-04-13 14:04] LABS: Alanine Aminotransferase 26 U/L (0-31); Albumin Level 4.0 g/dL (3.5-5.0); Alkaline Phosphatase 54 U/L (39-117); Anion Gap 14 (12-20); Aspartate Amino Transferase 33 U/L (5-31); Blood Urea Nitrogen 20 mg/dL (9-16); Calcium 8.9 mg/dL (8.4-10.2); Carbon Dioxide 27 mmol/L (22-29); Chloride 105 mmol/L (96-108); Cholesterol 97 mg/dL (<200); Estimated Glomerular Filt Rate 60; HDL Cholesterol 42 mg/dL (>40); Potassium 3.7 mmol/L (3.3-5.1); Sodium 142 mmol/L (135-145); Total Protein 6.8 g/dL (6.5-8.0); Triglycerides 62 mg/dL (<150)
== END 2025-04-13 10:27 | disposition home or self-care (01) ==
LOC: HO.HHCL 10:26
PROVIDERS: Student in an Organized Health Care Education/Training Program; PCP Family Medicine; Visit Provider Internal Medicine
DX: E11.9 Type 2 diabetes mellitus without complications (principal); Z79.4 Long term (current) use of insulin
CPT/HCPCS: 36415; 80048; 80061; 80076; 83036

== ENCOUNTER 2025-04-14 09:09 | Outpatient (REF) | payer MEDICAID, SELFPAY ==
--- OUTSIDE RECORDS SUMMARY | 2025-04-14 09:28 | XMS_ITS | Clinical Summary ---
Author Organization [employer] [facility] ity Address [address] [place] [address] Care Team Providers Care Sterile Processing Tech Name Role Phone Unavailable Primary Care Provider [...]
--- OUTSIDE RECORDS SUMMARY | 2025-04-14 09:28 | XMS_ITS | Encounter Summary ---
Author Organization [employer] Address [address] [facility] 7t [place] [address] Care Team Providers Care Senior Technical Support Engineer Name Role Phone Nakia Sparrow MD Primary Care Provider [phone] Irasema Bowers RN Unavailable Jolanta Machado PharmD Unavailable [phone] Reason for Visit * Reason Comments Med Refill Encounter Details Date Type Department Care Team ([facility] Contact Info) Description 09/09/2022 Refill [facility] CHC MED & PEDS [address] [place] [address] Nakia Sparrow MD [address] [place] [address] Primary hypertension (Primary Dx) Social History Tobacco [...] hypertension documented in this encounter Care Teams Senior Technical Support Engineer Relationship Specialty Start Date End Date Nakia Saprrow MD [address] [place] [address] PCP - General Family Medicine 12/19/16 Irasema Bowers, CARLTON [address] [place], [place] [phone] Registered Nurse Family Medicine 02/05/24 04/12/25 Jolanta Machado PharmD [address] [place] [address] Pharmacist Internal Medicine 02/16/25 documented as of this encounter
== END 2025-04-14 09:10 | disposition home or self-care (01) ==
LOC: HO.HHCL 09:09
PROVIDERS: PCP Internal Medicine; Visit Provider Internal Medicine
DX: R10.84 Generalized abdominal pain (principal)
CPT/HCPCS: 87338

== ENCOUNTER 2025-06-14 09:03 | Outpatient (AMB) | payer MEDICAID, SELFPAY ==
--- NOTE | 2025-06-14 09:09 | MHC.OFFVIS ---
Vital Signs 06/14/25 09:12 Height 5 ft 2 in Weight 208 lb BMI 38.0 BP 114/51 L Blood Pressure Location Lt brachial Position Sitting Pulse 79 Pulse Oximetry (%) 96 Oxygen Delivery Method Room Air Intake Visit Reasons: gastroparesis jm pt Intake Note: Patient complex follow up for gastrozaesis /Angella pt robi was 12/2023 and last Colonoscopy was 03/2024. Patient cc: nauseas, upper abdominal bloating with abdominal pain, acid reflux with hoarseness voice, constipation with some bloody hemorroids on and off, and poor appetite. Paper Tube Machine Operator Required: No Accompanied by: Self / Same As Patient Allergies Penicillins Allergy (Severe, Verified 06/14/25 09:09) Anaphylaxis Medication List - Last Reconciled 06/14/25 by Shannan Molina CNP blood sugar diagnostic (FreeStyle Lite Strips) As directed docusate sodium (Colace) 200 mg (2 x 100 mg) PO BEDTIME 30 days empagliflozin (Jardiance) 25 mg PO QAM glipizide 20 mg PO BID hydrochlorothiazide 25 mg PO DAILY ibuprofen 600 mg PO DAILY PRN metformin 1,000 mg PO BID omeprazole 40 mg PO DAILY ondansetron 4 mg PO Q8H PRN simethicone (Gas Relief (simethicone)) 180 - 360 mg PO DAILY PRN sumatriptan succinate 0 mg PO HPI HPI gastroparesis gabriel pt: Details: Patient is a 64-year-old female with PMH of hypertension, diabetes, hx of uterine CA s/p hysterectomy . Last visit with YARELI Land 12/17/2023 for pre colonoscopy screening. Jackeline presents for follow-up of longstanding symptoms of upper abdominal fullness, described as a sensation of food and liquid staying in the epigastric region with prominent bloating, occasionally feeling like the stomach is distended ( looks like a basketball ). The symptoms have persisted for years and do not have clear aggravating or relieving factors, including with dietary changes or water intake. She reports episodic burning in the throat and chest, relating it to reflux, which is variably responsive to omeprazole. She experiences nausea on a daily basis both pre- and postprandially, but denies vomiting. She notes regurgitation of liquid or occasional food without dysphagia. She underwent an EGD approximately 10 years ago in [place], but does not recall the findings; no recent EGD performed. She reports constipation manifested by the need to strain to have a bowel movement despite daily passage of stool, requiring prolonged perched seating for relief; stools are soft but require effort to expel. She notes anal burning post-defecation, worsened with use of baby wipes or even water, and has seen small areas of bright red blood on tissue, especially with irritation. She has a history of diabetes mellitus treated with multiple oral agents, as well as daily ibuprofen use for migraine and chronic knee pain. Her appetite is reported as fluctuating. Patient denies: fever/chills, vomiting, dysphasia, unintentional wt loss or melena. Social hx: -denies ETOH use -denies recreational drug use -non-smoker - family hx as below -denies significant cardiopulmonary history -tolerated anesthesia in the past denies difficulty. [facility] Medical History (Updated 06/14/25 @ 10:21 by Shannan Molina CNP) Perianal dermatitis Constipation Chronic GERD Hemorrhoids with complication Hypertension Diabetes mellitus Surgical History Hx of colonoscopy History of appendectomy History of hysterectomy Family History Mother No problems noted. Father No problems noted. Sister No problems noted. Social History Alcohol intake: never Patient Tobacco Use Status: Former Tobacco user Current occupation: right hand dominant Review of Systems Const Reports as per HPI ENT Reports as per HPI Card Reports as per HPI Resp Reports as per HPI GI Reports as per HPI Reports as per HPI Physical Exam Vital Signs: Last Vital Signs Pulse 79 06/14/25 09:12 BP 114/51 L 06/14/25 09:12 Pulse Ox 96 06/14/25 09:12 Oxygen Delivery Method Room Air 06/14/25 09:12 BMI result Body Mass Index 38.0 Const General: healthy appearing, no acute distress and well developed Nutritional Appearance: average body habitus Orientation/consciousness: patient oriented x3 HEENT Head: Yes normal to inspection, Yes normocephalic and Yes atraumatic Face and sinus: Yes normal facial exam Eyes General: appearance normal, both eyes and all related structures Neck Neck: Yes normal visual inspection Resp Effort & Inspection: normal respiratory effort, able to speak in complete sentences, no tracheal deviation and symmetric chest movement Cardio Jugular venous distension: no JVD GI Other: perianal region is erythematous and irritated Inspection: Yes normal to inspection, No distended and Yes obesity Palpation (GI): Soft to palpation, not firm, Tenderness to palpation present (GI) in the epigastrum and No hepatosplenomegaly present Auscultation: normal bowel sounds Rectal Exam - Female: normal sphincter tone, No External hemorrhoid(s) present, No Internal hemorrhoid(s) present, No Rectal prolapse, Anal fissure(s) present (X 1 proximally), hemorrhoids (mx external hemorrhoidal tags ), No Fistula present (GI), No Laceration(s) present (GI), No Excoriation present (GI), No mass and tenderness Neuro General: patient oriented x3 Gait exam (Neuro): Normal gait present Psych Appearance: grossly normal Mental Status: mental status grossly normal Speech and movement: Normal speech and movement present Affect: normal affect Attitude: cooperative Thought process: Normal thought process present Thought content: Normal thought content present Insight: Good insight present (Psych) Judgement: Good judgement present (Psych) Results Reviewed Results Reviewed: Date of Service: 04/19/24 Procedure(s): NM gastric emptying study Accession Number(s): [id number] cc: Angella Monroe PA-C; Nakia Sparrow MD~ EXAMINATION: MO RADIONUCLIDE SOLID FOOD GASTRIC EMPTYING 4-HOUR STUDY CLINICAL INFORMATION: Early satiety. COMPARISON: None TECHNIQUE: A standard meal consisting of 4 oz of Egg Beaters brand tagged with 1000 microcuries Tc-99m Sulfur Colloid, 6 oz water and 2 slices of toast with jelly was administered orally to the patient. Images were obtained using a dual head gamma camera in the anterior and posterior projections over of the stomach immediately post ingestion and at hourly intervals up to 4 hours post ingestion. The anterior and posterior counts at each time interval were averaged using the geometric mean and expressed as percentage of the immediate post ingestion counts. FINDINGS: There is good visualization of activity in the stomach immediately post ingestion. As the study progresses, there is good clearance of activity from the stomach and visualization of progressively increasing small bowel activity. By the end of the study, there is almost no retention noted in the stomach. Retention in the stomach at each time interval was: 1 hour 57% (normal 37%-90%) 2 hours 2% (normal 30%-60%) 3 hours 4% 4 hours estimation was not performed since only 4% retention was noted at 3 hours interval. NM/NM gastric emptying study IMPRESSION: Normal 4-hour solid food gastric emptying study Operative Note Date of Service: 04/14/24 Narrative: Operative Information Procedure Description: Colonoscopy Indication: screening Anesthesia: MAC COLONOSCOPY Instrument: Olympus variable stiffness pediatric scope 190L Colonoscopy Monitoring: Vital signs and clinical assessment, continuous EKG monitoring, Pulse oximetry, Carbon Dioxide monitoring and blood pressure monitoring were done throughout the procedure. Colon withdrawal time was 7 minutes. Procedure: The patient was placed in the left lateral decubitis position and pre-procedure medications were administered. After a digital rectal examination of the ano-rectum, the video colonoscope was inserted into the rectum and advanced through the colon to the cecum/TI. The colonoscope was slowly withdrawn in a retrograde panoramic fashion and the colon mucosa was carefully examined including a retroflexed view of the rectum. Findings and interventions are described below. Procedure Difficulty: moderate Findings: Terminal Ileum- superficial intubation, normal Cecum: few diverticula seen Ascending Colon: few diverticula seen Transverse Colon -normal Descending Colon:normal Sigmoid Colon: normal Rectum: Retroflexion with small internal hemorrhoids seen, grade I Anorectum - normal Intervention: none Colon preparation: Jackson Bowel Preparation Scale Right colon; 2 Transverse colon: 2 Left colon; 2 Impression and Post Procedure Diagnosis: diverticulosis internal hemorrhoids Plan: High fiber diet leaflet Avoid straining at stool, epsom salts and sitz bath, anusol supps or cream Repeat Colonoscopy in 10 years or earlier if clinically indicated Assessment & Plan Assessment & Plan (1) Chronic GERD: Code(s): K21.9 - Gastro-esophageal reflux disease without esophagitis Category: Medical Plan: Persistent upper GI symptoms refractory to omeprazole; associated with meal intake, belching, episodic regurgitation, and PPI partial/variable benefit. Additional Testing: Hold omeprazole x14 days, then repeat H. pylori breath test; order upper GI series to assess for mucosal abnormality, motility/disorders; consider EGD depending on results and symptom persistence. Medication Management: Discontinue omeprazole for 2 weeks; start sucralfate BID (timing managed per other medications); avoid antacids within 30 min, and separate by 2 hrs from other meds. Lifestyle Recommendations: Smaller meals; avoid triggering foods/beverages (including carbonation, as tolerated); elevate HOB for reflux; increase fiber/veggies/fruits as able; consider walking for 5+ minutes after evening meal. Follow-Up: Reassess after upper GI series and H. pylori testing; sooner if worsening pain, melena, or weight loss. (2) Constipation: Comment: 04/14/24 Colonoscopy complete with adequate prep-diverticulosis, internal hemorrhoids. Recommendations for repeat in 10 years (2033). Code(s): K59.00 - Constipation, unspecified Category: Medical Qualifiers: Constipation type: unspecified constipation type Qualified Code(s): K59.00 - Constipation, unspecified Plan: Daily but effortful soft stools, requires straining, likely contributing to hemorrhoidal/perianal symptoms. Additional Testing: None at present. Medication Management: Increase docusate (Colace) to 2 tabs QHS; continue simethicone as needed; consider trial of senna if no improvement; reduce ibuprofen to 600 mg QD; consider switching to acetaminophen if tolerated. Lifestyle Recommendations: Hydration (maintain high water intake); further increase dietary fiber as tolerated; trial of nuts, seeds, legumes, if symptoms allow; gentle daily exercise/short walk post-dinner; discontinue baby wipes and irritating agents. Follow-Up: As above, evaluate stooling pattern and straining at next visit. (3) Perianal dermatitis: Code(s): L30.9 - Dermatitis, unspecified Category: Medical Plan: Visualized perianal erythema, irritation, fissure, and tags; symptoms worsened by wipes and possibly water; no active hemorrhoid on exam. Additional Testing: None at present. Medication Management: Start topical low-dose hydrocortisone ointment daily x2 weeks after bathing; instruct on careful perianal hygiene (no wipes/irritants); can purchase OTC if insurance not covering. Lifestyle Recommendations: Avoid all wipes, minimize perianal trauma; apply ointment as instructed; reinforce hygiene using plain, soft toilet tissue and warm water soaks as needed. Follow-Up: Reassess at next visit or sooner with persistence/worsening symptoms. Plan Follow-up in 3 months or sooner as needed Time: I spent a total of 50 minutes on the date of encounter which includes: Preparing to see the patient (reviewed previous documentation, test results and medical history) Performing a medically appropriate exam and/or evaluation Ordering medications, tests, and procedures Documenting clinical information in the health record Orders: Orders H Pylori Breath Test Today K21.9 - Gastro-esophageal reflux disease without esophagitis, K59.00 - Constipation, unspecified, R68.81 - Early satiety FL upper GI small bowel Today K21.9 - Gastro-esophageal reflux disease without esophagitis, R68.81 - Early satiety Medications: New sucralfate Take on tablet two times daily as needed. Take an empty stomach. Avoid antacids within 30 minutes. 1 g PO BID 90 tabs 1RF hydrocortisone 0.5% Apply to affected area once at bedtime for 2 weeks 1 appl topical BEDTIME 56 grams 0RF Changed From docusate sodium (Colace) 200 mg (2 x 100 mg) PO BEDTIME 30 days 60 caps 5RF To docusate sodium (Colace) Take two tablets at bedtime 200 mg (2 x 100 mg) PO BEDTIME 180 caps 3RF 30 days Coding Level of Care Code Established Pt Est Pt Level 5 (24377) Patient Type Established Diagnoses Chronic GERD K21.9 Constipation, unspecified constipation type K59.00 Constipation type: unspecified constipation type Perianal dermatitis L30.9
[2025-06-14 09:12] VITALS: BP 114/51; PULSE 79; O2SAT 96; BMI 38.0
--- OUTSIDE RECORDS SUMMARY | 2025-06-14 09:43 | XMS_ITS | Encounter Summary ---
Author Organization [employer] Address [address] [facility] 7t [place] [address] Care Team Providers Care Prison Keeper Name Role Phone Nakia Sparrow MD Primary Care Provider [phone] Irasema Bowers RN Unavailable Jolanta Machado PharmD Unavailable [phone] Reason for Visit * Reason Comments Med Refill Encounter Details Date Type Department Care Team ([facility] Contact Info) Description 03/31/2025 Refill [facility] CHC MED & PEDS [address] [place], [place] [phone] Nakia Sparrow MD [address] [place] [address] Social History Tobacco Use Types Packs/Day Years [...] the past 12 months, has t he [employer], gas, oil or water company threatened to [...] Care Team (Late st Contact Info) Description 06/20/2025 10:00 AM EDT Medication Management [facility] CH[facility] MED & PEDS [address] [place] [address] Jolanta Machado, PharmD [address] [place] [address] 07/19/2025 11:15 AM EST Procedure Visit [facility] [address] [place] [address] Angie Mckeon CNM [address] [place] [address] documented as of this encounter Visit Diagnoses Not on filedocumented in this encounter Additional Health Concerns Assessment Noted Time PHQ-9 Depression Total Score: 1 06/03/20 24 9:18 AM EDT documented as of this encounter Care Teams Prison Keeper Relationship Specialty Start Date End Date Nakia Sparrow MD [address] [place] [address] PCP - General Family Medicine 12/19/16 Irasema Bowers, CARLTON [address] [place] [address] Registered Nurse Family Medicine 02/05/24 04/12/25 Jolanta Machado PharmD [address] [place] [address] Pharmacist Internal Medicine 02/16/25 documented as of this encounter
--- OUTSIDE RECORDS SUMMARY | 2025-06-14 09:43 | XMS_ITS | Encounter Summary ---
Author Organization [employer] Address [address] [facility] 7t [place] [address] Care Team Providers Care Blanching Machine Operator Name Role Phone Nakia Sparrow MD Primary Care Provider [phone] Irasema Bowers RN Unavailable Jolanta Machado PharmD Unavailable [phone] Reason for Visit * Reason Comments Med Refill Encounter Details Date Type Department Care Team ([facility] Contact Info) Description 03/11/2025 Refill [facility] CHC MED & PEDS [address] [place], [place] [phone] Nakia Sparrow MD [address] [place] [address] Social History Tobacco Use Types Packs/Day Years [...] the past 12 months, has t he [employer], gas, oil or water company threatened to [...] Description 06/20/2025 10:00 AM EDT Medication Management [facility] MED & PEDS [address] [place] [address] Jolanta Machado, PharmD [address] [place] [address] 07/19/2025 11:15 AM EST Procedure Visit [facility] [address] [place] [address] Angie Mckeon CNM [address] [place] [address] documented as of this encounter Visit Diagnoses Not on filedocumented in this encounter Additional Health Concerns Assessment Noted Time PHQ-9 Depression Total Score: 1 06/03/20 24 9:18 AM EDT documented as of this encounter Care Teams Blanching Machine Operator Relationship Specialty Start Date End Date Nakia Sparrow MD [address] [place] [address] PCP - General Family Medicine 12/19/16 Irasema Bowers, CARLTON [address] [place] [address] Registered Nurse Family Medicine 02/05/24 04/12/25 Jolanta Machado PharmD [address] [place] [phone] Pharmacist Internal Medicine 02/16/25 documented as of this encounter
--- OUTSIDE RECORDS SUMMARY | 2025-06-14 09:43 | XMS_ITS | Clinical Summary ---
Author Organization [employer] [facility] ity Address [address] [place] [address] Care Team Providers Care Concrete Pourer Name Role Phone Unavailable Primary Care Provider [...] 2010 Zoster Vaccines (1 of 2) 2010 Depression Screening 09/15/2024 COVID-19 Vaccine (1 - 2023-2 5 season) 2025 Influenza Vaccine (#1) 2025 RSV Immunization Adult [...]
--- OUTSIDE RECORDS SUMMARY | 2025-06-14 09:43 | XMS_ITS | Encounter Summary ---
Author Organization [employer] Address [address] [facility] [address] [place] [address] Care Team Providers Care Bus Driver Supervisor Name Role Phone Nakia Sparrow MD Primary Care Provider [phone] Jolanta Machado PharmD Unavailable [phone] Reason for Visit * Reason Comments Med Refill Encounter Details Date Type Department Care Team ([facility] Contact Info) Description 05/05/2025 Refill [facility] [address] [place] [address] Johnny Romero MD [address] [place] [address] Social History Tobacco Use Types Packs/Day Years [...] Description 06/20/2025 10:00 AM EDT Medication Management [facility] [address] [place] [address] Jolanta Machado, NyaD [address] [place] [address] 07/19/2025 11:15 AM EST Procedure Visit [facility] MEDICINE [address] [place] [address] Angie Mckeon CNM [address] [place] [address] documented as of this encounter Visit Diagnoses Not on filedocumented in this encounter Additional Health Concerns Assessment Noted Time PHQ-9 Depression Total Score: 1 06/03/20 24 9:18 AM EDT documented as of this encounter Care Teams Bus Driver Supervisor Relationship Specialty Start Date End Date Nakia Sparrow MD [address] [place] [address] PCP - General Family Medicine 12/19/16 Jolanta Machado, Danilo [address] [place] [id number] Pharmacist Internal Medicine 02/16/25 documented as of this encounter
--- OUTSIDE RECORDS SUMMARY | 2025-06-14 09:43 | XMS_ITS | Clinical Summary ---
Author Organization [employer] Address [address] [place] [address] Care Team Providers Care Clerical Secretary Name Role Phone Nakia Sparrow MD Primary Care Provider [phone] Jolanta Machado PharmD Unavailable [phone] Allergies Active Allergy Reactions Criticality Noted Date [...] in each nostril as needed 021 Active ketorolac (Acular) 0.5 % ophthalmic solution INSTILL 1 DROP INTO AFFECTED EYE THREE TIMES DAILY DIRECTED START 2 DAYS BEFORE SURGERY. TAPER DIRECTED 023 Active magnesium 200 MG tablet Take 1 tab daily 90 tablet 3 023 Active bacitracin-polymy shayna b (Polysporin) ointment Apply topically 2 times daily. 15 g 023 Active ondansetron (Zofran) 4 MG tabletIndications :Type 2 diabetes mellitus without complication, without long-term current use of insulin (HCC) TAKE 1 TABLET BY MOUTH EVERY 8 HOURS NEEDED 60 tablet 024 Active Diclofenac Sodium 1 % gelIndications:Ne ck pain on right side,Chronic right shoulder pain To apply to the affected area 4 times a day. 100 g 024 Active Continuous Glucose Instrument/Control Technician (FreeStyle Adriana 2 [place]) device Scan sensor every 8 hours 1 each 024 Active glucose blood (FREESTYLE LITE) test stripIndications: Type 2 diabetes mellitus without complication, without long-term current use of insulin ([facility]) USE TO CHECK BLOOD SUGAR THREE TIMES A DAY 100 each 1 025 Active SUMAtriptan (Imitrex) 50 MG tabletIndications :Migraine without aura and without status migrainosus, not intractable take 1 Tablet by oral route once with fluids as early as possible after the onset of a migraine attack;may repeat after 2 hours if headache returns, not to exceed 200mg in 24hrs 9 tablet 025 Active valsartan (Diovan) 80 MG tabletIndications :Primary hypertension Take 1 tablet (80 mg) by mouth Once per day. 90 tablet 3 025 2025 Active Continuous Glucose Sensor (FreeStyle Adriana 2 Plus Sensor) misc 1 each every 15 days. 2 each 11 025 Active metoclopramide (Reglan) 10 MG tabletIndications :Abdominal bloating Take 1 tablet by mouth 4 times daily 120 tablet 025 Active empagliflozin (Jardiance) 25 MGIndications:Typ e 2 diabetes mellitus without complication, without long-term current use of insulin ([facility]) TAKE 1 TABLET BY MOUTH IN THE MORNING 30 tablet 3 025 Active azithromycin (Zithromax Z-Aston) 250 MG tablet Take 2 tabs day 1 and then 1 tab daily to finish 6 tablet 025 Active Dextromethorphan- guaiFENesin (Mucinex DM) 30-600 MG tablet sustained-release 12 hour Use 1 tab TID 28 tablet Active albuterol (2.5 MG/3ML) 0.083% nebulizer solution Take 3 mL (2.5 mg) by nebulization every 4 (four) hours if needed for wheezing. 75 mL 11 025 2025 Active albuterol (Ventolin HFA) 108 (90 Base) MCG/ACT inhaler INHALE 2 PUFFS BY MOUTH 4 TIMES DAILY 18 g Active Ventolin HFA 108 (90 Base) MCG/ACT inhaler Inhale 2 puffs every 4 (four) hours if needed for wheezing. 18 g 2025 Active insulin pen needle (Pentips) 32G x 4 mm misc Use twice daily with insulin 100 each 11 2025 Active chlorhexidine (Peridex) 0.12 % solution RINSE WITH 15ML FOR 30 SECONDS AND SPIT, USE TWICE DAILY AFTER BRUSHING AND FLOSSING AFTER BREAKFAST AND AT BEDTIME. Active montelukast (Singulair) 10 MG tabletIndications :Allergy, sequela Take 1 tablet by mouth once daily 90 tablet Active hydroCHLOROthiazi de (HYDRODiuril) 25 MG tabletIndications :Primary hypertension Take 1 tablet by mouth once daily 90 tablet Active famotidine (Pepcid) 40 MG tabletIndications :Generalized abdominal pain Take 1 tablet (40 mg) by mouth 2 times daily. 60 tablet 025 2025 Active simethicone (Mylicon,Gas-X) 180 MG capsuleIndication s:Generalized abdominal pain,Bloating Take 1 capsule (180 mg) by mouth every 6 (six) hours if needed for flatulence. 30 capsule Active linaGLIPtin (Tradjenta) 5 MG tabletIndications :Type 2 diabetes mellitus without complication, without long-term current use of insulin (HCC) Take 1 tablet (5 mg) by mouth Once per day. 30 tablet Active fluticasone furoate (Arnuity Ellipta) 200 MCG/ACT inhalerIndication s:Mild persistent asthma with exacerbation Inhale 1 puff Once per day. Rinse mouth after use 30 each Active polyethylene glycol, PEG, 3350 (Miralax) 17 g packet DISSOLVE 1 PACK IN 8 OUNCES OF WATER, JUICE, SODA, COFFEE, OR TEA, THEN DRINK BY MOUTH TWICE DAILY 60 each Active pantoprazole (Protonix) 40 MG EC tablet Take 1 tablet (40 mg) by mouth before breakfast. Do not crush, chew, or split. 90 tablet 1 025 Active glipiZIDE (Glucotrol) 10 MG tablet Take 2 tablets by mouth twice daily 360 tablet 025 Active atorvastatin (Lipitor) 40 MG tabletIndications :Hyperlipidemia, unspecified hyperlipidemia type TAKE 1 TABLET BY MOUTH IN THE MORNING 90 tablet Active metFORMIN (Glucophage) 1000 MG tabletIndications :Type 2 diabetes mellitus without complication, without long-term current use of insulin (HCC) TAKE 1 TABLET BY MOUTH IN THE MORNING WITH BREAKFAST AND 1 TABLET WITH THE EVENING MEAL 180 tablet Active ibuprofen 600 MG tablet TAKE 1 TABLET BY MOUTH THREE TIMES DAILY 90 tablet Active dicyclomine (Bentyl) 20 MG tablet Take 1 tablet (20 mg) by mouth 3 times daily. 90 tablet 11 024 2024 pantoprazole (Protonix) 40 MG EC tablet Take 1 tablet (40 mg) by mouth before breakfast. Do not crush, chew, or split. 90 tablet 1 025 2024 Discontinued(R eorder (will not trigger notification to Pharmacy)) atorvastatin (Lipitor) 40 MG tabletIndications :Hyperlipidemia, unspecified hyperlipidemia type TAKE 1 TABLET BY MOUTH IN THE MORNING 90 tablet 025 2024 Discontinued glipiZIDE (Glucotrol) 10 MG tablet Take 2 tablets by mouth twice daily 360 tablet 025 2024 Discontinued metFORMIN (Glucophage) 1000 MG tabletIndications :Type 2 diabetes mellitus without complication, without long-term current use of insulin (HCC) TAKE 1 TABLET BY MOUTH IN THE MORNING WITH BREAKFAST AND 1 TABLET WITH THE EVENING MEAL 180 tablet 025 2024 Discontinued ibuprofen 600 MG tablet TAKE 1 TABLET BY MOUTH THREE TIMES DAILY 90 tablet 025 2024 Discontinued Active Problems Problem Noted Date Diagnosed Date Generalized abdominal pain 04/13/2025 Assessment & Plan (04/13/2025 10:40 AM EDT): I advise patient to avoid NSAIDs, spicy and acid food, I advise to eat at the same time every day, I advise to elevate the head of the bed and take medications as prescribe H. pylori test ordered today patient will be contacted with results I will prescribe famotidine and simethicone ED precautions were reviewed with patient Bloating 04/13/2025 Migraine without aura and wi thout status migrainosus, not intractable 02/08/2025 Assessment & Plan (02/08/2025 2:54 PM EDT): I advise to avoid migraine triggers like red wine, chocolate, cheese, strong perfumes I refilled her sumatriptan Grief 02/08/2025 Assessment & Plan (02/08/2025 2:54 PM EDT): Counseling done today, patient declines [facility] services Needle phobia 01/27/2025 custodial use of drug 07/06/2024 Menopausal vasomotor syndrome [...] will resume regular screening schedule Colitis 04/09/2024 Type 2 diabetes mellitus wit h hyperglycemia, with long-term current use of insulin 04/09/2024 Assessment & Plan (02/08/2025 2:53 PM EDT): Today her glucose is high at 322 I will order 8 units of Humalog at office advised plenty of water to be adherent to diabetic diet I will refill her Trulicity, I discontinue her sitagliptin Patient is telling me she has been having problems with the CGM prescription, and also with her insulin prescription, I decided to refer her to pharmacy CDTM Early satiety 04/09/2024 Gross hematuria 04/09/2024 Hematuria 04/09/2024 Hemorrhoids with complication 04/09/2024 Influenza 04/09/2024 Injury of right rotator cuff 04/09/2024 Kidney stone 04/09/2024 Nausea & vomiting 04/09/2024 Nausea 04/09/2024 Osteoarthritis of right acromioclavicular joint 04/09/2024 Poor historian 04/09/2024 Right shoulder tendonitis 04/09/2024 Ureteral dilatation 04/09/2024 Hypertension 04/09/2024 Assessment & Plan (02/08/2025 2:54 PM EDT): Today her blood pressure is elevated I advised low-sodium diet Continue with hydrochlorothiazide 25 mg daily I noticed she has not refill her valsartan in a long time, I refilled it today and advised to monitor her blood pressure at home and report back to us if blood pressure is persistently above 140/90 Chronic constipation 04/09/2024 Mass of perineum, female 07/15/2023 Assessment & Plan (07/15/2023 1:52 PM EDT): 1.5 cm x 1.7 cm induration in top of mon pubis with surrounding erythema, recommended warm compresses, sitz baths and will rx antibiotics. RTC if no improvement with a provider that can do an I &D. Severe obesity (CMS/HCC) 05/28/2023 Goiter 02/19/2018 Benign hypertension 12/19/2016 Depressive disorder 12/19/2016 Hypercholesterolemia 12/19/2016 Irritable bowel syndrome with constipation 12/19 Refractory migraine with aura 12/19/2016 Type 2 diabetes mellitus without complication Vertigo 12/19/2016 Encounters Date Type Department Care Team Description 06/13/2025 Refill [facility] [address] [place] [address] Nakia Sparrow MD 05/31/2025 Telephone [facility] [address] [place] [address] Nakia Sparrow MD 05/23/2025 9:15 AM EDT Office Visit [facility] [address] [place] [address] Nakia Sparrow MD Gastroparesis (Primary Dx); Type 2 diabetes mellitus without complication, without long-term current use of insulin (CMS/HCC); Benign hypertension 05/23/2025 Refill [facility] [address] [place] [address] Nakia Sparrow MD Type 2 diabetes mellitus without complication, without long-term current use of insulin (CMS/HCC) 05/23/2025 Refill [facility] [address] [place] [address] Johnny Romero MD Hyperlipidemia, unspecified hyperlipidemia type 05/23/2025 Travel 05/20/2025 Telephone [facility] [address] [place] [address] Nakia Sparrow MD chart prep 05/05/2025 Refill [facility] [address] [place] [address] Johnny Romero MD 05/05/2025 Refill [facility] [address] [place] [address] Nakia Sparrow MD 05/03/2025 Travel 04/27/2025 Telephone [facility] [address] [place] [phone] [place] 04/20/2025 Results Follow-Up [facility] [address] [place] [address] Nakia Sparrow MD Hemoglobin A1c, Basic Metabolic Panel, Lipid Panel, Standard, Hepatic Function Panel 04/20/2025 Orders Only [facility] [address] [place] [address] Nakia Sparrow MD Type 2 diabetes mellitus with hyperglycemia, with long-term current use of insulin (CMS/HCC) (Primary Dx) 04/19/2025 Orders Only [employer] [address] [place] [phone] Frederick Ruiz MD 04/15/2025 Results Follow-Up [facility] [address] [place] [address] Jailyn Camargo MD Helicobacter pylori Antigen, EIA, Stool 04/13/2025 10:00 AM EDT Office Visit [facility] [address] [place] [address] Jailyn Camargo MD Generalized abdominal pain; Bloating 04/13/2025 Travel 04/11/2025 Refill [facility] [address] [place] [address] Nakia Sparrow MD Allergy, sequela; Primary hypertension 04/06/2025 10:30 AM EDT Telemedicine [facility] [address] [place] [address] Jolanta Machado, PharmD Type 2 diabetes mellitus with hyperglycemia, with long-term current use of insulin ([facility]) (Primary Dx); Mild persistent asthma with exacerbation 04/06/2025 Travel 04/05/2025 Refill [facility] [address] [place] [address] Nakia Sparrow MD 04/05/2025 Refill [facility] [address] [place] [address] Nakia Sparrow MD 04/01/2025 2:00 PM EDT Office Visit [facility] [address] [place] [address] Nakia Sparrow MD Acute bronchitis, unspecified organism (Primary Dx); Type 2 diabetes mellitus without complication, without long-term current use of insulin (CMS/HCC) 04/01/2025 Travel 04/01/2025 Telephone [facility] [address] [place] [address] Nakia Sparrow MD Nurse Triage 03/31/2025 Refill [facility] [address] [place] [address] Nakia Sparrow MD 03/31/2025 Refill [facility] [address] [place] [address] Nakia Sparrow MD 03/30/2025 Travel 03/28/2025 Refill [facility] [address] [place] [address] Nakia Sparrow MD 03/24/2025 11:20 AM EDT Office Visit [facility] [address] [place] [address] Servando Aguiar MD Mild persistent asthma with exacerbation 03/24/2025 Travel 03/23/2025 Refill [facility] [address] [facility] [place] [address] Nakia Sparrow MD Type 2 diabetes mellitus without complication, without long-term current use of insulin ([facility]) from Last 3 Months Immunizations Immunization Administration Dates Next Due Influenza injectable quadriv alent IIV4 with preservative 06/16/2018 Influenza injectable quadriv alent preservative free 06/16/2023,07/12/2022,10/05/2021,2016 Influenza, seasonal, injecta ble, preservative free 06/03/2024 MMR 03/19/2024 Pneumococcal Conjugate PCV 20 01/01/2024 Tdap 06/16/2018 Zoster, Recombinant 06/03/2024,01/31/2024 Family History Medical History Relation Name Comments [...] Answer Date Recorded Patient Health Questionnaire-9 Score 6 05/23/2025 Patient Health Questionnaire-9 Score 6 05/23/2025 Last PHQ-9: Questionnaire Data Not on file 0 05/23/2025 Housing Stability Answer Date Recorded What is [...] Answer Date Recorded Patient Health Questionnaire-2 Score 2 05/23/2025 Internet Access Answer Date Recorded Internet Access [...] Sign Reading Time Taken Comments Blood Pressure 131/55 05/23/2025 9:13 AM EDT Pulse 81 05/23/2025 9:13 AM EDT Temperature 36.4 C (97.6 F) 05/23/2025 9:13 AM EDT Respiratory Rate 18 05/23/2025 9:13 AM EDT Oxygen Saturation 98% 04/13/2025 10:07 AM EDT Inhaled Oxygen Concentration - - Weight 94.8 kg (209 lb) 05/23/2025 9:13 AM EDT Height 154.9 cm (5' 1 ) 05/23/2025 9:13 AM EDT Body Mass Index 39.49 05/23/2025 9:13 AM EDT Plan of Treatment Upcoming Encounters Date Type Department Care Team (Late st Contact Info) Description 06/20/2025 10:00 AM EDT Medication Management [facility] [address] [place] [address] Jolanta Machado, PharmD [address] [place] [address] 07/19/2025 11:15 AM EST Procedure Visit [facility] [address] [place] [address] Angie Mckeon, CNM [address] [place], [place] [phone] Health Maintenance Due Date Last Done Comments CT Colonography 1960 FIT DNA/Cologuard 1960 FIT 1960 FOBT 1960 HIV Screening 1960 Sigmoidoscopy 1960 Hepatitis C Screening 1978 RSV Patients and Patients Aged 60 years or older (1 - Risk 60-74 years 1-dose series) 2020 Diabetes: Urine Protein Screening 06/16/2024 06/16/2023, 04/11/2022, 07/05/2021 Influenza Vaccine (#1) 2025 , 06/16/2023, 07/12/2022, Additional history exists Diabetes: Foot Exam 06/03/2025 06/03/2024, 06/03/2024, 06/03/2024, Additional history exists Diabetes: Hemoglobin A1C 07/14/202504/13/2 025, 01/26/2025, 08/23/2024, Additional history exists Diagnostic Breast Imaging 11/16/20252024, 05/18/2024, 08/29/2022, Additional history exists Mammogram 11/16/2025 11/16/2024, 0911/2023, 09/24/2023, Additional history exists SDOH Screening 01/18/2026 01/18/2025 Tobacco Screening 04/01/2026 04/01/2025 Lipid Panel 04/13/2026 04/13/2025, 05/1 01/2025, 06/16/2023, Additional history exists Alcohol/Substance Use Screening 05/23/2026 05/23/2025 Depression Screening 05/23/2026 05/23/2025, 05/23/20 25 Disability Screening 05/23/2026 05/23/2025 Eye Exam 04/19/2027 04/19/2025 Colonoscopy 04/11/2028 04/11/2018 Colorectal Cancer Screening 04/11/2028 DTaP/Tdap/Td Vaccines (2 - Td or Tdap) 06/16/2028 06/16/2018 Cervical Cancer Screening 07/06/2029 HPV/Cotest 07/06/2029 07/06/2024, 07/01/2023 Pap Smear 07/06/2029 07/06/2024, 07/01/2023 Pneumococcal Vaccine: 50+ Years Completed 01/01/2024 COVID-19 Vaccine Completed 06/03/2024, , 12/26/2020, Additional history exists Zoster Vaccines Completed 06/03/2024, [...] Name Priority Date/Time Associated Diagnosis Comments POCT GLUCOSE Routine 05/23/2025 9:16 AM EDT Type 2 diabetes mellitus without complication, without long-term current use of insulin ([facility]) HM DIABETES EYE EXAM Routine 04/19/2025 3:03 PM EDT HELICOBACTER PYLORI AG, EIA, STOOL Routine 04/14/2025 7:51 AM EDT Generalized abdominal pain HEPATIC FUNCTION PANEL Routine 04/13/2025 10:56 AM EDT Type 2 diabetes mellitus without complication, with long-term current use of insulin (CMS/HCC) LIPID PANEL, STANDARD Routine 04/13/2025 10:56 AM EDT Type 2 diabetes mellitus without complication, with long-term current use of insulin (CMS/HCC) BASIC METABOLIC PANEL Routine 04/13/2025 10:56 AM EDT Type 2 diabetes mellitus without complication, with long-term current use of insulin (CMS/[facility]) HEMOGLOBIN A1C Routine 04/13/2025 10:56 AM EDT Type 2 diabetes mellitus without complication, with long-term current use of insulin (CMS/[facility]) POCT GLUCOSE Routine 04/01/2025 1:48 PM EDT Type 2 diabetes mellitus without complication, without long-term current use of insulin (CMS/[facility]) POCT COVID-19 AG GUZMAN ID NOW Routine 03/24/2025 10:47 AM EDT Mild persistent asthma with exacerbation BI MAMMOGRAM DIAGNOSTIC TOMOSYNTHESIS BILATERAL Routine 11/16/2024 12:30 PM EST THINPREP IMAGING PAP AND HPV MRNA E6/E7 Routine 07/06/2024 9:06 AM EDT 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 Pathologist [facility] Glucose Blood, POC 243(A) 60 - 200 mg/dL QC Media Lot # [id number] Lot# Expiration Date Blood Capillary blood specimen / Unknown 05/23/2025 9:16 AM EDT us Nakia Sparrow MD POINT OF CARE TEST ENTER/EDIT OR DERABLES Final Result * Hm Diabetes Eye Exam (04/19/2025 3:03 PM EDT) Historical Provider HEALTH MAINTENANCE Final Result * Helicobacter pylori??Antigen, EIA, Stool (04/14/2025 7:51 AM EDT) H pylori Ag Stool SEE NOTE [facility] Comment:HELICOBACTER PYLORI AG, EIA, STOOL Micro Number: [id number] Test Status: Final Specimen Source: Stool Specimen Quality: Adequate H.pylori Ag: Not Detected Antimicrobials, proton pump inhibitors, and bismuth preparations inhibit H. pylori and ingestion up to two weeks prior to testing may cause false negative results. If clinically indicated the test should be repeated on a new specimen obtained two weeks after discontinuing treatment. Reference Range: Not DetectedTHIS TEST WAS PERFORMED AT:[id number] [place] [phone] MONIQUE MD Stool Rectal contents / Unknown 04/14/2025 7:51 AM EDT 04/14/2025 11:07 AM EDT Jailyn Batres MD LAB BODY FLUIDS AND S TOOLS ORDERABLES Final Result [facility] [address] [place] [phone] * (ABNORMAL) Hemoglobin A1c (04/13/2025 10:56 AM EDT) Hemoglobin A1c 10.5(H) <6.0 % [facility] Comment:Hemoglobin A1C Refer ence Range Adults: 4.8 - 6.0 % Non diabetic: < 6.0 % Goal: < 7.0 %Additional Action Suggested: > 8.0 %Note: Hemoglobin A1c results are invalid for patients with abnormal amounts of HbF. Blood transfusions may impact the HbA1c concentration in the patient sample. Estimated Average Glucose 255 mg/dL [facility] Comment:eAG = Estimated ave rage glucose which is %A1C expressed asaverage glucose, using the formula of the W5R-BogpneoBseaadu Glucose study (ADAG), Diabetes Care, Vol.31,#8,Apr. 2007 Blood Venous blood specimen / Unknown 04/13/2025 10:56 AM EDT 04/13/2025 1:19 PM EDT Nakia Sparrow MD LAB BLOOD ORDERABLES Final Resul t Performing Organization Address [facility]/ZIP Co de Phone Number [facility] [address] [place], [place] [phone] * (ABNORMAL) Hepatic Function Panel (04/13/2025 10:56 AM EDT) Bilirubin, Total 0.3 0.0 - 1.0 mg/dL [facility] Bilirubin, Direct 0.2 0.0 - 0.5 mg/dL [facility] Aspartate Amino Transferase 33(H) 5 - 31 U/L [facility] Alanine Aminotransferase 26 0 - 31 U/L [facility] Total Protein 6.8 6.5 - 8.0 g/dL [facility] Albumin Level 4.0 3.5 - 5.0 g/dL [facility] Alkaline Phosphatase 54 39 - 117 U/L [facility] Blood Venous blood specimen / Unknown 04/13/2025 10:56 AM EDT 04/13/2025 1:18 PM EDT Nakia Sparrow MD LAB BLOOD ORDERABLES Final Resul t Performing Organization Address [facility]/ZIP Co de Phone Number [facility] [address] [place], [place] [phone] * Lipid Panel, Standard (04/13/2025 10:56 AM EDT) Triglycerides 62 <150 mg/dL [facility] Comment:Desirable Triglyceri de: less than 150 mg/dLBorderline High Triglyceride 150-199 mg/dLHigh Triglyceride: 200-499 mg/dLVery High Triglyceride: greater than or equal to 5OO mg/dL Cholesterol 97 <200 mg/dL [facility] Comment:Desirable Cholestero l: less than 200 mg/dLBorderline High Cholesterol: 200-239 mg/dLHigh Cholesterol: greater than 239 mg/dL LDL Cholesterol Calculated 43 <100 mg/dL [facility] Comment:Desirable LDL: less than 100 mg/dLNear Optimal/Above Optimal LDL: 110- 129 mg/dLBorderline High LDL: 130-159 mg/dLHigh LDL: 160-189 mg/dLVery High LDL: greater than or equal to 190 mg/dL HDL Cholesterol 42 >40 mg/dL [facility] Comment:Desirable HDL: great er than 40 mg/dL Note: This HDL assay may give artificially low results in patients with liver disease. Blood Venous blood specimen / Unknown 04/13/2025 10:56 AM EDT 04/13/2025 1:18 PM EDT us Nakia Sparrow MD LAB BLOOD ORDERABLES Final Resul t [facility] [address] [place] [phone] * (ABNORMAL) Basic Metabolic Panel (04/13/2025 10:56 AM EDT) Sodium 142 135 - 145 mmol/L [facility] Potassium 3.7 3.3 - 5.1 mmol/L [facility] Chloride 105 96 - 108 mmol/L [facility] Carbon Dioxide 27 22 - 29 mmol/L [facility] Anion Gap 14 12 - 20 [facility] Urea Nitrogen (BUN) 20(H) 9 - 16 mg/dL [facility] Creatinine, Serum 0.94 0.5 - 1.4 mg/dL [facility] Estimated Glomerular Filt Rate 60 [facility] Comment:Chronic Kidney Disea se: Estimated GFR < 60 mL/min/1.22e8Gipttd Kidney Disease: Estimated GFR < 15 mL/min/1.73m2 Glucose 202(H) 60 - 115 mg/dL [facility] Calcium 8.9 8.4 - 10.2 mg/dL [facility] Blood Venous blood specimen / Unknown 04/13/2025 10:56 AM EDT 04/13/2025 1:18 PM EDT Nakia Sparrow MD LAB BLOOD ORDERABLES Final Resul t [facility] [address] [place] [phone] [phone] * POCT Rapid Covid-19 GUZMAN ID NOW (03/24/2025 10:47 AM EDT) Coronavirus Antigen PCR Negative Negative, Indeterminate, None Detected, Invalid, Specimen unsatisfactory for evaluation, Weakly Positive, 2+ Beba 03/24/2025 10:4 7 AM EDT Servando Aguiar MD POINT OF CARE TEST ENTER/EDIT OR DERABLES Final Result * BI Mammogram Diagnostic Tomosynthesis Bilateral (11/16/2024 12:30 PM EST) Anatomical Region Laterality Modality Breast Bilateral Mammography 11/16/2024 12:3 0 PM EST Narrative 11/16/2024 1:24 PM EST [address] [place] [address] Mammography Report Signed Patient: Jackeline Hoang MR#: [id number] 14 : 1960 Acct:[id number] Age/Sex: 64 / F ADM Date: 11/16/24 Loc: HO.MAMMO Attending Dr: Nakia Sparrow MD Ordering Physician: Nakia Sparrow MD Results: 3.12MPr obably Benign Finding - 12 month F/U Suggested Date of Service: 11/16/24 Follow Up: 12 month diagnos tic follow up Procedure(s): MM tomosynthesis diagnostic BI Accession Number(s): [id number] cc: Nakia Sparrow MD EXAMINATION: MM DIAGNOSTIC [...] by: Santa Brothers DO 11/16/2024 01:21 PM [facility] Dictated By: Santa Brothers DO Signed By: <Electronically signed by Santa Brothers DO in OV> 11/16/24 1321 DD/ 1230 TD/TT: 11/16/24 1310 Collar Band Creaser: Procedure Note Donotuseinterpreter, Image - 11/16/2024 [facility] [address] [place], [place] [address] Mammography Report Signed Patient: Jackeline Hoang [facility]#: [id number] 14 : 1Acct:[id number] Age/Sex: 64 / FADM Date: 11/16/24 Loc: HO.MAMMO Attending Dr: Nakia Sparrow MD Ordering Physician: Nakia Sparrow MDResults: 3.12MPr obably Benign Finding - 12 month F/U Suggested Date of Service: 11/16/24Follow Up: 12 month diagnos tic follow up Procedure(s): MM tomosynthesis diagnostic BI Accession Number(s): [id number] cc: Nakia Sparrow MD EXAMINATION: MM DIAGNOSTIC [...] by: Santa Brothers DO 11/16/2024 01:21 PM [facility] Dictated By: Santa Brothers DO Signed By: <Electronically signed by Santa Brothers DO in OV> 11/16/24 1321 DD/ 1230 TD/TT: 11/16/24 1310 Collar Band Creaser: Nakia Sparrow MD IMG BI PROCEDURES Final Result * ThinPrep Imaging Pap and HPV mRNA E6/E7 (07/06/2024 9:06 AM EDT) HPV nRNA E6/E7 Not Detected Not Detected [facility] Comment:Methodology: Transcr iption-Mediated AmplificationThis assay detects E6/E7 viral messenger RNA (mRNA) from 14high-risk HPV types (16,18,31,33,35,39,45,51,52,56,58,59,66,68).Cervical sources are required for HPV testing.If a vaginal source from a patient who has had atotal hysterectomy with removal of cervix wassubmitted, please contact the testing laboratoryfor alternative testing options.For additional information, please refer tohttp://education.PlaySight/faq/[email or web address](This link if provided for information/educational purposes only.)THIS TEST WAS PERFORMED AT:[employer] [address] [phone] MONIQUE MD SOURCE: SEE NOTE [facility] Comment:Vagina Report Status: [facility] Clinical Information: SEE NOTE [facility] Comment:None given LMP: SEE NOTE [facility] Comment:NONE GIVEN Prev. PAP: SEE NOTE [facility] Comment:NONE GIVEN Prev. BX: SEE NOTE [facility] Comment:NONE GIVEN Statement Of Adequacy: SEE NOTE [facility] Comment:SATISFACTORY FOR LORI LUATION General Categorization: [facility] Interpretation/Result: SEE NOTE [facility] Comment:Cytology Results: Ne gative for intraepitheliallesion or malignancy. Cytology Comment SEE NOTE [facility] Comment:This Pap test has be en evaluated with computerassisted technology. Dance Choreographer: SEE NOTE [facility] Comment:GSG, CT(ASCP)CT scre ening location: [place] [address] Review Dance Choreographer: SEE NOTE [facility] Comment:CMG, CT(ASCP)CT scre ening location: [place] [address] Pathologist [facility] PAP Infection [facility] See Note SEE [facility] Comment:EXPLANATORY NOTE:The Pap is a screening test for cervical cancer. It isnot a diagnostic test and is subject to false negativeand false positive results. It is most reliable when asatisfactory sample, regularly obtained, is submittedwith relevant clinical findings and history, and whenthe Pap result is evaluated along with historic andcurrent clinical information. 07/06/2024 9:06 AM EDT 07/06/2024 6:11 PM EDT Narrative [facility] - 07/12/2024 10:48 AM EDT SEE SCANNED RESULTS IN EMRVAGINA [facility] PATHOLOGY ORDERABLES Final Result Performing Organization Address [facility] Co de Phone Number [facility] [address] [place] [phone] * Albumin, Random Urine W/Creatinine (06/16/2023 10:41 AM EDT) Creatinine, Urine 46.30 mg/dL [facility] Microalbumin Urine <5.0 mg/L [facility] Microalbum Creatinine Ratio Ur TNP <30 ug/mg cr [facility] Comment:Unable to calculate albumin/creatinine ratio due to lowmicroalbumin or creatinine result. 06/16/2023 10:4 1 AM EDT 06/16/2023 2:32 PM EDT Nakia Sparrow MD LAB URINE ORDERABLES Final Resul t Performing Organization Address [facility] Co de Phone Number [facility] [address] [place] [address] [phone] * Hm Colonoscopy (04/11/2018) Colonoscopy Normal Normal Frederick Ruiz MD HEALTH MAINTENANCE Final Result from Last 3 Months or Most Recently Relevant [place] [id number] [facility] [address] [place] [id number] [place] [id number] [place] [id number] Care Teams Clerical Secretary Relationship Specialty Start Date End Date Nakia Sparrow MD [address] [place] [address] PCP - General Family Medicine 12/19/16 Jolanta Machado PharmD [address] [place] [address] Pharmacist Internal Medicine 02/16/25
--- OUTSIDE RECORDS SUMMARY | 2025-06-14 09:43 | XMS_ITS | Encounter Summary ---
Author Organization [employer] Address [address] 7t [place] [address] Care Team Providers Care Pipelines Superintendent Name Role Phone Nakia Sparrow MD Primary Care Provider [phone] Jolanta Machado PharmD Unavailable [phone] Reason for Visit * Reason Comments Med Refill Encounter Details Date Type Department Care Team ([facility] Contact Info) Description 06/13/2025 Refill [facility] CH[facility] MED & PEDS [address] [place] [address] Nakia Sparrow MD [address] [place] [address] Social History Tobacco Use Types Packs/Day Years [...] Description 06/20/2025 10:00 AM EDT Medication Management [facility] CH[facility] MED & PEDS [address] [place] [address] Jolanta Machado, PharmD [address] [place] [address] 07/19/2025 11:15 AM EST Procedure Visit [facility] MEDICINE [address] [place] [address] Angie Mckeon CNM [address] [place] [address] documented as of this encounter Visit Diagnoses Not on filedocumented in this encounter Additional Health Concerns Assessment Noted Time PHQ-9 Depression Total Score: 6 05/23/20 25 9:18 AM EDT documented as of this encounter Care Teams Pipelines Superintendent Relationship Specialty Start Date End Date Nakia Sparrow MD [address] [place] [address] PCP - General Family Medicine 12/19/16 Jolanta Machado, Danilo [address] [place] [address] [phone] Pharmacist Internal Medicine 02/16/25 documented as of this encounter
--- OUTSIDE RECORDS SUMMARY | 2025-06-14 09:43 | XMS_ITS | Encounter Summary ---
Author Organization [employer] Address [address] [facility] 7t [place] [address] Care Team Providers Care Peg Driver Name Role Phone Nakia Sparrow MD Primary Care Provider [phone] Jolanta Machado PharmD Unavailable [phone] Encounter Details Date Type Department Care Team ([facility] Contact Info) Description 04/19/2025 Orders Only [facility] [address] [place], [place] [phone] ProviderFrederick MD Social History Tobacco Use Types Packs/Day Years [...] Description 06/20/2025 10:00 AM EDT Medication Management [facility] MED & PEDS [address] [place] [address] Jolanta Machado, PharmD [address] [place] [address] 07/19/2025 11:15 AM EST Procedure Visit [facility] MEDICINE [address] [place] [address] Angie Mckeon CNM [address] [place] [address] documented as of this encounter Procedures Procedure Name Priority Date/Time Associated Diagnosis Comments DIABETES EYE EXAM Routine 04/19/2025 3:03 PM EDT documented in this encounter Results * Diabetes Eye Exam (04/19/2025 3:03 PM EDT) us Historical Provider HEALTH MAINTENANCE Final Result documented in this encounter Visit Diagnoses Not on filedocumented in this encounter Additional Health Concerns Assessment Noted Time PHQ-9 Depression Total Score: 1 06/03/20 24 9:18 AM EDT documented as of this encounter Care Teams Peg Driver Relationship Specialty Start Date End Date Nakai Sparrow MD [address] [place] [address] PCP - General Family Medicine 12/19/16 Jolanta Machado PharmD [address] [place] [address] Pharmacist Internal Medicine 02/16/25 documented as of this encounter
--- OUTSIDE RECORDS SUMMARY | 2025-06-14 09:43 | XMS_ITS | Encounter Summary ---
Author Organization [employer] Address [address] [facility] 7t [place] [address] Care Team Providers Care Receiving Associate Name Role Phone Nakia Sparrow MD Primary Care Provider [phone] Irasema Bowers RN Unavailable Jolanta Machado PharmD Unavailable [phone] Reason for Visit * Reason Comments Med Refill Encounter Details Date Type Department Care Team ([facility] Contact Info) Description 03/31/2025 Refill [facility] CHC MED & PEDS [address] [place], [place] [phone] Nakia Sparrow MD 505 [place] [address] Social History Tobacco Use Types Packs/Day Years [...] the past 12 months, has t he [employer], gas, oil or water company threatened to [...] Description 06/20/2025 10:00 AM EDT Medication Management [facility] CH[facility] MED & PEDS [address] [place] [address] Jolanta Machado, PharmD 230 [place] [address] 07/19/2025 11:15 AM EST Procedure Visit [facility] MEDICINE [address] [place] [address] Angie Mckeon CNM [address] [place] [address] documented as of this encounter Visit Diagnoses Not on filedocumented in this encounter Additional Health Concerns Assessment Noted Time PHQ-9 Depression Total Score: 1 06/03/20 24 9:18 AM EDT documented as of this encounter Care Teams Receiving Associate Relationship Specialty Start Date End Date Nakia Sparrow MD [address] [place] [address] PCP - General Family Medicine 12/19/16 Irasema Bowers, CARLTON [address] [place] [phone] Registered Nurse Family Medicine 02/05/24 04/12/25 Jolanta Machado PharmD [address] [place] [address] Pharmacist Internal Medicine 02/16/25 documented as of this encounter
--- OUTSIDE RECORDS SUMMARY | 2025-06-14 09:43 | XMS_ITS | Encounter Summary ---
Author Organization [employer] Address [address] [facility] 7t [place] [address] Care Team Providers Care Allergy Nurse Name Role Phone Nakia Sparrow MD Primary Care Provider [phone] Irasema Bowers RN Unavailable Jolanta Machado PharmD Unavailable [phone] Reason for Visit * Reason Comments Med Refill Encounter Details Date Type Department Care Team ([facility] Contact Info) Description 09/09/2022 Refill [facility] CHC MED & PEDS [address] [place], [place] [phone] Nakia Sparrow MD 505 [place] [address] Primary hypertension (Primary Dx) Social History Tobacco [...] Upcoming Encounters Date Type Department Care Team ([facility] Contact Info) Description 06/20/2025 10:00 AM EDT Medication Management [facility] CH[facility] MED & PEDS [address] [place], [place] [phone] Jolanta Machado PharmD 230 [place] [address] 07/19/2025 11:15 AM EST Procedure Visit [facility] [address] [place] [address] Angie Mckeon CNM [address] [place] [address] documented as of this encounter Visit Diagnoses Diagnosis Primary hypertension- Primary Unspecified essential hypertension documented in this encounter Care Teams Allergy Nurse Relationship Specialty Start Date End Date Nakia Sparrow MD [address] [place] [address] PCP - General Family Medicine 12/19/16 Irasema Bowers RN [address] [place] [address] [phone] Registered Nurse Family Medicine 02/05/24 04/12/25 Jolanta Machado, Danilo [address] [place] [phone] Pharmacist Internal Medicine 02/16/25 documented as of this encounter
--- OUTSIDE RECORDS SUMMARY | 2025-06-14 09:43 | XMS_ITS | Encounter Summary ---
Author Organization [employer] Address [address] [place] [address] 7t [place] [address] Care Team Providers Care Screening Tech Name Role Phone Nakia Sparrow MD Primary Care Provider [phone] Irasema Bowers RN Unavailable Jolanta Machado PharmD Unavailable [phone] Reason for Visit * Reason Comments Med Refill Encounter Details Date Type Department Care Team (Late Contact Info) Description 08/21/2022 Refill [facility] MEDICINE [address] [place] [address] Nakia Sparrow MD [address] [place] [address] Social History Tobacco Use Types Packs/Day Years [...] Department Care Team (Late Contact Info) Description 06/20/2025 10:00 AM EDT Medication Management [facility] CHC MED & PEDS [address] [place] [address] Jolanta Machado, PharmD [address] [place] [address] 07/19/2025 11:15 AM EST Procedure Visit [facility] MEDICINE [address] [place] [address] Angie Mckeon, LALY [address] [place] [address] documented as of this encounter Visit Diagnoses Not on filedocumented in this encounter Care Teams Screening Tech Relationship Specialty Start Date End Date Nakia Sparrow MD [address] [place] [address] PCP - General Family Medicine 12/19/16 Irasema Bowers, [place] [address] [place] [address] [phone] Registered Nurse Family Medicine 02/05/24 04/12/25 Jolanta Machado PharmD [address] [place] [phone] Pharmacist Internal Medicine 02/16/25 documented as of this encounter
--- OUTSIDE RECORDS SUMMARY | 2025-06-14 09:44 | XMS_ITS | Encounter Summary ---
Author Organization [employer] Address [address] [place] [address] 7t [place] [address] Care Team Providers Care Frame Bender Name Role Phone Nakia Sparrow MD Primary Care Provider [phone] Irasema Bowers RN Unavailable Jolanta Machado PharmD Unavailable [phone] Reason for Visit * Reason Comments Med Refill Encounter Details Date Type Department Care Team (Late Contact Info) Description 05/06/2023 Refill [facility] MED & PEDS 505 [place] [address] Kristen Nieves FNP 505 [place] [address] Social History Tobacco Use Types Packs/Day Years [...] Description 06/20/2025 10:00 AM EDT Medication Management [facility] MED & PEDS [address] [place], [place] [phone] Jolanta Machado, PharmD [address] [place] [address] 07/19/2025 11:15 AM EST Procedure Visit [facility] MEDICINE [address] [place], [place] [phone] Angie Mckeon, LALY 230 [place], [place] [phone] documented as of this encounter Visit Diagnoses Not on filedocumented in this encounter Care Teams Frame Bender Relationship Specialty Start Date End Date Nakia Sparrow MD [address] [place], [place] [phone] PCP - General Family Medicine 12/19/16 Irasema Bowers, [place] [address] [place], [place] [phone] Registered Nurse Family Medicine 02/05/24 04/12/25 Jolanta Machado PharmD [address] [place] [address] [phone] Pharmacist Internal Medicine 02/16/25 documented as of this encounter
--- OUTSIDE RECORDS SUMMARY | 2025-06-14 09:44 | XMS_ITS | Encounter Summary ---
Author Organization [employer] Address [address] [place] [address] 7t [place] [address] Care Team Providers Care Loop Tacker Name Role Phone Nakia Sparrow MD Primary Care Provider [phone] Irasema Bowers RN Unavailable Jolanta Machado PharmD Unavailable [phone] Reason for Visit * Reason Comments Med Change Request Encounter Details Date Type Department Care Team ([facility] Contact Info) Description 12/03/2022 Refill [facility] CHC MED & PEDS [address] [place] [address] Nakia Sparrow MD 505 [place] [address] Irritable bowel syndrome with constipation Social History [...] Encounters Date Type Department Care Team ([facility] Contact Info) Description 06/20/2025 10:00 AM EDT Medication Management [facility] CH[facility] MED & PEDS [address] [place] [address] Jolanta Machado PharmD [address] [place] [address] 07/19/2025 11:15 AM EST Procedure Visit [facility] MEDICINE [address] [place], [place] [phone] Angie Mckeon, CNBrennan [address] [place], [place] [phone] documented as of this encounter Visit Diagnoses Diagnosis Irritable bowel syndrome with constipation Irritable bowel syndrome documented in this encounter Care Teams Loop Tacker Relationship Specialty Start Date End Date Nakia Sparrow MD [address] [place] [address] [phone] PCP - General Family Medicine 12/19/16 Irasema Bowers RN [address] [place] [address] [phone] Registered Nurse Family Medicine 02/05/24 04/12/25 Jolanta Machado, Danilo [address] [place] [address] [phone] Pharmacist Internal Medicine 02/16/25 documented as of this encounter
--- OUTSIDE RECORDS SUMMARY | 2025-06-14 09:44 | XMS_ITS | Encounter Summary ---
Author Organization [employer] Address [address] [facility] 7t [place] [address] Care Team Providers Care Criminology Teacher Name Role Phone Nakia Sparrow MD Primary Care Provider [phone] Irasema Bowers RN Unavailable Jolanta Machado PharmD Unavailable [phone] Encounter Details Date Type Department Care Team ([facility] Contact Info) Description 10/14/2022 Telephone [facility] MED & PEDS 505 [place] [address] Nakia Sparrow MD 505 [place] [address] Social History Tobacco Use Types Packs/Day Years [...] Upcoming Encounters Date Type Department Care Team ([facility] Contact Info) Description 06/20/2025 10:00 AM EDT Medication Management [facility] MED & PEDS [address] [place] [address] Machado, Jolanta, PharmD 230 [place] [address] 07/19/2025 11:15 AM EST Procedure Visit [facility] MEDICINE 230 [place], [place] [phone] Angie Mckeon CNM 230 [place], [place] [phone] documented as of this encounter Visit Diagnoses Not on filedocumented in this encounter Care Teams Criminology Teacher Relationship Specialty Start Date End Date Nakia Sprarow MD [address] [place] [address] [phone] PCP - General Family Medicine 12/19/16 Irasema Bowers, CARLTON [address] [place] [address] [phone] Registered Nurse Family Medicine 02/05/24 04/12/25 Jolanta Machado PharmD [address] [place] [address] [phone] Pharmacist Internal Medicine 02/16/25 documented as of this encounter
--- OUTSIDE RECORDS SUMMARY | 2025-06-14 09:44 | XMS_ITS | Encounter Summary ---
Author Organization [employer] Address [address] [place] [address] 7t [place] [address] Care Team Providers Care Windows Desktop Engineer Name Role Phone Nakia Sparrow MD Primary Care Provider [phone] Irasema Bowers RN Unavailable Jolanta Machado PharmD Unavailable [phone] Encounter Details Date Type Department Care Team ([facility] Contact Info) Description 02/20/2023 Orders Only [facility] CHC MED & PEDS [address] [place] [address] Nakia Sparrow MD 505 [place] [address] Social History Tobacco Use Types Packs/Day Years [...] Upcoming Encounters Date Type Department Care Team ([facility] Contact Info) Description 06/20/2025 10:00 AM EDT Medication Management [facility] MED & PEDS [address] [place], [place] [phone] Jolanta Machado, PharmD [address] [place] [address] 07/19/2025 11:15 AM EST Procedure Visit [facility] MEDICINE [address] [place] [address] Angie Mckeon, LALY [address] [place] [address] documented as of this encounter Visit Diagnoses Not on filedocumented in this encounter Care Teams Windows Desktop Engineer Relationship Specialty Start Date End Date Nakia Sparrow MD [address] [place] [address] [phone] PCP - General Family Medicine 12/19/16 Irasema Bowers, CARLTON [address] [place] [address] [phone] Registered Nurse Family Medicine 02/05/24 04/12/25 Jolanta Machado PharmD [address] [place] [address] Pharmacist Internal Medicine 02/16/25 documented as of this encounter
== END 2025-06-14 10:07 | disposition home or self-care (01) ==
PROVIDERS: PCP Internal Medicine; Visit Provider Nurse Practitioner Family
DX: K21.9 Gastro-esophageal reflux disease without esophagitis (principal); K59.00 Constipation, unspecified; L30.9 Dermatitis, unspecified
CPT/HCPCS: 99215

== ENCOUNTER → 2025-06-14 09:03 | Outpatient (BNVA) | payer MEDICAID, SELFPAY | PROVIDERS: PCP Internal Medicine; Visit Provider Nurse Practitioner Family | DX: K21.9 Gastro-esophageal reflux disease without esophagitis (principal); K59.00 Constipation, unspecified; L30.9 Dermatitis, unspecified | CPT/HCPCS: 99212 ==

== ENCOUNTER 2025-07-04 09:17 | Outpatient (REF) | payer MEDICAID, SELFPAY ==
--- OUTSIDE RECORDS SUMMARY | 2025-07-04 20:45 | XMS_ITS | Encounter Summary ---
Author Organization [employer] Address [address] [place] [address] 7t [place] [address] Care Team Providers Care Patient Financial Coordinator Name Role Phone Nakia Sparrow MD Primary Care Provider [phone] Irasema Bowers RN Unavailable Jolanta Machado PharmD Unavailable [phone] Encounter Details Date Type Department Care Team ([facility] Contact Info) Description 02/20/2023 Orders Only [facility] [address] [place] [address] Nakia Sparrow MD 505 [place] [address] Social History Tobacco Use Types Packs/Day Years [...] Upcoming Encounters Date Type Department Care Team ([facility] Contact Info) Description 07/18/2025 9:00 AM EST Medication Management [facility] [address] [place], [place] [phone] Jolanta Machado, PharmD [address] [place] [address] 07/19/2025 11:15 AM EST Procedure Visit [facility] [address] [place] [address] Angie Mckeon CNM 230 [place] [address] documented as of this encounter Visit Diagnoses Not on filedocumented in this encounter Care Teams Patient Financial Coordinator Relationship Specialty Start Date End Date Nakia Sparrow MD [address] [place] [address] PCP - General Family Medicine 12/19/16 Irasema Bowers, CARLTON [address] [place] [address] [phone] Registered Nurse Family Medicine 02/05/24 04/12/25 Jolanta Machado PharmD [address] [place] [phone] Pharmacist Internal Medicine 02/16/25 documented as of this encounter
--- OUTSIDE RECORDS SUMMARY | 2025-07-04 20:45 | XMS_ITS | Encounter Summary ---
Author Organization [employer] Address [address] [facility] 7t [place] [address] Care Team Providers Care Varnish Filterer Name Role Phone Nakia Sparrow MD Primary Care Provider [phone] Jolanta Machado PharmD Unavailable [phone] Encounter Details Date Type Department Care Team ([facility] Contact Info) Description 04/19/2025 Orders Only [facility] 230 [place], [place] [phone] ProviderFrederick MD Social History Tobacco Use Types [...] Care Team (Late st Contact Info) Description 07/18/2025 9:00 AM EST Medication Management [facility] 505 [place] [address] Jolanta Machado, PharmD 230 [place] [address] 07/19/2025 11:15 AM EST Procedure Visit [facility] [address] [place] [address] Angie Mckeon CNM [address] [place] [address] documented as of this encounter Procedures Procedure [...] documented as of this encounter Care Teams Varnish Filterer Relationship Specialty Start Date End Date Nakia Sparrow MD 230 [place] [address] PCP - General Family Medicine 12/19/16 Jolanta Machado PharmD 230 [place] [address] Pharmacist Internal Medicine 02/16/25 documented as of this encounter
--- OUTSIDE RECORDS SUMMARY | 2025-07-04 20:45 | XMS_ITS | Encounter Summary ---
Author Organization [employer] Address [address] [place] [address] 7t [place] [address] Care Team Providers Care Supervisor Dry Paste Name Role Phone Nakia Sparrow MD Primary Care Provider [phone] Irasema Bowers RN Unavailable Jolanta Machado PharmD Unavailable [phone] Reason for Visit * Reason Comments Med Refill Encounter Details Date Type Department Care Team (Late Contact Info) Description 05/06/2023 Refill [facility] 505 [place] [address] Kristen Nieves FNP [address] [place] [address] Social History Tobacco Use Types Packs/Day Years [...] Department Care Team (Late Contact Info) Description 07/18/2025 9:00 AM EST Medication Management [facility] [address] [place], [place] [phone] Jolanta Machado, PharmD 230 [place] [address] 07/19/2025 11:15 AM EST Procedure Visit [facility] [address] [place], [place] [phone] Angie Mckeon, LALY [address] [place], [place] [phone] documented as of this encounter Visit Diagnoses Not on filedocumented in this encounter Care Teams Supervisor Dry Paste Relationship Specialty Start Date End Date Nakia Sparrow MD 230 [place], [place] [phone] PCP - General Family Medicine 12/19/16 Irasema Bowers, CARLTON 230 [place], [place] [phone] Registered Nurse Family Medicine 02/05/24 04/12/25 Jolanta Machado PharmD 230 [place], [place] [phone] Pharmacist Internal Medicine 02/16/25 documented as of this encounter
--- OUTSIDE RECORDS SUMMARY | 2025-07-04 20:45 | XMS_ITS | Encounter Summary ---
Author Organization [employer] Address [address] [place] [address] 7t [place] [address] Care Team Providers Care Customs And Border Protection Officer Name Role Phone Nakia Sparrow MD Primary Care Provider [phone] Irasema Bowers RN Unavailable Jolanta Machado PharmD Unavailable [phone] Reason for Visit * Reason Comments Med Refill Encounter Details Date Type Department Care Team ([facility] Contact Info) Description 09/09/2022 Refill [facility] 505 [place], [place] [phone] Nakia Sparrow MD 505 [place] [address] Primary hypertension (Primary Dx) Social History Tobacco [...] Date Type Department Care Team ([facility] Contact Info) Description 07/18/2025 9:00 AM EST Medication Management [facility] [address] [place], [place] [phone] Jolanta Machado PharmD 230 [place] [address] 07/19/2025 11:15 AM EST Procedure Visit [facility] MED[facility] [address] [place], [place] [phone] Angie Mkceon CNM 230 [place] [address] documented as of this encounter Visit Diagnoses Diagnosis Primary hypertension- Primary Unspecified essential hypertension documented in this encounter Care Teams Customs And Border Protection Officer Relationship Specialty Start Date End Date Nakia Sparrow MD [address] [place] [address] [phone] PCP - General Family Medicine 12/19/16 Irasema Bowers RN [address] [place] [address] [phone] Registered Nurse Family Medicine 02/05/24 04/12/25 Jolanta Machado, Danilo [address] [place] [address] [phone] Pharmacist Internal Medicine 02/16/25 documented as of this encounter
--- OUTSIDE RECORDS SUMMARY | 2025-07-04 20:45 | XMS_ITS | Encounter Summary ---
Author Organization [employer] Address [address] [facility] 7t [place] [address] Care Team Providers Care Prune Washer Name Role Phone Nakia Sparrow MD Primary Care Provider [phone] Irasema Bowers RN Unavailable Jolanta Machado PharmD Unavailable [phone] Reason for Visit * Reason Comments Med Refill Encounter Details Date Type Department Care Team ([facility] Contact Info) Description 03/31/2025 Refill [facility]EDS 505 [place], [place] [phone] Nakia Sparrow MD 505 [place] [address] Social History Tobacco Use Types Packs/Day Years [...] the past 12 months, has t he [employer], gas, oil or water company threatened to [...] Description 07/18/2025 9:00 AM EST Medication Management [facility] [address] [place] [address] Jolanta Machado, PharmD 230 [place] [address] 07/19/2025 11:15 AM EST Procedure Visit [facility] MEDICINE 230 [place] [address] Angie Mckeon CNM 230 [place] [address] documented as of this encounter Visit Diagnoses Not on filedocumented in this encounter Additional Health Concerns Assessment Noted Time PHQ-9 Depression Total Score: 1 06/03/20 24 9:18 AM EDT documented as of this encounter Care Teams Prune Washer Relationship Specialty Start Date End Date Nakia Sparrow MD [address] [place] [phone] PCP - General Family Medicine 12/19/16 Irasema Bowers, CARLTON [address] [place] [address] Registered Nurse Family Medicine 02/05/24 04/12/25 Jolanta Machado PharmD [address] [place] [phone] Pharmacist Internal Medicine 02/16/25 documented as of this encounter
--- OUTSIDE RECORDS SUMMARY | 2025-07-04 20:45 | XMS_ITS | Encounter Summary ---
Author Organization [employer] Address 75 [facility] 7t [place] [address] Care Team Providers Care Data Entry Email Processor Name Role Phone Nakia Sparrow MD Primary Care Provider [phone] Jolanta Machado PharmD Unavailable [phone] Reason for Visit * Reason Comments Med Refill Encounter Details Date Type Department Care Team ([facility] Contact Info) Description 05/05/2025 Refill [facility]S 505 [place] [address] Johnny Romero MD [address] [place] [address] Social History Tobacco Use Types Packs/Day Years [...] Description 07/18/2025 9:00 AM EST Medication Management [facility]S [address] [place] [address] Jolanta Machado, NyaD 230 [place] [address] 07/19/2025 11:15 AM EST Procedure Visit [facility] MEDICINE 230 [place] [address] Angie Mckeon CNM 230 [place] [address] documented as of this encounter Visit Diagnoses Not on filedocumented in this encounter Additional Health Concerns Assessment Noted Time PHQ-9 Depression Total Score: 1 06/03/20 24 9:18 AM EDT documented as of this encounter Care Teams Data Entry Email Processor Relationship Specialty Start Date End Date Nakia Sparrow MD 230 [place] [address] PCP - General Family Medicine 12/19/16 Jolanta Machado, Danilo [address] [place] [address] [place] [address] Pharmacist Internal Medicine 02/16/25 documented as of this encounter
--- OUTSIDE RECORDS SUMMARY | 2025-07-04 20:45 | XMS_ITS | Encounter Summary ---
Author Organization [employer] Address [address] [facility] 7t [place] [address] Care Team Providers Care Engine Manager Name Role Phone Nakia Sparrow MD Primary Care Provider [phone] Iarsema Bowers RN Unavailable Jolanta Machado PharmD Unavailable [phone] Encounter Details Date Type Department Care Team ([facility] Contact Info) Description 10/14/2022 Telephone [facility] MED [facility]EDS 505 [place] [address] Nakia Sparrow MD 505 [place] [address] Social History Tobacco Use Types Packs/Day Years [...] Upcoming Encounters Date Type Department Care Team ([facility] Contact Info) Description 07/18/2025 9:00 AM EST Medication Management [facility] 505 [place] [address] Jolanta Machado, PharmD 230 [place] [address] 07/19/2025 11:15 AM EST Procedure Visit [facility] MEDICINE 230 [place], [place] [phone] Angie Mckeon CNM 230 [place], [place] [phone] documented as of this encounter Visit Diagnoses Not on filedocumented in this encounter Care Teams Engine Manager Relationship Specialty Start Date End Date Nakia Sparrow MD [address] [place] [address] [phone] PCP - General Family Medicine 12/19/16 Irasema Bowers, CARLTON [address] [place] [address] [phone] Registered Nurse Family Medicine 02/05/24 04/12/25 Jolanta Machado, Danilo [address] [place] [address] [phone] Pharmacist Internal Medicine 02/16/25 documented as of this encounter
--- OUTSIDE RECORDS SUMMARY | 2025-07-04 20:45 | XMS_ITS | Encounter Summary ---
Author Organization [employer] Address [address] [facility] 7t [place] [address] Care Team Providers Care Rail Car Welder Name Role Phone Nakia Sparrow MD Primary Care Provider [phone] Irasema Bowers RN Unavailable Jolanta Machado PharmD Unavailable [phone] Reason for Visit * Reason Comments Med Refill Encounter Details Date Type Department Care Team ([facility] Contact Info) Description 03/11/[address] [facility] MED & PEDS 505 [place], [place] [phone] Nakia Sparrow MD 505 [place] [address] Social History Tobacco Use Types Packs/Day Years [...] the past 12 months, has t he [employer], gas, oil or water company threatened to [...] Description 07/18/2025 9:00 AM EST Medication Management [facility] PEDS 505 [place] [address] Jolanta Machado, PharmD 230 [place] [address] 07/19/2025 11:15 AM EST Procedure Visit [facility] MEDICINE 230 [place] [address] Angie Mckeon CNM 230 [place] [address] documented as of this encounter Visit Diagnoses Not on filedocumented in this encounter Additional Health Concerns Assessment Noted Time PHQ-9 Depression Total Score: 1 06/03/20 24 9:18 AM EDT documented as of this encounter Care Teams Rail Car Welder Relationship Specialty Start Date End Date Nakia Sparrow MD [address] [place] [phone] PCP - General Family Medicine 12/19/16 Irasema Bowers, CARLTON [address] [place] [phone] Registered Nurse Family Medicine 02/05/24 04/12/25 Jolanta Mahcado PharmD [address] [place] [phone] Pharmacist Internal Medicine 02/16/25 documented as of this encounter
--- OUTSIDE RECORDS SUMMARY | 2025-07-04 20:45 | XMS_ITS | Encounter Summary ---
Author Organization [employer] Address [address] [place] [address] 7t [place] [address] Care Team Providers Care Hadoop Consultant Name Role Phone Nakia Sparrow MD Primary Care Provider [phone] Irasema Bowers RN Unavailable Jolanta Machado PharmD Unavailable [phone] Reason for Visit * Reason Comments Med Refill Encounter Details Date Type Department Care Team (Late Contact Info) Description 08/21/2022 Refill [facility] [address] [place] [address] Nakia Sparrow MD [address] [place] [address] Social History Tobacco Use Types Packs/Day Years [...] Description 07/18/2025 9:00 AM EST Medication Management [facility] [address] [place] [address] Jolanta Machado, PharmD 230 [place] [address] 07/19/2025 11:15 AM EST Procedure Visit [facility] [address] [place], [place] [phone] Angie Mckeon, LALY [address] [place] [address] documented as of this encounter Visit Diagnoses Not on filedocumented in this encounter Care Teams Hadoop Consultant Relationship Specialty Start Date End Date Nakia Sparrow MD [address] [place] [address] [phone] PCP - General Family Medicine 12/19/16 Irasema Bowers, CARLTON [address] [place] [address] [phone] Registered Nurse Family Medicine 02/05/24 04/12/25 Jolanta Machado PharmD [address] [place] [address] [phone] Pharmacist Internal Medicine 02/16/25 documented as of this encounter
--- OUTSIDE RECORDS SUMMARY | 2025-07-04 20:45 | XMS_ITS | Clinical Summary ---
Author Organization [employer] Address [address] [facility] 7t [place] [address] Care Team Providers Care Lithoduplicator Operator Name Role Phone Nakia Sparrow MD Primary Care Provider [phone] Jolanta Machado PharmD Unavailable [phone] Allergies Active Allergy Reactions Criticality Noted Date Comments Penicillin G Anaphylaxis High 12/19/2016 Penicillins Anaphylaxis High 02/19/2024 Medications cetirizine (ZyrTEC) 10 MG tablet take 1 tablet by oral route every day 021 Active docusate sodium (Colace) 100 MG capsule [...] tab daily 90 tablet 3 023 Active ondansetron (Zofran) 4 MG tabletIndications :Type 2 diabetes mellitus without complication, without long-term current use of insulin (HCC) TAKE 1 TABLET BY MOUTH EVERY 8 HOURS NEEDED 60 tablet 024 Active Diclofenac Sodium 1 % gelIndications:Ne ck pain on right side,Chronic right shoulder pain To apply to the affected area 4 times a day. 100 g 024 Active Continuous Glucose Grant Coordinator (FreeStyle Adriana 2 Hanahan) device Scan sensor every 8 hours 1 each 024 Active glucose blood (FREESTYLE LITE) test stripIndications: Type 2 diabetes mellitus without complication, without long-term current use of insulin (HCC) USE TO CHECK BLOOD SUGAR THREE TIMES [...] THE MORNING 30 tablet 3 025 Active Dextromethorphan- guaiFENesin (Mucinex DM) 30-600 MG tablet sustained-release 12 hour Use 1 tab TID 28 tablet 025 Active albuterol (2.5 MG/3ML) 0.083% nebulizer solution Take 3 mL (2.5 mg) by nebulization every 4 (four) hours if needed for wheezing. 75 mL 11 025 2025 Active albuterol (Ventolin HFA) 108 (90 Base) MCG/ACT inhaler INHALE 2 PUFFS BY MOUTH 4 TIMES DAILY 18 g 025 Active Ventolin HFA 108 (90 Base) MCG/ACT inhaler Inhale 2 puffs every 4 (four) hours if needed for wheezing. 18 g 025 2025 Active chlorhexidine (Peridex) 0.12 % solution [...] by mouth Once per day. 30 tablet 5 Active fluticasone furoate (Arnuity Ellipta) 200 MCG/ACT inhalerIndication s:Mild persistent asthma with exacerbation Inhale 1 puff Once per day. Rinse mouth after use 30 each 5 Active polyethylene glycol, PEG, 3350 (Miralax) 17 g packet DISSOLVE 1 PACK IN 8 OUNCES OF WATER, JUICE, SODA, COFFEE, OR TEA, THEN DRINK BY MOUTH TWICE DAILY 60 each Active pantoprazole (Protonix) 40 MG EC tablet Take 1 tablet (40 mg) by mouth before breakfast. Do not crush, chew, or split. 90 tablet 1 Active atorvastatin (Lipitor) 40 MG tabletIndications :Hyperlipidemia, [...] MOUTH THREE TIMES DAILY 90 tablet Active glipiZIDE XL (Glucotrol XL) 10 MG 24 hr tabletIndications :Type 2 diabetes mellitus without complication, without long-term current use of insulin (HCC) Take 2 tablets (20 mg) by mouth Once per day. Do not crush, chew, or split. 180 tablet 1 Active sucralfate (Carafate) 1 g tablet TAKE 1 TABLET BY MOUTH TWICE DAILY NEEDED. TAKE ON AN EMPTY STOMACH. AVOID ANTACIDS WITHIN 30 MINUTES OF TAKING Active diphenhydrAMINE (Benadryl Allergy) 25 MG tablet take 1 tablet by oral route 2 times every day 018 2024 Discontinued(M ed list cleanup (will not trigger notification to Pharmacy)) bacitracin-polymy shayna b (Polysporin) ointment Apply topically 2 times daily. 15 g 023 2024 Discontinued(M ed list cleanup (will not trigger notification to Pharmacy)) azithromycin (Zithromax Z-Aston) 250 MG tablet Take 2 tabs day 1 and then 1 tab daily to finish 6 tablet 2024 Discontinued(M ed list cleanup (will not trigger notification to Pharmacy)) insulin pen needle (Pentips) 32G x 4 mm misc Use twice daily with insulin 100 each 11 2024 Discontinued(M ed list cleanup (will not trigger notification to Pharmacy)) ibuprofen 600 MG tablet TAKE 1 TABLET BY MOUTH THREE TIMES DAILY 90 tablet 2024 Discontinued glipiZIDE (Glucotrol) 10 MG tablet Take 2 tablets by mouth twice daily 360 tablet 2024 Discontinued(A lternate therapy) Active Problems Problem Noted Date Diagnosed Date [...] PM EDT): Counseling done today, patient declines [facility] services Needle phobia 01/27/2025 alf use of drug 07/06/2024 Menopausal vasomotor syndrome [...] Encounters Date Type Department Care Team Description 06/20/2025 Travel 06/13/[address] [facility] [address] [place] [address] Nakia Sparrow MD 05/31/2025 Telephone [facility] [address] [place] [address] Nakia Sparrow MD 05/23/2025 9:15 AM EDT Office Visit [facility] [address] [place] [address] Nakia Sparrow MD Gastroparesis (Primary Dx); Type 2 diabetes mellitus without complication, without long-term current use of insulin (CMS/HCC); Benign hypertension 05/23/2025 Refill [facility] [address] [place] [address] Nakia Sparrow MD Type 2 diabetes mellitus without complication, without long-term current use of insulin (CMS/HCC) 05/23/[address] [facility] [address] [place] [address] Johnny Romero MD Hyperlipidemia, unspecified hyperlipidemia type 05/23/2025 Travel 05/20/2025 Telephone [facility] [address] [place] [address] Nakia Sparrow MD chart prep 05/05/[address] [facility] [address] [place] [address] Johnny Romero MD 05/05/[address] [facility] [address] [place] [address] Nakia Sparrow MD 05/03/2025 Travel 04/27/[address] [facility] [address] [place] [phone] America Rivas [place] 04/20/2025 Results Follow-Up [facility] [address] [place] [address] Nakia Sparrow MD Hemoglobin A1c, Basic Metabolic Panel, Lipid Panel, Standard, Hepatic Function Panel 04/20/2025 Orders Only [facility] [address] [place] [address] Nakia Sparrow MD Type 2 diabetes mellitus with hyperglycemia, with long-term current use of insulin (CMS/HCC) (Primary Dx) 04/19/2025 Orders Only [facility] [address] [place] [address] Frederick Ruiz MD 04/15/2025 Results Follow-Up [facility] [address] [place] [phone] Jailyn Camargo MD Helicobacter pylori Antigen, EIA, Stool 04/13/2025 10:00 AM EDT Office Visit [facility] [address] [place], [place] [phone] Jailyn Camargo MD Generalized abdominal pain; Bloating 04/13/2025 Travel 04/11/[address] [facility] [address] [place] [address] Nakia Sparrow MD Allergy, sequela; Primary hypertension 04/06/2025 10:[address] [facility] [address] [place] [address] Jolanta Machado PharmD Type 2 diabetes mellitus with hyperglycemia, with long-term current use of insulin ([facility]) (Primary Dx); Mild persistent asthma with exacerbation 04/06/2025 Travel 04/05/2025 Refill [facility] [address] [place] [address] Nakia Sparrow MD 04/05/[address] [facility] [address] [place] [address] Nakia Sparrow MD from Last 3 Months Immunizations Immunization Administration [...] 07/18/2025 9:00 AM EST Medication Management [facility] [address] [place] [address] Jolanta Machado, NyaD [address] [place] [address] 07/19/2025 11:15 AM EST Procedure Visit [facility] [address] [place] [address] Angie Mckeon CNM [address] [place] [address] Health Maintenance Due Date Last Done Comments [...] 06/03/2024, Additional history exists Diabetes: Hemoglobin A1C 07/14/2025 025, 01/26/2025, 08/23/2024, Additional history exists Diagnostic Breast Imaging 11/16/20252024, 05/18/2024, 08/29/2022, Additional history exists Mammogram 11/16/2025 11/16/2024, 09/0 11/2023, 09/24/2023, Additional history exists SDOH Screening [...] complication, without long-term current use of insulin ([facility]) DIABETES EYE EXAM Routine 04/19/2025 3:03 PM EDT HELICOBACTER PYLORI AG, EIA, STOOL Routine 04/14/2025 7:51 AM EDT Generalized abdominal pain HEPATIC FUNCTION PANEL Routine 10:56 AM EDT Type 2 diabetes mellitus without complication, with long-term current use of insulin ([facility]) LIPID PANEL, STANDARD Routine 04/13/2025 10:56 AM EDT Type 2 diabetes mellitus without complication, with long-term current use of insulin ([facility]) BASIC METABOLIC PANEL Routine 04/13/2025 10:56 AM EDT Type 2 diabetes mellitus without complication, with long-term current use of insulin ([facility]) HEMOGLOBIN A1C Routine 04/13/2025 10:56 AM EDT Type 2 diabetes mellitus without complication, with long-term current use of insulin ([facility]) BI MAMMOGRAM DIAGNOSTIC TOMOSYNTHESIS BILATERAL Routine 11/16/2024 12:30 PM EST THINPREP IMAGING PAP AND HPV MRNA E6/E7 Routine 07/06/2024 9:06 AM EDT extermination inspector use of drug ALBUMIN, RANDOM URINE W/CREATININE Routine 06/16/2023 10:41 AM EDT COLONOSCOPY Routine 04/11/2018 from Last 3 Months or Most Recently Relevant to Health Maintenance Results * (ABNORMAL) POCT Glucose (05/23/2025 9:16 AM EDT) Glucose Blood, POC 243(A) 60 - 200 mg/dL QC Media Lot # [id number] Lot# Expiration Date Blood Capillary blood specimen / Unknown 05/23/2025 9:16 AM EDT Nakia Sparrow MD POINT OF CARE TEST ENTER/EDIT OR DERABLES Final Result * Hm Diabetes Eye Exam (04/19/2025 3:03 PM EDT) Historical Provider HEALTH MAINTENANCE Final Result * Helicobacter pylori??Antigen, EIA, Stool (04/14/2025 7:51 AM EDT) H pylori Ag Stool SEE NOTE [facility] Comment:HELICOBACTER PYLORI AG, EIA, STOOL Micro Number: [id number] Test Status: Final Specimen Source: Stool Specimen Quality: Adequate H.pylori Ag: Not Detected Antimicrobials, proton pump inhibitors, and bismuth preparations inhibit H. pylori and ingestion up to two weeks prior to testing may cause false negative results. If clinically indicated the test should be repeated on a new specimen obtained two weeks after discontinuing treatment. Reference Range: Not DetectedTHIS TEST WAS PERFORMED AT:[facility] [place] [phone] MONIQUE MD Stool Rectal contents / Unknown 04/14/2025 7:51 AM EDT 04/14/2025 11:07 AM EDT Jailyn Batres MD LAB BODY FLUIDS AND S TOOLS ORDERABLES Final Result [facility] [address] [place] [phone] [phone] * (ABNORMAL) Hemoglobin A1c (04/13/2025 10:56 AM EDT) Hemoglobin A1c 10.5(H) <6.0 % [facility] Comment:Hemoglobin A1C Refer ence Range Adults: 4.8 - 6.0 % Non diabetic: < 6.0 % Goal: < 7.0 %Additional Action Suggested: > 8.0 %Note: Hemoglobin A1c results are invalid for patients with abnormal amounts of HbF. Blood transfusions may impact the HbA1c concentration in the patient sample. Estimated Average Glucose 255 mg/dL [facility] Comment:eAG = Estimated ave rage glucose which is %A1C expressed asaverage glucose, using the formula of the [id number] Glucose study (ADAG), Diabetes Care, Vol.31,#8,Apr. 2007 Blood Venous blood specimen / Unknown 04/13/2025 10:56 AM EDT 04/13/2025 1:19 PM EDT Nakia Sparrow MD LAB BLOOD ORDERABLES Final Resul t Performing Organization Address [facility] Co de Phone Number [facility] [address] [place] [address] [phone] * (ABNORMAL) Hepatic Function Panel (04/13/2025 10:56 AM EDT) Bilirubin, Total 0.3 0.0 - 1.0 mg/dL [facility] Bilirubin, Direct 0.2 0.0 - 0.5 mg/dL [facility] Aspartate Amino Transferase 33(H) 5 - 31 U/L [facility] Alanine Aminotransferase 26 0 - 31 U/L [facility] Total Protein 6.8 6.5 - 8.0 g/dL [facility] Albumin Level 4.0 3.5 - 5.0 g/dL [facility] Alkaline Phosphatase 54 39 - 117 U/L [facility] Blood Venous blood specimen / Unknown 04/13/2025 10:56 AM EDT 04/13/2025 1:18 PM EDT Nakia Sparrow MD LAB BLOOD ORDERABLES Final Resul t Performing Organization Address [facility]/ZIP Co de Phone Number [facility] [address] [place] [phone] * Lipid Panel, Standard (04/13/2025 10:56 AM EDT) Triglycerides 62 <150 mg/dL [facility] Comment:Desirable Triglyceri de: less than 150 mg/dLBorderline High Triglyceride 150-199 mg/dLHigh Triglyceride: 200-499 mg/dLVery High Triglyceride: greater than or equal to 5OO mg/dL Cholesterol 97 <200 mg/dL [facility] Comment:Desirable Cholestero l: less than 200 mg/dLBorderline High Cholesterol: 200-239 mg/dLHigh Cholesterol: greater than 239 mg/dL LDL Cholesterol Calculated 43 <100 mg/dL [facility] Comment:Desirable LDL: less than 100 mg/dLNear Optimal/Above Optimal LDL: 110- 129 mg/dLBorderline High LDL: 130-159 mg/dLHigh LDL: 160-189 mg/dLVery High LDL: greater than or equal to 190 mg/dL HDL Cholesterol 42 >40 mg/dL [facility] Comment:Desirable HDL: great er than 40 mg/dL Note: This HDL assay may give artificially low results in patients with liver disease. Blood Venous blood specimen / Unknown 04/13/2025 10:56 AM EDT 04/13/2025 1:18 PM EDT us Nakia Sparrow MD LAB BLOOD ORDERABLES Final Resul t [facility] [address] [place] [phone] * (ABNORMAL) Basic Metabolic Panel (04/13/2025 10:56 AM EDT) Sodium 142 135 - 145 mmol/L [facility] Potassium 3.7 3.3 - 5.1 mmol/L [facility] Chloride 105 96 - 108 mmol/L [facility] Carbon Dioxide 27 22 - 29 mmol/L [facility] Anion Gap 14 12 - 20 [facility] Urea Nitrogen (BUN) 20(H) 9 - 16 mg/dL [facility] Creatinine, Serum 0.94 0.5 - 1.4 mg/dL [facility] Estimated Glomerular Filt Rate 60 [facility] Comment:Chronic Kidney Disea se: Estimated GFR < 60 mL/min/1.89j1Famszo Kidney Disease: Estimated GFR < 15 mL/min/1.73m2 Glucose 202(H) 60 - 115 mg/dL [facility] Calcium 8.9 8.4 - 10.2 mg/dL [facility] Blood Venous blood specimen / Unknown 04/13/2025 10:56 AM EDT 04/13/2025 1:18 PM EDT us Nakia Sparrow MD LAB BLOOD ORDERABLES Final Resul t [facility] [address] [place] [address] [phone] * BI Mammogram Diagnostic Tomosynthesis Bilateral (11/16/2024 12:30 PM EST) Anatomical Region Laterality Modality Breast Bilateral Mammography 11/16/2024 12:3 0 PM EST Narrative 11/16/2024 1:24 PM EST [facility] [address] [place] [address] Mammography Report Signed Patient: Jackeline Hoang MR#: [id number] 14 : 1960 Acct:[id number] Age/Sex: 64 / F ADM Date: 11/16/24 Loc: HO.MAMMO Attending Dr: Nakia Sparrow MD Ordering Physician: Nakia Sparrow MD Results: 3.12MPr obably Benign Finding - 12 month F/U Suggested Date of Service: 11/16/24 Follow Up: 12 month diagnos tic follow up Procedure(s): MM tomosynthesis diagnostic BI Accession Number(s): [id number] cc: Nakia Sparrow MD EXAMINATION: MM DIAGNOSTIC [...] by: Santa Brothers DO 11/16/2024 01:21 PM [facility] Dictated By: Santa Brothers DO Signed By: <Electronically signed by Santa Brothers DO in OV> 11/16/24 1321 DD/ 1230 TD/TT: 11/16/24 1310 Ironer Or Presser: Procedure Note Donotuseinterpreter, Image - 11/16/2024 [facility] [address] [place] [address] Mammography Report Signed Patient: Jackeline Hoang [facility]#: [id number] 14 : 1960cct:[id number] Age/Sex: 64 / FADM Date: 11/16/24 Loc: HO.MAMMO Attending Dr: Nakia Sparrow MD Ordering Physician: Nakia Sparrow MDResults: 3.12MPr obably Benign Finding - 12 month F/U Suggested Date of Service: 11/16/24Follow Up: 12 month diagnos tic follow up Procedure(s): MM tomosynthesis diagnostic BI Accession Number(s): [id number] cc: Nakia Sparrow MD EXAMINATION: MM DIAGNOSTIC [...] by: Santa Brothers DO 11/16/2024 01:21 PM [facility] Dictated By: Santa Brothers DO Signed By: <Electronically signed by Santa Brothers DO in OV> 11/16/24 1321 DD/ 1230 TD/TT: 11/16/24 1310 Ironer Or Presser: us Nakia Sparrow MD IM BI PROCEDURES Final Result * ThinPrep Imaging Pap and HPV mRNA E6/E7 (07/06/2024 9:06 AM EDT) HPV nRNA E6/E7 Not Detected Not Detected [facility] Comment:Methodology: Transcr iption-Mediated AmplificationThis assay detects E6/E7 viral messenger RNA (mRNA) from 14high-risk HPV types (16,18,31,33,35,39,45,51,52,56,58,59,66,68).Cervical sources are required for HPV testing.If a vaginal source from a patient who has had atotal hysterectomy with removal of cervix wassubmitted, please contact the testing laboratoryfor alternative testing options.For additional information, please refer tohttp://education.App Press/faq/NET294u5(This link if provided for information/educational purposes only.)THIS TEST WAS PERFORMED AT:[employer] [address] [phone] MONIQUE MD SOURCE: SEE NOTE [facility] Comment:Vagina Report Status: [facility] Clinical Information: SEE NOTE [facility] Comment:None given LMP: SEE NOTE [facility] Comment:NONE GIVEN Prev. PAP: SEE NOTE [facility] Comment:NONE GIVEN Prev. BX: SEE NOTE [facility] Comment:NONE GIVEN Statement Of Adequacy: SEE NOTE [facility] Comment:SATISFACTORY FOR LORI LUATION General Categorization: [facility] Interpretation/Result: SEE NOTE [facility] Comment:Cytology Results: Ne gative for intraepitheliallesion or malignancy. Cytology Comment SEE NOTE [facility] Comment:This Pap test has be en evaluated with computerassisted technology. Sheriff Officer: SEE NOTE [facility] Comment:GSG, CT(ASCP)CT scre ening location: [place] [address] Review Sheriff Officer: SEE NOTE [facility] Comment:CMG, CT(ASCP)CT scre ening location: [place] [address] Pathologist [facility] PAP Infection [facility] See Note SEE [facility] Comment:EXPLANATORY NOTE:The Pap is a screening test for cervical cancer. It isnot a diagnostic test and is subject to false negativeand false positive results. It is most reliable when asatisfactory sample, regularly obtained, is submittedwith relevant clinical findings and history, and whenthe Pap result is evaluated along with historic andcurrent clinical information. 07/06/2024 9:06 AM EDT 07/06/2024 6:11 PM EDT Narrative [facility] - 07/12/2024 10:48 AM EDT SEE SCANNED RESULTS IN EMRVAGINA Angie Mckeon CNM LAB PATHOLOGY ORDERABLES Final Result Performing Organization Address [facility] Co de Phone Number [facility] [address] [place] [address] [phone] * Albumin, Random Urine W/Creatinine (06/16/2023 10:41 AM EDT) Creatinine, Urine 46.30 mg/dL [facility] Microalbumin Urine <5.0 mg/L [facility] Microalbum Creatinine Ratio Ur TNP <30 ug/mg cr [facility] Comment:Unable to calculate albumin/creatinine ratio due to lowmicroalbumin or creatinine result. 06/16/2023 10:4 1 AM EDT 06/16/2023 2:32 PM EDT us Nakia Sparrow MD LAB URINE ORDERABLES Final Resul t Performing Organization Address [facility] Co de Phone Number [facility] [address] [place] [address] [phone] * Hm Colonoscopy (04/11/2018) Colonoscopy Normal Normal Historical Provider HEALTH MAINTENANCE Final Result from Last 3 Months or Most Recently Relevant to Health Maintenance Insurance # 1 [place] [address] [facility] C3 Care Teams Lithoduplicator Operator Relationship Specialty Start Date End Date Nakia Sparrow MD [address] [place] [address] PCP - General Family Medicine 12/19/16 Jolanta Machado PharmD [address] [place] [address] Pharmacist Internal Medicine 02/16/25
--- OUTSIDE RECORDS SUMMARY | 2025-07-04 20:45 | XMS_ITS | Encounter Summary ---
Author Organization [employer] Address [address] [place] [address] [address]t [place] [address] Care Team Providers Care Kiss Machine Operator Name Role Phone Nakia Sparrow MD Primary Care Provider [phone] Irasema Bowers RN Unavailable Jolanta Machado PharmD Unavailable [phone] Reason for Visit * Reason Comments Med Change Request Encounter Details Date Type Department Care Team ([facility] Contact Info) Description 12/03/2022 Refill [facility] [address] [place] [address] Nakia Sparrow MD [address] [place] [address] Irritable bowel syndrome with constipation Social History [...] Upcoming Encounters Date Type Department Care Team ([facility] Contact Info) Description 07/18/2025 9:00 AM EST Medication Management [facility] [address] [place] [address] Jolanta Machado, PharmD [address] [place] [address] 07/19/2025 11:15 AM EST Procedure Visit [facility] [address] [place], [place] [phone] Angie Mckeon, LALY [address] [place], [place] [phone] documented as of this encounter Visit Diagnoses Diagnosis Irritable bowel syndrome with constipation Irritable bowel syndrome documented in this encounter Care Teams Kiss Machine Operator Relationship Specialty Start Date End Date Nakia Sparrow MD [address] [place] [address] [phone] PCP - General Family Medicine 12/19/16 Irasema Bowers RN [address] [place] [address] [phone] Registered Nurse Family Medicine 02/05/24 04/12/25 Jolanta Machado, Danilo [address] [place] [address] [phone] Pharmacist Internal Medicine 02/16/25 documented as of this encounter
--- OUTSIDE RECORDS SUMMARY | 2025-07-04 20:45 | XMS_ITS | Clinical Summary ---
Author Organization [employer] [facility] ity Address [address] [place] [address] Care Team Providers Care Census Taker Name Role Phone Unavailable Primary Care Provider [...]
--- OUTSIDE RECORDS SUMMARY | 2025-07-04 20:45 | XMS_ITS | Encounter Summary ---
Author Organization [employer] Address [address] [facility] 7t [place] [address] Care Team Providers Care Fish Grader Name Role Phone Nakia Sparrow MD Primary Care Provider [phone] Irasema Bowers RN Unavailable Jolanta Machado PharmD Unavailable [phone] Reason for Visit * Reason Comments Med Refill Encounter Details Date Type Department Care Team ([facility] Contact Info) Description 03/31/2025 Refill [facility] [address] [place], [place] [phone] Nakia Sparrow MD [address] [place] [address] Social History Tobacco Use Types Packs/Day Years [...] the past 12 months, has t he [employer], gas, oil or water company threatened to [...] Description 07/18/2025 9:00 AM EST Medication Management [facility] [address] [place] [address] Jolanta Machado, PharmD [address] [place] [address] 07/19/2025 11:15 AM EST Procedure Visit [facility] [address] [place] [address] Angie Mckeon CNM [address] [place] [address] documented as of this encounter Visit Diagnoses Not on filedocumented in this encounter Additional Health Concerns Assessment Noted Time PHQ-9 Depression Total Score: 1 06/03/20 24 9:18 AM EDT documented as of this encounter Care Teams Fish Grader Relationship Specialty Start Date End Date Nakia Sparrow MD [address] [place] [phone] PCP - General Family Medicine 12/19/16 Irasema Bowers, CARLTON [address] [place] [phone] Registered Nurse Family Medicine 02/05/24 04/12/25 Jolanta Machado PharmD [address] [place] [phone] Pharmacist Internal Medicine 02/16/25 documented as of this encounter
== END 2025-07-04 09:18 | disposition home or self-care (01) ==
LOC: HO.LNP 09:17
PROVIDERS: PCP Internal Medicine; Visit Provider Nurse Practitioner Family
DX: K21.9 Gastro-esophageal reflux disease without esophagitis (principal); K59.00 Constipation, unspecified; R68.81 Early satiety
CPT/HCPCS: 83013; 99211

== ENCOUNTER 2025-07-04 09:17 | Outpatient (AMB) | payer MEDICAID, SELFPAY ==
--- NOTE | 2025-07-04 10:05 | AM.OFFVISNUR ---
Vital Signs 07/04/25 10:06 Height 5 ft 2 in BP 112/74 Blood Pressure Location Lt brachial Position Sitting Pulse 76 Intake Visit Reasons: h pylori Materials Analyst Required: No Accompanied by: Self / Same As Patient Allergies Penicillins Allergy (Severe, Verified 07/04/25 10:05) Anaphylaxis Nursing Note Patient presents for collection of?H Pylori?breath test. Patient has been fasting for 1 hour (nothing to eat, drink, no chewing gum or smoking) has not taken any antacid medication for at least 2 weeks and has no allergies to artificial sweeteners.?? <del>?</del> <del>?</del> <del>?</del> <del>?</del> <del>?</del> <del>?</del> <del>?</del> <del>?</del> <del>?</del> <del>?</del> <del>?</del> <del>?</del> <del>?</del> <del>?</del> <del>?</del> <del>?</del> <del>?</del> <del>?</del> <del>?</del> <del>?</del> <del>?</del> <del>?</del> <del>?</del> <del>?</del> <del>?</del> <del>?</del> <del>?</del> <del>?</del> <del>?</del> <del>?</del> <del>?</del> <del>?</del> <del>?</del> <del>?</del> <del>?</del> <del>?</del> <del>?</del> <del>?</del> <del>?</del> <del>?</del> <del>?</del> <del>?</del> <del>?</del> <del>?</del> <del>?</del> <del>?</del> <del>?</del> <del>?</del> <del>?</del> <del>?</del> <del>?</del> <del>?</del> <del>?</del> <del>?</del> <del>?</del> <del>?</del> <del>?</del> <del>?</del> <del>?</del> <del>?</del> <del>?</del> <del>?</del> <del>?</del> <del>?</del> <del>?</del> <del>?</del> <del>?</del> <del>?</del> <del>?</del> <del>?</del> <del>?</del> <del>?</del> <del>?</del> <del>?</del> <del>?</del> <del>??</del> Assessment & Plan Assessment & Plan (1) Chronic GERD: Code(s): K21.9 - Gastro-esophageal reflux disease without esophagitis Category: Medical Plan Patient presents for collection of?H Pylori?breath test. Patient has been fasting for 1 hour (nothing to eat, drink, no chewing gum or smoking) has not taken any antacid medication for at least 2 weeks and has no allergies to artificial sweeteners.???This test checks for an overgrowth of bacteria in your stomach. We all have bacteria but some may have more than others. It is treatable. if the test comes back negative there is nothing else to do. If the test result is positive we will treat you with 2 antibiotics and a medication to decrease the acid in your stomach (PPI) for 2 weeks. Two weeks after you have completed the treatment we will retest you to make sure the overgrowth has resolved. Patient Instructions: Process for specimen collection and reason for testing was explained to the patient. Specimen collection. Patient instructed to take a deep breath and then exhale into the blue bag, filling it up as much as possible. Patient instructed to drink a mixture of water and the artificial sweetener with a straw. A 15 minute wait period was observed. Patient instructed to take a deep breath and then exhale into the pink bag, filling it up as much as possible.?? Coding Level of Care Code Established Pt Est Pt Level 1 (74762) Patient Type Established Diagnoses Chronic GERD K21.9
[2025-07-04 10:06] VITALS: BP 112/74; PULSE 76
== END 2025-07-04 10:22 | disposition home or self-care (01) ==
LOC: HO.HGI 09:17
PROVIDERS: PCP Internal Medicine; Visit Provider Nurse Practitioner Family
DX: K21.9 Gastro-esophageal reflux disease without esophagitis (principal)

== ENCOUNTER 2025-08-02 07:30 | Outpatient (REF) | payer MEDICAID, SELFPAY ==
--- NOTE | ~2025-08-02 | FL_ITS ---
EXAMINATION: XR UPPER GI SERIES WITH SMALL BOWEL CLINICAL INFORMATION: Early satiety COMPARISON: None available. TECHNIQUE: Upper GI series: Patient ingested thick and thin barium with effervescent granules. Small bowel series: Following a industrial accountant image of the abdomen, contrast was administered orally, and interval abdominal radiograph were performed to assess for contrast progression through the small bowel. Following contrast transit through the small bowel and into the colon, the patient was placed on the fluoroscopy table, and multiple spot images were obtained. FINDINGS: Upper GI series: Esophagus demonstrates normal distention and motility. No evidence of stricture, mass or mucosal lesion. Stomach demonstrates normal distention. No mass or mucosal lesions are seen. There is normal passage of the barium through the stomach into the proximal small bowel. No significant hiatal hernia. No reflux is seen during the course of the procedure. Small bowel study: There is normal transit time of contrast material through the small bowel to the cecum.. Small bowel loops are of normal caliber. The jejunal and ileal fold patterns appear unremarkable, without evidence of abnormal thickening. No fixed regions of luminal narrowing are seen to suggest stricturing. The terminal ileum demonstrates a normal appearance. FLUOROSCOPY TIME: 55 seconds DOSE AREA PRODUCT: 129 uGy-m2 (microgray-meter squared) FL/FL upper GI w air w Ba Swallow IMPRESSION: 1. Upper GI series: No significant abnormality seen. 2. Small bowel series: No significant abnormality seen. Electronically signed by: Allan Hernandez MD 08/02/2025 02:20 PM [facility]
== END 2025-08-02 07:31 | disposition home or self-care (01) ==
LOC: HO.XRAY 07:30
PROVIDERS: PCP Internal Medicine; Visit Provider Nurse Practitioner Family
DX: K21.9 Gastro-esophageal reflux disease without esophagitis (principal); R68.81 Early satiety
CPT/HCPCS: 74246

== ENCOUNTER → 2025-08-02 07:31 | Outpatient (BNV) | payer MEDICAID, SELFPAY | PROVIDERS: PCP Internal Medicine; Visit Provider Radiology Diagnostic Ultrasound | DX: R68.81 Early satiety (principal); K21.9 Gastro-esophageal reflux disease without esophagitis | CPT/HCPCS: 74246; 74248 ==